=== PATIENT | female | born 1950 | race Caucasian/White ===

== ENCOUNTER → 2016-10-04 | Day surgery (SDC) | payer OTHER, MEDICARE ==
--- NOTE | 2016-09-20 10:59 | DIAGNOSTIC IMAGING REPORT ---
TWO VIEW CHEST CLINICAL HISTORY: Preoperative examination. FINDINGS: PA and lateral chest radiographs are obtained. No prior studies are available for comparison at the time of dictation. The examination is degraded by large body habitus. The cardiomediastinal silhouette is unremarkable. There is linear atelectasis at the left lung base. The lungs and pleural spaces are otherwise clear. There is no pneumothorax. The skeletal structures are osteopenic. Degenerative change and mild scoliosis are noted in the thoracic spine. IMPRESSION: No active disease in the chest. Electronically signed by: Marcos Avendano M.D. 09/20/2016 10:57 AM Dictated Date/Time: 09/20/2016 10:56 AM
[2016-09-20 11:30] LABS: HEMATOCRIT 40.5 % (37-47); MEAN CORPUSCULAR HEMOGLOBIN 29.5 pg (25-34); MEAN CORPUSCULAR HGB CONC 34.3 g/dl (32-36); MEAN PLATELET VOLUME 10.5 fL (7.4-10.4); PLATELET COUNT 351 K/uL (130-400); RED BLOOD COUNT 4.71 M/uL (4.2-5.4); WHITE BLOOD COUNT 10.94 K/uL (4.8-10.8)
[2016-09-20 11:39] LABS: PARTIAL THROMBOPLASTIN RATIO 1.1; PROTHROMBIN TIME (PATIENT) 10.7 SECONDS (9.0-12.0)
[2016-09-27 08:53] VITALS: Ht 154.9 cm; Wt 91.8 kg
[~2016-10-04] VITALS: Ht 154.9 cm; Wt 91.8 kg
[~2016-10-04] MED LIST: ASPCH81X PO; ATROPINE SULFATE 0.1 MG/ML 5ML SYR IV PRN; BUPIVACAINE 0.5 % 5 MG/1 ML MPF 30ML VIAL ONE; CLINDAMYCIN 600 MG/54 ML D5W IV SCH; CLINDAMYCIN PHOS 150 MG/ML 2 ML VIAL IV SCH; CLR10 PO; CRAN1CAP15 PO; DEXAMETHASONE SOD INJ 4 MG/ML VIAL ONE; EpHEDrine SULFATE INJ 50 MG/ML AMP IV PRN; FENTANYL CITRATE INJ 50 MCG/1 ML 2 ML VIAL IV PRN; FENTANYL CITRATE INJ 50 MCG/1 ML 2 ML VIAL ONE; HYDROCODONE/ACETAMOPHEN 5/325MG TAB PO PRN; LACTATED RINGER'S 1000ML 1,000 ML IV SCH; LEVO50TA6 PO; LIDOCAINE HCL 1% 20 ML VIAL ONE; LIDOCAINE HCL 2% 2 ML VIAL (20MG/ML) ONE; LISI-788 PO; MELO7.5T7 PO; METOCLOPRAMIDE HCL INJ 5 MG/ML 2 ML VIAL IV PRN; MIDAZOLAM HCL 1 MG/ML 2ML VIAL ONE; OMEG10007 PO; ONDANSETRON INJ 2 MG/ML 2 ML VIAL IV PRN; ONDANSETRON INJ 2 MG/ML 2 ML VIAL ONE; OXYCODONE/ACETAMINOPHEN 5-325 TAB PO PRN; PRLSR20 PO; PROPOFOL IV EMULSION 10 MG/ML 20 ML VIAL IV ONE; SERT-234 PO; SODIUM CHLORIDE 0.9% 1000ML 1,000 ML IV SCH
--- NOTE | 2016-10-04 08:18 | History & Physical Bridge - [place] ---
H&P Re-Evaluation Bridge Note: I have examined the patient, reviewed the History & Physical and in the interval since the performance of the History & Physical I have noted the following changes of clinical significance: No changes noted
--- NOTE | 2016-10-04 10:42 | Discharge Instructions-SurgCtr ---
Discharge Instructions Visit Reason for Visit: Hammertoe,Pain, Left Foot;Pre-Op Discharge Goals Goal(s): Decrease discomfort, Improve function Medications Stopped Medications Name(s): Meloxicam, Fish Oil and ASA last dose September 23 Activity Recommendations Activity Limitations: as noted below (non weightbearing left foot) Lifting Limitations: no more than 5 pounds Exercise/Sports Limitations: none May Resume Sexual Activity: after follow-up appointment Shower/Bathe: keep incision dry Driving or Machine Use: not until pin is removed Weightbearing Status: Left non-weightbearing Anesthesia . Post Anesthesia Instructions: If you have had General Anesthesia or IV Sedation: * Do not drive today. * Resume driving when surgeon permits. * Do not make important decisions or sign legal documents today. * Call surgeon for: 1. Temperature elevations greater than 101 degrees F. 2. Uncontrollable pain. 3. Excessive bleeding. 4. Persistent nausea and vomiting. 5. Medication intolerance (nausea, vomiting or rash). * For nausea and vomiting use only clear liquids such as: tea, soda, bouillon until nausea subsides, then gradually increase diet as tolerated. * If you have any concerns or questions, call your surgeon's office. If physician is unavailable and it is an emergency, call 911 or go to the nearest emergency room. . Diet Recommendations Home Diet: no limitations Procedures Procedures Performed: Left Foot Second Digit Surgical Correction Of Hammertoe Deformity, Second Left Metatarsal Shortening Osteotomy Pending Studies Studies pending at discharge: no Medical Emergencies . Who to Call and When: Medical Emergencies: If at any time you feel your situation is an emergency, please call 911 immediately. . Non-Emergent Contact Non-Emergency issues call your: Primary Care Provider Call Non-Emergent contact if: temperature is above 100.5 . . "Provider Documentation" section prepared by Lisa Wilburn.
--- NOTE | 2016-10-04 10:45 | [facility] Post Operative Brief Note ---
Immediate Operative Summary Operative Date Oct 04, 2016. Pre-Operative Diagnosis Left Foot 2nd Digit Hammertoe, Pain Post-Operative Diagnosis Same Procedure(s) Performed Left Foot Second Digit Surgical Correction Of Hammertoe Deformity, Second Left Metatarsal Shortening Osteotomy Surgeon Dr. Mcdaniels Knitting Machine Fixer Surgeon(s) None Estimated Blood Loss 1 ml Findings bone left foot Specimens A.) Left Foot Bone Drains none Anesthesia mac with local Complication(s) None Disposition Recovery Room / PACU
[2016-10-04 10:47] VITALS: TEMP 36.6
[2016-10-04 11:13] VITALS: BP 111/68; PULSE 77; O2SAT 97
--- NOTE | 2016-10-04 11:17 | Anesthesia Progress Nt - [facility] ---
Anesthesia Post Op Note Date & Time Oct 04, 2016 at 11:17 Vital Signs Pain Intensity: 0 Vital Signs Past 12 Hours Date Time Temp Pulse Resp B/P Pulse Ox O2 Delivery O2 Flow Rate FiO2 10/04/16 11:13 77 16 111/68 97 Room Air 10/04/16 10:47 36.6 71 16 116/64 94 Room Air 10/04/16 07:45 36.7 83 16 136/79 95 Room Air Notes Mental Status: alert / awake / arousable, participated in evaluation Pt Amnestic to Procedure: Yes Nausea / Vomiting: adequately controlled Pain: adequately controlled Airway Patency, RR, SpO2: stable & adequate BP & HR: stable & adequate Hydration State: stable & adequate Anesthetic Complications: no major complications apparent
--- NOTE | 2016-10-04 15:18 | DIAGNOSTIC IMAGING REPORT ---
INTRAOPERATIVE RADIOGRAPHS CLINICAL HISTORY: Surgical correction of the second toe. Fluoroscopy time: 10 seconds. FINDINGS: 4 spot fluoroscopic views of the left forefoot are presented. A cortical lag screw is present in the second metatarsal head. The final 2 images show a pin placed in the second toe transfixing the phalanges, and with the tip located medial to the head of the second metatarsal. IMPRESSION: Intraoperative images showing pin placement in the 2nd toe as above. See operative report for detailed findings. Electronically signed by: Marcos Avendano M.D. 10/04/2016 2:55 PM Dictated Date/Time: 10/04/2016 2:53 PM
--- NOTE | 2016-10-07 07:06 | OPERATIVE REPORT ---
DATE OF OPERATION: 10/04/2016 SURGEON: Lisa Wilburn DPM. PREOPERATIVE DIAGNOSIS: Painful left foot second digit hammertoe deformity and corresponding metatarsal pain. POSTOPERATIVE DIAGNOSIS: Same. PROCEDURES: Left second hammertoe proximal interphalangeal joint fusion, arthrodesis and left second metatarsal shortening osteotomy. BLOOD LOSS: 1 mL. HEMOSTASIS: Pneumatic ankle tourniquet at 250 mmHg. ANESTHESIA: Local IV sedation. DESCRIPTION OF THE PROCEDURE: The patient was brought in the operating room and placed in the supine position. The left lower extremity was prepped and draped in the usual sterile manner. A 1:1 mixture of 1% lidocaine plain and 0.5% Marcaine was utilized to anesthetize the left foot and the second metatarsophalangeal joint area and second metatarsal area. After this, anesthesia was induced. A timeout was taken and the procedure began. A dorsal linear incision was made over the left proximal interphalangeal joint, about 2-3 cm proximal to the second metatarsal head. Dissection was carried through the skin and subcutaneous tissue with attention first being directed to the second metatarsal. The second metatarsal head was dissected free of the tissue attachments with care to leave the plantar and collateral ligaments in place. At this point, a shortening osteotomy was performed and the portion of the head was directed to shorten the metatarsal and the angle and base of the metatarsal heads. A K-wire was applied across the osteotomy. Position was checked with intraoperative fluoroscopy and found to be appropriate with appropriate shortening of the joint and also the alignment of the joint noted with the shortening. The joint was noted to have a little bit of misalignment to it; however, MRI stated that there were no plantar plate tears. This was obtained prior to the surgery. The countersink was used over the area and drilled followed by the depth gauge and a 2.0 x 14 mm screw was measured out and applied across the K-wire. Position was checked with intraoperative fluoroscopy and found to be appropriate. At this point, the K-wire was removed. The fixation was stable and intact. A portion of the dorsal distal aspect overlying margin of the bone was removed and resected and the area was flushed with copious amounts of normal saline. Next, attention was directed to the proximal interphalangeal joint. The dorsal linear incision was made of the skin and carried through that. The long extensor tendon was transected in line with the joint and dissected proximally and distally to expose the proximal phalanx head and the middle phalanx base. The proximal phalanx head was resected from all soft tissue attachments. The head was resected utilizing the sagittal saw and passed off the table and sent to pathology for permanent specimen. The base of the middle phalanx cartilage was removed utilizing the óscar. Again, the area was flushed with copious amounts of normal saline. Next, the K-wire was driven distally and then proximally across the joint to just about to the second metatarsal head. Position checked with intraoperative fluoroscopy and found to be appropriate. The K-wire will stay in place for 4 weeks with percutaneous fixation. The patient will be nonweightbearing on the foot for this time. The K-wire was then cut to remain in place, the long extensor tendon was reattached utilizing 3-0 Vicryl. Subcutaneous tissues were closed over the metatarsal osteotomy and the hammertoe correction with 3-0 Vicryl. The skin was closed utilizing 3-0 nylon in a combination of simple and horizontal mattress sutures. At this point, compressive and corrective dressings were applied to the left foot. The tourniquet was deflated and the patient had good hemodynamic response to the left foot. She was taken to recovery room with all vital signs stable and intact. She will follow up in the office in 1 week. She was made aware of all risks and benefits of the procedure and did sign consent. She had tried injections and different types of pads and wider shoes which did not help improve her pain and that is why the MRI is obtained to check the plantar plate tear which is not present and that is why the hammertoe which is painful and the metatarsal which is painful were corrected for the patient. Again, she will follow up with me in the office in 1 week. I attest to the content of the Intraoperative Record and any orders documented therein. Any exceptions are noted below. IRAM
== END | disposition home or self-care (01) ==
LOC: X.SURG 07:31
PROVIDERS: ATTEND Podiatrist
DX: M20.42 Other hammer toe(s) (acquired), left foot (principal); M79.675 Pain in left toe(s); Z96.659 Presence of unspecified artificial knee joint; E03.9 Hypothyroidism, unspecified; I10 Essential (primary) hypertension; Z87.891 Personal history of nicotine dependence; E66.8 Other obesity; Z68.32 Body mass index [BMI] 32.0-32.9, adult; Z88.0 Allergy status to penicillin; K21.9 Gastro-esophageal reflux disease without esophagitis

== ENCOUNTER → 2017-02-05 | Outpatient (CLI) | payer OTHER, MEDICARE ==
[~2017-02-05] MED LIST changes: -ATROPINE SULFATE 0.1 MG/ML 5ML SYR IV PRN; -BUPIVACAINE 0.5 % 5 MG/1 ML MPF 30ML VIAL ONE; -CLINDAMYCIN 600 MG/54 ML D5W IV SCH; -CLINDAMYCIN PHOS 150 MG/ML 2 ML VIAL IV SCH; -DEXAMETHASONE SOD INJ 4 MG/ML VIAL ONE; -EpHEDrine SULFATE INJ 50 MG/ML AMP IV PRN; -FENTANYL CITRATE INJ 50 MCG/1 ML 2 ML VIAL IV PRN; -FENTANYL CITRATE INJ 50 MCG/1 ML 2 ML VIAL ONE; -HYDROCODONE/ACETAMOPHEN 5/325MG TAB PO PRN; -LACTATED RINGER'S 1000ML 1,000 ML IV SCH; -LIDOCAINE HCL 1% 20 ML VIAL ONE; -LIDOCAINE HCL 2% 2 ML VIAL (20MG/ML) ONE; -METOCLOPRAMIDE HCL INJ 5 MG/ML 2 ML VIAL IV PRN; -MIDAZOLAM HCL 1 MG/ML 2ML VIAL ONE; -ONDANSETRON INJ 2 MG/ML 2 ML VIAL IV PRN; -ONDANSETRON INJ 2 MG/ML 2 ML VIAL ONE; -OXYCODONE/ACETAMINOPHEN 5-325 TAB PO PRN; -PROPOFOL IV EMULSION 10 MG/ML 20 ML VIAL IV ONE; -SODIUM CHLORIDE 0.9% 1000ML 1,000 ML IV SCH
--- NOTE | 2017-02-05 12:59 | MAMMOGRAPHY REPORT ---
BILATERAL DIGITAL SCREENING MAMMOGRAM WITH CAD: 02/05/2017 CLINICAL HISTORY: Routine screening. Patient has no complaints. TECHNIQUE: Current study was also evaluated with a Computer Aided Detection (CAD) system. Bilatera l CC and MLO views were obtained. COMPARISON: Comparison is made to exams dated: 02/02/2016 mammogram, 11/25/2014 mammogram, 09/30/2013 mammogram, 09/23/2012 mammogram, 09/13/2011 mammogram, and 09/12/2010 mammogram - [facility] [place]. BREAST COMPOSITION: The tissue of both breasts is almost entirely fatty. FINDINGS: No suspicious masses, calcifications, or areas of architectural distortion are noted in e ither breast. There has been no significant interval change compared to prior exams. There are stab le post surgical changes from bilateral reduction mammoplasty. Scattered bilateral benign-appearing calcifications are not significantly changed. IMPRESSION: ACR BI-RADS CATEGORY 2: BENIGN There is no mammographic evidence of malignancy. A 1 year screening mammogram is recommended. The p atient will receive written notification of the results. Approximately 10% of breast cancers are not detected with mammography. A negative mammographic repor t should not delay biopsy if a clinically suggestive mass is present. Lani Storey M.D. ah/:02/05/2017 09:42:22 Rn Labor And Delivery: Dianna JACKSON(Bobbi)(M), [facility] letter sent: Normal 1/2 BI-RADS Code: ACR BI-RADS Category 2: Benign
== END | disposition home or self-care (01) ==
LOC: C.MAMM 08:46
PROVIDERS: ATTEND Physician Assistant
DX: Z12.31 Encounter for screening mammogram for malignant neoplasm of breast (principal)

== ENCOUNTER 2018-01-14 06:04 | Observation (INO) | payer OTHER, MEDICARE ==
[2018-01-08 08:32] VITALS: BMI 33.0
[~2018-01-14] VITALS: Ht 154.9 cm; Wt 82.3 kg
[~2018-01-14 06:04] MED LIST changes: -CRAN1CAP15 PO; +CRANPOW PO; +ERGO500037 PO; +LACTATED RINGER'S 1000ML 1,000 ML IV SCH; +METO25TA3 PO; -OMEG10007 PO
[2018-01-14 06:32] VITALS: BP 124/76; PULSE 77; TEMP 36.6; O2SAT 96; BMI 33.0
[2018-01-14] MEDS ORDERED: FENTANYL CITRATE INJ 50 MCG/1 ML 2 ML VIAL ONE (07:52)
[2018-01-14] MEDS ORDERED: MIDAZOLAM HCL 1 MG/ML 2ML VIAL ONE (07:52)
[2018-01-14] MEDS ORDERED: PROPOFOL IV EMULSION 10 MG/ML 100 ML VIAL ONE (07:57)
[2018-01-14] MEDS ORDERED: ACETAMINOPHEN 325 MG TAB PO PRN (10:00)
--- NOTE | 2018-01-14 10:05 | [facility] Post Operative Brief Note ---
Immediate Operative Summary Operative Date January 14, 2018. Pre-Operative Diagnosis svt Post-Operative Diagnosis avnrt Procedure(s) Performed eps, 3d mapping of his bundle and C/s Os, slow pathway modification Surgeon reno charles Boiler Engineer Surgeon(s) none Estimated Blood Loss <5cc Findings See Below see official report Fluids (cc crystalloids) 600cc Specimens none Drains None Anesthesia Type MAC Complication(s) none Disposition Accompanied Pt To Recover: yes Disposition: PCU
--- NOTE | 2018-01-14 10:06 | Discharge Instructions ---
Discharge Instructions Date of Service January 14, 2018. Admission Reason for Admission: Svt W/Possible Ablation & 3D Maping Discharge Discharge Diagnosis / Problem: avnrt Discharge Goals Goal(s): Improve function Activity Recommendations Activity Limitations: as noted below (no heavy lifting or squatting for 1 week) Shower/Bathe: tomorrow Driving or Machine Use: resume 1 day after discharge . Instructions / Follow-Up Instructions / Follow-Up ACTIVITY RECOMMENDATIONS: It is common to feel weak and fatigue for a few days. * Do not drive or operate any motorized equipment for the next 1 day. * Limit stair usage (2 or 3 trips a day only) for the next 1 day. * Do not lift anything heavier than 10 pounds for the next 7 days. * Do not engage in vigorous exercise or any sports for the next 7 days. * You may shower the day after your procedure, but do not immerse the area for three days. Cleanse the site gently with soap and water. SPECIAL CARE INSTRUCTIONS: * You may replace the pressure dressing or band-aid the morning after the procedure. * After your procedure, it is normal to have a small bruise or small lump at the site. Examine your site daily for any change in the bruise or lump, redness, swelling, drainage or numbness. Notify your doctor if any change. BLEEDING: * If there is a small amount of bleeding at the site, lie down and apply firm pressure with a clean cloth for ten minutes. When the bleeding stops, lie quietly keeping the procedure limb straight for six hours. Notify your doctor as soon as possible. * If the bleeding does not stop after ten minutes or if there is a large amount of bleeding or spurting, call 911 immediately. Continue to lie down and hold firm pressure until help arrives. SKIN IRRITATION: * You may experience some redness and/or swelling in the area where radiation was administered. If any skin irritation occurs, please contact your family physician. FOLLOW UP VISIT: Keep any scheduled doctor appointments. Current Hospital Diet Patient's current hospital diet: AHA Diet (Heart Healthy) Discharge Diet Recommended Diet: AHA Diet (Heart Healthy) Procedures Procedures Performed: eps, 3d mapping of his bundle and C/s Os, slow pathway modification Pending Studies Studies pending at discharge: no Medical Emergencies . Who to Call and When: Medical Emergencies: If at any time you feel your situation is an emergency, please call 911 immediately. . Non-Emergent Contact Non-Emergency issues call your: [facility] . . "Provider Documentation" section prepared by Stella Meeks. .
--- NOTE | 2018-01-14 10:10 | Discharge Summary ---
Discharge Summary Date of Service January 14, 2018. Discharge Summary Admission Date: 01/14/2018 Discharge Date: January 15, 2018 Discharge Disposition: Home Principal Diagnosis: avnrt s/p slow pathway modification Secondary Diagnoses/Problems: htn, hypothyroidism, obesity, diverticulosis, anxiety, gerd snoring probable ZACARIAS Procedures: eps, 3d mapping of his bundle and C/S Os, slow pathway modification Medication Reconciliation Continued Medications: Aspirin (Aspirin Chewable) 81 Mg Chew 81 MG PO QAM WILL CHECK WITH SURGEON FOR INSTRUCTIONS Ergocalciferol (Vitamin D 32533 Unit) 50,000 Unit Cap 71335 UNIT PO MONTHLY, CAP SUNDAYS Levothyroxine Sodium (Levothyroxine Sodium) 50 Mcg Tab 1 TAB PO QAM for 90 Days, #90 TAB 3 Refills Lisinopril/Hctz (Zestoretic 20MG/25MG) Tab 1 TAB PO QAM PT WILL FOLLOW INSTRUCTIONS FROM SURGEON Loratadine (Claritin) 10 Mg Tab 10 MG PO QAM, TAB Meloxicam (Mobic) 7.5 Mg Tab 7.5 MG PO BID, TAB Omeprazole (Prilosec) 20 Mg Capcr 20 MG PO BID Sertraline (Zoloft) 100 Mg Tab 1.5 TAB PO QAM, TAB [Cranberry] () 1 TAB PO QAM Discontinued Medications: Metoprolol Succ (Toprol Xl) (Toprol-Xl) 25 Mg Tabcr 25 MG PO QAM, #30 TAB PT WILL FOLLOW INSTRUCTIONS FROM SURGEON Admission Information Physical Exam (per Admitting): aaox3, NAD Supple No JVD Nrl S1/S2, No murmur CTA b/l No w/r/r Soft NT/ND no edema b/l LE no focal deficits skin intact Hospital Course Pt admitted for elective EPS and possible ablation due to SVT. 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 She had a successful slow pathway modification. Monitored overnight. Her toprol was stopped. She was discharged home in stable state. Total time spent on discharge = > 30 minutes This includes examination of the patient, discharge planning, medication reconciliation, and communication with other providers. Discharge Instructions ACTIVITY RECOMMENDATIONS: It is common to feel weak and fatigue for a few days. * Do not drive or operate any motorized equipment for the next 1 day. * Limit stair usage (2 or 3 trips a day only) for the next 1 day. * Do not lift anything heavier than 10 pounds for the next 7 days. * Do not engage in vigorous exercise or any sports for the next 7 days. * You may shower the day after your procedure, but do not immerse the area for three days. Cleanse the site gently with soap and water. SPECIAL CARE INSTRUCTIONS: * You may replace the pressure dressing or band-aid the morning after the procedure. * After your procedure, it is normal to have a small bruise or small lump at the site. Examine your site daily for any change in the bruise or lump, redness, swelling, drainage or numbness. Notify your doctor if any change. BLEEDING: * If there is a small amount of bleeding at the site, lie down and apply firm pressure with a clean cloth for ten minutes. When the bleeding stops, lie quietly keeping the procedure limb straight for six hours. Notify your doctor as soon as possible. * If the bleeding does not stop after ten minutes or if there is a large amount of bleeding or spurting, call 911 immediately. Continue to lie down and hold firm pressure until help arrives. SKIN IRRITATION: * You may experience some redness and/or swelling in the area where radiation was administered. If any skin irritation occurs, please contact your family physician. FOLLOW UP VISIT: Keep any scheduled doctor appointments.
--- NOTE | 2018-01-14 10:25 | Anesthesiology Progress Note ---
Anesthesia Post Op Note Date & Time January 14, 2018 at 10:25 Vital Signs Pain Intensity: 0 Vital Signs Past 12 Hours Date Time Temp Pulse Resp B/P (MAP) Pulse Ox O2 Delivery O2 Flow Rate FiO2 01/14/18 10:23 82 14 133/64 (87) 95 Room Air 01/14/18 10:13 86 12 122/64 (83) 92 Room Air 01/14/18 10:03 75 12 103/69 (80) 97 Mask 10 01/14/18 06:32 36.6 77 18 124/76 (92) 96 Room Air Notes Mental Status: alert / awake / arousable, participated in evaluation Pt Amnestic to Procedure: Yes Nausea / Vomiting: adequately controlled Pain: adequately controlled Airway Patency, RR, SpO2: stable & adequate BP & HR: stable & adequate Hydration State: stable & adequate Anesthetic Complications: no major complications apparent The patient did well. She is awake and her vitals are stable.
[2018-01-14 10:36] VITALS: BP 144/80; PULSE 70; TEMP 36.7; O2SAT 94; Ht 154.9 cm; Wt 82.3 kg
[2018-01-14 12:15] VITALS: BP 123/88; PULSE 71; O2SAT 94
--- NOTE | 2018-01-14 13:17 | OPERATIVE REPORT ---
DATE OF OPERATION: 01/14/2018 PREOPERATIVE DIAGNOSIS: Paroxysmal supraventricular tachycardia. POSTOPERATIVE DIAGNOSIS: Atrioventricular perla reentrant tachycardia, typical. PROCEDURE: Electrophysiology study, 3D mapping of the His bundle region and coronary sinus, and a radiofrequency slow pathway modification. SURGEON: Stella Meeks DO. MECHANICAL ENGINEERING TECHNOLOGIST: None. ANESTHESIA: Monitored anesthetic care administered via anesthesiology. Please defer to their notes for complete details. INTRAVENOUS FLUIDS: 600 mL. ESTIMATED BLOOD LOSS: Less than 5 mL. COMPLICATIONS: None. CONDITION: Stable. URINE OUTPUT: None. SPECIMENS: None. FINDINGS: See below. DRAINS: None. INDICATIONS: This is a 67-year-old female with a past medical history for SVT. She was undergoing a stress test when she went into SVT in our office and then wore radiation monitor where she continued to have recurrent SVT, so she was recommended electrophysiology study with possible radiofrequency ablation. Her other past medical history is hypertension, hypothyroidism, obesity, diverticulosis, anxiety, GERD, and snoring. Signed consent was obtained prior to the patient going to electrophysiology lab. The patient was explained risks, benefits, alternatives to the procedure which include but are not limited to sudden cardiac , cardiac injury, vascular accident, myocardial infarction, injury to the blood vessels, chamber of the heart, or the havasupai electrical system where she would need a permanent pacemaker, bleeding, infection. The patient understood these risks and agreed to go ahead with the procedure as planned. Informed consent was obtained. DESCRIPTION OF THE PROCEDURE: The patient was brought into electrophysiology lab in a fasting state. She was connected to continuous cardiac monitoring. A timeout was performed to ensure patient identity and procedure correctly. The patient was prepped and draped over the bilateral groins in normal surgical standard fashion. Monitored conscious sedation was given throughout the procedure via anesthesiology, please defer to their notes for complete details. Turner precautions were maintained throughout the procedure. Using the modified Seldinger technique, 10 mL of 1% lidocaine was given in the bilateral groins for local sedation by local meat carrier, and then using the modified Seldinger technique, venous access was obtained in the following manner: 1. The left femoral vein had a 7-Zambian sheath followed by a hisser quadripolar catheter positioned over the His bundle region. 2. A 6-Zambian sheath followed by Zhang Decapolar catheter positioned out in the right ventricular apex. 3. A 7-Zambian sheath followed by a Decapolar Biosense coronary sinus DF curved catheter positioned out in the coronary sinus. 4. The right femoral groin initially had a 6-Zambian sheath followed by a right atrial Zhang quadripolar catheter positioned in the high right atrium. Ultimately that was switched out for an SR0 and the ablation catheter, which was a Biosense 4 mm DF curved ablation catheter. Once the catheters were all positioned, the electrophysiology study was performed. Of note, while I was getting access, the patient went into her SVT, heart rates in the 140s-150s. While I was positioning the catheter, she also went into the tachycardia. All the time, she would break on her own. Electrophysiology Studies Pre-ablation: 1. HI interval 168 msec, QRS 94 msec, QT 290 msec, sinus cycle length 688 msec, AH 106 msec, HV 64 msec. 2. With atrial burst pacing to try to find Wenckebach, she continued to go into the SVT. Atrial burst pacing at 400 or 380 msec, tachycardia cycle length was 398 msec. The VA time from right ventricular apex to the high right atrium was 18 msec. 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 3. I was able to give atrial extrastimuli and deduced that the fast pathway ERP was 600/380, but then, at 600/370, I got AVNRT again, so I was not able to do anymore further study from the atrium pre-ablation. Pre-ablation right ventricular ERP was 600/230 and 400/240. We then set up to do typical AVNRT slow pathway modification. I swapped out the 6-Zambian sheath through the right femoral vein for an SRO sheath followed then by the ablation DF curve 4 mm. We did 3D mapping of the His bundle region, which was pretty large as well as the 3D maps where the coronary sinus was. There was a little let between the coronary sinus os and the right atrium. We then positioned the catheter on the low right atrial septum and gave a series of radiofrequency aponte, most for about 20-30 seconds in duration at 30 W, 55 degrees temperature. One or two were at 60 seconds 1 minute in duration. We had a few aponte that had good junctional rhythm. After a series of aponte, we then set up to do a post electrophysiology ablation. I took the ablation catheter out, and I positioned the quadripolar Zhang catheter back in the high right atrium through the SRO sheath. Post ablation electrophysiology study findings are as follows: HI interval 208 msec, QRS 92 msec, QT 372 msec. Sinus cycle length 762 msec, AH 134 msec, HV 68 msec, AV Wenckebach was 480 msec. The fast pathway ERP was 700/420, and there was 1 echo. AV node ERP was 700/400 and 500/440. The atrial ERP was 700/280 and 500/250. Of note, there were some blocked apices. The right ventricular ERP was 600/260 and 400/230. I gave up to triple atrial extrastimuli without any inducible AVNRT. IMPRESSION: 1. 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 2. Dual atrioventricular perla pathway physiology. PLAN: Monitor patient overnight, 12-lead ECG. She is to continue her home medications, we will stop her metoprolol. She should follow up in my [facility] office in 1 month, and she is not to do any heavy lifting or squatting for 1 week. I attest to the content of the Intraoperative Record and any orders documented therein. Any exception s are noted below.
[2018-01-14 16:55] VITALS: BP 121/81; PULSE 77; TEMP 36.7; O2SAT 94
[2018-01-14 19:11] VITALS: BP 115/74; PULSE 74; TEMP 36.7; O2SAT 94
[2018-01-14] MEDS ORDERED: IV FLUIDS COMPLETED PRN (19:15)
[2018-01-14] MEDS: MELOXICAM 7.5 MG TAB PO SCH (19:58)
[2018-01-14] MEDS: PANTOprazole SOD 40 MG TAB PO SCH (19:58)
[2018-01-14 23:05] VITALS: BP 122/81; PULSE 69; TEMP 36.8; O2SAT 94
[2018-01-15 03:25] VITALS: BP 116/74; PULSE 71; TEMP 36.6; O2SAT 94
[2018-01-15] MEDS ORDERED: LEVOTHYROXINE 50 MCG TAB PO SCH (06:00)
[2018-01-15 07:06] VITALS: BP_SYST 122; BP_SYST 130; BP_DIAS 68; BP_DIAS 80; PULSE 104; PULSE 63; TEMP 36.7; O2SAT 94; O2SAT 98
--- NOTE | 2018-01-15 07:58 | Cardiology Follow-Up ---
Subjective Subjective Date of Service: January 15, 2018. Pt evaluation today including: conversation w/ patient, physical exam, lab review, review of studies Pain: none Review of Systems Constitutional: No weakness, No fatigue Respiratory: No shortness of breath, No dyspnea on exertion Cardiac: No chest pain, No edema, No palpitations Abdomen: No nausea, No diarrhea Neurologic: No weakness Endo: No fatigue Objective Vital Signs Last Vital Signs Documentation Date Time Temp Pulse Resp B/P (MAP) Pulse Ox O2 Delivery O2 Flow Rate FiO2 01/15/18 07:06 36.7 63 18 130/80 (97) 98 Room Air 01/14/18 10:03 10 Physical Exam: General Appearance: WD/WN, no apparent distress Eyes: bilateral eyes PERRL, bilateral eyes EOMI Neck: supple, no JVD Respiratory/Chest: lungs clear, normal breath sounds Cardiovascular: regular rate, rhythm, no murmur Extremities: non-tender Neurologic/Psychiatric: alert, oriented x 3 Skin: warm/dry (b/l groins soft and non tender, no hematoma), no rash Assessment and Plan Impression: 1. AVNRT s/p slow pathway modification 2. HTN 3. Hypothyroidism 4. Obesity 5. Diverticulosis 6. Anxiety 7. Gerd 8. Snoring probable ZACARIAS Plan: -Ok for discharge home today -continue home medications-stop metoprolol -No heavy lifting for 1 week -F/u with me in 1 month Discharge planning: home Medications: Medications Administered Medications (Trade) Dose Ordered Sig/Mango Route Start Time Stop Time Status Last Admin Dose Admin Lactated Ringer's 1,000 ml @ 15 mls/hr Q24H IV 01/14/18 06:00 01/15/18 05:59 DC 01/14/18 06:56 15 MLS/HR Levothyroxine Sodium (Synthroid Tab) 50 mcg DAILYBB PO 01/15/18 06:00 02/14/18 05:59 01/15/18 05:45 50 MCG Meloxicam (Mobic Tab) 7.5 mg BID PO 01/14/18 21:00 02/13/18 20:59 01/14/18 19:58 7.5 MG Pantoprazole Sodium (Protonix Tab) 40 mg BID PO 01/14/18 21:00 02/13/18 20:59 01/14/18 19:58 40 MG Lab Results: Telemetry SR ECG from yesterday not available for review Last 24 Hours Test 01/15/18 05:55
[2018-01-15] MEDS: MELOXICAM 7.5 MG TAB PO SCH (08:48)
[2018-01-15] MEDS: PANTOprazole SOD 40 MG TAB PO SCH (08:48)
[2018-01-15] MEDS ORDERED: ASPIRIN 81 MG ECTAB PO SCH (09:00)
[2018-01-15] MEDS ORDERED: LORATADINE 10 MG TAB PO SCH (09:00)
[2018-01-15] MEDS ORDERED: SERTRALINE HCL 100 MG TAB PO SCH (09:00)
[2018-01-15] MEDS ORDERED: LISINOPRIL/HCTZ 20/25MG TAB PO SCH (09:00)
[2018-01-15] MEDS ORDERED: CRANBERRY PO SCH (09:00)
[2018-01-15 09:56] VITALS: BP 130/80; PULSE 63; TEMP 36.7; O2SAT 98
== END 2018-01-15 09:55 | disposition home or self-care (01) ==
LOC: C.ACU 06:04 → ENRESERV 10:08 → C.2T 10:44
PROVIDERS: ADMIT Internal Medicine; ATTEND Internal Medicine
DX: I47.1 Supraventricular tachycardia (principal); I10 Essential (primary) hypertension; E03.9 Hypothyroidism, unspecified; E66.9 Obesity, unspecified; K57.30 Diverticulosis of large intestine without perforation or abscess without bleeding; F41.9 Anxiety disorder, unspecified; K21.9 Gastro-esophageal reflux disease without esophagitis; G47.33 Obstructive sleep apnea (adult) (pediatric); Z88.0 Allergy status to penicillin; Z79.82 Long term (current) use of aspirin; Z79.899 Other long term (current) drug therapy; F17.200 Nicotine dependence, unspecified, uncomplicated; Z96.651 Presence of right artificial knee joint

== ENCOUNTER 2019-09-17 13:12 | Inpatient (IN) ==
[2019-09-17] MEDS ORDERED: ASPIRIN CHEW 324 MG PO STA (14:12)
[2019-09-17] MEDS ORDERED: GI COCKTAIL ED USE PO ONE (14:13)
[2019-09-17 14:48] LABS: Basophils # (auto) 0.04 K/uL (0-0.2); Basophils % (auto) 0.4 %; Eosinophils # (auto) 0.14 K/uL (0-0.5); Eosinophils % (auto) 1.5 %; Hematocrit (blood only) 43.6 % (37-47); Hemoglobin 14.8 g/dL (12.0-16.0); Immature Granulocytes # (auto) 0.04 K/uL (0.00-0.02); Immature Granulocytes % (auto) 0.4 %; Lymphocytes # (auto) 2.49 K/uL (1.2-3.4); Lymphocytes % (auto) 25.8 %; Mean Corpuscular Hemoglobin 29.2 pg (25-34); Mean Corpuscular Hgb Conc 33.9 g/dL (32-36); Mean Platelet Volume 10.9 fL (7.4-10.4); Monocytes # (auto) 0.83 K/uL (0.11-0.59); Monocytes % (auto) 8.6 %; Neutrophils # (auto) 6.11 K/uL (1.4-6.5); Neutrophils % (auto) 63.3 %; Platelet Count 231 K/uL (130-400); RDW Coefficient of Variation 14.3 % (11.5-14.5); RDW Standard Deviation 44.2 fL (36.4-46.3); Red Blood Count 5.07 M/uL (4.2-5.4); White Blood Count 9.65 K/uL (4.8-10.8)
[2019-09-17 15:01] LABS: INR 3.2 (0.9-1.1); Partial Thromboplastin Ratio 1.4; Partial Thromboplastin Time 36.8 Seconds (21.0-31.0); Prothrombin Time 29.9 Seconds (9.0-12.0)
[2019-09-17 15:09] LABS: BUN Creatinine Ratio 20.5 (10-20); Bilirubin Direct 0.3 mg/dl (0-0.2); Calcium 8.9 mg/dl (8.5-10.1); Creatinine Clr Calc Pharmacy 73.4 ml/min; Est GFR (African American) 100.7; Est GFR (Non-African American) 86.9; Potassium 3.2 mmol/L (3.5-5.1)
[2019-09-17 15:16] LABS: Bilirubin,Total 0.9 mg/dl (0.2-1); Total Protein 7.4 gm/dl (6.4-8.2); Troponin I 0.143 ng/ml (0-0.045)
[2019-09-17] MEDS ORDERED: POTASSIUM CHLORIDE 10 MEQ TABCR PO STA (15:27)
--- NOTE | 2019-09-17 15:45 | History & Physical Report ---
Date of Service September 17, 2019 Assessment & Plan (1) RASHID (dyspnea on exertion): Dyspnea on Exertion Volume overload Likely acute CHF exacerbation Hypoxia CXR: Infiltrate combined with a small right effusion right lung base. Minimal infiltrate left base which may reflect a component of cardiac decompensation. Nonobstructive bowel pattern. Gained about 3 kg on review of old records Noted to be hypoxic while in ED Last EF: 63% Hold PO diuretics Will give IV Lasix 40mg today Update ECHO Daily weight, I/Os, fluid restriction Oxygen support PRN Monitor renal function/electrolytes Cardiology consulted Further diuretics based on volume status Elevated Troponin R/O CAD/NSTEMI Denies chest Pain Last Stress Test on 08/06/19: Non Ischemic Risk factors: H/O HTN, Former Tobacco use disorder Initial troponin:0.143 Trend serial cardiac enzymes, repeat EKG, fasting lipid panel in AM Start Aspirin Continue Metoprolol, lisinopril Oxygen PRN NPO after midnight Cardiology consult INR is therapeutic at 3.2 Hypokalemia Received on potassium supplements while in ED Check magnesium levels Replete electrolytes as needed Prolonged QTC: Avoid QTC prolonging meds as able Monitor QTC with daily EKG Epigastric Abdominal Pain/Heaviness Likely due to GERD Was prescribed PPI twice daily but has been taking only once a day --Gall Bladder USD: Diffuse gallbladder wall thickening most pronounced along the hepatic surface. There are no gallstones and a negative sonographic Shah sign. Therefore, this is likely due to the patient's diffuse edematous state or possibly underlying hepatic pathology rather than acute cholecystitis. Mildly distended common bile duct measuring up to 9 mm. --Normal Lipase --LFTs fairly wnl --Continue PPI BID --Advised to limit carbonated drinks --Consider CT abdomen if no improvement Anxiety disorder on Zoloft Hypothyroidism Continue levothyroxine Paroxysmal atrial fibrillation H/O SVT S/P AVNRT ablation in 2018 Currently in A. fib--rate controlled Continue metoprolol Monitor INR: 3.2 Hold Coumadin for now until ACS ruled out DVT Px: SCDs for now Code Status Full Code Disposition Expected discharge home when medically stable History of Present Illness Primary Care Provider: Rosa Everett PA-C Patient is a 69-year-old female with history of GERD, anxiety disorder, hypothyroidism, Chronic sinusitis, hypertension, paroxysmal atrial fibrillation, diverticulosis, former tobacco use disorder, H/O SVT S/P AVNRT ablation in 2018 and other problems presents with history of dyspnea on exertion since 2 to 3 weeks duration which has been gradually worsening since last 2 days. Reports palpitations intermittently. She feels her chest is congested and has been having dry cough since about 1 month duration. She also states having epigastric heaviness which is nonradiating since last 2 days associated with lot of burping. She admits to drinking 4 cans of Diet Coke on daily basis. She denies any aggravating factors. She is on omeprazole for GERD which temporarily helps. She received GI cocktail in ED which minimized her epigastric heaviness. Her appetite has been poor lately. She was recently diagnosed to have atrial fibrillation. Her last stress test is in July 2019 which is negative. Denies any history of chest pain, orthopnea, PND, dizziness, pedal edema, diaphoresis, fever, chills, headache, weakness, numbness, change in vision, nausea, vomiting, diarrhea, dysuria, hematuria, recent travel, sick contact, recent change in medications. Allergies Allergy/AdvReac Type Severity Reaction Status Date / Time Penicillins AdvReac Unknown YEAST Verified 09/17/19 14:36 INFECTION Home Medications Home Medications Medication Instructions Recorded Confirmed Type cetirizine [Zyrtec] 10 mg PO DAILY 09/17/19 09/17/19 History cranberry conc-ascorbic acid 1 cap PO DAILY 09/17/19 09/17/19 History levothyroxine 50 mcg PO DAILY 09/17/19 09/17/19 History lisinopril-hydrochlorothiazide 1 tab PO DAILY 09/17/19 09/17/19 History meloxicam [Mobic] 7.5 mg PO BID PRN 09/17/19 09/17/19 History metoprolol tartrate 25 mg PO BID 09/17/19 09/17/19 History omeprazole 20 mg PO DAILY 09/17/19 09/17/19 History sertraline [Zoloft] 100 mg PO DAILY 09/17/19 09/17/19 History warfarin [Jantoven] 5 mg PO 4XWK 09/17/19 09/17/19 History warfarin [Jantoven] 7.5 mg PO 3XWK 09/17/19 09/17/19 History Past Med/Surg History Medical History Afib AVNRT (AV perla re-entry tachycardia) Surgical History History of back surgery History of knee replacement Family History Mother COPD (chronic obstructive pulmonary disease) Sister Cancer Social History Preferred Language: Thai Communication Ability: Effective Junior Net Developer Required: No Beliefs That Will Affect Care: None Current Living Situation: Spouse Other Information That Helps Us Care for You: No Feels Safe at Home: Yes Safety Concerns: Feels Safe At This Time Smoking Status: Former smoker Do You Dip or Chew Tobacco: No ; Second Hand Exposure: No ; Tobacco Cessation Education Requested by Patient: No Hx Alcohol Use: No Hx Substance Use: No Review of Systems Review of Systems: All systems reviewed & are unremarkable except as noted in HPI & below Physical Exam Physical Exam: Physical Exam: Vitals signs as noted above General Appearance:Moderately built and nourished, no apparent distress Head: normocephalic, Atraumatic Eyes: normal inspection, EOMI Neck: supple, Trachea midline Respiratory/Chest: Normal breath sounds, B/L basal crackles, No accessory muscle use Cardiovascular: Irregularly irregular, No murmur Abdomen/GI:Soft, Epigastric tender, Bowel sounds present Extremities/Musculoskelatal:normal inspection, no edema Neurologic/Psych:AAOX3, grossly no focal neurological deficits Skin: normal color, warm Results & Data Vital Signs (Past 12 Hours) Vital Signs Temp Pulse Pulse Resp BP BP Pulse Ox 09/17/19 15:14 78 78 24 151/99 H 92 09/17/19 13:32 36.6 C 86 18 141/99 H 92 Laboratory Results Short CBC 09/17/19 Range/Units 14:34 WBC 9.65 (4.8-10.8) K/uL Hgb 14.8 (12.0-16.0) g/dL Hct 43.6 (37-47) % Plt Count 231 (130-400) K/uL BMP 09/17/19 14:34 Sodium 133 L Potassium 3.2 L Chloride 99 Carbon Dioxide 27 BUN 15 Creatinine 0.71 Glucose 108 H Calcium 8.9 Cardiac Enzymes 09/17/19 Range/Units 14:34 Troponin I 0.143 H* (0-0.045) ng/ml Liver Function 09/17/19 Range/Units 14:34 Total Bilirubin 0.9 (0.2-1) mg/dl Direct Bilirubin 0.3 H (0-0.2) mg/dl AST 22 (15-37) U/L ALT 18 (12-78) U/L Alkaline Phosphatase 87 (45-117) U/L Albumin 3.0 L (3.4-5.0) gm/dl Diagnostic Findings Chest/Abd X ray: 1. Infiltrate combined with a small right effusion right lung base. 2. Minimal infiltrate left base which may reflect a component of cardiac decompensation. 3. Nonobstructive bowel pattern. Gall Bladder USD: 1. Diffuse gallbladder wall thickening most pronounced along the hepatic surface. There are no gallstones and a negative sonographic Shah sign. Therefore, this is likely due to the patient's diffuse edematous state or possibly underlying hepatic pathology rather than acute cholecystitis. 2. Mildly distended common bile duct measuring up to 9 mm. ECG Additional Comments: EKG: Atrial fibrillation, left axis deviation, nonspecific ST-T wave changes, QTC 500
--- NOTE | 2019-09-17 16:03 | XRay Report ---
XR abdomen 2V w PA chest CLINICAL HISTORY: epigastric pain pain COMPARISON STUDY: No previous studies for comparison. FINDINGS: Moderate cardiomegaly. Infiltrate combined with small effusion right lung base. Prominent p ulmonary vasculature. Nonobstructive bowel pattern. Postoperative changes lumbosacral spine. IMPRESSION: 1. Infiltrate combined with a small right effusion right lung base. 2. Minimal infiltrate left base which may reflect a component of cardiac decompensation. 3. Nonobstructive bowel pattern. ACT 112: Negative or not required by law. The above report was generated using voice recognition software. It may contain grammatical, syntax or spelling errors. Electronically signed by: Guillermo Puentes M.D. 09/17/2019 4:02 PM
--- NOTE | 2019-09-17 17:05 | Ultrasound Report ---
ABDOMINAL ULTRASOUND, RIGHT UPPER QUADRANT HISTORY: Right upper quadrant pain.. COMPARISON: Chest 09/17/2019. FINDINGS: Pancreas: The pancreas demonstrates a normal echotexture. Liver: Unremarkable. Gallbladder: Diffuse gallbladder wall thickening most pronounced along the hepatic surface measuring up to 5 mm. No stones. The technologist reported a negative sonographic Shah sign. CBD: Measures between 2 and 9 mm. Right kidney: No hydronephrosis. IMPRESSION: 1. Diffuse gallbladder wall thickening most pronounced along the hepatic surface. There are no gallst ones and a negative sonographic Shah sign. Therefore, this is likely due to the patient's diffuse e dematous state or possibly underlying hepatic pathology rather than acute cholecystitis. 2. Mildly distended common bile duct measuring up to 9 mm. ACT 112: Negative or not required by law. Electronically signed by: Jose Coffey M.D. 09/17/2019 5:04 PM
[2019-09-17] MEDS ORDERED: ACETAMINOPHEN 325 MG TAB PO PRN (18:12)
[2019-09-17] MEDS ORDERED: FUROSEMIDE 40 MG/4 ML VIAL IV ONE (18:12)
[2019-09-17] MEDS ORDERED: POLYETHYLENE (MIRALAX) 17 GM PACK PO PRN (18:12)
[2019-09-17] MEDS ORDERED: NITROGLYCERIN SL 0.4 MG/TAB TAB SL PRN (18:12)
[2019-09-17] MEDS: METOPROLOL TARTRATE 25 MG TAB PO SCH (19:59)
[2019-09-17] MEDS: PANTOprazole 40 MG TAB PO SCH (19:59)
--- NOTE | 2019-09-17 20:01 | Emergency Department Note ---
Entered by Charlene Bullock acting as a scribe for History of Present Illness General Chief complaint: Shortness of Breath/Dyspnea Stated complaint: SOB,RECENT DX OF AFIB,GALLBLADDER PAIN/SWELLING Time Seen by Provider: 09/17/19 14:06 History of Present Illness Provider complaint: shortness of breath Onset (ago): day(s) 1 Pain Consistency: + other (worsening) Maximum Pain Intensity: 0 Quality: + other (shortness of breath) Relieved By: + none Associated symptoms: + denies other symptoms (nausea) The patient is a 69 year old female who presents to the ED with complaints of worsening shortness of breath that started 1 day ago. The patient states that she was recently diagnosed with atrial fibrillation by Dr. Travis and was put on Warfarin. The patient states that she has not missed any doses of her medications. The patient states that it feels like she is being suffocated and nothing is relieving her of these symptoms. The patient notes that she is also belching a lot more than usual. The patient denies nausea, abdominal surgeries and alcohol use. The patient notes that she has had 3 stress tests in the past, and her last one was in July 2019. Home Medications Home Medications Medication Instructions Recorded Confirmed Type cetirizine [Zyrtec] 10 mg PO DAILY 09/17/19 09/17/19 History cranberry conc-ascorbic acid 1 cap PO DAILY 09/17/19 09/17/19 History levothyroxine 50 mcg PO DAILY 09/17/19 09/17/19 History lisinopril-hydrochlorothiazide 1 tab PO DAILY 09/17/19 09/17/19 History meloxicam [Mobic] 7.5 mg PO BID PRN 09/17/19 09/17/19 History metoprolol tartrate 25 mg PO BID 09/17/19 09/17/19 History omeprazole 20 mg PO DAILY 09/17/19 09/17/19 History sertraline [Zoloft] 100 mg PO DAILY 09/17/19 09/17/19 History warfarin [Jantoven] 5 mg PO 4XWK 09/17/19 09/17/19 History warfarin [Jantoven] 7.5 mg PO 3XWK 09/17/19 09/17/19 History Allergies Allergy/AdvReac Type Severity Reaction Status Date / Time Penicillins AdvReac Unknown YEAST Verified 09/17/19 14:36 INFECTION Past Med/Surg History Medical History Afib AVNRT (AV perla re-entry tachycardia) Surgical History History of back surgery History of knee replacement Family History Mother COPD (chronic obstructive pulmonary disease) Sister Cancer Social History Preferred Language: Ecuadorean Communication Ability: Effective Corporate Claims Examiner Required: No Beliefs That Will Affect Care: None Current Living Situation: Spouse Other Information That Helps Us Care for You: No Feels Safe at Home: Yes Safety Concerns: Feels Safe At This Time Smoking Status: Former smoker Do You Dip or Chew Tobacco: No ; Second Hand Exposure: No ; Tobacco Cessation Education Requested by Patient: No Hx Alcohol Use: No Hx Substance Use: No Review of Systems See HPI for pertinent positives & negatives. and A total of 10 systems reviewed and were otherwise negative Physical Exam Vital Signs Vital Signs - 24 hr 09/17/19 13:32 09/17/19 15:14 09/17/19 16:06 Temperature 36.6 C Temperature Source Oral Pulse Rate 86 78 Pulse Rate [Right Finger] 78 87 Respiratory Rate 18 24 18 Respiratory Effort / Characteristics Non-Labored Non-Labored Respiratory Depth Normal Normal Blood Pressure 141/99 H Blood Pressure [Right Arm] 151/99 H 137/93 Blood Pressure Mean 113 Blood Pressure Mean [Right Arm] 116 107 Pulse Oximetry 92 92 94 Oxygen Delivery Method Room Air Nasal Cannula Room Air Oxygen Flow Rate 2 Sepsis Recent Fever Within 48 Hours No Sepsis Action Taken by Nursing No Action Required Oxygen Flow Rate - Titration 09/17/19 16:30 Temperature Temperature Source Pulse Rate Pulse Rate [Right Finger] Respiratory Rate Respiratory Effort / Characteristics Respiratory Depth Blood Pressure Blood Pressure [Right Arm] Blood Pressure Mean Blood Pressure Mean [Right Arm] Pulse Oximetry Oxygen Delivery Method Nasal Cannula Oxygen Flow Rate Sepsis Recent Fever Within 48 Hours Sepsis Action Taken by Nursing Oxygen Flow Rate - Titration 2 GENERAL: She is oriented to person, place, and time. She appears well-developed and well-nourished. She does not appear distressed. HENT: Exam performed. -Head: Normocephalic and atraumatic. -Right Ear: External ear normal. No mastoid tenderness. -Left Ear: External ear normal. No mastoid tenderness. -Mouth/Throat: The oropharynx is clear and moist. No trismus in the jaw. No dental abscesses or uvula swelling. No oropharyngeal exudate or tonsillar abscesses. EYES: Conjunctivae and EOM are normal. Pupils are equal, round, and reactive to light. Right eye exhibits no discharge. Left eye exhibits no discharge. No scleral icterus. NECK: Normal range of motion. Neck supple. No JVD present. No spinous process tenderness present. No carotid bruit present. No rigidity. No tracheal deviation and normal range of motion present. No Brudzinski's sign and no Kernig's sign noted. CV: Normal rate, irregular rhythm, normal heart sounds and intact distal pulses. There is no peripheral edema. Palpable radial pulses bue. PULM/CHEST: Effort normal and breath sounds normal. No respiratory distress. No stridor. She has no wheezes. She has no rales. Chest Wall: She exhibits no tenderness. ABD: Pain to palpation of the epigastric region and RUQ. The abdomen is soft. B owel sounds are normal. She has no distension. No mass is present. There is no rebound, no guarding, no Shah's sign and no tenderness at McBurney's point. Rovsig negative MUSC/SKEL: Normal range of motion. There is no peripheral edema, tenderness or deformity. LYMPH: No cervical adenopathy. NEURO: She is alert and oriented to person, place, and time. She has normal strength. No cranial nerve deficit or sensory deficit. Coordination and gait normal. GCS eye subscore is 4. GCS verbal subscore is 5. GCS motor subscore is 6. cerbellar tests wnl. SKIN: Skin is warm and dry. She is not diaphoretic. PSYCH: She has a normal mood and affect. Her behavior is normal. Judgment and thought content normal. Course Course 1408: Past medical records reviewed. The patient was evaluated in room B04B. A complete history and physical exam was performed. 1502: Héctor, the case management coordinator, accessed the patient's records from [place]. In October of 2017, patient has a stress test. Results showed no stress-induced EKG changes, however in the post exercise recovery interval, she was noted to go into a rapid narrow complex tachycardia consistent with supraventricular tachycardia with significant ST segment depression, prior to the tachycardia terminating spontaneously. 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 On 09/03/2019 at 0905, the patient underwent a nuclear medicine stress test. There was no EKG evidence of inducible ischemia at the level of exercise/heart rate achieved. 1538: The patient became hypoxic at 88% on RA. Supplemented O2 was applied via NC and her oxygen improved. Her labs were within normal limits with the exception of troponin. Kidney function is within normal limits. The patient is suffering from and NSTEMI, her INR is therapeutic due to Coumadin, no heparin at this time. Patient will be admitted to [facility]. 1544: I discussed the patient's case with Dr. Nishi Carvajal Hospitalist. He will evaluate the patient for further management. He also told me that he would like me to discuss the patient's case with cardiology. Dr. Fowler Cardiology states that he will be on consult. Consultations Consultation #1: I discussed the patient's case with Dr. Nishi Carvajal Hospitalist. He will evaluate the patient for further management. He also told me that he would like me to discuss the patient's case with cardiology. Dr. Fowler Cardiology states that he will be on consult. Time: 15:44 Administered Medications Discontinued Medications Al Hydrox/Mg Hydrox/Simethicone () 1 dose PO ONE ONE Stop: 09/17/19 14:14 Last Admin: 09/17/19 16:06 Dose: 1 dose Documented by: [id number] Aspirin (Aspirin) 324 mg PO NOW STA Stop: 09/17/19 14:13 Last Admin: 09/17/19 16:06 Dose: 324 mg Documented by: [id number] Potassium Chloride (Klor-Con M10) 40 meq PO NOW STA Stop: 09/17/19 15:28 Last Admin: 09/17/19 16:04 Dose: 40 meq Documented by: [id number] Critical Care Time Critical Care Time: Yes Total Critical Care Time: 60 I have personally spent 60 minutes of critical care time in the direct management of this patient. This includes bedside care, interpretation of diagnostic studies, and testing, discussion with consultants, patient, and family members, and other required patient management activities. This 60 minutes is in excess of all separately billable procedures. Medical Decision Making Medical Records Attestation: I reviewed the patient's medical records. Home Medications Current Medication List: was personally reviewed by me Laboratory Data Attestation: I reviewed the patient's lab results. Result diagrams: 09/17/19 14:34 09/17/19 14:34 Lab Results 09/17/19 09/17/19 09/17/19 Range/Units 14:34 14:34 14:34 WBC 9.65 (4.8-10.8) K/uL RBC 5.07 (4.2-5.4) M/uL Hgb 14.8 (12.0-16.0) g/dL Hct 43.6 (37-47) % MCV 86.0 (80-100) fL MCH 29.2 (25-34) pg MCHC 33.9 (32-36) g/dL RDW Std Deviation 44.2 (36.4-46.3) fL RDW Coeff of Jonathan 14.3 (11.5-14.5) % Plt Count 231 (130-400) K/uL MPV 10.9 H (7.4-10.4) fL Immature Gran % (Auto) 0.4 % Neut % (Auto) 63.3 % Lymph % (Auto) 25.8 % [place] % (Auto) 8.6 % Eos % (Auto) 1.5 % Baso % (Auto) 0.4 % Immature Gran # (Auto) 0.04 H (0.00-0.02) K/uL Neut # (Auto) 6.11 (1.4-6.5) K/uL Lymph # (Auto) 2.49 (1.2-3.4) K/uL [place] # (Auto) 0.83 H (0.11-0.59) K/uL Eos # (Auto) 0.14 (0-0.5) K/uL Baso # (Auto) 0.04 (0-0.2) K/uL PT 29.9 H (9.0-12.0) Seconds INR 3.2 H (0.9-1.1) APTT 36.8 H (21.0-31.0) Seconds PTT Ratio 1.4 Sodium 133 L (136-145) mmol/L Potassium 3.2 L (3.5-5.1) mmol/L Chloride 99 (98-107) mmol/L Carbon Dioxide 27 (21-32) mmol/L Anion Gap 7.0 (3-11) BUN 15 (7-18) mg/dl Creatinine 0.71 (0.6-1.2) mg/dl Est Cr Clr Drug Dosing 73.4 ml/min Est GFR ( Amer) 100.7 Est GFR (Non-Af Amer) 86.9 BUN/Creatinine Ratio 20.5 H (10-20) Glucose 108 H (70-99) mg/dl Calcium 8.9 (8.5-10.1) mg/dl Total Bilirubin 0.9 (0.2-1) mg/dl Direct Bilirubin 0.3 H (0-0.2) mg/dl AST 22 (15-37) U/L ALT 18 (12-78) U/L Alkaline Phosphatase 87 (45-117) U/L Troponin I 0.143 H* (0-0.045) ng/ml Total Protein 7.4 (6.4-8.2) gm/dl Albumin 3.0 L (3.4-5.0) gm/dl Lipase 251 (73-393) U/L Imaging Data Radiologist's Impression: Radiology results as stated below per my review and the radiologist's interpretation: XR abdomen 2V w PA chest CLINICAL HISTORY: epigastric pain pain COMPARISON STUDY: No previous studies for comparison. FINDINGS: Moderate cardiomegaly. Infiltrate combined with small effusion right lung base. Prominent pulmonary vasculature. Nonobstructive bowel pattern. Postoperative changes lumbosacral spine. IMPRESSION: 1. Infiltrate combined with a small right effusion right lung base. 2. Minimal infiltrate left base which may reflect a component of cardiac decompensation. 3. Nonobstructive bowel pattern. ACT 112: Negative or not required by law. The above report was generated using voice recognition software. It may contain grammatical, syntax or spelling errors. Electronically signed by: Guillermo Puentes M.D. 09/17/2019 4:02 PM ECG Data Attestation: I personally reviewed and interpreted this ECG as follows: Indication: + SOB/dyspnea Rate (beats per minute): 80 Rhythm: + atrial fibrillation ECG Intervals/blocks: + Normal QRS ECG ST segments: + T-wave inversions (in lead AVl ); no ST depression and no ST elevation ECG Findings: + Other (QTC 500) Comparison ECG Date: from (June,) Change: the following changes noted (no new TWI) Blood Pressure Blood Pressure Findings: Elevated blood pressure Blood Pressure Disposition: further management by hospitalist [place] Narrative 1408: Past medical records reviewed. The patient was evaluated in room B04B. A complete history and physical exam was performed. 1502: Héctor, the case management coordinator, accessed the patient's records from [place]. In October of 2017, patient has a stress test. Results showed no stress-induced EKG changes, however in the post exercise recovery interval, she was noted to go into a rapid narrow complex tachycardia consistent with supraventricular tachycardia with significant ST segment depression, prior to the tachycardia terminating spontaneously. 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 On 09/03/2019 at 0905, the patient underwent a nuclear medicine stress test. There was no EKG evidence of inducible ischemia at the level of exercise/heart rate achieved. 1538: The patient became hypoxic at 88% on RA. Supplemented O2 was applied via NC and her oxygen improved. Her labs were within normal limits with the exception of troponin. Kidney function is within normal limits. The patient is suffering from and NSTEMI, her INR is therapeutic due to Coumadin, no heparin at this time. Patient will be admitted to [facility]. 1544: I discussed the patient's case with Dr. Babcock- [facility] Hospitalist. He will evaluate the patient for further management. He also told me that he would like me to discuss the patient's case with cardiology. Dr. Tao- Cardiology states that he will be on consult. Impression & Plan NSTEMI (non-ST elevated myocardial infarction), Hypokalemia, Hypoxia Discharge Plan Visit Data *Final* Discharge Date/Time: 09/17/19 17:21 Chief Complaint: Shortness of Breath/Dyspnea Stated Complaint: SOB,RECENT DX OF AFIB,GALLBLADDER PAIN/SWELLING ED Provider: Reed Constantino Discharge Problem: NSTEMI (non-ST elevated myocardial infarction), Hypokalemia, Hypoxia Patient Disposition: Admitted As Inpatient Discharge Instructions Interventions: ED Discharge Assessment Last Done: 09/17/19 17:21 The scribe's documentation has been prepared under my direction and personally reviewed by me in its entirety. I confirm that the note above accurately reflects all work, treatment, procedures, and medical decision making performed by me.
[2019-09-17 22:10] LABS: Influenza A virus by PCR Neg for Influ A (Neg); Influenza B virus by PCR Neg for Influ B (Neg)
[2019-09-18 04:37] LABS: Basophils # (auto) 0.04 K/uL (0-0.2); Basophils % (auto) 0.4 %; Eosinophils # (auto) 0.11 K/uL (0-0.5); Eosinophils % (auto) 1.2 %; Hematocrit (blood only) 42.9 % (37-47); Hemoglobin 14.5 g/dL (12.0-16.0); Immature Granulocytes # (auto) 0.03 K/uL (0.00-0.02); Immature Granulocytes % (auto) 0.3 %; Lymphocytes # (auto) 2.91 K/uL (1.2-3.4); Mean Corpuscular Hemoglobin 28.9 pg (25-34); Mean Corpuscular Hgb Conc 33.8 g/dL (32-36); Mean Corpuscular Volume 85.5 fL (80-100); Mean Platelet Volume 10.7 fL (7.4-10.4); Monocytes # (auto) 0.79 K/uL (0.11-0.59); Monocytes % (auto) 8.7 %; Neutrophils # (auto) 5.22 K/uL (1.4-6.5); Neutrophils % (auto) 57.4 %; Platelet Count 211 K/uL (130-400); RDW Coefficient of Variation 14.1 % (11.5-14.5); Red Blood Count 5.02 M/uL (4.2-5.4)
[2019-09-18 04:45] LABS: INR 2.9 (0.9-1.1); Prothrombin Time 27.3 Seconds (9.0-12.0)
[2019-09-18 05:06] LABS: BUN Creatinine Ratio 23.9 (10-20); Calcium 8.7 mg/dl (8.5-10.1); Creatinine Clr Calc Pharmacy 85.4 ml/min; Est GFR (African American) 107.2; Est GFR (Non-African American) 92.5; Magnesium 1.4 mg/dl (1.8-2.4)
[2019-09-18 05:15] LABS: Troponin I 0.179 ng/ml (0-0.045)
[2019-09-18] MEDS: LEVOTHYROXINE SODIUM 50 MCG TABLET PO SCH (05:43)
[2019-09-18] MEDS ORDERED: POTASSIUM CHLORIDE 20 MEQ TABCR PO STA ×2 (07:34→11:21)
--- NOTE | 2019-09-18 07:48 | Electrocardiogram Report ---
Test Reason : Blood Pressure : / mmHG Vent. Rate : 080 BPM Atrial Rate : 079 BPM P-R Int : 000 ms QRS Dur : 098 ms QT Int : 434 ms P-R-T Axes : 000 -64 080 degrees QTc Int : 500 ms Poor data quality, interpretation may be adversely affected Atrial fibrillation Left axis deviation Inferior infarct (cited on or before 07-JUL-2019) Anterolateral infarct (cited on or before 07-JUL-2019) Abnormal ECG When compared with ECG of 07-JUL-2019 09:22, Atrial fibrillation has replaced Sinus rhythm ST no longer elevated in Anterior leads Confirmed by Cordell Santana ([id number]) on 09/18/2019 7:48:30 AM Referred By: Confirmed By:Jacek Santana
[2019-09-18] MEDS: CETIRIZINE HCL 10 MG TABLET PO SCH (08:40)
[2019-09-18] MEDS: SERTRALINE HCL 100 MG TABLET PO SCH (08:40)
[2019-09-18] MEDS: ASPIRIN 81 MG ECTAB PO SCH (08:40)
[2019-09-18] MEDS: lisinopriL 20 MG TAB PO SCH (08:40)
[2019-09-18] MEDS: MAGNESIUM SULFATE / D5W 1 GM/100 ML BAG IV SCH ×2 (08:40→10:26)
[2019-09-18] MEDS: PANTOprazole 40 MG TAB PO SCH ×2 (08:41→19:23)
[2019-09-18] MEDS: METOPROLOL TARTRATE 25 MG TAB PO SCH ×2 (08:41→19:23)
[2019-09-18] MEDS: POTASSIUM CHLORIDE / WTR 10 MEQ/100 ML PLCT IV SCH ×2 (09:11→10:42)
--- NOTE | 2019-09-18 09:33 | XRay Report ---
XR chest 2V PA/lateral CLINICAL HISTORY: CHF dyspnea COMPARISON STUDY: 09/17/2019 FINDINGS: Mild stable cardiac enlargement. Unchanging right basilar parenchymal infiltrate and/or eff usion. Unchanging interstitial prominence left lung base. Upper lungs remain clear. IMPRESSION: Stable bibasilar parenchymal infiltrates. Mild stable cardiac enlargement. ACT 112: Negative or not required by law. The above report was generated using voice recognition software. It may contain grammatical, syntax or spelling errors. Electronically signed by: Guillermo Puentes M.D. 09/18/2019 9:31 AM
--- NOTE | 2019-09-18 13:00 | Electrocardiogram Report ---
Test Reason : Blood Pressure : / mmHG Vent. Rate : 066 BPM Atrial Rate : 074 BPM P-R Int : 000 ms QRS Dur : 102 ms QT Int : 476 ms P-R-T Axes : 000 -68 104 degrees QTc Int : 499 ms Atrial fibrillation Left axis deviation Inferior infarct (cited on or before 07-JUL-2019) Anterior infarct (cited on or before 07-JUL-2019) Abnormal ECG When compared with ECG of 17-SEP-2019 14:24, Nonspecific T wave abnormality now evident in Anterior leads Confirmed by Joshua De La Garza ([id number]) on 09/18/2019 1:00:02 PM Referred By: REFERRED SELF Confirmed By:Joshua De La Garza
--- NOTE | 2019-09-18 13:44 | Cardiology Consultation ---
Date of Consultation September 18, 2019 Assessment & Plan (1) Heart failure with preserved ejection fraction: Patient presents with progressive shortness of breath and abdominal bloating. She does describe exertional shortness of breath for quite some time, and has undergone previous work-up including recent combined low intensity exercise/pharmacologic nuclear stress testing in July with normal perfusion. Notable laboratory studies include therapeutic INR of 2.9, mild troponin elevati on with peak of 0.179 NG per mL overnight, elevated proBNP of 6480. After Lasix, significant electrolyte abnormalities were observed with potassium of 3 magnesium of 1.4 each of which has been corrected. Repeat echocardiogram performed this admission reveals mild concentric left ventricular hypertrophy with normal wall motion, and LVEF in the range of 55 to 60%. Mild to moderate mitral regurgitation was noted and mild tricuspid regurgitation was noted with normal estimated pulmonary systolic pressure of 25 mmHg. I do not think her mild troponin elevation is inside account representative of an acute coron jarvis syndrome, and her recent stress test is reassuring, but of course underlying ischemic heart disease is a consideration. At this time, will hold off on further diuretics pending repeat chemistry panel planned for 1600 today to make sure her electrolytes are stable. Will likely resume diuretics for tomorrow. We will resume Coumadin at 5 mg daily. History of Present Illness Attending Physician: Tevin Babcock MD History of Present Illness Naye Sheppard is a 69 year old female seen in cardiology consultation per the request of Dr Babcock for the evaluation of shortnes of breath and mild elevation in troponin. I have actually seen the patient in preoperative consultation on 07/23/2019 as an outpatient prior to proposed orthopedic surgery. Her cardiac history dates back to October 2017 when she had described palpitations. I resting EKG performed with her primary care provider at that time suggested an age undetermined anterior infarction. She was therefore referred for an exercise stress echocardiogram which I supervised. Her resting wall motion was normal. She exercised for 5 minutes and 30 seconds with no stress-induced EKG changes to suggest ischemia, however in the post exercise recovery interval she was noted to have a rapid narrow complex tachycardia consistent with supraventricular tachycardia with significant ST segment depression. The tachycardia terminated spontaneously. Her presenting symptoms of palpitations were reproduced during this SVT episode. 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 Metoprolol had ultimately been discontinued after the SVT ablation, but when I had seen her in July the patient complained of recurrent subjective palpitations prompting reinitiation of metoprolol. Further assessment with a nuclear stress test placed on 08/06/2019 with normal perfusion and no suggestive of ischemia. A 3-day 0 phototypesetting equipment monitor performed in July 2019 revealed surprising findings of persistent atrial fibrillation during the monitor, 100% burden with average rate of 78 bpm. Anticoagulation treatment was initiated. She went on to have an exercise EKG stress test with findings of attenuated heart rate response suggestive of possible chronotropic incompetence, with atrial fibrillation noted during the study. Patient presented to the emergency room yesterday complaining of shortness of breath of 2 days duration as well as mild epigastric discomfort and abdominal fullness and bloating. She received 40 mg of IV furosemide at 1812 last evening, and had significant interval improvement in her abdominal fullness. Telemetry today reveals atrial fibrillation in the range of 60 to 70 bpm. When she was sleeping early this morning at 7:39 AM, atrial fibrillation at 40 bpm was noted. Allergies Allergy/AdvReac Type Severity Reaction Status Date / Time Penicillins AdvReac Unknown YEAST Verified 09/17/19 14:36 INFECTION Home Medications Home Medications Medication Instructions Recorded Confirmed Type cetirizine [Zyrtec] 10 mg PO DAILY 09/17/19 09/17/19 History cranberry conc-ascorbic acid 1 cap PO DAILY 09/17/19 09/17/19 History levothyroxine 50 mcg PO DAILY 09/17/19 09/17/19 History lisinopril-hydrochlorothiazide 1 tab PO DAILY 09/17/19 09/17/19 History meloxicam [Mobic] 7.5 mg PO BID PRN 09/17/19 09/17/19 History metoprolol tartrate 25 mg PO BID 09/17/19 09/17/19 History omeprazole 20 mg PO DAILY 09/17/19 09/17/19 History sertraline [Zoloft] 100 mg PO DAILY 09/17/19 09/17/19 History warfarin [Jantoven] 5 mg PO 4XWK 09/17/19 09/17/19 History warfarin [Jantoven] 7.5 mg PO 3XWK 09/17/19 09/17/19 History Patient History Medical History Afib AVNRT (AV perla re-entry tachycardia) Surgical History History of back surgery History of knee replacement Family History Mother COPD (chronic obstructive pulmonary disease) Sister Cancer Social History Preferred Language: Luxembourgish Communication Ability: Effective Verification Specialist Required: No Beliefs That Will Affect Care: None Current Living Situation: Spouse Other Information That Helps Us Care for You: No Feels Safe at Home: Yes Safety Concerns: Feels Safe At This Time Smoking Status: Former smoker Do You Dip or Chew Tobacco: No ; Second Hand Exposure: No ; Tobacco Cessation Education Requested by Patient: No Hx Alcohol Use: No Hx Substance Use: No Review of Systems Review of Systems: All systems reviewed & are unremarkable except as noted in HPI & below Physical Exam Physical Exam: Temp Pulse Resp BP Pulse Ox 36.7 C 77 18 130/86 96 09/18/19 11:34 09/18/19 11:34 09/18/19 11:34 09/18/19 11:34 09/18/19 11:34 Constitutional: WD/WN, vitals as above Respiratory: Decreased breath sounds at the bases bilaterally Cardiovascular: Rate/Rhythm: regular rhythm Heart Sounds: + murmur (1/6 systolic murmur) Vessels: + JVD (Mild jugular venous distention) Extremities: no edema Gastrointestinal (Abdomen): normal bowel sounds, soft, nontender, no hepatosplenomegaly Neurologic: PERRL, EOMI, accommodation nl, no face palsy, no dysarthria Results & Data Vital Signs (Past 12 Hours) Vital Signs Temp Pulse Resp BP Pulse Ox 09/18/19 11:34 36.7 C 77 18 130/86 96 09/18/19 07:06 36.5 C 69 18 125/80 97 09/18/19 04:56 36.4 C L 72 18 134/83 95 Laboratory Results Cardiac Enzymes 09/17/19 09/17/19 09/18/19 Range/Units 14:34 21:00 04:23 AST 22 (15-37) U/L Troponin I 0.143 H* 0.160 H* 0.179 H* (0-0.045) ng/ml 09/18/19 Range/Units 12:17 AST (15-37) U/L Troponin I 0.165 H* (0-0.045) ng/ml Coagulation 09/17/19 09/18/19 Range/Units 14:34 04:23 PT 29.9 H 27.3 H (9.0-12.0) Seconds APTT 36.8 H (21.0-31.0) Seconds Lipids 09/18/19 Range/Units 04:23 Triglycerides 79 (0-150) mg/dl Cholesterol 99 (0-200) mg/dl HDL Cholesterol 29 mg/dl Cholesterol/HDL Ratio 3 CBC 09/17/19 09/18/19 Range/Units 14:34 04:23 WBC 9.65 9.10 (4.8-10.8) K/uL RBC 5.07 5.02 (4.2-5.4) M/uL Hgb 14.8 14.5 (12.0-16.0) g/dL Hct 43.6 42.9 (37-47) % Plt Count 231 211 (130-400) K/uL Neut # (Auto) 6.11 5.22 (1.4-6.5) K/uL Lymph # (Auto) 2.49 2.91 (1.2-3.4) K/uL [place] # (Auto) 0.83 H 0.79 H (0.11-0.59) K/uL Eos # (Auto) 0.14 0.11 (0-0.5) K/uL Baso # (Auto) 0.04 0.04 (0-0.2) K/uL Comprehensive Metabolic Panel 09/17/19 09/18/19 Range/Units 14:34 04:23 Sodium 133 L 136 (136-145) mmol/L Potassium 3.2 L 3.0 L (3.5-5.1) mmol/L Chloride 99 99 (98-107) mmol/L Carbon Dioxide 27 31 (21-32) mmol/L BUN 15 15 (7-18) mg/dl Creatinine 0.71 0.61 (0.6-1.2) mg/dl Glucose 108 H 97 (70-99) mg/dl Calcium 8.9 8.7 (8.5-10.1) mg/dl Direct Bilirubin 0.3 H (0-0.2) mg/dl AST 22 (15-37) U/L ALT 18 (12-78) U/L Alkaline Phosphatase 87 (45-117) U/L Total Protein 7.4 (6.4-8.2) gm/dl Albumin 3.0 L (3.4-5.0) gm/dl Intake and Output 09/17/19 09/18/19 09/18/19 22:59 06:59 14:59 Intake Total 300 / 300 300 / 300 Output Total 1600 / 1600 Balance 300 / -1300 -1600 / -1300 300 / 300 Intake: IV 300 / 300 MAGNESIUM SULFATE / D5W 1 gm In 200 / 200 100 ml @ 100 mls/hr IV Q1H [facility] Rx#:[id number] K RIDER / WTR 10 meq In 100 ml 100 / 100 @ 100 mls/hr IV Q1H [facility] Rx#: [id number] Oral 300 / 300 Output: Urine 1600 / 1600 Other: Other Intake Source NPO Weight 83.7 kg 79.7 kg Medications Administered Current Inpatient Medications Acetaminophen (Tylenol) 650 mg PO Q4H PRN PRN Reason: Pain or Fever Stop: 10/17/19 18:11 Aspirin (Ecotrin Ectab) 81 mg PO DAILY [facility] Stop: 10/18/19 08:59 Last Admin: 09/18/19 08:40 Dose: 81 mg Documented by: Cetirizine HCl (Zyrtec) 10 mg PO DAILY [facility] Stop: 10/18/19 08:59 Last Admin: 09/18/19 08:40 Dose: 10 mg Documented by: Levothyroxine Sodium (Synthroid) 50 mcg PO DAILYBB [facility] Stop: 10/18/19 06:29 Last Admin: 09/18/19 05:43 Dose: 50 mcg Documented by: Lisinopril (Zestril) 20 mg PO QAM [facility] Stop: 10/18/19 08:59 Last Admin: 09/18/19 08:40 Dose: 20 mg Documented by: Metoprolol Tartrate (Lopressor) 25 mg PO BID [facility] Stop: 10/17/19 20:59 Last Admin: 09/18/19 08:41 Dose: 25 mg Documented by: Nitroglycerin (Nitrostat) 0.4 mg SL UD PRN PRN Reason: Chest Pain Stop: 10/17/19 18:11 Pantoprazole Sodium (Protonix) 40 mg PO BID [facility] Stop: 10/17/19 20:59 Last Admin: 09/18/19 08:41 Dose: 40 mg Documented by: Polyethylene Glycol (Miralax Powder Packet) 17 gm PO DAILY PRN PRN Reason: Constipation Stop: 10/17/19 18:11 Sertraline HCl (Zoloft) 100 mg PO DAILY [facility] Stop: 10/18/19 08:59 Last Admin: 09/18/19 08:40 Dose: 100 mg Documented by:
[2019-09-18] MEDS: WARFARIN SOD 5 MG TAB PO SCH (15:29)
[2019-09-18 16:29] LABS: BUN Creatinine Ratio 18.2 (10-20); Calcium 8.8 mg/dl (8.5-10.1); Creatinine Clr Calc Pharmacy 56.4 ml/min; Est GFR (African American) 75.6; Est GFR (Non-African American) 65.2; Potassium 3.9 mmol/L (3.5-5.1)
--- NOTE | 2019-09-18 17:37 | Hospitalist Progress Note ---
Date of Service September 18, 2019 Assessment & Plan (1) RASHID (dyspnea on exertion): Acute diastolic CHF exacerbation Hypoxia CXR: Infiltrate combined with a small right effusion right lung base. Minimal infiltrate left base which may reflect a component of cardiac decompensation. Nonobstructive bowel pattern. Gained about 3 kg on review of old records Noted to be hypoxic while in ED ECHO: EF: 55-60%, mild LVH, mild to moderate MR, mild TR Hold PO diuretics Received IV Lasix Monitor Daily weight, I/Os, fluid restriction Oxygen support PRN Monitor renal function/electrolytes Appreciate Cardiology Input Further diuretics based on volume status Hypokalemia Hypomagnesemia secondary to diuretics Replace electrolytes as needed Monitor Elevated Troponin Likely demand ischemia secondary to hypoxia, CHF Denies chest Pain Last Stress Test on 08/06/19: Non Ischemic Risk factors: H/O HTN, Former Tobacco use disorder Troponin mildly elevated Continue Metoprolol, lisinopril Oxygen PRN Appreciate Cardiology Input Prolonged QTC: Avoid QTC prolonging meds as able Monitor QTC with daily EKG Epigastric Abdominal Pain/Heaviness Likely due to GERD Was prescribed PPI twice daily but has been taking only once a day --Gall Bladder USD: Diffuse gallbladder wall thickening most pronounced along the hepatic surface. There are no gallstones and a negative sonographic Shah sign. Therefore, this is likely due to the patient's diffuse edematous state or possibly underlying hepatic pathology rather than acute cholecystitis. Mildly distended common bile duct measuring up to 9 mm. --Normal Lipase --LFTs fairly wnl --Continue PPI BID --Advised to limit carbonated drinks --Abd pain resolved Anxiety disorder on Zoloft Hypothyroidism Continue levothyroxine Paroxysmal atrial fibrillation H/O SVT S/P AVNRT ablation in 2018 Currently in A. fib--rate controlled Continue metoprolol Monitor INR:2.9 Resume Coumadin DVT Px: Coumadin Code Status Full Code Disposition Expected discharge home when medically stable Subjective Patient is seen and examined at bedside She states feeling a lot better today Epigastric pain resolved Shortness of breath much improved after lasix Denies any nausea, vomiting, dizziness, chest pain Offers no other complaints Review of Systems Review of Systems: All systems reviewed & are unremarkable except as noted in HPI & below Physical Exam Physical Exam: Physical Exam: Vitals signs as noted above General Appearance:Moderately built and nourished, no apparent distress Head: normocephalic, Atraumatic Eyes: normal inspection, EOMI Neck: supple, Trachea midline Respiratory/Chest: Normal breath sounds, CTA, No accessory muscle use Cardiovascular: S1, S2, + Systolic murmur Abdomen/GI:Soft, Epigastric tender, Bowel sounds present Extremities/Musculoskelatal:normal inspection, no edema Neurologic/Psych:AAOX3, grossly no focal neurological deficits Skin: normal color, warm Results & Data Vital Signs (Past 12 Hours) Vital Signs Temp Pulse Resp BP Pulse Ox 09/18/19 16:07 36.4 C L 74 20 128/88 94 09/18/19 11:34 36.7 C 77 18 130/86 96 09/18/19 07:06 36.5 C 69 18 125/80 97 Laboratory Results Short CBC 09/18/19 Range/Units 04:23 WBC 9.10 (4.8-10.8) K/uL Hgb 14.5 (12.0-16.0) g/dL Hct 42.9 (37-47) % Plt Count 211 (130-400) K/uL BMP 09/18/19 09/18/19 04:23 15:58 Sodium 136 135 L Potassium 3.0 L 3.9 D Chloride 99 99 Carbon Dioxide 31 31 BUN 15 16 Creatinine 0.61 0.90 Glucose 97 110 H Calcium 8.7 8.8 Cardiac Enzymes 09/17/19 09/18/19 09/18/19 Range/Units 21:00 04:23 12:17 Troponin I 0.160 H* 0.179 H* 0.165 H* (0-0.045) ng/ml
[2019-09-19 06:03] LABS: INR 2.2 (0.9-1.1); Prothrombin Time 21.1 Seconds (9.0-12.0)
[2019-09-19 06:17] LABS: BUN Creatinine Ratio 25.5 (10-20); Calcium 8.9 mg/dl (8.5-10.1); Creatinine Clr Calc Pharmacy 69.5 ml/min; Est GFR (African American) 97.4; Magnesium 1.8 mg/dl (1.8-2.4); Potassium 3.7 mmol/L (3.5-5.1)
[2019-09-19] MEDS: LEVOTHYROXINE SODIUM 50 MCG TABLET PO SCH (06:18)
[2019-09-19 06:28] LABS: Thyroid Stimulating Hormone 2.14 uIu/ml (0.300-4.500)
[2019-09-19] MEDS: PANTOprazole 40 MG TAB PO SCH ×2 (07:58→20:28)
[2019-09-19] MEDS: CETIRIZINE HCL 10 MG TABLET PO SCH (07:58)
[2019-09-19] MEDS: SERTRALINE HCL 100 MG TABLET PO SCH (07:58)
[2019-09-19] MEDS: ASPIRIN 81 MG ECTAB PO SCH (07:59)
[2019-09-19] MEDS: METOPROLOL TARTRATE 25 MG TAB PO SCH (07:59)
[2019-09-19] MEDS: lisinopriL 20 MG TAB PO SCH (07:59)
[2019-09-19] MEDS ORDERED: POTASSIUM CHLORIDE 20 MEQ TABCR PO STA (10:46)
[2019-09-19] MEDS ORDERED: MAGNESIUM SULFATE / D5W 1 GM/100 ML BAG IV ONE (11:00)
[2019-09-19] MEDS ORDERED: SOTALOL HCL 80 MG TAB PO ONE ×2 (11:27→21:00)
--- NOTE | 2019-09-19 11:42 | Cardiology Progress Note ---
Date of Service September 19, 2019 Assessment & Plan (1) Afib: (2) Heart failure with preserved ejection fraction: Patient with history of ongoing easy fatigability and shortness of breath over the last 2 months, with recent diagnosis of persistent atrial fibrillation. Echocardiogram reveals preserved LVEF, and mild to moderate mitral regurgitation. Her volume status improved after conservative treatment course of IV diuretics, minimal rales noted today, and I will proceed with furosemide 20 mg IV x1 now. Plan to optimize her borderline low potassium magnesium levels, with plans to start antiarrhythmic therapy with sotalol 40 mg p.o. twice daily. The patient does not have prescription coverage as confirmed by phone call between myself and her outpatient pharmacy. Treatment with dofetilide was therefore found to be prohibitively expensive. Sotalol 80 mg daily is anticipated to be a $15 per month [id number] cost, and the patient states that this is reasonable. Her INR has been above 2 for 3 weeks. We will proceed with transesophageal echocardiogram guided direct current cardioversion tomorrow. I anticipate that her risk of cardioembolic stroke after 3 weeks of therapeutic anticoagulation is low, but since she has been on Coumadin for less than 4 weeks, will at the transesophageal echocardiogram for further risk stratification. Summary: Optimize electrolytes, magnesium potassium supplementation ordered. Discontinue metoprolol tartrate. Start of sotalol, low-dose 40 mg twice daily to start since her heart rates are borderline slow to begin with, and borderline chronotropic incompetence noted on recent exercise EKG stress test. It is noted that she is on Zoloft at baseline. Therefore her QT interval will need to be monitored closely. Her current corrected QT interval in atrial fibrillation is formed 96 ms, and had been in the range of 460 ms in the past when she was in sinus rhythm. Lasix 20 mg IV x1 now. Recheck BMP tomorrow. Stroke prophylaxis: continue coumadin. Plan for DILCIA guided cardioversion tomorrow, 09/20/2019. Informed consent obtained and placed on the chart. Anesthesia consult placed, I notified Dr. Luo and the OR schedule desk by phone. Subjective Patient seen in follow-up today. She feels well, walking to the bathroom, she has not been walking in the hallway. Telemetry reveals rate controlled atrial fibrillation in the range of 60 to 70 bpm, potassium was 3.7, INR 2.2. Review of Systems Review of Systems: All systems reviewed & are unremarkable except as noted in HPI & below Physical Exam Physical Exam: Temp Pulse Resp BP Pulse Ox 36.8 C 69 18 130/87 94 09/19/19 11:28 09/19/19 11:28 09/19/19 11:28 09/19/19 11:28 09/19/19 11:28 Constitutional: WD/WN, vitals as above Respiratory: Auscultation: + rales (Mild rales noted at the bases); no rhonchi and no wheezes Cardiovascular: Rate/Rhythm: + irregularly irregular Heart Sounds: + murmur (I/ systolic murmur) Vessels: no JVD Extremities: + edema Skin: no rashes, warm and dry Neurologic: PERRL, EOMI, accommodation nl, no face palsy, no dysarthria Results & Data Vital Signs (Past 12 Hours) Vital Signs Temp Pulse Pulse Resp BP BP Pulse Ox 09/19/19 11:28 36.8 C 69 18 130/87 94 09/19/19 07:18 36.4 C L 79 18 127/81 94 09/19/19 03:14 36.7 C 68 18 115/77 93 09/19/19 00:18 70 Laboratory Results Cardiac Enzymes 09/18/19 Range/Units 12:17 Troponin I 0.165 H* (0-0.045) ng/ml Coagulation 09/19/19 Range/Units 05:19 PT 21.1 H (9.0-12.0) Seconds Comprehensive Metabolic Panel 09/18/19 09/19/19 Range/Units 15:58 05:19 Sodium 135 L 136 (136-145) mmol/L Potassium 3.9 D 3.7 (3.5-5.1) mmol/L Chloride 99 100 (98-107) mmol/L Carbon Dioxide 31 30 (21-32) mmol/L BUN 16 19 H (7-18) mg/dl Creatinine 0.90 0.73 (0.6-1.2) mg/dl Glucose 110 H 107 H (70-99) mg/dl Calcium 8.8 8.9 (8.5-10.1) mg/dl Intake and Output 09/18/19 09/19/19 09/19/19 22:59 06:59 14:59 Intake Total 400 / 970 150 / 970 Output Total 200 / 950 400 / 950 Balance 200 / 20 -250 / 20 Intake: Oral 400 / 670 150 / 670 Output: Urine 400 / 750 Other 200 / 200 Other: Weight 80.6 kg Medications Administered Current Inpatient Medications Acetaminophen (Tylenol) 650 mg PO Q4H PRN PRN Reason: Pain or Fever Stop: 10/17/19 18:11 Aspirin (Ecotrin Ectab) 81 mg PO DAILY [facility] Stop: 10/18/19 08:59 Last Admin: 09/19/19 07:59 Dose: 81 mg Documented by: Cetirizine HCl (Zyrtec) 10 mg PO DAILY [facility] Stop: 10/18/19 08:59 Last Admin: 09/19/19 07:58 Dose: 10 mg Documented by: Magnesium Sulfate/Dextrose (Magnesium Sulfate / D5w) 1 gm in 100 mls @ 100 mls/hr IV 1100 ONE Stop: 09/19/19 11:59 Furosemide 20 mg/ Syringe 2 mls @ 4 mls/min IV ONE ONE Stop: 09/19/19 12:01 Levothyroxine Sodium (Synthroid) 50 mcg PO DAILYBB [facility] Stop: 10/18/19 06:29 Last Admin: 09/19/19 06:18 Dose: 50 mcg Documented by: Lisinopril (Zestril) 20 mg PO QAM [facility] Stop: 10/18/19 08:59 Last Admin: 09/19/19 07:59 Dose: 20 mg Documented by: Nitroglycerin (Nitrostat) 0.4 mg SL UD PRN PRN Reason: Chest Pain Stop: 10/17/19 18:11 Pantoprazole Sodium (Protonix) 40 mg PO BID [facility] Stop: 10/17/19 20:59 Last Admin: 09/19/19 07:58 Dose: 40 mg Documented by: Polyethylene Glycol (Miralax Powder Packet) 17 gm PO DAILY PRN PRN Reason: Constipation Stop: 10/17/19 18:11 Sertraline HCl (Zoloft) 100 mg PO DAILY [facility] Stop: 10/18/19 08:59 Last Admin: 09/19/19 07:58 Dose: 100 mg Documented by: Sotalol HCl (Betapace) 40 mg PO 2100 ONE Stop: 09/19/19 21:01 Warfarin Sodium (Coumadin) 5 mg PO DAILY@1600 [facility] Stop: 10/18/19 15:59 Last Admin: 09/18/19 15:29 Dose: 5 mg Documented by:
[2019-09-19] MEDS ORDERED: FUROSEMIDE 20 MG in SYRINGE 0 ML IV ONE (12:00)
--- NOTE | 2019-09-19 13:10 | Electrocardiogram Report ---
Test Reason : Blood Pressure : / mmHG Vent. Rate : 066 BPM Atrial Rate : 067 BPM P-R Int : 000 ms QRS Dur : 100 ms QT Int : 464 ms P-R-T Axes : 000 -72 067 degrees QTc Int : 486 ms Atrial fibrillation Left axis deviation Inferior infarct (cited on or before 07-JUL-2019) Anterior infarct (cited on or before 07-JUL-2019) Abnormal ECG When compared with ECG of 18-SEP-2019 07:08, No significant change was found Confirmed by Joshua De La Garza ([id number]) on 09/19/2019 1:09:53 PM Referred By: REFERRED SELF Confirmed By:Joshua De La Garza
[2019-09-19] MEDS: WARFARIN SOD 5 MG TAB PO SCH (16:10)
--- NOTE | 2019-09-19 16:10 | Hospitalist Progress Note ---
Date of Service September 19, 2019 Assessment & Plan (1) RASHID (dyspnea on exertion): Acute diastolic CHF exacerbation Hypoxia CXR: Infiltrate combined with a small right effusion right lung base. Minimal infiltrate left base which may reflect a component of cardiac decompensation. Nonobstructive bowel pattern. Gained about 3 kg on review of old records Noted to be hypoxic while in ED ECHO: EF: 55-60%, mild LVH, mild to moderate MR, mild TR Hold PO diuretics Monitor Daily weight, I/Os, fluid restriction Oxygen support PRN Monitor renal function/electrolytes Appreciate Cardiology Input Continue IV Lasix as needed Received Lasix 20mg today Paroxysmal atrial fibrillation H/O SVT S/P AVNRT ablation in 2018 Currently in A. fib--rate controlled Metoprolol discontinued Started on Sotalol Monitor INR:2.2 Continue Coumadin Plan for DILCIA guided cardioversion tomorrow Hypokalemia Hypomagnesemia secondary to diuretics Replace electrolytes as needed Monitor Elevated Troponin Likely demand ischemia secondary to hypoxia, CHF Denies chest Pain Last Stress Test on 08/06/19: Non Ischemic Risk factors: H/O HTN, Former Tobacco use disorder Troponin mildly elevated Continue lisinopril Oxygen PRN Appreciate Cardiology Input Prolonged QTC: Avoid QTC prolonging meds as able Monitor QTC with daily EKG Epigastric Abdominal Pain/Heaviness Likely due to GERD Was prescribed PPI twice daily but has been taking only once a day --Gall Bladder USD: Diffuse gallbladder wall thickening most pronounced along the hepatic surface. There are no gallstones and a negative sonographic Shah sign. Therefore, this is likely due to the patient's diffuse edematous state or possibly underlying hepatic pathology rather than acute cholecystitis. Mildly distended common bile duct measuring up to 9 mm. --Normal Lipase --LFTs fairly wnl --Continue PPI BID --Advised to limit carbonated drinks --Abd pain resolved. No recurrence Anxiety disorder on Zoloft Hypothyroidism Continue levothyroxine DVT Px: Coumadin Code Status Full Code Disposition Expected discharge home when medically stable Subjective Patient is seen and examined at bedside States feeling shortness of breath with minimal exertion Offers no other complaints Denies any chest pain, nausea, vomiting, dizziness Review of Systems Review of Systems: All systems reviewed & are unremarkable except as noted in HPI & below Physical Exam Physical Exam: Physical Exam: Vitals signs as noted above General Appearance:Moderately built and nourished, no apparent distress Head: normocephalic, Atraumatic Eyes: normal inspection, EOMI Neck: supple, Trachea midline Respiratory/Chest: Normal breath sounds, + rales Cardiovascular: Irregularly irregular, + Systolic murmur Abdomen/GI:Soft, Epigastric tender, Bowel sounds present Extremities/Musculoskelatal:normal inspection, no edema Neurologic/Psych:AAOX3, grossly no focal neurological deficits Skin: normal color, warm Results & Data Vital Signs (Past 12 Hours) Vital Signs Temp Pulse Resp BP BP Pulse Ox 09/19/19 15:35 36.8 C 73 16 132/90 91 09/19/19 11:28 36.8 C 69 18 130/87 94 09/19/19 07:18 36.4 C L 79 18 127/81 94 Laboratory Results [facility] 09/18/19 09/19/19 15:58 05:19 Sodium 135 L 136 Potassium 3.9 D 3.7 Chloride 99 100 Carbon Dioxide 31 30 BUN 16 19 H Creatinine 0.90 0.73 Glucose 110 H 107 H Calcium 8.8 8.9
--- NOTE | 2019-09-19 20:08 | Anesthesiology Consultation ---
Date of Service September 19, 2019 Assessment & Plan Chart Review Chart Review: Acceptable Risk for Surgery and Patient NOT seen in Pre Admission Testing Consults Requested none ASA ASA4 Proposed Anesthesia Anesthesia Type: General History Height/Weight Height: 5 ft 1 in Weight: 80.6 kg Allergies Allergy/AdvReac Type Severity Reaction Status Date / Time Penicillins AdvReac Unknown YEAST Verified 09/17/19 14:36 INFECTION Medications Home Medications Medication Instructions Recorded Confirmed Last Taken cetirizine [Zyrtec] 10 mg PO DAILY 09/17/19 09/17/19 Unknown cranberry conc-ascorbic acid 1 cap PO DAILY 09/17/19 09/17/19 Unknown levothyroxine 50 mcg PO DAILY 09/17/19 09/17/19 09/17/19 lisinopril-hydrochlorothiazide 1 tab PO DAILY 09/17/19 09/17/19 09/17/19 meloxicam [Mobic] 7.5 mg PO BID PRN 09/17/19 09/17/19 Unknown metoprolol tartrate 25 mg PO BID 09/17/19 09/17/19 09/17/19 omeprazole 20 mg PO DAILY 09/17/19 09/17/19 09/17/19 sertraline [Zoloft] 100 mg PO DAILY 09/17/19 09/17/19 09/17/19 warfarin [Jantoven] 5 mg PO 4XWK 09/17/19 09/17/19 Unknown warfarin [Jantoven] 7.5 mg PO 3XWK 09/17/19 09/17/19 Unknown Active Medications Generic Name Dose Route Start Last Admin Trade Name Shadiq PRN Reason Stop Dose Admin Aspirin 81 mg 09/18/19 09:00 09/19/19 07:59 Ecotrin Ectab PO 10/18/19 08:59 81 mg DAILY ANNI Administration Cetirizine HCl 10 mg 09/18/19 09:00 09/19/19 07:58 Zyrtec PO 10/18/19 08:59 10 mg DAILY ANNI Administration Levothyroxine Sodium 50 mcg 09/18/19 06:30 09/19/19 06:18 Synthroid PO 10/18/19 06:29 50 mcg DAILYBB ANNI Administration Lisinopril 20 mg 09/18/19 09:00 09/19/19 07:59 Zestril PO 10/18/19 08:59 20 mg QAM ANNI Administration Pantoprazole Sodium 40 mg 09/17/19 21:00 09/19/19 07:58 Protonix PO 10/17/19 20:59 40 mg BID ANNI Administration Sertraline HCl 100 mg 09/18/19 09:00 09/19/19 07:58 Zoloft PO 10/18/19 08:59 100 mg DAILY ANNI Administration Warfarin Sodium 5 mg 09/18/19 16:00 09/19/19 16:10 Coumadin PO 10/18/19 15:59 5 mg DAILY@1600 ANNI Administration Past Medical History Medical History (Updated 09/19/19 @ 20:08 by Héctor Luo MD) Afib AVNRT (AV perla re-entry tachycardia) CHF (congestive heart failure) GERD (gastroesophageal reflux disease) HTN (hypertension) Hypothyroidism NSTEMI (non-ST elevated myocardial infarction) Exercise / Class Metabolic Activity III < 4 Walking/Shop/Light housework Past Family History Family History Mother COPD (chronic obstructive pulmonary disease) Sister Cancer Past Surgical History Surgical History History of back surgery History of knee replacement Past Anesthesia History No Hx of Anesthesia Complications and No Family Hx of Anesthesia Complications History of PONV No Hx of PONV and No Hx of Motion Sickness Social History Smoking Status: Former smoker Do You Dip or Chew Tobacco: No Hx Alcohol Use: No Hx Substance Use: No substance use type: does not use Physical Exam Vital Signs Last Vital Signs Temp 36.4 C L 09/19/19 19:13 Pulse 77 09/19/19 19:13 Resp 16 09/19/19 19:13 BP 128/88 09/19/19 19:13 Pulse Ox 90 09/19/19 19:13 Testing Laboratory Results 09/18/19 04:23 09/19/19 05:19 PT 21.1 Seconds (9.0-12.0) H 09/19/19 05:19 INR 2.2 (0.9-1.1) H 09/19/19 05:19 APTT 36.8 Seconds (21.0-31.0) H 09/17/19 14:34 Electrocardiogram Date: 09/19/19 Findings: + AFIB @ (at 66;LAD;? infer. and anter. [place],ages ?) Chest X-Ray Date: 09/18/19 Findings: + infiltrate (bibasilar parenchymal infiltrates;mild stable CM) Echocardiogram Date: 09/18/19 EF: 55 LV Function: normal RWMA: + none Other Findings: + LVH (mild) Valvular Disease: + MR (mild - mod.) TR-mild;RV fxn is nl
[2019-09-19] MEDS ORDERED: SOTALOL HCL 80 MG TAB PO SCH (21:00)
[2019-09-20 06:09] LABS: INR 1.9 (0.9-1.1); Prothrombin Time 18.4 Seconds (9.0-12.0)
[2019-09-20] MEDS: LEVOTHYROXINE SODIUM 50 MCG TABLET PO SCH (06:23)
[2019-09-20 06:37] LABS: BUN Creatinine Ratio 26.4 (10-20); Creatinine Clr Calc Pharmacy 67.1 ml/min; Est GFR (African American) 92.8; Potassium 3.9 mmol/L (3.5-5.1)
[2019-09-20] MEDS ORDERED: LIDOCAINE HCL 2% 2 ML VIAL/AMP(20MG/ML) INFIL ONE (07:09)
[2019-09-20] MEDS ORDERED: PROPOFOL IV EMULSION 10 MG/ML 20 ML VIAL IV ONE (07:09)
--- NOTE | 2019-09-20 07:17 | History & Physical Bridge Note ---
Date of Service September 20, 2019 History & Physical Bridge Note I have examined the patient, reviewed the History & Physical and in the interval since the performance of the History & Physical I have noted the following changes of clinical significance: Since exam yesterday , no significant change. INR =1.9 this am, however, DILCIA planned for risk stratification prior to CV, and pt has had INR > 2 documented for last 3 weeks prior to today. Electrolytes stable.
[2019-09-20] MEDS ORDERED: ATROPINE SULFATE 0.1 MG/ML 10ML SYR IV ONE (07:25)
--- NOTE | 2019-09-20 07:50 | Post Operative Brief Note ---
Cardiology Brief Post Op Date of Surgery September 20, 2019 Pre & Post Diagnosis Preprocedure diagnosis: Subtherapeutic INR, symptomatic rate controlled atrial fibrillation Postprocedure diagnosis: No left atrial appendage thrombus on focused transesophageal echocardiogram, unsuccessful direct-current cardioversion initially, then reverted to sinus rhythm during the post procedure recovery interval , several minutes after the third shock. Operation Date: 09/20/19 07:30 Procedure Transesophageal echocardiogram guided direct current cardioversion. After informed consent was obtained and timeout was performed the patient was sedated with the assistance of the anesthesia team receiving a total of 40 mg of IV lidocaine and 100 mg of IV propofol. In addition, the oropharynx was sprayed with Cetacaine. A focused transesophageal echocardiogram was performed for risk stratification prior to direct-current cardioversion, limited relevant views were obtained and noted to reduce the duration of sedation time. The left atrial appendage thrombus or left atrial thrombus was present. Direct-current cardioversion was then performed with the patient receiving doses of 250 J, 300 J, and 360 J of biphasic synchronized energy, all 3 countershocks were unsuccessful and the patient remained in a rate controlled atrial fibrillation. In the post procedure recovery interval, a 12-lead EKG was obtained, and documented that the patient had then reverted to sinus rhythm several minutes after the third cardioversion attempt. EKG performed 09/20/2019 at 7:45 AM revealed sinus rhythm at 66 bpm with first-degree AV block, SD interval 240 ms, QT interval of 496 ms, age- indeterminate anteroseptal infarct was noted, unchanged compared to her previous baseline EKG. Plan: Continue initiation of sotalol, with caution given QT interval. Her prior to hospital treatment with Zoloft is going to be weaned to 50 mg today. Entry Level Sales Associate Golden Travsi DO [employer] Drm Consultant Mikayla Villalta, RCS Estimated Blood Loss 0 Findings Consistent with Post-Op Diagnosis Anesthesia Type MAC Complications none
--- NOTE | 2019-09-20 08:02 | Cardiology Progress Note ---
Date of Service September 20, 2019 Assessment & Plan (1) Afib: (2) Heart failure with preserved ejection fraction: No left atrial appendage thrombus on limited focused transesophageal echocardiogram. The patient underwent 3 trials of direct-current cardioversion remained in rate controlled atrial fibrillation, then a few moments after the third countershock when she was recovering, she spontaneously reverted to sinus rhythm as confirmed on EKG. First-degree AV block noted, as well as QT interval prolongation 496 ms Will wean sertraline down from 100 mg daily to 50 mg daily, and continue cautious sotalol loading with 40 mg p.o. twice daily. It would certainly appear that the patient requires antiarrhythmic medication. As previously noted, she does not have insurance coverage, and therefore the cost of dofetilide treatment is prohibitive. Would like to avoid amiodarone if at all possible due to the risk of toxicities. We will hold off on further diuretic therapy today. Patient to remain on telemetry. Repeat EKG plan tomorrow as well as repeat chemistry panel Her INR was subtherapeutic today. She had therapeutic INRs for the last 3 weeks prior to this. Will administer 7.5 mg of Coumadin this morning, and then return to her previous dose of 5 mg daily. INR ordered for tomorrow. Subjective Chief complaint: Follow-up shortness of breath Subjective: Patient did well overnight, remained in a rate controlled atrial fibrillation the range of 60 to 70 bpm. Over 2 L of urine output recorded with -2.1 L fluid balance noted this morning with patient having received 20 mg of IV furosemide yesterday, 09/19/2019. Review of Systems Review of Systems: All systems reviewed & are unremarkable except as noted in HPI & below Physical Exam Physical Exam: Temp Pulse Resp BP Pulse Ox 36.8 C 70 16 97/60 L 91 09/20/19 02:58 09/20/19 07:55 09/20/19 07:55 09/20/19 07:55 09/20/19 07:55 Respiratory: normal respiratory effort, lungs clear to auscultation Cardiovascular: RRR, no murmur, no edema Gastrointestinal (Abdomen): normal bowel sounds, soft, nontender, no hepatosplenomegaly Skin: no rashes, warm and dry Neurologic: PERRL, EOMI, accommodation nl, no face palsy, no dysarthria Results & Data Vital Signs (Past 12 Hours) Vital Signs Temp Pulse Pulse Resp BP BP Pulse Ox 09/20/19 07:55 70 16 97/60 L 91 09/20/19 07:40 81 16 108/80 95 09/20/19 07:38 84 16 115/84 91 09/20/19 07:21 77 17 116/86 91 09/20/19 02:58 36.8 C 88 18 124/80 92 09/19/19 23:27 36.5 C 76 18 120/77 92 09/19/19 22:30 71
--- NOTE | 2019-09-20 08:11 | Anesthesiology Progress Note ---
Date of Service September 20, 2019 Anesthesia Post Procedure Vital Signs Vital Signs: Temp Pulse Pulse Resp BP BP Pulse Ox 09/20/19 07:55 70 16 97/60 L 91 09/20/19 07:40 81 16 108/80 95 09/20/19 07:38 84 16 115/84 91 09/20/19 07:21 77 17 116/86 91 09/20/19 07:05 36.9 C 75 18 135/88 97 09/20/19 02:58 36.8 C 88 18 124/80 92 09/19/19 23:27 36.5 C 76 18 120/77 92 09/19/19 22:30 71 09/19/19 19:13 36.4 C L 77 16 128/88 90 09/19/19 15:35 36.8 C 73 16 132/90 91 09/19/19 11:28 36.8 C 69 18 130/87 94 Transfer of Care Handoff Completed per policy Notes Mental Status: alert / awake / arousable and participated in evaluation Patient Amnestic to Procedure: Yes Nausea / Vomiting: adequately controlled Pain: adequately controlled Airway Patency, RR, SpO2: stable & adequate BP & HR: stable & adequate Hydration State: stable & adequate Anesthetic Complications: no major complications apparent and Pt Satisfied with anesthetic care
[2019-09-20] MEDS: PANTOprazole 40 MG TAB PO SCH ×2 (08:17→21:15)
[2019-09-20] MEDS: ASPIRIN 81 MG ECTAB PO SCH (08:17)
[2019-09-20] MEDS: lisinopriL 20 MG TAB PO SCH (08:17)
[2019-09-20] MEDS: SERTRALINE HCL 50 MG TABLET PO SCH (08:18)
[2019-09-20] MEDS: CETIRIZINE HCL 10 MG TABLET PO SCH (08:18)
[2019-09-20] MEDS ORDERED: WARFARIN SOD 7.5 MG TAB PO SCH (09:00)
[2019-09-20] MEDS ORDERED: SOTALOL HCL 80 MG TAB PO SCH (09:00)
[2019-09-20] MEDS: SOTALOL HCL 80 MG TAB PO SCH ×2 (09:01→21:16)
--- NOTE | 2019-09-20 15:13 | Electrocardiogram Report ---
Test Reason : Blood Pressure : / mmHG Vent. Rate : 066 BPM Atrial Rate : 066 BPM P-R Int : 240 ms QRS Dur : 094 ms QT Int : 474 ms P-R-T Axes : 054 -63 054 degrees QTc Int : 496 ms Sinus rhythm with 1st degree A-V block with Premature atrial complexes Left axis deviation Inferior infarct (cited on or before 07-JUL-2019) Anterior infarct (cited on or before 07-JUL-2019) Abnormal ECG When compared with ECG of 19-SEP-2019 07:29, Sinus rhythm has replaced Atrial fibrillation Confirmed by Joshua De La Garza ([id number]) on 09/20/2019 3:13:18 PM Referred By: REFERRED SELF Confirmed By:Joshua De La Garza
--- NOTE | 2019-09-20 18:11 | Hospitalist Progress Note ---
Date of Service September 20, 2019 Assessment & Plan (1) RASHID (dyspnea on exertion): Acute diastolic CHF exacerbation Hypoxia CXR: Infiltrate combined with a small right effusion right lung base. Minimal infiltrate left base which may reflect a component of cardiac decompensation. Nonobstructive bowel pattern. Gained about 3 kg on review of old records Noted to be hypoxic while in ED ECHO: EF: 55-60%, mild LVH, mild to moderate MR, mild TR Hold PO diuretics Monitor Daily weight, I/Os, fluid restriction Oxygen support PRN Monitor renal function/electrolytes Appreciate Cardiology Input IV Lasix as needed Monitor volume status Paroxysmal atrial fibrillation H/O SVT S/P AVNRT ablation in 2018 S/P DILCIA Cardioversion on 09/20/19 Metoprolol discontinued Continue Sotalol 40 mg BID Monitor INR:1.9 Continue Coumadin--adjust dose as needed Appreciate cardiology help Hypokalemia Hypomagnesemia secondary to diuretics Replace electrolytes as needed Monitor Elevated Troponin Likely demand ischemia secondary to hypoxia, CHF Denies chest Pain Last Stress Test on 08/06/19: Non Ischemic Risk factors: H/O HTN, Former Tobacco use disorder Troponin mildly elevated Continue lisinopril Oxygen PRN Appreciate Cardiology Input Prolonged QTC: Avoid QTC prolonging meds as able Monitor QTC with daily EKG Zoloft dose decreased to 50 mg daily Epigastric Abdominal Pain/Heaviness Likely due to GERD Was prescribed PPI twice daily but has been taking only once a day --Gall Bladder USD: Diffuse gallbladder wall thickening most pronounced along the hepatic surface. There are no gallstones and a negative sonographic Shah sign. Therefore, this is likely due to the patient's diffuse edematous state or possibly underlying hepatic pathology rather than acute cholecystitis. Mildly distended common bile duct measuring up to 9 mm. --Normal Lipase --LFTs fairly wnl --Continue PPI BID --Advised to limit carbonated drinks --Monitor Anxiety disorder on Zoloft--decreased to 50 mg daily Hypothyroidism Continue levothyroxine DVT Px: Coumadin Code Status Full Code Disposition Expected discharge home when medically stable Subjective Patient is seen and examined at bedside Patient had DILCIA cardioversion this morning Denies any chest pain, shortness of breath today Offers no other complaints Review of Systems Review of Systems: All systems reviewed & are unremarkable except as noted in HPI & below Physical Exam Physical Exam: Physical Exam: Vitals signs as noted above General Appearance:Moderately built and nourished, no apparent distress Head: normocephalic, Atraumatic Eyes: normal inspection, EOMI Neck: supple, Trachea midline Respiratory/Chest: Normal breath sounds, + scattered rales Cardiovascular: S, S2, + Systolic murmur Abdomen/GI:Soft, Epigastric tender, Bowel sounds present Extremities/Musculoskelatal:normal inspection, no edema Neurologic/Psych:AAOX3, grossly no focal neurological deficits Skin: normal color, warm Results & Data Vital Signs (Past 12 Hours) Vital Signs Temp Pulse Pulse Resp BP BP Pulse Ox 09/20/19 16:00 90 09/20/19 15:10 36.8 C 88 17 136/90 91 09/20/19 11:28 36.6 C 91 H 18 128/85 90 09/20/19 09:28 36.5 C 87 18 122/84 91 09/20/19 08:58 36.6 C 80 18 124/82 91 09/20/19 08:28 36.5 C 78 18 121/81 90 09/20/19 07:55 70 16 97/60 L 91 09/20/19 07:40 81 16 108/80 95 09/20/19 07:38 84 16 115/84 91 09/20/19 07:21 77 17 116/86 91 09/20/19 07:05 36.9 C 75 18 135/88 97 Laboratory Results [facility] 09/20/19 05:27 Sodium 136 Potassium 3.9 Chloride 101 Carbon Dioxide 31 BUN 20 H Creatinine 0.76 Glucose 103 H Calcium 9.0
[2019-09-21 06:13] LABS: INR 2.2 (0.9-1.1); Prothrombin Time 21.6 Seconds (9.0-12.0)
[2019-09-21] MEDS: LEVOTHYROXINE SODIUM 50 MCG TABLET PO SCH (06:18)
[2019-09-21 06:34] LABS: BUN Creatinine Ratio 27.5 (10-20); Calcium 8.8 mg/dl (8.5-10.1); Creatinine Clr Calc Pharmacy 75.4 ml/min; Est GFR (African American) 103.4; Est GFR (Non-African American) 89.2; Potassium 4.1 mmol/L (3.5-5.1)
[2019-09-21] MEDS: lisinopriL 20 MG TAB PO SCH (08:24)
[2019-09-21] MEDS: SERTRALINE HCL 50 MG TABLET PO SCH (08:24)
[2019-09-21] MEDS: CETIRIZINE HCL 10 MG TABLET PO SCH (08:25)
[2019-09-21] MEDS: PANTOprazole 40 MG TAB PO SCH ×2 (08:25→20:21)
[2019-09-21] MEDS: ASPIRIN 81 MG ECTAB PO SCH (08:25)
--- NOTE | 2019-09-21 08:31 | Cardioversion ---
Date of Service September 20, 2019 Date of Surgery September 20, 2019 Pre & Post Diagnosis Preprocedure diagnosis: Subtherapeutic INR, symptomatic rate controlled atrial fibrillation Postprocedure diagnosis: No left atrial appendage thrombus on focused transesophageal echocardiogram, unsuccessful direct-current cardioversion initially, then reverted to sinus rhythm during the post procedure recovery interval , several minutes after the third shock. Operation Date: 09/20/19 07:30 Procedure Transesophageal echocardiogram guided direct current cardioversion. After informed consent was obtained and timeout was performed the patient was sedated with the assistance of the anesthesia team receiving a total of 40 mg of IV lidocaine and 100 mg of IV propofol. In addition, the oropharynx was sprayed with Cetacaine. A focused transesophageal echocardiogram was performed for risk stratification prior to direct-current cardioversion, limited relevant views were obtained and noted to reduce the duration of sedation time. The left atrial appendage thrombus or left atrial thrombus was present. Direct-current cardioversion was then performed with the patient receiving doses of 250 J, 300 J, and 360 J of biphasic synchronized energy, all 3 countershocks were unsuccessful and the patient remained in a rate controlled atrial fibrillation. In the post procedure recovery interval, a 12-lead EKG was obtained, and documented that the patient had then reverted to sinus rhythm several minutes after the third cardioversion attempt. EKG performed 09/20/2019 at 7:45 AM revealed sinus rhythm at 66 bpm with first- degree AV block, FL interval 240 ms, QT interval of 496 ms, age-indeterminate anteroseptal infarct was noted, unchanged compared to her previous baseline EKG. Plan: Continue initiation of sotalol, with caution given QT interval. Her prior to hospital treatment with Zoloft is going to be weaned to 50 mg today. Jet Pilot Golden Travis DO Battery Wrecker Operator Mikayla Villalta, RCS Estimated Blood Loss 0 Findings Consistent with Post-Op Diagnosis Anesthesia Type MAC Complications none
[2019-09-21] MEDS ORDERED: FUROSEMIDE 20 MG in SYRINGE 0 ML IV ONE (08:32)
[2019-09-21] MEDS: SOTALOL HCL 80 MG TAB PO SCH ×2 (08:55→20:20)
[2019-09-21] MEDS: POTASSIUM CHLORIDE 20 MEQ TABCR PO SCH (09:08)
--- NOTE | 2019-09-21 10:20 | Electrocardiogram Report ---
Test Reason : Blood Pressure : / mmHG Vent. Rate : 086 BPM Atrial Rate : 086 BPM P-R Int : 262 ms QRS Dur : 092 ms QT Int : 410 ms P-R-T Axes : 052 -63 082 degrees QTc Int : 490 ms Sinus rhythm with 1st degree A-V block Left axis deviation Minimal voltage criteria for LVH, may be normal variant Inferior infarct (cited on or before 07-JUL-2019) Anterior infarct (cited on or before 07-JUL-2019) Abnormal ECG When compared with ECG of 20-SEP-2019 07:45, Premature atrial complexes are no longer Present Confirmed by Joshua De La Garza ([id number]) on 09/21/2019 10:19:50 AM Referred By: REFERRED SELF Confirmed By:Jsohua De La Garza
--- NOTE | 2019-09-21 11:07 | Anesthesiology Progress Note ---
Date of Service September 21, 2019 Anesthesia Post Procedure Vital Signs Vital Signs: Temp Pulse Pulse Resp BP BP Pulse Ox 09/21/19 07:52 36.6 C 86 18 136/95 93 09/21/19 06:44 86 09/21/19 03:00 36.5 C 83 20 136/91 92 09/21/19 00:24 88 09/20/19 23:29 36.4 C L 90 20 137/88 91 09/20/19 19:26 36.5 C 88 17 126/85 92 09/20/19 16:00 90 09/20/19 15:10 36.8 C 88 17 136/90 91 09/20/19 11:28 36.6 C 91 H 18 128/85 90 Notes Mental Status: alert / awake / arousable and participated in evaluation Patient Amnestic to Procedure: Yes Nausea / Vomiting: adequately controlled Pain: adequately controlled Airway Patency, RR, SpO2: stable & adequate BP & HR: stable & adequate Hydration State: stable & adequate Anesthetic Complications: no major complications apparent
--- NOTE | 2019-09-21 13:47 | Cardiology Progress Note ---
Date of Service September 21, 2019 Assessment & Plan (1) Heart failure with preserved ejection fraction: (2) Afib: EKG performed today 09/21/2019 at 6:44 AM and reviewed independently reveals sinus rhythm at 86 bpm, with first-degree AV block, OR interval 260 ms, age- indeterminate anterior inferior infarct pattern, (chronic sinus), and QT interval 490 ms. Compared to the prior EKG performed post cardioversion yesterday 09/20/2019, the QT interval is stable. Continue initiation of low-dose sotalol, 40 mg, twice daily, with caution given QT prolongation. I think as long as the QT interval is less than 500 ms this would be acceptable. Her sertraline has been reduced to 50 mg daily. For additional heart rate lowering properties, will add back metoprolol with low-dose 2.5 mg twice daily with meals. Continue Coumadin for stroke prophylaxis, INR was 2.2 today. Continue ongoing diuretic therapy, furosemide 20 mg IV plan for tomorrow morning. Kidney function and electrolytes are stable today, I will be rechecked tomorrow. DVT prophylaxis: Patient is fully anticoagulated with Coumadin. Subjective Patient received 20 of milligrams of IV furosemide this morning and has since had 2 L of urine output. She is feeling well. Denies subjective palpitations. Telemetry reveals sinus rhythm in the 80 bpm range with ongoing first-degree AV block. Physical Exam Physical Exam: Temp Pulse Resp BP Pulse Ox 36.6 C 86 18 130/85 92 09/21/19 11:48 09/21/19 11:48 09/21/19 11:48 09/21/19 11:48 09/21/19 11:48 Constitutional: WD/WN, vitals as above Respiratory: Mild crackles at the bases, improved compared to yesterday Cardiovascular: Rate/Rhythm: regular rate Heart Sounds: no murmur Vessels: no JVD Extremities: no edema Gastrointestinal (Abdomen): normal bowel sounds, soft, nontender, no hepatosplenomegaly Neurologic: PERRL, EOMI, accommodation nl, no face palsy, no dysarthria Results & Data Vital Signs (Past 12 Hours) Vital Signs Temp Pulse Pulse Resp BP Pulse Ox 09/21/19 11:48 36.6 C 86 18 130/85 92 09/21/19 07:52 36.6 C 86 18 136/95 93 09/21/19 06:44 86 09/21/19 03:00 36.5 C 83 20 136/91 92
[2019-09-21] MEDS: WARFARIN SOD 5 MG TAB PO SCH (17:00)
[2019-09-21] MEDS: METOPROLOL TARTRATE 25 MG TAB PO SCH (17:00)
--- NOTE | 2019-09-21 20:40 | Hospitalist Progress Note ---
Date of Service September 21, 2019 Assessment & Plan (1) RASHID (dyspnea on exertion): Acute diastolic CHF exacerbation Hypoxia CXR: Infiltrate combined with a small right effusion right lung base. Minimal infiltrate left base which may reflect a component of cardiac decompensation. Nonobstructive bowel pattern. Gained about 3 kg on review of old records Noted to be hypoxic while in ED ECHO: EF: 55-60%, mild LVH, mild to moderate MR, mild TR Hold PO diuretics Monitor Daily weight, I/Os, fluid restriction Oxygen support PRN Monitor renal function/electrolytes Appreciate Cardiology Input Continue IV Lasix as per cards Clinically improved after IV Lasix Paroxysmal atrial fibrillation H/O SVT S/P AVNRT ablation in 2018 S/P DILCIA Cardioversion on 09/20/19 Continue Sotalol 40 mg BID, added low-dose metoprolol Monitor INR: 2.2 Continue Coumadin--adjust dose as needed Appreciate cardiology help Hypokalemia Hypomagnesemia secondary to diuretics Replace electrolytes as needed Monitor Elevated Troponin Likely demand ischemia secondary to hypoxia, CHF Denies chest Pain Last Stress Test on 08/06/19: Non Ischemic Risk factors: H/O HTN, Former Tobacco use disorder Troponin mildly elevated Continue lisinopril Oxygen PRN Appreciate Cardiology Input Prolonged QTC: Avoid QTC prolonging meds as able Monitor QTC with daily EKG Zoloft dose decreased to 50 mg daily Epigastric Abdominal Pain/Heaviness Likely due to GERD Was prescribed PPI twice daily but has been taking only once a day --Gall Bladder USD: Diffuse gallbladder wall thickening most pronounced along the hepatic surface. There are no gallstones and a negative sonographic Shah sign. Therefore, this is likely due to the patient's diffuse edematous state or possibly underlying hepatic pathology rather than acute cholecystitis. Mildly distended common bile duct measuring up to 9 mm. --Normal Lipase --LFTs fairly wnl --Continue PPI BID --Advised to limit carbonated drinks --Monitor Anxiety disorder on Zoloft--decreased to 50 mg daily Hypothyroidism Continue levothyroxine DVT Px: Coumadin Code Status Full Code Disposition Expected discharge home when medically stable Subjective Patient is seen and examined at bedside States feeling better after IV Lasix this morning More short of breath earlier Denies any chest pain, shortness of breath today No new complaints Review of Systems Review of Systems: All systems reviewed & are unremarkable except as noted in HPI & below Physical Exam Physical Exam: Physical Exam: Vitals signs as noted above General Appearance:Moderately built and nourished, no apparent distress Head: normocephalic, Atraumatic Eyes: normal inspection, EOMI Neck: supple, Trachea midline Respiratory/Chest: Normal breath sounds, + rales Cardiovascular: S, S2, + Systolic murmur Abdomen/GI:Soft, Epigastric tender, Bowel sounds present Extremities/Musculoskelatal:normal inspection, no edema Neurologic/Psych:AAOX3, grossly no focal neurological deficits Skin: normal color, warm Results & Data Vital Signs (Past 12 Hours) Vital Signs Temp Pulse Pulse Resp BP Pulse Ox 09/21/19 19:06 36.7 C 68 18 137/88 92 09/21/19 16:36 92 H 09/21/19 15:03 36.7 C 91 H 18 144/89 H 92 09/21/19 11:48 36.6 C 86 18 130/85 92 Laboratory Results [facility] 09/21/19 05:21 Sodium 135 L Potassium 4.1 Chloride 99 Carbon Dioxide 32 BUN 19 H Creatinine 0.68 Glucose 95 Calcium 8.8
[2019-09-21] MEDS ORDERED: NURSING DECISION MEDICATION ONE (20:51)
[2019-09-21] MEDS ORDERED: SODIUM CHLORIDE 0.65% NA SOLN 45 ML (OCEAN) PRN (20:54)
[2019-09-22] MEDS: LEVOTHYROXINE SODIUM 50 MCG TABLET PO SCH (06:17)
[2019-09-22 06:45] LABS: INR 2.2 (0.9-1.1); Prothrombin Time 21.2 Seconds (9.0-12.0)
[2019-09-22 07:07] LABS: Calcium 8.8 mg/dl (8.5-10.1); Est GFR (Non-African American) 90.6; Potassium 3.6 mmol/L (3.5-5.1)
[2019-09-22] MEDS: lisinopriL 20 MG TAB PO SCH (08:02)
[2019-09-22] MEDS: CETIRIZINE HCL 10 MG TABLET PO SCH (08:03)
[2019-09-22] MEDS: PANTOprazole 40 MG TAB PO SCH (08:03)
[2019-09-22] MEDS: SERTRALINE HCL 50 MG TABLET PO SCH (08:03)
[2019-09-22] MEDS: ASPIRIN 81 MG ECTAB PO SCH (08:03)
[2019-09-22] MEDS: SOTALOL HCL 80 MG TAB PO SCH (08:03)
[2019-09-22] MEDS: POTASSIUM CHLORIDE 20 MEQ TABCR PO SCH (08:03)
[2019-09-22] MEDS: METOPROLOL TARTRATE 25 MG TAB PO SCH (08:03)
[2019-09-22] MEDS ORDERED: FUROSEMIDE 20 MG in SYRINGE 0 ML IV SCH (09:00)
--- NOTE | 2019-09-22 10:16 | Electrocardiogram Report ---
Test Reason : Blood Pressure : / mmHG Vent. Rate : 083 BPM Atrial Rate : 083 BPM P-R Int : 256 ms QRS Dur : 094 ms QT Int : 416 ms P-R-T Axes : 035 -61 077 degrees QTc Int : 488 ms Sinus rhythm with 1st degree A-V block Left axis deviation Minimal voltage criteria for LVH, may be normal variant ( Shiraz product ) Inferior infarct (cited on or before 07-JUL-2019) Anterolateral infarct (cited on or before 07-JUL-2019) Abnormal ECG When compared with ECG of 21-SEP-2019 06:44, No significant change was found Confirmed by Joshua De La Garza ([id number]) on 09/22/2019 10:15:40 AM Referred By: REFERRED SELF Confirmed By:Joshua De La Garza
--- NOTE | 2019-09-22 12:03 | Hospitalist Progress Note ---
Date of Service September 22, 2019 Assessment & Plan (1) RASHID (dyspnea on exertion): Acute diastolic CHF exacerbation Hypoxia CXR: Infiltrate combined with a small right effusion right lung base. Minimal infiltrate left base which may reflect a component of cardiac decompensation. Nonobstructive bowel pattern. Gained about 3 kg on review of old records Noted to be hypoxic while in ED ECHO: EF: 55-60%, mild LVH, mild to moderate MR, mild TR Hold PO diuretics Monitor Daily weight, I/Os, fluid restriction Oxygen support PRN Monitor renal function/electrolytes Appreciate Cardiology Input Continue IV Lasix 20mg daily Weight down by 4 kg since admission Volume status improved Paroxysmal atrial fibrillation H/O SVT S/P AVNRT ablation in 2018 S/P DILCIA Cardioversion on 09/20/19 Continue Sotalol 40 mg BID Also on Metoprolol 12.5 mg BID Monitor INR: 2.2 Continue Coumadin Appreciate cardiology help Hypokalemia Hypomagnesemia secondary to diuretics Replace electrolytes as needed Monitor Elevated Troponin Likely demand ischemia secondary to hypoxia, CHF Denies chest Pain Last Stress Test on 08/06/19: Non Ischemic Risk factors: H/O HTN, Former Tobacco use disorder Troponin mildly elevated Continue lisinopril Oxygen PRN Appreciate Cardiology Input Prolonged QTC: Avoid QTC prolonging meds as able Monitor QTC with daily EKG Zoloft dose decreased to 50 mg daily Epigastric Abdominal Pain/Heaviness Likely due to GERD Was prescribed PPI twice daily but has been taking only once a day --Gall Bladder USD: Diffuse gallbladder wall thickening most pronounced along the hepatic surface. There are no gallstones and a negative sonographic Shah sign. Therefore, this is likely due to the patient's diffuse edematous state or possibly underlying hepatic pathology rather than acute cholecystitis. Mildly distended common bile duct measuring up to 9 mm. --Normal Lipase --LFTs fairly wnl --Continue PPI BID --Advised to limit carbonated drinks --Resolved Anxiety disorder on Zoloft--decreased to 50 mg daily Hypothyroidism Continue levothyroxine DVT Px: Coumadin Code Status Full Code Disposition Expected discharge home when medically stable Subjective Patient is seen and examined at bedside Patient is doing well today Offers no complaints Denies SOB, chest pain, dizziness, nausea, abd pain Diuresing well Weight down by 4kg since admission Review of Systems Review of Systems: All systems reviewed & are unremarkable except as noted in HPI & below Physical Exam Physical Exam: Physical Exam: Vitals signs as noted above General Appearance:Moderately built and nourished, no apparent distress Head: normocephalic, Atraumatic Eyes: normal inspection, EOMI Neck: supple, Trachea midline Respiratory/Chest: Normal breath sounds, CTA Cardiovascular: S, S2, + Systolic murmur Abdomen/GI:Soft, Epigastric tender, Bowel sounds present Extremities/Musculoskelatal:normal inspection, no edema Neurologic/Psych:AAOX3, grossly no focal neurological deficits Skin: normal color, warm Results & Data Vital Signs (Past 12 Hours) Vital Signs Temp Pulse Pulse Resp BP Pulse Ox 09/22/19 11:04 36.6 C 82 19 121/84 92 09/22/19 07:44 36.4 C L 86 18 117/83 94 09/22/19 07:35 84 09/22/19 03:52 36.7 C 82 18 121/79 93 Laboratory Results [facility] 09/22/19 05:56 Sodium 136 Potassium 3.6 Chloride 100 Carbon Dioxide 31 BUN 14 Creatinine 0.65 Glucose 98 Calcium 8.8
--- NOTE | 2019-09-22 14:35 | Cardiology Progress Note ---
Date of Service September 22, 2019 Assessment & Plan (1) Heart failure with preserved ejection fraction: (2) Afib: Persistent AF for just over 1 month. s/p DILCIA CV 09/20/19 to SR. EKG today reveals stable SR at 83 with QTC of 488 and stable first degree AVB. Remained in hospital for sotalol load and diuresis. Sotalol dose limited by QTC . Does not have prescription coverage, therefore Tikosyn was to expensive. Out of pocket cost for sotalol $15 / month. Stable for discharge on the following medications. Discontinue lisinopril/HCTZ combination, and resume lisinopril 20 mg p.o. daily instead. Discharge on furosemide 20 mg daily, with 2 tablets or 40 mg 3 days/week on Mondays, Wednesdays, and Fridays (this replaces the hydrochlorothiazide). Potassium chloride 20 mEq p.o. daily (new med) Sotalol, 40 mg twice daily, this will likely be an 80 mg tablet, 1/2 tablet 2 times per day. Reduce prior to hospital dose of sertraline from 100 mg daily to 50 mg daily. Continue prior to hospital dosing of aspirin plus Coumadin. Continue prior to hospital dosing of levothyroxine. Patient already has follow-up with Dr. Meeks planned 09/24/19. Future considerations include permanent pacemaker or pulmonary vein cryoablation. Subjective Patient feeling well. Neg 2.2 liters yesterday and negative 1 L so far today. EKG today reveals stable SR with QTC of 488 and stable first degree AVB. Review of Systems Review of Systems: All systems reviewed & are unremarkable except as noted in HPI & below Physical Exam Physical Exam: Temp Pulse Resp BP Pulse Ox 36.6 C 82 19 121/84 92 09/22/19 11:04 09/22/19 11:04 09/22/19 11:04 09/22/19 11:04 09/22/19 11:04 Constitutional: WD/WN, vitals as above Respiratory: normal respiratory effort, lungs clear to auscultation Cardiovascular: RRR, no murmur, no edema Skin: no rashes, warm and dry Neurologic: PERRL, EOMI, accommodation nl, no face palsy, no dysarthria Results & Data Vital Signs (Past 12 Hours) Vital Signs Temp Pulse Pulse Resp BP Pulse Ox 09/22/19 11:04 36.6 C 82 19 121/84 92 09/22/19 07:44 36.4 C L 86 18 117/83 94 09/22/19 07:35 84 09/22/19 03:52 36.7 C 82 18 121/79 93 Laboratory Results Coagulation 09/22/19 Range/Units 05:56 PT 21.2 H (9.0-12.0) Seconds Comprehensive Metabolic Panel 09/22/19 Range/Units 05:56 Sodium 136 (136-145) mmol/L Potassium 3.6 (3.5-5.1) mmol/L Chloride 100 (98-107) mmol/L Carbon Dioxide 31 (21-32) mmol/L BUN 14 (7-18) mg/dl Creatinine 0.65 (0.6-1.2) mg/dl Glucose 98 (70-99) mg/dl Calcium 8.8 (8.5-10.1) mg/dl Intake and Output 09/21/19 09/22/19 09/22/19 22:59 06:59 14:59 Intake Total 460 / 1385 650 / 1385 Output Total 625 / 3625 500 / 3625 1000 / 1000 Balance -165 / -2240 150 / -2240 -1000 / -1000 Intake: Oral 460 / 1385 650 / 1385 Output: Urine 625 / 3625 500 / 3625 1000 / 1000 Other: Weight 79.5 kg
[2019-09-22] MEDS: WARFARIN SOD 5 MG TAB PO SCH (15:39)
--- NOTE | 2019-09-23 09:25 | Discharge Summary ---
Date of Service September 23, 2019 Admission HPI Per Admitting Provider Patient is a 69-year-old female with history of GERD, anxiety disorder, hypothyroidism, Chronic sinusitis, hypertension, paroxysmal atrial fibrillation, diverticulosis, former tobacco use disorder, H/O SVT S/P AVNRT ablation in 2018 and other problems presents with history of dyspnea on exertion since 2 to 3 weeks duration which has been gradually worsening since last 2 days. Reports palpitations intermittently. She feels her chest is congested and has been having dry cough since about 1 month duration. She also states having epigastric heaviness which is nonradiating since last 2 days associated with lot of burping. She admits to drinking 4 cans of Diet Coke on daily basis. She denies any aggravating factors. She is on omeprazole for GERD which temporarily helps. She received GI cocktail in ED which minimized her epigastric heaviness. Her appetite has been poor lately. She was recently diagnosed to have atrial fibrillation. Her last stress test is in July 2019 which is negative. Denies any history of chest pain, orthopnea, PND, dizziness, pedal edema, diaphoresis, fever, chills, headache, weakness, numbness, change in vision, nausea, vomiting, diarrhea, dysuria, hematuria, recent travel, sick contact, recent change in medications. Admission Exam Per Admitting Provider Physical Exam: Vitals signs as noted above General Appearance:Moderately built and nourished, no apparent distress Head: normocephalic, Atraumatic Eyes: normal inspection, EOMI Neck: supple, Trachea midline Respiratory/Chest: Normal breath sounds, B/L basal crackles, No accessory muscle use Cardiovascular: Irregularly irregular, No murmur GI:Soft, Epigastric tender, Bowel sounds present Extremities/Musculoskelatal:normal inspection, no edema Neurologic/Psych:AAOX3, grossly no focal neurological deficits Skin: normal color, warm Principal Diagnosis Acute diastolic CHF exacerbation Paroxysmal atrial fibrillation Discharge Data Allergies Allergy/AdvReac Type Severity Reaction Status Date / Time Penicillins AdvReac Unknown YEAST Verified 09/17/19 14:36 INFECTION Consultations 09/17/19 15:43 ED Decision to Admit Stat 09/17/19 18:12 Consult Cardiology Routine 09/19/19 11:31 Consult Anesthesiology Routine Procedures Performed Operation Date: 09/20/19 07:30 Actual Procedures p Echo Transesophageal - DO sebastian Levine Cardioversion - Golden Travis DO Chest/Abd X ray: 1. Infiltrate combined with a small right effusion right lung base. 2. Minimal infiltrate left base which may reflect a component of cardiac decompensation. 3. Nonobstructive bowel pattern. CXR: Infiltrate combined with a small right effusion right lung base. Minimal infiltrate left base which may reflect a component of cardiac decompensation. Nonobstructive bowel pattern. Gall Bladder USD: 1. Diffuse gallbladder wall thickening most pronounced along the hepatic surface. There are no gallstones and a negative sonographic Shah sign. Therefore, this is likely due to the patient's diffuse edematous state or possib ly underlying hepatic pathology rather than acute cholecystitis. 2. Mildly distended common bile duct measuring up to 9 mm. Ordered Studies 09/17/19 14:13 US gallbladder Stat Hospital Course (1) RASHID (dyspnea on exertion): Acute diastolic CHF exacerbation Hypoxia CXR: Infiltrate combined with a small right effusion right lung base. Minimal infiltrate left base which may reflect a component of cardiac decompensation. Nonobstructive bowel pattern. Gained about 3 kg on review of old records Noted to be hypoxic while in ED ECHO: EF: 55-60%, mild LVH, mild to moderate MR, mild TR Hold PO diuretics Monitor Daily weight, I/Os, fluid restriction Oxygen support PRN Monitor renal function/electrolytes Appreciate Cardiology Input Received IV Lasix 20mg daily Weight down by 4 kg since admission Volume status improved Discontinue HCTZ on discharge Plan to discharge on lisinopril 20 mg p.o. daily, furosemide 20 mg daily, with 2 tablets or 40 mg 3 days/week on Mondays, Wednesdays, and Fridays and Potassium chloride 20 mEq p.o. daily Paroxysmal atrial fibrillation H/O SVT S/P AVNRT ablation in 2018 S/P DILCIA Cardioversion on 09/20/19 Continue Sotalol 40 mg BID Also on Metoprolol 12.5 mg BID Monitor INR: 2.2 Continue Coumadin Appreciate cardiology help Plan to discharge on Sotalol, 40 mg twice daily and Metoprolol succinate 25mg daily Patient has follow-up with Dr. Meeks planned 09/24/19. Future considerations may be --permanent pacemaker or pulmonary vein cryoablation. Hypokalemia Hypomagnesemia secondary to diuretics Replace electrolytes as needed Monitor Elevated Troponin Likely demand ischemia secondary to hypoxia, CHF Denies chest Pain Last Stress Test on 08/06/19: Non Ischemic Risk factors: H/O HTN, Former Tobacco use disorder Troponin mildly elevated Continue lisinopril Oxygen PRN Appreciate Cardiology Input Prolonged QTC: Avoid QTC prolonging meds as able Monitor QTC with daily EKG Zoloft dose decreased to 50 mg daily( as started on Sotalol) Epigastric Abdominal Pain/Heaviness Likely due to GERD Was prescribed PPI twice daily but has been taking only once a day --Gall Bladder USD: Diffuse gallbladder wall thickening most pronounced along the hepatic surface. There are no gallstones and a negative sonographic Shah sign. Therefore, this is likely due to the patient's diffuse edematous state or possibly underlying hepatic pathology rather than acute cholecystitis. Mildly distended common bile duct measuring up to 9 mm. --Normal Lipase --LFTs fairly wnl --Continue PPI BID --Advised to limit carbonated drinks --Resolved Anxiety disorder on Zoloft--decreased to 50 mg daily Hypothyroidism Continue levothyroxine DVT Px: Coumadin Code Status Full Code Disposition Expected discharge home when medically stable Total Time Total Time Spent Total Time Spent (In Minutes): 42 minutes Discharge Plan Discharge Items Patient Disposition: Home - Self-Care Reason For Visit: EPIGASTRIC PAIN Discharge Diagnosis: Acute diastolic CHF exacerbation Paroxysmal atrial fibrillation Activity: Resume your previous activity Exercise/Sports: Gradually increase as tolerated Non-emergency contact: Primary Care Provider and Craft Demonstrator Call non-emergency contact if: you have any medication questions, your symptoms worsen, your pain is not controlled, your pain is worsening, your pain is unusual for you, your pain is concerning for you and you have a fever Follow-up/Referrals: Rosa Everett PA-C [Primary Care Provider] - 09/27/19 11:05 am (Your appointment is with Dr. Chao. coagulation clinic notified-please keep the appointment) Diet: Heart Healthy Addtl Attending Provider Instructions: Follow-up with your primary care physician Dr.Desiree Everett on Sep 27, 2019 at 11:05 AM Follow up with your Craft Demonstrator as advised. Seek immediate medical attention if your symptoms reoccur or worsen Call your Primary Care doctor if any of the following symptoms or problems start or get worse: * Shortness of breath or difficulty breathing * Wake up at night short of breath * Chest pain * Cough * Swelling of your hands, feet, or legs * More fatigued or tired with your normal activity * Palpitations - sudden fast heart beats WEIGHT * Weigh yourself every morning after using the bathroom. * Use the same scale. * Wear the same amount of clothing. * Write your weight down on a chart. * Call your Primary Care doctor if you gain more than 2-3 pounds in 1-2 days. MEDICATIONS * Use this discharge instruction sheet for medication instructions. * Take your medications at the time your doctor ordered. * Do not skip a dose of your medicines. * If you miss a dose of medicine, take it as soon as possible, but DO NOT DOUBLE A DOSE. * Read your medicine information when you get home. * Know all of the side effects of your medicine. If in doubt, ask your pharmacist * Call your Primary Care doctor's office if you have any side effects. * Be sure all of your doctors know what medicine and herbs you take (including cold, flu, and herbal medicine). Take the following with you to your follow-up doctor appointments: * Weight Chart * Medication List * List of questions Do not drink excessive alcohol, beer or wine. Pending Studies at Discharge: No Stand-Alone Forms: My [facility] [employer], Smoking Cessation Medications and DC Order Prescriptions: New sotalol 80 mg Tablet 40 mg PO BID 30 Days Qty: 30 RF: 0 lisinopril 20 mg Tablet 20 mg PO QAM 30 Days Qty: 30 RF: 0 aspirin [Ecotrin Low Strength] 81 mg Tablet,Delayed Release (Dr/Ec) 81 mg PO DAILY 30 Days Qty: 30 RF: 0 potassium chloride [Klor-Con M20] 20 mEq Tablet,Er Particles/Crystals 20 meq PO QAM 30 Days Qty: 30 RF: 0 sertraline 50 mg Tablet 50 mg PO QAM 30 Days Qty: 30 RF: 0 metoprolol succinate 25 mg capsule,sprinkle,ER 24hr 25 mg PO DAILY Qty: 30 RF: 0 furosemide [Lasix] 20 mg tablet 20 mg PO UD Qty: 60 RF: 0 Continued cetirizine [Zyrtec] 10 mg Tablet 10 mg PO DAILY RF: 0 levothyroxine 75 mcg Tablet 50 mcg PO DAILY RF: 0 meloxicam [Mobic] 7.5 mg Tablet 7.5 mg PO BID PRN (Reason: Spasms) RF: 0 warfarin [Jantoven] 5 mg Tablet 7.5 mg PO 3XWK RF: 0 warfarin [Jantoven] 5 mg Tablet 5 mg PO 4XWK RF: 0 omeprazole 20 mg Capsule,Delayed Release(Dr/Ec) 20 mg PO DAILY RF: 0 cranberry conc-ascorbic acid 4,200-20 mg Capsule 1 cap PO DAILY RF: 0 Changed sertraline [Zoloft] 100 mg Tablet 50 mg PO DAILY Qty: 0 RF: 0 Discontinued lisinopril-hydrochlorothiazide 20-25 mg Tablet 1 tab PO DAILY RF: 0 metoprolol tartrate 25 mg Tablet 25 mg PO BID RF: 0 Discharge Orders: Discharge Order (Routine); Ordered 09/22/19 Ordered By: Maia Stoddard/Other Patient Handouts: Heart Failure, Heart Failure Warning Signs, Heart Failure Tracking Weight, Heart Failure Being Active, Heart Failure Diet Changes, Potassium Oral tablet extended-release, Sertraline Hydrochloride Oral tablet, Sotalol Hydrochloride Oral tablet, Metoprolol Succinate Oral tablet extended-release, Lisinopril Oral tablet, Aspirin Oral tablet Admission Data Admit Date/Time: 09/17/19 16:40 Attending Provider: Maia Gill Admit Provider: Tevin Babcock Primary Care Provider: Rosa Everett Other Providers: Tevin Babcock ; Kee Tao ; Héctor Luo Other Interventions: Discharge Summary Assessment (RN) Last Done: 09/22/19 16:29 DC Date/Time DO NOT enter until pt leaves facility: 09/22/19 17:42
== END 2019-09-22 17:42 | disposition home or self-care (01) | DRG 292 ==
LOC: ED 13:12 → 2S 16:40 → SUATTDRO 16:40 → 2S 17:21

== ENCOUNTER 2020-05-16 08:20 | Inpatient (IN) ==
[2020-05-16 09:50] LABS: Basophils # (auto) 0.02 K/uL (0-0.2); Basophils % (auto) 0.2 %; Eosinophils # (auto) 0.06 K/uL (0-0.5); Eosinophils % (auto) 0.7 %; Hematocrit (blood only) 45.5 % (37-47); Hemoglobin 15.4 g/dL (12.0-16.0); Immature Granulocytes # (auto) 0.03 K/uL (0.00-0.02); Immature Granulocytes % (auto) 0.3 %; Lymphocytes # (auto) 1.58 K/uL (1.2-3.4); Lymphocytes % (auto) 17.9 %; Mean Corpuscular Hemoglobin 29.7 pg (25-34); Mean Corpuscular Hgb Conc 33.8 g/dL (32-36); Mean Corpuscular Volume 87.8 fL (80-100); Mean Platelet Volume 10.5 fL (7.4-10.4); Neutrophils # (auto) 6.35 K/uL (1.4-6.5); Neutrophils % (auto) 71.9 %; Platelet Count 247 K/uL (130-400); RDW Coefficient of Variation 16.3 % (11.5-14.5); RDW Standard Deviation 52.3 fL (36.4-46.3); Red Blood Count 5.18 M/uL (4.2-5.4); White Blood Count 8.84 K/uL (4.8-10.8)
--- NOTE | 2020-05-16 10:05 | Emergency Department Note ---
Impression & Plan Pulmonary edema, Hypoxia, Acute hyponatremia, Generalized weakness, Pleural effusion ED Provider Note NAME: RAMON SOUZA AGE: 69 SEX: F : 1950 ARRIVES VIA: Walk-In INFORMANT: Patient, ED PROVIDER(S): Joshua Richards DO CHIEF COMPLAINT: Weakness HPI: The patient is a 69-year-old female who presented to the emergency depar [facility] for an evaluation of generalized weakness. The patient had laboratory studies drawn by her aviation operations specialist last Friday and was told to come to the emergency department today for admission because of abnormal labs. The patient is not sure exactly what labs are abnormal. The patient thinks he may have a low sodium. She is very concerned because a family member was diagnosed with pancreatic cancer. She was found to have an elevated lipase. She has no nausea or vomiting. She denies having any upper abdominal pain or chest pain. She does complain of generalized weakness and dyspnea on exertion. She denies having any weight loss or weight gain. She notices no increasing lower extremit y swelling from baseline. ROS: See above HPI for pertinent positives & negatives. A total of 10 systems reviewed and were otherwise negative. PAST MEDICAL HISTORY: See Below PAST SURGICAL HISTORY: See Below FAMILY HISTORY: See Below SOCIAL HISTORY: See Below HOME MEDICATIONS: See Below ALLERGIES: See Below VITALS: See Below PHYSICAL EXAMINATION: GENERAL: Patient is awake alert in no acute distress patient is resting comfortably and showing no signs of anxiety EYES: The conjunctivae are clear. The pupils are round and reactive. EARS, NOSE, MOUTH AND THROAT: The nose is without any evidence of any deformity. Mucous membranes are dry. NECK: The neck is nontender and supple. RESPIRATORY: Normal respiratory effort is noted there is no evidence of wheezing rhonchi or rales CARDIOVASCULAR: Regular rate and rhythm noted there no murmurs rubs or gallops normal S1 normal S2. GASTROINTESTINAL: The abdomen is soft. Abdomen is nontender. MUSCULOSKELETAL/EXTREMITIES: There is no evidence of gross deformity full range of motion is noted in the hips and shoulders. SKIN: There is no obvious evidence of any rash. There are no petechiae, pallor or cyanosis noted. NEUROLOGIC: Patient is awake alert and oriented x3 strength is symmetric patellar reflexes are 2+ bilaterally MEDICAL DECISION MAKING: The patient is a 69-year-old female who presented to the emergency department for an evaluation of abnormal labs. The patient was noted to have hyponatremia as well as elevated lipase last week. She was sent to the emergency department for admission. I discussed the patient's laboratory and radiographic studies with her. I also discussed her case with the on-call [facility] hospitalist group. They have agreed to evaluate the patient in the emergency department for further management and disposition. Triage Nursing notes reviewed. Prior medical records reviewed Vital Signs: reviewed and remarkable for hypoxia and tachycardia Differential diagnosis: Infection, dehydration, metabolic abnormality, hypo/hyperglycemia, electrolyte disturbance, anemia, hypoxia, cardiac sources, intracerebral event, toxicologic, neurologic, as well as other pathologies. ER treatment provided: See below Diagnostics interpreted by me: ECG: EKG was obtained in the emergency department. My interpretation is atrial fibrillation at 90 bpm. There was no PVCs. Poor R wave progression was noted. Inferior Q waves were noted. This was compared to a tracing from September 222019. No significant changes were noted. Cardiac Monitoring: An order was placed for continuous cardiac monitoring. The monitor shows a rate of 95 bpm with atrial fibrillation rhythm. Laboratory studies: As stated above and show below. Imaging studies: See below Consultation(s): 1150: I discussed this case with Arleth who is on-call for the [facility] hospitalist group. ED COURSE: Procedures: none PDMP:reviewed and no issues Critical Care: None Past Med/Surg History Medical History (Updated 05/16/20 @ 16:24 by Joshua Richards DO) Afib AVNRT (AV perla re-entry tachycardia) CHF (congestive heart failure) GERD (gastroesophageal reflux disease) HTN (hypertension) Hypothyroidism NSTEMI (non-ST elevated myocardial infarction) Surgical History History of back surgery History of knee replacement Family History Mother COPD (chronic obstructive pulmonary disease) Sister Cancer Brother FH: pancreatic cancer Social History Smoking Status: Former smoker Second Hand Exposure: No; Hx Alcohol Use: No Hx Substance Use: No Preferred Language: Urdu Communication Ability: Effective Procedural Nurse Required: No Beliefs That Will Affect Care: None Current Living Situation: Spouse Other Information That Helps Us Care for You: No Feels Safe at Home: Yes Safety Concerns: Feels Safe At This Time Allergies Allergies Allergy/AdvReac Type Severity Reaction Status Date / Time Penicillins AdvReac Unknown YEAST Verified 05/16/20 11:46 INFECTION Home Meds Home Medications Medication Instructions Recorded Confirmed cetirizine [Zyrtec] 10 mg PO QAM 09/17/19 05/16/20 cranberry conc-ascorbic acid 1 cap PO QAM 09/17/19 05/16/20 levothyroxine 75 mcg PO QAM 09/17/19 05/16/20 omeprazole 20 mg PO QAM 09/17/19 05/16/20 warfarin [Jantoven] 2.5 mg PO .RUBY@QDD 09/17/19 05/16/20 warfarin [Jantoven] 5 mg PO .HIEU@QDD 09/17/19 05/16/20 metoprolol succinate 25 mg PO BID 05/16/20 05/16/20 potassium chloride [Klor-Con M20] 20 meq PO QDD 05/16/20 05/16/20 sertraline 75 mg PO DAILY 05/16/20 05/16/20 torsemide 10 mg PO DAILY 05/16/20 05/16/20 Results & Data (ED) Vital Signs Vital Signs - 24 hr 05/16/20 08:45 05/16/20 09:49 05/16/20 10:04 Temperature 36.4 C L Temperature Source Oral Pulse Rate 83 Pulse Rate [Left Finger] 88 Pulse Rhythm [Left Finger] Respiratory Rate 16 20 Respiratory Effort / Characteristics Respiratory Depth Respiratory Pattern Blood Pressure 129/84 Blood Pressure [Left Arm] 123/83 Blood Pressure Mean 99 Blood Pressure Mean [Left Arm] 96 Pulse Oximetry 94 93 92 Oxygen Delivery Method Room Air Room Air Room Air Oxygen Flow Rate Sepsis Recent Fever Within 48 Hours No Sepsis New/Unexplained Change in Mental Status N/A Sepsis Action Taken by Nursing No Action Required 05/16/20 11:21 05/16/20 12:02 05/16/20 13:38 Temperature Temperature Source Pulse Rate Pulse Rate [Left Finger] 86 98 H 89 Pulse Rhythm [Left Finger] Regular Respiratory Rate 18 20 24 Respiratory Effort / Characteristics Non-Labored Spontaneous Respiratory Depth Normal Respiratory Pattern Regular Blood Pressure Blood Pressure [Left Arm] 122/79 126/83 132/91 Blood Pressure Mean Blood Pressure Mean [Left Arm] 93 97 104 Pulse Oximetry 97 91 95 Oxygen Delivery Method Room Air Room Air Nasal Cannula Oxygen Flow Rate 2 Sepsis Recent Fever Within 48 Hours Sepsis New/Unexplained Change in Mental Status Sepsis Action Taken by Longterm Medications Current Medication List: was personally reviewed by me Laboratory Data Attestation: I reviewed the patient's lab results. Result diagrams: 05/16/20 09:07 05/16/20 09:07 Lab Results 05/16/20 05/16/20 05/16/20 Range/Units 09:07 09:07 09:07 WBC 8.84 (4.8-10.8) K/uL RBC 5.18 (4.2-5.4) M/uL Hgb 15.4 (12.0-16.0) g/dL Hct 45.5 (37-47) % MCV 87.8 (80-100) fL MCH 29.7 (25-34) pg MCHC 33.8 (32-36) g/dL RDW Std Deviation 52.3 H (36.4-46.3) fL RDW Coeff of Jonathan 16.3 H (11.5-14.5) % Plt Count 247 (130-400) K/uL MPV 10.5 H (7.4-10.4) fL Immature Gran % (Auto) 0.3 % Neut % (Auto) 71.9 % Lymph % (Auto) 17.9 % [place] % (Auto) 9.0 % Eos % (Auto) 0.7 % Baso % (Auto) 0.2 % Neut # (Auto) 6.35 (1.4-6.5) K/uL Lymph # (Auto) 1.58 (1.2-3.4) K/uL [place] # (Auto) 0.80 H (0.11-0.59) K/uL Eos # (Auto) 0.06 (0-0.5) K/uL Baso # (Auto) 0.02 (0-0.2) K/uL Immature Gran # (Auto) 0.03 H (0.00-0.02) K/uL PT 29.6 H (9.0-12.0) Seconds INR 3.0 H (0.9-1.1) APTT 42.1 H (21.0-31.0) Seconds PTT Ratio 1.5 Sodium Cancelled Potassium Cancelled Chloride Cancelled Carbon Dioxide Cancelled Anion Gap Cancelled BUN Cancelled Creatinine Cancelled Est Cr Clr Drug Dosing Cancelled Est GFR ( Amer) Cancelled Est GFR (Non-Af Amer) Cancelled BUN/Creatinine Ratio Cancelled Glucose Cancelled Osmolality (280-300) mOsm/kg Calcium Cancelled Magnesium (1.8-2.4) mg/dl Total Bilirubin Cancelled AST Cancelled ALT Cancelled Alkaline Phosphatase Cancelled Troponin I (0-0.045) ng/ml NT-Pro-B Natriuret Pep (0-900) pg/ml Total Protein Cancelled Albumin Cancelled Globulin Cancelled Albumin/Globulin Ratio Cancelled Lipase Cancelled TSH (0.300-4.500) uIu/ml Urine Color Urine Appearance (Clear) Urine pH (4.5-7.5) Ur Specific [place] (1.000-1.030) Urine Protein (Negative) Urine Glucose (UA) (Negative) Urine Ketones (Negative) Urine Blood (Negative) Urine Nitrite (Negative) Urine Bilirubin (Negative) Urine Urobilinogen (Negative) Ur Leukocyte Esterase (Negative) Urine WBC (Auto) (0-5) /hpf Urine RBC (Auto) (0-4) /hpf U Hyaline Cast (Auto) (0-5) /lpf U Epithel Cells (Auto) (0-5) /lpf Urine Bacteria (Auto) (Negative) COVID-19 Eval Order COVID-19 PCR (Negative) 05/16/20 05/16/20 05/16/20 Range/Units 09:07 09:07 10:10 WBC (4.8-10.8) K/uL RBC (4.2-5.4) M/uL Hgb (12.0-16.0) g/dL Hct (37-47) % MCV (80-100) fL MCH (25-34) pg MCHC (32-36) g/dL RDW Std Deviation (36.4-46.3) fL RDW Coeff of Jonathan (11.5-14.5) % Plt Count (130-400) K/uL MPV (7.4-10.4) fL Immature Gran % (Auto) % Neut % (Auto) % Lymph % (Auto) % [place] % (Auto) % Eos % (Auto) % Baso % (Auto) % Neut # (Auto) (1.4-6.5) K/uL Lymph # (Auto) (1.2-3.4) K/uL [place] # (Auto) (0.11-0.59) K/uL Eos # (Auto) (0-0.5) K/uL Baso # (Auto) (0-0.2) K/uL Immature Gran # (Auto) (0.00-0.02) K/uL PT (9.0-12.0) Seconds INR (0.9-1.1) APTT (21.0-31.0) Seconds PTT Ratio Sodium 130 L Potassium 3.5 Chloride 92 L Carbon Dioxide 30 Anion Gap 8.0 BUN 17 Creatinine 0.85 Est Cr Clr Drug Dosing 58.3 Est GFR ( Amer) 81.0 Est GFR (Non-Af Amer) 69.9 BUN/Creatinine Ratio 19.5 Glucose 112 H Osmolality 278 L (280-300) mOsm/kg Calcium 9.5 Magnesium 1.9 (1.8-2.4) mg/dl Total Bilirubin 1.6 H AST 24 ALT 14 Alkaline Phosphatase 93 Troponin I 0.484 H* (0-0.045) ng/ml NT-Pro-B Natriuret Pep 82311 H (0-900) pg/ml Total Protein 7.6 Albumin 3.1 L Globulin 4.5 H Albumin/Globulin Ratio 0.7 L Lipase 490 H TSH 3.180 (0.300-4.500) uIu/ml Urine Color Dark Yellow Urine Appearance Clear (Clear) Urine pH 5.0 (4.5-7.5) Ur Specific [place] 1.018 (1.000-1.030) Urine Protein Trace H (Negative) Urine Glucose (UA) Negative (Negative) Urine Ketones Negative (Negative) Urine Blood Negative (Negative) Urine Nitrite Negative (Negative) Urine Bilirubin 1+ H (Negative) Urine Urobilinogen Negative (Negative) Ur Leukocyte Esterase Negative (Negative) Urine WBC (Auto) 1-5 (0-5) /hpf Urine RBC (Auto) 0-4 (0-4) /hpf U Hyaline Cast (Auto) 1-5 (0-5) /lpf U Epithel Cells (Auto) 10-20 H (0-5) /lpf Urine Bacteria (Auto) Negative (Negative) COVID-19 Eval Order COVID-19 PCR (Negative) 05/16/20 05/16/20 Range/Units 12:25 12:25 WBC (4.8-10.8) K/uL RBC (4.2-5.4) M/uL Hgb (12.0-16.0) g/dL Hct (37-47) % MCV (80-100) fL MCH (25-34) pg MCHC (32-36) g/dL RDW Std Deviation (36.4-46.3) fL RDW Coeff of Jonathan (11.5-14.5) % Plt Count (130-400) K/uL MPV (7.4-10.4) fL Immature Gran % (Auto) % Neut % (Auto) % Lymph % (Auto) % [place] % (Auto) % Eos % (Auto) % Baso % (Auto) % Neut # (Auto) (1.4-6.5) K/uL Lymph # (Auto) (1.2-3.4) K/uL [place] # (Auto) (0.11-0.59) K/uL Eos # (Auto) (0-0.5) K/uL Baso # (Auto) (0-0.2) K/uL Immature Gran # (Auto) (0.00-0.02) K/uL PT (9.0-12.0) Seconds INR (0.9-1.1) APTT (21.0-31.0) Seconds PTT Ratio Sodium Potassium Chloride Carbon Dioxide Anion Gap BUN Creatinine Est Cr Clr Drug Dosing Est GFR ( Amer) Est GFR (Non-Af Amer) BUN/Creatinine Ratio Glucose Osmolality (280-300) mOsm/kg Calcium Magnesium (1.8-2.4) mg/dl Total Bilirubin AST ALT Alkaline Phosphatase Troponin I (0-0.045) ng/ml NT-Pro-B Natriuret Pep (0-900) pg/ml Total Protein Albumin Globulin Albumin/Globulin Ratio Lipase TSH (0.300-4.500) uIu/ml Urine Color Urine Appearance (Clear) Urine pH (4.5-7.5) Ur Specific [place] (1.000-1.030) Urine Protein (Negative) Urine Glucose (UA) (Negative) Urine Ketones (Negative) Urine Blood (Negative) Urine Nitrite (Negative) Urine Bilirubin (Negative) Urine Urobilinogen (Negative) Ur Leukocyte Esterase (Negative) Urine WBC (Auto) (0-5) /hpf Urine RBC (Auto) (0-4) /hpf U Hyaline Cast (Auto) (0-5) /lpf U Epithel Cells (Auto) (0-5) /lpf Urine Bacteria (Auto) (Negative) COVID-19 Eval Order Covid19 Done at [facility] COVID-19 PCR NEGATIVE (Negative) Administered Medications Discontinued Medications Furosemide (Furosemide 40 Mg/4 Ml Vial) 40 mg IV NOW STA Stop: 05/16/20 11:46 Last Admin: 05/16/20 12:00 Dose: 40 mg Documented by: [id number] Imaging Data Radiologist's Impression: KUB CLINICAL HISTORY: weakness COMPARISON STUDY: Abdominal series September 17, 2019. FINDINGS: Incidental note is made of postoperative findings within the lumbosacral spine. The bowel gas pattern is normal. Bilateral pleural effusions and bibasilar opacities are better depicted on the chest CT. IMPRESSION: 1. No evidence for a bowel obstruction. 2. Bilateral pleural effusions and bibasilar opacities better depicted on chest radiograph. ACT 112: Negative or not required by law. Electronically signed by: Rasheed Santacruz M.D. 05/16/2020 10:14 AM Dictated: 05/16/20 1002 Transcribed: 05/16/20 1002 gallbladder HISTORY: 69 years-old Female elevated lipase elevated lipase COMPARISON: Right upper quadrant abdominal ultrasound 09/17/2019 TECHNIQUE: Multiple real-time sonographic images of the abdominal right upper quadrant were obtained assessing grayscale appearance and color flow FINDINGS: Pancreas is mostly obscured by bowel gas. Nonspecific mildly heterogeneous appearance of the liver. Trace perihepatic ascites. No hepatic mass lesion or definite marginal nodularity to suggest cirrhosis. There is wall thickening involving the gallbladder which measures up to 5 mm, again most pronounced along the hepatic surface. Trace layering gallbladder sludge without shadowing cholelithiasis. Negative sonographic Shah's sign. The common bile duct me asures up to 9 mm, unchanged. No obstructing stone or lesion. No intrahepatic biliary ductal dilation. Unremarkable right kidney without hydronephrosis. IMPRESSION: 1. Gallbladder wall thickening is redemonstrated, most pronounced along the hepatic surface. Additionally, there is trace perihepatic ascites. The gallbladder wall thickening is likely secondary to edematous state versus hepatic disease and unlikely related to acute cholecystitis. 2. No cholelithiasis. 3. Unchanged mild dilation of the common bile duct. ACT 112: Negative or not required by law. The above report was generated using voice recognition software. It may contain grammatical, syntax or spelling errors. Electronically signed by: Abundio Barrios M.D. 05/16/2020 10:59 AM Dictated: 05/16/20 1055 Transcribed: 05/16/20 1055 XR chest 1V portable HISTORY: 69 years-old Female weakness acute weakness with shortness of breath COMPARISON: Chest radiographs 09/18/2019 TECHNIQUE: Portable AP view of the chest FINDINGS: Cardiac silhouette is enlarged. Mild pulmonary vascular congestion. Small to moderate pleural effusions with bibasilar and right midlung consolidation. There is no pneumothorax. Degenerative changes of the shoulders and spine. IMPRESSION: 1. Cardiomegaly with pulmonary vascular congestion. 2. Small to moderate pleural effusions with bibasilar and right midlung consolidation. ACT 112: Negative or not required by law. The above report was generated using voice recognition software. It may contain grammatical, syntax or spelling errors. Electronically signed by: Abundio Barrios M.D. 05/16/2020 10:03 AM Dictated: 05/16/20 1002 Transcribed: 05/16/20 1002 Blood Pressure Blood Pressure Findings: Normal blood pressure Discharge Plan Visit Data Chief Complaint: Abnormal Labs/Diagnostic Testing Stated Complaint: AFIB, ABNORMAL LABS SENT BY DR. STOVER ED Provider: Joshua Richards Discharge Problem: Pulmonary edema, Hypoxia, Acute hyponatremia, Generalized weakness, Pleural effusion Patient Disposition: Admitted As Inpatient Condition: Good Discharge Instructions Interventions: ED Discharge Assessment Last Done: 05/16/20 15:12
[2020-05-16 10:08] LABS: Partial Thromboplastin Ratio 1.5; Partial Thromboplastin Time 42.1 Seconds (21.0-31.0); Prothrombin Time 29.6 Seconds (9.0-12.0)
--- NOTE | 2020-05-16 10:15 | XRay Report ---
KUB CLINICAL HISTORY: weakness COMPARISON STUDY: Abdominal series September 17, 2019. FINDINGS: Incidental note is made of postoperative findings within the lumbosacral spine. The bowel g as pattern is normal. Bilateral pleural effusions and bibasilar opacities are better depicted on the chest CT. IMPRESSION: 1. No evidence for a bowel obstruction. 2. Bilateral pleural effusions and bibasilar opacities better depicted on chest radiograph. ACT 112: Negative or not required by law. Electronically signed by: Rasheed Santacruz M.D. 05/16/2020 10:14 AM
[2020-05-16 10:19] LABS: Albumin Level 3.1 gm/dl (3.4-5.0); BUN Creatinine Ratio 19.5 (10-20); Calcium 9.5 mg/dl (8.5-10.1); Creatinine Clr Calc Pharmacy 58.3 ml/min; Est GFR (Non-African American) 69.9; Magnesium 1.9 mg/dl (1.8-2.4); Potassium 3.5 mmol/L (3.5-5.1)
[2020-05-16 10:34] LABS: Albumin Globulin Ratio 0.7 (0.9-2); Bilirubin,Total 1.6 mg/dl (0.2-1); Globulin 4.5 gm/dl (2.5-4.0); Thyroid Stimulating Hormone 3.18 uIu/ml (0.300-4.500); Total Protein 7.6 gm/dl (6.4-8.2); Troponin I 0.484 ng/ml (0-0.045)
--- NOTE | 2020-05-16 11:01 | Ultrasound Report ---
US gallbladder HISTORY: 69 years-old Female elevated lipase elevated lipase COMPARISON: Right upper quadrant abdominal ultrasound 09/17/2019 TECHNIQUE: Multiple real-time sonographic images of the abdominal right upper quadrant were obtained assessing grayscale appearance and color flow FINDINGS: Pancreas is mostly obscured by bowel gas. Nonspecific mildly heterogeneous appearance of the liver. T race perihepatic ascites. No hepatic mass lesion or definite marginal nodularity to suggest cirrhosis . There is wall thickening involving the gallbladder which measures up to 5 mm, again most pronounced along the hepatic surface. Trace layering gallbladder sludge without shadowing cholelithiasis. Negat lianne sonographic Shah's sign. The common bile duct measures up to 9 mm, unchanged. No obstructing st one or lesion. No intrahepatic biliary ductal dilation. Unremarkable right kidney without hydronephro sis. IMPRESSION: 1. Gallbladder wall thickening is redemonstrated, most pronounced along the hepatic surface. Addition ally, there is trace perihepatic ascites. The gallbladder wall thickening is likely secondary to annmarie atous state versus hepatic disease and unlikely related to acute cholecystitis. 2. No cholelithiasis. 3. Unchanged mild dilation of the common bile duct. ACT 112: Negative or not required by law. The above report was generated using voice recognition software. It may contain grammatical, syntax o r spelling errors. Electronically signed by: Abudnio Barrios M.D. 05/16/2020 10:59 AM
[2020-05-16 11:02] LABS: Appearance Urine Clear (Clear); Bacteria Urine Automated Negative (Negative); Blood Urine Negative (Negative); Color Urine Dark Yellow; Glucose Urine UA Negative (Negative); Ketones Urine Negative (Negative); Leukocyte Esterase Urine Negative (Negative); Nitrite Urine Negative (Negative); Protein Urine Trace (Negative); RBC Urine Automated 0-4 /hpf (0-4); Specific Gravity Urine 1.018 (1.000-1.030); Urobilinogen Urine Negative (Negative)
[2020-05-16 11:06] LABS: Bilirubin Urine 1+ (Negative)
[2020-05-16 11:07] LABS: Ictotest Urine Positive (Negative)
[2020-05-16] MEDS ORDERED: FUROSEMIDE 40 MG/4 ML VIAL IV STA (11:45)
--- NOTE | 2020-05-16 13:36 | History & Physical Report ---
Date of Service May 16, 2020 Assessment & Plan (1) Acute on chronic diastolic heart failure: Pt is 69 y/o F with PMH A-fib on Coumadin s/p cardioversion 09/2019, off sotalol since 12/2019 chronic A. fib/a flutter, chronic diastolic heart failure, SVT s/p AVNRT ablation in 2018, HTN, hypothyroidism, obesity, GERD, anxiety presented to ER for abnormal labs. Patient with weakness, fatigue, decreased appetite, loss of taste, shortness of breath with exertion. In ER patient afebrile, p: 83, RR: 16, BP: 129/84, 94% on room air. It is reported patient oxygen sats dropped to the high 80s at rest on room air. In ER patient was given Lasix 40 mg IV CXR: Pulmonary vascular congestion, bibasilar and right midlung consolidation, small to moderate pleural effusions No leukocytosis, INR: 3.0, Na: 130 (was 130 on 05/12/2020, 134 on 01/31/20), BNP: 12,422(was 13,000 on 05/12/2020, 7000 on 01/31/2020), troponin 0.4 (was 0.16 on prior admission in 09/2019); EKG a-flutter, rate 90 -In ER given Lasix 40 mg IV -Low-sodium diet, daily weight -Lasix 40mg IV BID -Echo -Supplemental oxygen as needed -Cardiology consult -BMP, magnesium in a.m. (2) Elevated troponin: troponin 0.4 (was 0.16 on prior admission in 09/2019). Denies chest pain. Patient with ongoing history of exertional shortness of breath -Suspect demand ischemia -Trend troponin -EKG in a.m. -Continue Coumadin -Echo -Cardiology consult (3) RASHID (dyspnea on exertion): Reported ongoing shortness of breath on exertion In ER reported oxygen sats down to high 80s at rest on room air CXR: Pulmonary vascular congestion, bibasilar and right midlung consolidation, small to moderate pleural effusions No leukocytosis Covid 19 PCR is Negative -Obtain CT chest to further evaluate consolidation on CXR -May need to add antibiotics for pneumonia and consider legionella testing -Exertional SOB also suspected from underlying fluid overload (4) Hyponatremia: Na: 130 (was 130 on 05/12/2020, 134 on 01/31/20) -Monitor (5) Afib: A-fib on Coumadin s/p cardioversion 09/2019, off sotalol since 12/2019, now in chronic A. fib/a flutter INR: 3.0 -Will dose coumadin 2.5mg tonight then plan to resume pt's home coumadin regimen -Monitor INR -Continue metoprolol succinate (6) Generalized weakness: Patient with complaints of generalized weakness and fatigue for several months -PT/OT eval (7) Elevated lipase: Reports some decreased appetite. Denies abdominal pain, nausea Lipase: 490 KUB XRAY:1. No evidence for a bowel obstruction. 2. Bilateral pleural effusions and bibasilar opacities better depicted on chest radiograph. GALLBLADDER US: 1. Gallbladder wall thickening is redemonstrated, most pronounced along the hepatic surface. Additionally, there is trace perihepatic ascites. The gallbladder wall thickening is likely secondary to edematous state versus hepatic disease and unlikely related to acute cholecystitis. 2. No cholelithiasis. 3. Unchanged mild dilation of the common bile duct. -Repeat lipase in am -Will obtain CT abd/pelvis to r/o (8) HTN (hypertension): Stable -Lisinopril was discontinued by Dr. Meeks -Monitor BP (9) Anxiety: Patient under increased stress with recent of her brother -Continue sertraline (10) Hypothyroidism: TSH: 3.1 -Continue levothyroxine (11) GERD (gastroesophageal reflux disease): -Continue PPI DVT Prophylaxis -On Coumadin Full code as per discussion with pt Follows with Dr Mulu Russell for routine care Pt was seen and care coordinated with Dr Gomez. See addendum History of Present Illness Chief Complaint: Abnormal labs, weakness, SOB on exertion Primary Care Provider: Rosa Everett PA-C Pt is 69 y/o F with PMH A-fib on Coumadin s/p cardioversion 09/2019, off sotalol since 12/2019 chronic A. fib/a flutter, chronic diastolic heart failure, SVT s/p AVNRT ablation in 2018, HTN, hypothyroidism, obesity, GERD, anxiety presented to ER for abnormal labs. Patient with weakness, fatigue, decreased appetite, loss of taste, shortness of breath with exertion. Saw Dr Meeks on 05/12/2020. EKG at that time a flutter, rate 79, variable AV block, PVCs or aberrantly conducted complexes. Had outpatient labs with sodium of 130, T bili: 1.5, BNP 13,000, lipase: 129. Patient was instructed to go to ER. Patient reports has had shortness of breath with exertion since September 2019 however feels it has increased over the past month. Short of breath with walking throughout house. Denies any chest pain. Reports she feels short of breath if she lies supine on her back however is able to lie prone without any shortness of breath. Denies PND. Reports has intermittent swelling of bilateral ankles, noticed some swelling couple of weeks ago however patient states over the past week or so ankles appear normal in size. Patient reports she takes half a tablet of water pill daily (called [facility] last diuretic filled was torsemide 20 mg take half tab by mouth daily on 12/29/2019). Patient reports has chronic cough described as clearing throat since her DILCIA in September 2019. Denies any increased cough, fever, chills. Reports generalized weakness and fatigue for several months. Denies any falls over the past 6 months. Reports decreased appetite, denies nausea, vomiting. Reports has BM approximately once a week. Denies any dysuria, hematuria, urinary frequency. Patient states feels has been urinating a little less the past 2 weeks. She reports drinks three 16 ounce bottles of water daily. Lisinopril was stopped by Dr. Meeks. Denies diaphoresis, dizziness, syncope, vision changes, neck pain, palpitations, cough, sore throat, choking, otalgia, rhinorrhea, paresthesias, rashes. History echo 12/2019: EF: 57%, mild mitral regurgitation, mild tricuspid r egurgitation, moderate left atrial enlargement, borderline pulmonary hypertension. Allergies Allergy/AdvReac Type Severity Reaction Status Date / Time Penicillins AdvReac Unknown YEAST Verified 05/16/20 11:46 INFECTION Home Medications Home Medications Medication Instructions Recorded Confirmed Type cetirizine [Zyrtec] 10 mg PO QAM 09/17/19 05/16/20 History cranberry conc-ascorbic acid 1 cap PO QAM 09/17/19 05/16/20 History levothyroxine 75 mcg PO QAM 09/17/19 05/16/20 History omeprazole 20 mg PO QAM 09/17/19 05/16/20 History warfarin [Jantoven] 2.5 mg PO .[email or web address]@QDD 09/17/19 05/16/20 History warfarin [Jantoven] 5 mg PO .HIEU@QDD 09/17/19 05/16/20 History metoprolol succinate 25 mg PO BID 05/16/20 05/16/20 History potassium chloride [Klor-Con M20] 20 meq PO QDD 05/16/20 05/16/20 History sertraline 75 mg PO DAILY 05/16/20 05/16/20 History torsemide 10 mg PO DAILY 05/16/20 05/16/20 History Past Med/Surg History Medical History (Updated 05/16/20 @ 16:24 by Joshua Richards DO) Afib AVNRT (AV perla re-entry tachycardia) CHF (congestive heart failure) GERD (gastroesophageal reflux disease) HTN (hypertension) Hypothyroidism NSTEMI (non-ST elevated myocardial infarction) Surgical History History of back surgery History of knee replacement Family History Mother COPD (chronic obstructive pulmonary disease) Sister Cancer Brother FH: pancreatic cancer Social History Smoking Status: Former smoker Second Hand Exposure: No; Hx Alcohol Use: No Hx Substance Use: No Preferred Language: Thai Communication Ability: Effective Internal Audit Senior Manager Required: No Beliefs That Will Affect Care: None Current Living Situation: Spouse Other Information That Helps Us Care for You: No Feels Safe at Home: Yes Safety Concerns: Feels Safe At This Time Review of Systems Review of Systems: All systems reviewed & are unremarkable except as noted in HPI & below Physical Exam Physical Exam: General: no distress, overweight Head: normocephalic, atraumatic Eyes: PERRL, EOM's intact, conjunctiva non-injected, anicteric ENT: normal inspection external ears, nose, mucous membranes moist Neck: supple, trachea midline Lungs: no respiratory distress, +rales at bases bilaterally CV: irregularly irregular, rate 98, 1+ pretibial edema Abd: normal BS, soft, non-tender Ext: no cyanosis, no calf tenderness Neuro: A&O x 3, no focal deficits noted, normal affect Skin: warm, dry Results & Data Results & Data ([facility]) Vital Signs (Past 12 Hours) Vital Signs Temp Pulse Pulse Resp BP BP Pulse Ox 05/16/20 12:02 98 H 20 126/83 91 05/16/20 11:21 86 18 122/79 97 05/16/20 10:04 88 20 123/83 92 05/16/20 09:49 93 05/16/20 08:45 36.4 C L 83 16 129/84 94 Laboratory Results Short CBC 05/16/20 Range/Units 09:07 WBC 8.84 (4.8-10.8) K/uL Hgb 15.4 (12.0-16.0) g/dL Hct 45.5 (37-47) % Plt Count 247 (130-400) K/uL BMP 05/16/20 05/16/20 09:07 09:07 Sodium Cancelled 130 L Potassium Cancelled 3.5 Chloride Cancelled 92 L Carbon Dioxide Cancelled 30 BUN Cancelled 17 Creatinine Cancelled 0.85 Glucose Cancelled 112 H Calcium Cancelled 9.5 Cardiac Enzymes 05/16/20 Range/Units 09:07 Troponin I 0.484 H* (0-0.045) ng/ml Liver Function 05/16/20 05/16/20 Range/Units 09:07 09:07 Total Bilirubin Cancelled 1.6 H AST Cancelled 24 ALT Cancelled 14 Alkaline Phosphatase Cancelled 93 Albumin Cancelled 3.1 L Urine 05/16/20 Range/Units 10:10 Urine Color Dark Yellow Urine Appearance Clear (Clear) Urine pH 5.0 (4.5-7.5) Ur Specific [place] 1.018 (1.000-1.030) Urine Protein Trace H (Negative) Urine Glucose (UA) Negative (Negative) Diagnostic Findings CXR: IMPRESSION: 1. Cardiomegaly with pulmonary vascular congestion. 2. Small to moderate pleural effusions with bibasilar and right midlung consolidation. KUB XRAY: IMPRESSION: 1. No evidence for a bowel obstruction. 2. Bilateral pleural effusions and bibasilar opacities better depicted on chest radiograph. GALLBLADDER US: IMPRESSION: 1. Gallbladder wall thickening is redemonstrated, most pronounced along the hepatic surface. Additionally, there is trace perihepatic ascites. The gallbladder wall thickening is likely secondary to edematous state versus hepatic disease and unlikely related to acute cholecystitis. 2. No cholelithiasis. 3. Unchanged mild dilation of the common bile duct. Supervising Physician Co-Signing Physician Notes Attending Addendum: care coordinated with HA Huston please refer to her notes for full details, I agree with her notes patient seen and examined, records reviewed by myself as well on exam, patient seen resting in bed, comfortable, not in distress, on 2 L of nasal cannula States she has shortness of breath with exertion, but improving now with the oxygen supplement Denies cough, sputum production, fevers or chills No chest pain, dizziness, palpitations no other symptoms VS noted and reviewed oriented x 3 , not in distress, speaks in sentences with no effort nor accessory muscle use normal rate, regular rhythm, no murmurs Decreased breath sounds bilateral bases, no wheezing non distended, soft, nontender Trace pretibial edema, no erythema, warmth no neuro deficits WBC 8.8 Hg 15.4 Crea 0.85 proBNP 12,422 Troponin 0[address] chest: 1. Large right and moderate to large left pleural effusions. Associated segmental bilateral lower lobe, right middle lobe and lingular atelectasis. 2. Mild interstitial pulmonary edema. 3. Moderate cardiomegaly. CT abdomen: 1. Cardiomegaly with large right and moderate to large left pleural effusions with bibasilar dependent consolidation suggestive of atelectasis. 2. Generalized body wall and mesenteric edema with trace abdominopelvic ascites. Additionally, there is mild gallbladder wall thickening which may be secondary to volume overload. 3. No definite CT evidence of acute pancreatitis. 4. No bowel obstruction or bowel wall thickening. 5. Additional findings as above. ASSESSMENT AND PLAN 69-year-old female with history of diastolic congestive heart failure, chronic; paroxysmal A. fib on Coumadin, hypertension Presented with progressive shortness of breath. Acute on chronic diastolic congestive heart failure exacerbation CT chest showing bilateral pleural effusions, large Presently not in acute respiratory distress, patient is comfortable with 2 L of nasal cannula Discussed with lathe winder Dr. Mccoy, recommends diuretics at this point, repeat chest x-ray in 1 to 2 days, if persistent, may need thoracentesis Start Lasix 40 mg IV every 12 Update echocardiogram consult cardiology service COVID ruled out No findings of pneumonia on CT chest Atrial fibrillation, chronic INR 3.0 Continue Coumadin, monitor INR Elevated lipase, minimal No signs or symptoms of acute pancreatitis CT abdomen: No acute pancreatitis Monitor closely Plan of care discussed with patient and her daughter at the bedside in detail and at length All questions were answered They are understanding, agreeable, comfortable with the plan of care other diagnoses and plan of care as per HA Gomez MD
[2020-05-16] MEDS ORDERED: METOPROLOL SUCC 25MG EXT REL TAB PO STA (14:10)
--- NOTE | 2020-05-16 16:05 | CT Scan Report ---
CT OF THE CHEST WITHOUT IV CONTRAST CLINICAL HISTORY: Shortness of breath. Infiltrate. COMPARISON STUDY: Chest radiographs September 18, 2019 and May 16, 2020. CT DOSE: 1375.48 mGycm TECHNIQUE: Axial images of the chest were obtained without IV contrast. Images were reviewed in the axial, sagittal, and coronal planes. IV contrast was not administered for this examination. Automat ed exposure control was utilized for the study. A dose lowering technique was utilized adhering to t he principles of ALARA. FINDINGS: Large right and moderate to large left pleural effusions are noted. There is associated se gmental atelectasis within the lower lobes as well as the lingula and right middle lobe. There is no pneumothorax. There is no consolidation to suggest pneumonia. The central airways are patent. No enla rged thoracic lymph nodes are present. Moderate cardiomegaly is noted. There is no pericardial effusi on. Note is made of mild interlobular septal thickening and mild groundglass opacities. Bony thorax i s unremarkable. Abdomen and pelvis will be reported separately. IMPRESSION: 1. Large right and moderate to large left pleural effusions. Associated segmental bilateral lower lob e, right middle lobe and lingular atelectasis. 2. Mild interstitial pulmonary edema. 3. Moderate cardiomegaly. ACT 112: Negative or not required by law. Electronically signed by: Rasheed Santacruz M.D. 05/16/2020 4:03 PM
[2020-05-16] MEDS ORDERED: ACETAMINOPHEN 325 MG TAB PO PRN (16:12)
[2020-05-16] MEDS ORDERED: LEVALBUTEROL 1.25MG/0.5ML NEB NEB PRN (16:12)
[2020-05-16] MEDS ORDERED: WARFARIN SOD 2.5 MG TAB PO ONE (16:12)
--- NOTE | 2020-05-16 16:28 | CT Scan Report ---
ABDOMEN AND PELVIS CT WITHOUT CONTRAST HISTORY: Acute shortness of breath with elevated lipase elevated lipase TECHNIQUE: Multiaxial CT images of the abdomen and pelvis were performed without contrast. A dose lo wering technique was utilized adhering to the principles of ALARA. COMPARISON STUDY: Chest CT of same day FINDINGS: Large right and moderate to large left pleural effusions with associated bibasilar consolidation. No pneumatosis or pneumoperitoneum. Moderate cardiomegaly with trace pericardial effusion. Limited evaluation of the solid abdominal organs without the use of IV contrast. Within the limitatio ns of the study, the spleen, pancreas and liver appear unremarkable. Mild thickening of the left adre nal gland. Unremarkable right adrenal gland. Mild gallbladder wall thickening. No biliary ductal dila tion. Mild bilateral perinephric stranding. Decompressed urinary bladder. Mild generalized mesenteric and b aylin wall edema with trace abdominal pelvic ascites. Unremarkable uterus and adnexa. Calcified plaque of the abdominal aorta. No adenopathy. No bowel obstruction. Colonic diverticulosis without CT evidence of acute diverticulitis. Mild fecal retention. Noninflamed appendix. Degenerative changes of the spine, pelvis and hips. Posterior interb aylin mary and screw fusion of the lower lumbar distribution and upper sacrum with laminectomy changes. The hardware appears intact. IMPRESSION: 1. Cardiomegaly with large right and moderate to large left pleural effusions with bibasilar dependen t consolidation suggestive of atelectasis. 2. Generalized body wall and mesenteric edema with trace abdominopelvic ascites. Additionally, there is mild gallbladder wall thickening which may be secondary to volume overload. 3. No definite CT evidence of acute pancreatitis. 4. No bowel obstruction or bowel wall thickening. 5. Additional findings as above. ACT 112: Negative or not required by law. The above report was generated using voice recognition software. It may contain grammatical, syntax o r spelling errors. Electronically signed by: Abundio Barrios M.D. 05/16/2020 4:27 PM
[2020-05-16] MEDS ORDERED: FUROSEMIDE 40 MG/4 ML VIAL IV SCH (17:00)
[2020-05-16] MEDS: FUROSEMIDE 40 MG in SYRINGE 0 ML IV SCH (17:06)
[2020-05-16] MEDS: POTASSIUM CHLORIDE 20 MEQ TABCR PO SCH (17:06)
[2020-05-16] MEDS: METOPROLOL SUCC 25MG EXT REL TAB PO SCH (19:43)
[2020-05-16] MEDS ORDERED: SERTRALINE HCL 50 MG TABLET PO ONE (22:15)
--- NOTE | 2020-05-17 05:54 | Electrocardiogram Report ---
Test Reason : Blood Pressure : / mmHG Vent. Rate : 090 BPM Atrial Rate : 084 BPM P-R Int : 216 ms QRS Dur : 100 ms QT Int : 406 ms P-R-T Axes : 000 -70 098 degrees QTc Int : 496 ms Atrial fibrillation / flutter Left axis deviation Low voltage QRS Inferior infarct Anterior infarct Abnormal ECG When compared with ECG of 22-SEP-2019 07:16, Atrial fibrillation /flutter has replaced sinus Reconfirmed by Noam Nelson ([id number]) on 05/18/2020 6:39:51 AM Referred By: Stella Meeks Confirmed By:Noam Nelson
[2020-05-17] MEDS: LEVOTHYROXINE SODIUM 75 MCG TABLET PO SCH (05:57)
[2020-05-17 06:32] LABS: Hematocrit (blood only) 47.8 % (37-47); Hemoglobin 16.4 g/dL (12.0-16.0); Mean Corpuscular Hemoglobin 30.4 pg (25-34); Mean Corpuscular Hgb Conc 34.3 g/dL (32-36); Mean Corpuscular Volume 88.5 fL (80-100); Mean Platelet Volume 10.7 fL (7.4-10.4); Platelet Count 265 K/uL (130-400); RDW Coefficient of Variation 16.5 % (11.5-14.5); White Blood Count 11.22 K/uL (4.8-10.8)
[2020-05-17 06:42] LABS: INR 2.8 (0.9-1.1); Prothrombin Time 28.3 Seconds (9.0-12.0)
[2020-05-17 06:57] LABS: Albumin Level 3.4 gm/dl (3.4-5.0); BUN Creatinine Ratio 17.9 (10-20); Calcium 9.8 mg/dl (8.5-10.1); Est GFR (African American) 63.5; Est GFR (Non-African American) 54.8; Magnesium 1.9 mg/dl (1.8-2.4)
[2020-05-17 07:06] LABS: Albumin Globulin Ratio 0.8 (0.9-2); Bilirubin,Total 2.3 mg/dl (0.2-1); Globulin 4.4 gm/dl (2.5-4.0); Total Protein 7.8 gm/dl (6.4-8.2)
--- NOTE | 2020-05-17 07:45 | XRay Report ---
XR chest 1V portable CLINICAL HISTORY: Pleural effusions. Follow-up study COMPARISON STUDY: 05/16/2020 FINDINGS: The heart remains enlarged. There is radiographic evidence of mild pulmonary vascular conge stion. There are persistent bilateral pleural effusions with associated basilar airspace opacities, a telectatic versus infectious/inflammatory[ IMPRESSION: No significant change. Persistent cardiomegaly, mild pulmonary vascular congestion, and b ilateral pleural effusions with associated basilar airspace opacities ACT 112: Negative or not required by law. Electronically signed by: Rajan Adamson M.D. 05/17/2020 7:43 AM
[2020-05-17] MEDS: FUROSEMIDE 40 MG in SYRINGE 0 ML IV SCH (08:57)
[2020-05-17] MEDS: PANTOprazole 40 MG TAB PO SCH (08:58)
[2020-05-17] MEDS: SERTRALINE HCL 50 MG TABLET PO SCH (08:58)
[2020-05-17] MEDS: METOPROLOL SUCC 25MG EXT REL TAB PO SCH ×2 (08:58→23:36)
[2020-05-17] MEDS: CETIRIZINE HCL 10 MG TABLET PO SCH (08:58)
--- NOTE | 2020-05-17 09:04 | Cardiology Consultation ---
Date of Consultation May 17, 2020 Assessment & Plan (1) Hyponatremia: (2) Acute on chronic diastolic heart failure: (3) Elevated troponin: (4) Elevated lipase: (5) Pleural effusion: (6) Afib: This patient underwent a cardioversion in September but now is in persistent atrial fibrillation and since December has been treated with rate control and anticoagulation. She is hemodynamically stable. My examination today does not suggest volume overload. Unfortunately, presently I cannot pull up her scans to review the findings such as her bilateral pleural effusions. She does not examine to me as having a lot of fluid. I am going to stop the IV Lasix and place her back on her home torsemide. She is currently in a rate controlled atrial fibrillation I would continue with the warfarin and metoprolol only. I would try a fluid restriction to see if her sodium comes up. A nephrology consult may be beneficial as I do not see an etiology for her hyponatremia. Addendum, after reviewing the echocardiogram I think the patient should be screened for amyloidosis. I have ordered a serum protein electrophoresis and a 24-hour urine electrophoresis with immunofixation. Patient will also have a serum free light chain ratio and analysis. Pending the outcome consideration can be given for fat pad aspiration and biopsy. History of Present Illness Attending Physician: Maia Gill MD History of Present Illness This is a 69-year-old female with the cardiac history as outlined below. At the end of last year she was noted to have episodes of PAF and started on metoprolol. She was then admitted with heart failure in September. She underwent a DILCIA guided cardioversion and was started on sotalol which was discontinued in December as it was felt the patient was in permanent atrial fibrillation. She has been continuously anticoagulated with Coumadin. She has a Mau Vascor of 3 with a history of a previous stroke. She is status post ablation of AVNRT in 2018. Recently she has not been feeling well. Initially after the cardioversion she lost weight which was felt to be due to fluid and she felt better. More recently she has had anorexia and not feeling like she wants to eat. She has had shortness of breath and dyspnea with activity. Although in the past she is told people she stopped smoking she has been smoking for the past several years. After admission, she is noted to be hyponatremic and an elevated lipase level. Past cardiac history: pAF diagnosed on zio patch 07/2019 started on metoprololultimately hospitalized 09/2019 due to AF and HF had DILCIA guided cardioversion and started on sotalol limited dose due to QTc prolongedand coumadin [id number] (age, female, HTN); stopped sotalol 12/2019 as pt is more permanent AF Chronicheart failure with preserved EF due todiastolic HF, NYHA Class II HTN Hypothyroidism SVTs/p AVNRT ablation in 01/2018 Snore-s/p sleep study no need for CPAP just a lot of restless leg syndrome Allergies Allergy/AdvReac Type Severity Reaction Status Date / Time Penicillins AdvReac Unknown YEAST Verified 05/16/20 11:46 INFECTION Home Medications Home Medications Medication Instructions Recorded Confirmed Type cetirizine [Zyrtec] 10 mg PO QAM 09/17/19 05/16/20 History cranberry conc-ascorbic acid 1 cap PO QAM 09/17/19 05/16/20 History levothyroxine 75 mcg PO QAM 09/17/19 05/16/20 History omeprazole 20 mg PO QAM 09/17/19 05/16/20 History warfarin [Jantoven] 2.5 mg PO .RUBY@QDD 09/17/19 05/16/20 History warfarin [Jantoven] 5 mg PO .HIEU@QDD 09/17/19 05/16/20 History metoprolol succinate 25 mg PO BID 05/16/20 05/16/20 History potassium chloride [Klor-Con M20] 20 meq PO QDD 05/16/20 05/16/20 History sertraline 75 mg PO DAILY 05/16/20 05/16/20 History torsemide 10 mg PO DAILY 05/16/20 05/16/20 History Patient History Medical History Afib AVNRT (AV perla re-entry tachycardia) CHF (congestive heart failure) GERD (gastroesophageal reflux disease) HTN (hypertension) Hypothyroidism NSTEMI (non-ST elevated myocardial infarction) Surgical History History of back surgery History of knee replacement Family History Mother COPD (chronic obstructive pulmonary disease) Sister Cancer Brother FH: pancreatic cancer Social History Smoking Status: Former smoker Second Hand Exposure: No; Hx Alcohol Use: No Hx Substance Use: No Preferred Language: Welsh Communication Ability: Effective Biochemistry Teacher Required: No Beliefs That Will Affect Care: None marital status: Current Living Situation: Spouse Other Information That Helps Us Care for You: No Feels Safe at Home: Yes Safety Concerns: Feels Safe At This Time Review of Systems Review of Systems: All systems reviewed & are unremarkable except as noted in HPI & below Nothing additional to add. Physical Exam Physical Exam: General: no acute distress and stated age Head: normocephalic, no masses, lesions, tenderness or abnormalities Eyes: conjunctiva are pink and non-injected, sclera clear Neck: supple, no adenopathy, no bruits, normal jugular venous pulse, no hepatojugular reflux Chest: normal shape and normal respiratory effort Lungs: clear to auscultation and percussion Cardiac Exam: - irregular rate & rhythm, no murmurs gallops or rubs - normal S1, normal S2 Pulses: 2(+) throughout Abdomen: abdomen soft, non-tender, no abnormal masses and no hepatosplenomegaly Musculoskeletal: no gait disturbance, no joint inflammation, no deforming arthritis Extremities: no edema and no cyanosis Neuro: grossly normal exam Results & Data ([facility]) Vital Signs (Past 12 Hours) Vital Signs Temp Pulse Pulse Resp BP Pulse Ox 05/17/20 07:15 36.4 C L 102 H 17 110/76 91 05/17/20 03:04 36.6 C 97 H 18 114/78 97 05/16/20 23:24 115 H 05/16/20 23:11 36.5 C 110 H 21 95/73 L 92 Laboratory Results Laboratory Results - last 24 hr 05/16/20 05/16/20 05/16/20 09:07 10:10 12:25 WBC RBC Hgb Hct MCV MCH MCHC RDW Std Deviation RDW Coeff of Jonathan Plt Count MPV PT INR Sodium Potassium Chloride Carbon Dioxide Anion Gap BUN Creatinine Est Cr Clr Drug Dosing Est GFR ( Amer) Est GFR (Non-Af Amer) BUN/Creatinine Ratio Glucose Osmolality 278 L Calcium Magnesium Total Bilirubin AST ALT Alkaline Phosphatase Troponin I Total Protein Albumin Globulin Albumin/Globulin Ratio Lipase Urine Color Dark Yellow Urine Appearance Clear Urine pH 5.0 Ur Specific [place] 1.018 Urine Protein Trace H Urine Glucose (UA) Negative Urine Ketones Negative Urine Blood Negative Urine Nitrite Negative Urine Bilirubin 1+ H Urine Urobilinogen Negative Ur Leukocyte Esterase Negative Urine WBC (Auto) 1-5 Urine RBC (Auto) 0-4 U Hyaline Cast (Auto) 1-5 U Epithel Cells (Auto) 10-20 H Urine Bacteria (Auto) Negative Urine Osmolality Ur Random Sodium COVID-19 Eval Order Covid19 Done at [facility] COVID-19 PCR Hepatitis C Ab Screen 05/16/20 05/16/20 05/16/20 12:25 16:36 17:30 WBC RBC Hgb Hct MCV MCH MCHC RDW Std Deviation RDW Coeff of Jonathan Plt Count MPV PT INR Sodium Potassium Chloride Carbon Dioxide Anion Gap BUN Creatinine Est Cr Clr Drug Dosing Est GFR ( Amer) Est GFR (Non-Af Amer) BUN/Creatinine Ratio Glucose Osmolality Calcium Magnesium Total Bilirubin AST ALT Alkaline Phosphatase Troponin I 0.618 H* Total Protein Albumin Globulin Albumin/Globulin Ratio Lipase Urine Color Urine Appearance Urine pH Ur Specific [place] Urine Protein Urine Glucose (UA) Urine Ketones Urine Blood Urine Nitrite Urine Bilirubin Urine Urobilinogen Ur Leukocyte Esterase Urine WBC (Auto) Urine RBC (Auto) U Hyaline Cast (Auto) U Epithel Cells (Auto) Urine Bacteria (Auto) Urine Osmolality 267 L Ur Random Sodium COVID-19 Eval Order COVID-19 PCR NEGATIVE Hepatitis C Ab Screen 05/16/20 05/16/20 05/17/20 17:30 22:15 05:50 WBC RBC Hgb Hct MCV MCH MCHC RDW Std Deviation RDW Coeff of Jonathan Plt Count MPV PT INR Sodium Potassium Chloride Carbon Dioxide Anion Gap BUN Creatinine Est Cr Clr Drug Dosing Est GFR ( Amer) Est GFR (Non-Af Amer) BUN/Creatinine Ratio Glucose Osmolality Calcium Magnesium Total Bilirubin AST ALT Alkaline Phosphatase Troponin I 0.956 H* Total Protein Albumin Globulin Albumin/Globulin Ratio Lipase Urine Color Urine Appearance Urine pH Ur Specific [place] Urine Protein Urine Glucose (UA) Urine Ketones Urine Blood Urine Nitrite Urine Bilirubin Urine Urobilinogen Ur Leukocyte Esterase Urine WBC (Auto) Urine RBC (Auto) U Hyaline Cast (Auto) U Epithel Cells (Auto) Urine Bacteria (Auto) Urine Osmolality Ur Random Sodium 66 COVID-19 Eval Order COVID-19 PCR Hepatitis C Ab Screen Neg 05/17/20 05/17/20 05/17/20 05:50 05:50 05:50 WBC 11.22 H RBC 5.40 Hgb 16.4 H Hct 47.8 H MCV 88.5 MCH 30.4 MCHC 34.3 RDW Std Deviation 53.0 H RDW Coeff of Jonathan 16.5 H Plt Count 265 MPV 10.7 H PT 28.3 H INR 2.8 H Sodium 129 L Potassium 4.0 Chloride 89 L Carbon Dioxide 31 Anion Gap 9.0 BUN 19 H Creatinine 1.04 Est Cr Clr Drug Dosing 47.0 Est GFR ( Amer) 63.5 Est GFR (Non-Af Amer) 54.8 BUN/Creatinine Ratio 17.9 Glucose 111 H Osmolality Calcium 9.8 Magnesium 1.9 Total Bilirubin 2.3 H AST 30 ALT 14 Alkaline Phosphatase 90 Troponin I Total Protein 7.8 Albumin 3.4 Globulin 4.4 H Albumin/Globulin Ratio 0.8 L Lipase 554 H Urine Color Urine Appearance Urine pH Ur Specific [place] Urine Protein Urine Glucose (UA) Urine Ketones Urine Blood Urine Nitrite Urine Bilirubin Urine Urobilinogen Ur Leukocyte Esterase Urine WBC (Auto) Urine RBC (Auto) U Hyaline Cast (Auto) U Epithel Cells (Auto) Urine Bacteria (Auto) Urine Osmolality Ur Random Sodium COVID-19 Eval Order COVID-19 PCR Hepatitis C Ab Screen Medications Administered Current Inpatient Medications Acetaminophen (Acetaminophen 325 Mg Tab) 650 mg PO Q4H PRN PRN Reason: Pain or Fever Stop: 06/15/20 16:11 Cetirizine HCl (Cetirizine Hcl 10 Mg Tablet) 10 mg PO QAM [facility] Stop: 06/16/20 08:59 Last Admin: 05/17/20 08:58 Dose: 10 mg Documented by: Furosemide 40 mg/ Syringe 4 mls @ 4 mls/min IV 0900,1700 [facility] Stop: 06/15/20 16:59 Last Admin: 05/17/20 08:57 Dose: 4 mls/min Documented by: Levalbuterol HCl (Levalbuterol 1.25mg/0.5ml Neb) 1.25 mg NEB Q6R PRN PRN Reason: Shortness Of Breath Or Wheezing Stop: 06/15/20 16:11 Levothyroxine Sodium (Levothyroxine Sodium 75 Mcg Tablet) 75 mcg PO DAILYBB [facility] Stop: 06/16/20 06:29 Last Admin: 05/17/20 05:57 Dose: 75 mcg Documented by: Metoprolol Succinate (Metoprolol Succ 25mg Ext Rel Tab) 25 mg PO BID [facility] Stop: 06/15/20 20:59 Last Admin: 05/17/20 08:58 Dose: 25 mg Documented by: Pantoprazole Sodium (Pantoprazole 40 Mg Tab) 40 mg PO QAM [facility] Stop: 06/16/20 08:59 Last Admin: 05/17/20 08:58 Dose: 40 mg Documented by: Potassium Chloride (Potassium Chloride 20 Meq Tabcr) 20 meq PO QDD [facility] Stop: 06/15/20 16:29 Last Admin: 05/16/20 17:06 Dose: 20 meq Documented by: Sertraline HCl (Sertraline Hcl 50 Mg Tablet) 75 mg PO DAILY [facility] Stop: 06/16/20 08:59 Last Admin: 05/17/20 08:58 Dose: 75 mg Documented by: Warfarin Sodium (Warfarin Sod 5 Mg Tab) 5 mg PO SuTuTh@1600 [facility] Stop: 06/17/20 15:59 Warfarin Sodium (Warfarin Sod 2.5 Mg Tab) 2.5 mg PO MoWeFrSa@1600 [facility] Stop: 06/16/20 15:59
[2020-05-17] MEDS ORDERED: PROMETHAZINE HCL 12.5 MG in SODIUM CHLORIDE 0.9% 50 ML IV STA (10:55)
--- NOTE | 2020-05-17 11:19 | Hospitalist Progress Note ---
Date of Service May 17, 2020 Assessment & Plan (1) Acute on chronic diastolic heart failure: Pt is 69 y/o F with PMH A-fib on Coumadin s/p cardioversion 09/2019, off sotalol since 12/2019 chronic A. fib/a flutter, chronic diastolic heart failure, SVT s/p AVNRT ablation in 2018, HTN, hypothyroidism, obesity, GERD, anxiety presented to ER for abnormal labs. Presented with weakness, fatigue, decreased appetite, loss of taste, shortness of breath with exertion. Has CHF, bilateral pleural effusion, abdominal wall and mesenteric edema with minimal ascites and trace to 1+ leg edema Has been getting Lasix 40 mg intravenously twice a day Appreciate cardiology input and recommendation Awaiting echo Bilateral pleural effusion More on the right than left Secondary to diastolic heart failure May need paracentesis if no improvement with intravenous Lasix Generalized body wall edema, mesenteric edema and trace ascites Secondary to congestive heart failure Likely has intestinal edema which may be the cause of nausea and is complicated by hyponatremia Increased bilirubin-2.3 No evidence of abnormal LFTs and noted to have normal bile duct Likely secondary to Gilbert's syndrome and may be complicated by mild hepatic congestion from CHF Will monitor (2) Elevated troponin: troponin 0.4 (was 0.16 on prior admission in 09/2019). Denies chest pain. Patient with ongoing history of exertional shortness of breath -Suspect demand ischemia -Trend troponin -EKG in a.m. -Continue Coumadin -Echo -Cardiology consult (3) RASHID (dyspnea on exertion): Reported ongoing shortness of breath on exertion In ER reported oxygen sats down to high 80s at rest on room air CXR: Pulmonary vascular congestion, bibasilar and right midlung consolidation, small to moderate pleural effusions No leukocytosis Covid 19 PCR is Negative No CT evidence of pneumonia but has atelectasis and pleural effusion Exertional SOB also suspected from underlying fluid overload (4) Hyponatremia: Na: 130 (was 130 on 05/12/2020, 134 on 01/31/20) Sodium level is 129 today Hyponatremia is contributed by poor intake, hypervolemia and use of diuretics Nephrology consulted for further management (5) Afib: A-fib on Coumadin s/p cardioversion 09/2019, off sotalol since 12/2019, now in chronic A. fib/a flutter INR: 3.0 -Will dose coumadin 2.5mg tonight then plan to resume pt's home coumadin regimen -Monitor INR -Continue metoprolol succinate (6) Generalized weakness: Patient with complaints of generalized weakness and fatigue for several months -PT/OT [place] (7) Elevated lipase: Reports some decreased appetite. Denies abdominal pain, nausea Lipase: 490 KUB XRAY:1. No evidence for a bowel obstruction. 2. Bilateral pleural effusions and bibasilar opacities better depicted on chest radiograph. GALLBLADDER US: 1. Gallbladder wall thickening is redemonstrated, most pronounced along the hepatic surface. Additionally, there is trace perihepatic ascites. The gallbladder wall thickening is likely secondary to edematous state versus hepatic disease and unlikely related to acute cholecystitis. 2. No cholelithiasis. 3. Unchanged mild dilation of the common bile duct. Repeat lipase in am Doubt acute pancreatitis (8) HTN (hypertension): Stable -Lisinopril was discontinued by Dr. Meeks -Monitor BP (9) Anxiety: Patient under increased stress with recent of her brother -Continue sertraline (10) Hypothyroidism: TSH: 3.1 -Continue levothyroxine (11) GERD (gastroesophageal reflux disease): -Continue PPI DVT Prophylaxis -On Coumadin Full code as per discussion with pt Follows with Dr Mulu Russell for routine care Admission and Anticipated Discharge Date Admission Date: May 16, 2020 Subjective 05/17/2020 The patient was seen and examined in the telemetry unit She has significant cardiac disease and has been complaining of shortness of breath with minimal exertion since September 2019 She was advised to come to the hospital as she was noted to have abnormal labs on outpatient testing She admits to have more shortness of breath for the last few days but denies any weight gain and/or increasing edema of the legs Denies any abdominal pain but does has nausea, denies any chest pain and/or palpitation Review of Systems Review of Systems: All systems reviewed and are unremarkable except as noted below Respiratory: + dyspnea and + dyspnea on exertion Cardiovascular: no chest pain and no palpitations Gastrointestinal: + bloating and + nausea; no vomiting Physical Exam Physical Exam: Lying in bed, propped up with shortness of breath on nasal cannula oxygen Constitutional: well developed, well nourished, + acute distress (Shortness of breath) and + ill appearing Eyes: PERRL, conjunctivae normal, anicteric sclerae ENMT: external ear and nose normal, oropharynx normal Neck: trachea midline, no thyromegaly Respiratory: + respiratory distress (Mild to moderate distress) Auscul tation: + diminished lung sounds (Right more than the left) and + crackles; no wheezes Cardiovascular: Rate/Rhythm: regular rate and regular rhythm Heart Sounds: no murmur Extremities: + edema (Trace to 1+ edema bilaterally) Gastrointestinal (Abdomen): Inspection/Auscultation: abdomen normal to inspection and normal bowel sounds; abdomen not distended Percussion/Palpation: + abdomen tender (Minimally tender in the epigastrium) and abdomen soft; no guarding Musculoskeletal: No acute arthritis involving any joints Neurologic: moves all extremities; no focal motor deficits Results & Data Results & Data ([facility]) Vital Signs (Past 12 Hours) Vital Signs Temp Pulse Pulse Resp BP Pulse Ox 05/17/20 07:15 36.4 C L 102 H 17 110/76 91 05/17/20 03:04 36.6 C 97 H 18 114/78 97 05/16/20 23:24 115 H 05/16/20 23:11 36.5 C 110 H 21 95/73 L 92 Laboratory Results Short CBC 05/17/20 Range/Units 05:50 WBC 11.22 H (4.8-10.8) K/uL Hgb 16.4 H (12.0-16.0) g/dL Hct 47.8 H (37-47) % Plt Count 265 (130-400) K/uL BMP 05/17/20 05:50 Sodium 129 L Potassium 4.0 Chloride 89 L Carbon Dioxide 31 BUN 19 H Creatinine 1.04 Glucose 111 H Calcium 9.8 Cardiac Enzymes 05/16/20 05/16/20 Range/Units 16:36 22:15 Troponin I 0.618 H* 0.956 H* (0-0.045) ng/ml Liver Function 05/17/20 Range/Units 05:50 Total Bilirubin 2.3 H (0.2-1) mg/dl AST 30 (15-37) U/L ALT 14 (12-78) U/L Alkaline Phosphatase 90 (45-117) U/L Albumin 3.4 (3.4-5.0) gm/dl Medications Administered Current Inpatient Medications Acetaminophen (Acetaminophen 325 Mg Tab) 650 mg PO Q4H PRN PRN Reason: Pain or Fever Stop: 06/15/20 16:11 Cetirizine HCl (Cetirizine Hcl 10 Mg Tablet) 10 mg PO QAM [facility] Stop: 06/16/20 08:59 Last Admin: 05/17/20 08:58 Dose: 10 mg Documented by: Levalbuterol HCl (Levalbuterol 1.25mg/0.5ml Neb) 1.25 mg NEB Q6R PRN PRN Reason: Shortness Of Breath Or Wheezing Stop: 06/15/20 16:11 Levothyroxine Sodium (Levothyroxine Sodium 75 Mcg Tablet) 75 mcg PO DAILYBB [facility] Stop: 06/16/20 06:29 Last Admin: 05/17/20 05:57 Dose: 75 mcg Documented by: Metoprolol Succinate (Metoprolol Succ 25mg Ext Rel Tab) 25 mg PO BID [facility] Stop: 06/15/20 20:59 Last Admin: 05/17/20 08:58 Dose: 25 mg Documented by: Pantoprazole Sodium (Pantoprazole 40 Mg Tab) 40 mg PO QAM [facility] Stop: 06/16/20 08:59 Last Admin: 05/17/20 08:58 Dose: 40 mg Documented by: Potassium Chloride (Potassium Chloride 20 Meq Tabcr) 20 meq PO QDD [facility] Stop: 06/15/20 16:29 Last Admin: 05/16/20 17:06 Dose: 20 meq Documented by: Sertraline HCl (Sertraline Hcl 50 Mg Tablet) 75 mg PO DAILY [facility] Stop: 06/16/20 08:59 Last Admin: 05/17/20 08:58 Dose: 75 mg Documented by: Torsemide (Torsemide 10 Mg Tab) 10 mg PO [id number] [facility] Stop: 06/16/20 10:59 Warfarin Sodium (Warfarin Sod 5 Mg Tab) 5 mg PO SuTuTh@1600 [facility] Stop: 06/17/20 15:59 Warfarin Sodium (Warfarin Sod 2.5 Mg Tab) 2.5 mg PO MoWeFrSa@1600 [facility] Stop: 06/16/20 15:59
[2020-05-17] MEDS: TORSEMIDE 10 MG TAB PO SCH ×2 (12:44→18:27)
[2020-05-17] MEDS ORDERED: UREA (URE-NA) 15 GM PACK PO ONE (12:45)
[2020-05-17] MEDS ORDERED: WARFARIN SOD 2.5 MG TAB PO SCH (16:00)
[2020-05-17] MEDS: POTASSIUM CHLORIDE 20 MEQ TABCR PO SCH (17:10)
--- NOTE | 2020-05-17 19:42 | Nephrology Consultation ---
Date of Consultation May 17, 2020 Assessment & Plan (1) Hyponatremia: Patient with hyponatremia likely due to SIADH. Urine osmolarity of 267 and urine Na of 66. Possible trigger of ADH release is nausea. Na is 129 today. -Will give zazueta -Fluid restriction of 1.2 litres daily -Daily Na (2) Acute on chronic diastolic heart failure: Patient still with evidence of fluid overload. She is on oxygen by ID. Continue lasix -Daily standing weight. -Monitor in/outs History of Present Illness Reason for Consultation: hyponatremia Requesting Physician: Maia Gill MD Attending Physician: Maia Gill MD History of Present Illness Pt is 69 y/o F with PMH A-fib on Coumadin s/p cardioversion 09/2019, chronic A. fib/a flutter, chronic diastolic heart failure, SVT s/p AVNRT ablation in 2017, HTN, hypothyroidism and anxiety who was admitted on 05/16 with abnormal labs. Her Na was 130 on admission and down to 129 today. In Sep 2019, her Na was 135. She drinks about 3 water bottles and coffee. No diarrhoea or vomiting. Her urine osmolarity and urine sodium were high. Patient also being monitored for high lipase and trops. She denies any SOB or leg swelling. She is on lasix for CHF. Allergies Allergy/AdvReac Type Severity Reaction Status Date / Time Penicillins AdvReac Unknown YEAST Verified 05/16/20 11:46 INFECTION Home Medications Home Medications Medication Instructions Recorded Confirmed Type cetirizine [Zyrtec] 10 mg PO QAM 09/17/19 05/16/20 History cranberry conc-ascorbic acid 1 cap PO QAM 09/17/19 05/16/20 History levothyroxine 75 mcg PO QAM 09/17/19 05/16/20 History omeprazole 20 mg PO QAM 09/17/19 05/16/20 History warfarin [Jantoven] 2.5 mg PO .ERNIESA@QDD 09/17/19 05/16/20 History warfarin [Jantoven] 5 mg PO .HIEU@QDD 09/17/19 05/16/20 History metoprolol succinate 25 mg PO BID 05/16/20 05/16/20 History potassium chloride [Klor-Con M20] 20 meq PO QDD 05/16/20 05/16/20 History sertraline 75 mg PO DAILY 05/16/20 05/16/20 History torsemide 10 mg PO DAILY 05/16/20 05/16/20 History Patient History Medical History Afib AVNRT (AV perla re-entry tachycardia) CHF (congestive heart failure) GERD (gastroesophageal reflux disease) HTN (hypertension) Hypothyroidism NSTEMI (non-ST elevated myocardial infarction) Surgical History History of back surgery History of knee replacement Family History Mother COPD (chronic obstructive pulmonary disease) Sister Cancer Brother FH: pancreatic cancer Social History Smoking Status: Former smoker Second Hand Exposure: No; Hx Alcohol Use: No Hx Substance Use: No Preferred Language: Eritrean Communication Ability: Effective Garnett Feeder Required: No Beliefs That Will Affect Care: None marital status: Current Living Situation: Spouse Other Information That Helps Us Care for You: No Feels Safe at Home: Yes Safety Concerns: Feels Safe At This Time Review of Systems Review of Systems: All systems reviewed & are unremarkable except as noted in HPI & below Physical Exam Physical Exam: General exam: Appears comfortable, no acute distress HEENT: Pupils are equal and reactive to light Neck: No JVD, neck is supple trachea is midline Respiratory system: Clear breath sounds bilaterally. Gastrointestinal: Abdomen is soft, non distended, non tender, bowel sounds are present CVS: Regular rate and rhythm. No murmurs, rubs or gallops Musculoskeletal: No joint or muscle tenderness Extremities: Non tender, no edema, peripheral pulses are present Neuro: Oriented, no tremors, no focal neurological deficits Skin: No rashes Results & Data ([facility]) Vital Signs (Past 12 Hours) Vital Signs Temp Pulse Pulse Resp BP Pulse Ox 05/17/20 18:58 36.5 C 85 19 90/62 L 95 05/17/20 16:00 82 05/17/20 15:48 95 05/17/20 15:06 36.5 C 80 16 96/61 L 90 05/17/20 11:55 92 H 05/17/20 11:05 36.3 C L 103 H 18 115/89 95 Laboratory Results 05/17/20 05:50 05/17/20 05/17/20 05:50 05:50 WBC 11.22 H RBC 5.40 MCV 88.5 MCH 30.4 MCHC 34.3 RDW Std Deviation 53.0 H RDW Coeff of Jonathan 16.5 H Plt Count 265 MPV 10.7 H Albumin 3.4
--- NOTE | 2020-05-17 21:19 | Electrocardiogram Report ---
Test Reason : Blood Pressure : / mmHG Vent. Rate : 110 BPM Atrial Rate : 227 BPM P-R Int : 000 ms QRS Dur : 106 ms QT Int : 366 ms P-R-T Axes : 000 -79 094 degrees QTc Int : 495 ms Atrial fibrillation with rapid ventricular response Left axis deviation Inferior infarct (cited on or before 07-JUL-2019) Anterior infarct Abnormal ECG When compared with ECG of 16-MAY-2020 12:01, No significant change Confirmed by Noam Nelson ([id number]) on 05/17/2020 9:19:10 PM Referred By: Stella Meeks Confirmed By:Noam Nelson
[2020-05-17] MEDS: UREA (URE-NA) 15 GM PACK PO SCH (23:36)
[2020-05-18] MEDS: LEVOTHYROXINE SODIUM 75 MCG TABLET PO SCH (06:01)
--- NOTE | 2020-05-18 06:37 | Electrocardiogram Report ---
Test Reason : Blood Pressure : / mmHG Vent. Rate : 113 BPM Atrial Rate : 120 BPM P-R Int : 000 ms QRS Dur : 100 ms QT Int : 370 ms P-R-T Axes : 000 -79 091 degrees QTc Int : 507 ms Atrial fibrillation with rapid ventricular response Left axis deviation Inferior infarct (cited on or before 07-JUL-2019) Anterior infarct (cited on or before 07-JUL-2019) Abnormal ECG When compared with ECG of 16-MAY-2020 12:01, No significant change Confirmed by Noam Nelson ([id number]) on 05/18/2020 6:37:12 AM Referred By: Stella Meeks Confirmed By:Noam Nelson
--- NOTE | 2020-05-18 06:40 | Electrocardiogram Report ---
Test Reason : Blood Pressure : / mmHG Vent. Rate : 114 BPM Atrial Rate : 120 BPM P-R Int : 000 ms QRS Dur : 102 ms QT Int : 384 ms P-R-T Axes : 000 -78 083 degrees QTc Int : 529 ms Atrial fibrillation with rapid ventricular response Left axis deviation Inferior infarct (cited on or before 07-JUL-2019) Anterolateral infarct (cited on or before 07-JUL-2019) Prolonged QT Abnormal ECG When compared with ECG of 16-MAY-2020 23:15, No significant change Confirmed by Noam Nelson ([id number]) on 05/18/2020 6:40:15 AM Referred By: Stella Meeks Confirmed By:Noam Nelson
[2020-05-18 06:44] LABS: INR 3.2 (0.9-1.1); Prothrombin Time 31.5 Seconds (9.0-12.0)
--- NOTE | 2020-05-18 06:47 | Electrocardiogram Report ---
Test Reason : Blood Pressure : / mmHG Vent. Rate : 088 BPM Atrial Rate : 000 BPM P-R Int : 000 ms QRS Dur : 106 ms QT Int : 412 ms P-R-T Axes : 000 -77 107 degrees QTc Int : 498 ms Atrial fibrillation / flutter Left axis deviation Low voltage QRS Inferior infarct Anterior infarct Abnormal ECG When compared with ECG of 16-MAY-2020 23:16, No significant change Confirmed by Noam Nelson ([id number]) on 05/18/2020 6:46:48 AM Referred By: Stella Meeks Confirmed By:Noam Nelson
[2020-05-18 08:23] LABS: Basophils # (auto) 0.03 K/uL (0-0.2); Basophils % (auto) 0.3 %; Eosinophils # (auto) 0.07 K/uL (0-0.5); Eosinophils % (auto) 0.8 %; Hematocrit (blood only) 44.6 % (37-47); Hemoglobin 15.3 g/dL (12.0-16.0); Immature Granulocytes # (auto) 0.03 K/uL (0.00-0.02); Immature Granulocytes % (auto) 0.3 %; Lymphocytes # (auto) 2.65 K/uL (1.2-3.4); Lymphocytes % (auto) 29.3 %; Mean Corpuscular Hgb Conc 34.3 g/dL (32-36); Mean Corpuscular Volume 87.5 fL (80-100); Mean Platelet Volume 10.6 fL (7.4-10.4); Monocytes # (auto) 1.02 K/uL (0.11-0.59); Monocytes % (auto) 11.3 %; Neutrophils # (auto) 5.25 K/uL (1.4-6.5); Platelet Count 227 K/uL (130-400); RDW Coefficient of Variation 16.3 % (11.5-14.5); RDW Standard Deviation 52.6 fL (36.4-46.3); White Blood Count 9.05 K/uL (4.8-10.8)
[2020-05-18] MEDS ORDERED: PHYTONADIONE 5 MG TAB PO STA (08:38)
[2020-05-18 08:58] LABS: BUN Creatinine Ratio 33.6 (10-20); Calcium 9.1 mg/dl (8.5-10.1); Creatinine Clr Calc Pharmacy 52.3 ml/min; Est GFR (African American) 72.7; Est GFR (Non-African American) 62.7; Magnesium 1.8 mg/dl (1.8-2.4); Potassium 3.4 mmol/L (3.5-5.1)
--- NOTE | 2020-05-18 08:58 | Cardiology Progress Note ---
Date of Service May 18, 2020 Assessment & Plan (1) Hyponatremia: (2) Acute on chronic diastolic heart failure: (3) Elevated troponin: (4) Elevated lipase: (5) Pleural effusion: (6) Afib: The patient appears comfortable. She had a large diuresis yesterday just by restarting her oral torsemide. She has bilateral large pleural effusions that I believe will not be diuresed off and she should undergo thoracentesis for removal and diagnostic purposes. 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 Initial labs have been sent off but she will need a abdominal fat pad aspiration/biopsy. I contacted pathology and they asked us to engage surgery for a better fat pad aspirate. Surgery should not put the specimen in formaldehyde but should put it only in normal saline. The patient's INR today is 3.2. I stopped her warfarin and given her vitamin K in anticipation of the thoracentesis and biopsy. Labs were sent for consideration of amyloidosis as well as hemochromatosis. Admission and Anticipated Discharge Date Admission Date: May 16, 2020 Subjective The patient appears comfortable sitting at her bedside. She does state that if she moves around the room such as going to the bathroom then she becomes short of breath. Review of Systems Review of Systems: All systems reviewed & are unremarkable except as noted in HPI & below Nothing additional to add. Physical Exam Physical Exam: General: no acute distress and stated age Head: normocephalic, no masses, lesions, tenderness or abnormalities Eyes: conjunctiva are pink and non-injected, sclera clear Neck: supple, no adenopathy, no bruits, normal jugular venous pulse, no hepatojugular reflux Chest: normal shape and normal respiratory effort Lungs: Diminished breath sounds at the bases bilaterally. Cardiac Exam: - regular rate & rhythm, no murmurs gallops or rubs - normal S1, normal S2 Pulses: 2(+) throughout Abdomen: abdomen soft, non-tender, no abnormal masses and no hepatosplenomegaly Musculoskeletal: no gait disturbance, no joint inflammation, no deforming arthritis Extremities: no edema and no cyanosis Neuro: grossly normal exam Results & Data ([facility]) Vital Signs (Past 12 Hours) Vital Signs Temp Pulse Pulse Resp BP Pulse Ox 05/18/20 07:35 36.6 C 78 17 106/72 94 05/18/20 03:04 94 05/18/20 03:03 36.7 C 73 18 108/67 88 L 05/17/20 23:15 36.6 C 82 19 96/60 L 97 05/17/20 23:00 81 05/17/20 22:24 83 83/52 L Laboratory Results Laboratory Results - last 24 hr 05/17/20 05/18/20 05/18/20 12:43 05:53 05:53 WBC RBC Hgb Hct MCV MCH MCHC RDW Std Deviation RDW Coeff of Jonathan Plt Count MPV Immature Gran % (Auto) Neut % (Auto) Lymph % (Auto) [place] % (Auto) Eos % (Auto) Baso % (Auto) Neut # (Auto) Lymph # (Auto) [place] # (Auto) Eos # (Auto) Baso # (Auto) Immature Gran # (Auto) PT 31.5 H INR 3.2 H Sodium Potassium Chloride Carbon Dioxide Anion Gap BUN Creatinine Est Cr Clr Drug Dosing Est GFR ( Amer) Est GFR (Non-Af Amer) BUN/Creatinine Ratio Glucose Calcium Magnesium Total Protein (PEP) Pending Albumin (PEP) Pending Sgxes-9-Flowycgyv Pending Prdxc-1-Wkqriabju Pending Apqf-7-Peurpzqp Pending Pdaj-1-Uhkhrrdn Pending Gamma Globulins Pending Monoclonal Peak 3 Pending Ser Monoclonl Protein Pending Ser Monoclonal Prot 2 Pending PEP Interpretation Pending Serum Immunofixation Pending Tot [place]/Lambda Ratio Pending [place] Light Chain Anal Pending Free [place] LC, Quant Pending Lambda Light Chain Anal Pending Free Lambda LC, Quant Pending Free [place]/Lambda Ratio Pending 05/18/20 05/18/20 05:58 05:58 WBC 9.05 RBC 5.10 Hgb 15.3 Hct 44.6 MCV 87.5 MCH 30.0 MCHC 34.3 RDW Std Deviation 52.6 H RDW Coeff of Jonathan 16.3 H Plt Count 227 MPV 10.6 H Immature Gran % (Auto) 0.3 Neut % (Auto) 58.0 Lymph % (Auto) 29.3 [place] % (Auto) 11.3 Eos % (Auto) 0.8 Baso % (Auto) 0.3 Neut # (Auto) 5.25 Lymph # (Auto) 2.65 [place] # (Auto) 1.02 H Eos # (Auto) 0.07 Baso # (Auto) 0.03 Immature Gran # (Auto) 0.03 H PT INR Sodium 131 L Potassium 3.4 L Chloride 91 L Carbon Dioxide 31 Anion Gap 9.0 BUN 31 H D Creatinine 0.93 Est Cr Clr Drug Dosing 52.3 Est GFR ( Amer) 72.7 Est GFR (Non-Af Amer) 62.7 BUN/Creatinine Ratio 33.6 H Glucose 99 Calcium 9.1 Magnesium 1.8 Total Protein (PEP) Albumin (PEP) Zmtde-4-Prqivmbni Yljnn-7-Qtkqbusqq Pvwr-5-Puhavhxv Ejyp-6-Oblltust Gamma Globulins Monoclonal Peak 3 Ser Monoclonl Protein Ser Monoclonal Prot 2 PEP Interpretation Serum Immunofixation Tot [place]/Lambda Ratio [place] Light Chain Anal Free [place] LC, Quant Lambda Light Chain Anal Free Lambda LC, Quant Free [place]/Lambda Ratio Medications Administered Current Inpatient Medications Acetaminophen (Acetaminophen 325 Mg Tab) 650 mg PO Q4H PRN PRN Reason: Pain or Fever Stop: 06/15/20 16:11 Cetirizine HCl (Cetirizine Hcl 10 Mg Tablet) 10 mg PO QAM [facility] Stop: 06/16/20 08:59 Last Admin: 05/17/20 08:58 Dose: 10 mg Documented by: Levalbuterol HCl (Levalbuterol 1.25mg/0.5ml Neb) 1.25 mg NEB Q6R PRN PRN Reason: Shortness Of Breath Or Wheezing Stop: 06/15/20 16:11 Levothyroxine Sodium (Levothyroxine Sodium 75 Mcg Tablet) 75 mcg PO DAILYBB [facility] Stop: 06/16/20 06:29 Last Admin: 05/18/20 06:01 Dose: 75 mcg Documented by: Metoprolol Succinate (Metoprolol Succ 25mg Ext Rel Tab) 25 mg PO BID [facility] Stop: 06/15/20 20:59 Last Admin: 05/17/20 23:36 Dose: Not Given Documented by: Pantoprazole Sodium (Pantoprazole 40 Mg Tab) 40 mg PO QAM [facility] Stop: 06/16/20 08:59 Last Admin: 05/17/20 08:58 Dose: 40 mg Documented by: Potassium Chloride (Potassium Chloride 20 Meq Tabcr) 20 meq PO QDD [facility] Stop: 06/15/20 16:29 Last Admin: 05/17/20 17:10 Dose: 20 meq Documented by: Sertraline HCl (Sertraline Hcl 50 Mg Tablet) 75 mg PO DAILY ANNI Stop: 06/16/20 08:59 Last Admin: 05/17/20 08:58 Dose: 75 mg Documented by: Torsemide (Torsemide 10 Mg Tab) 10 mg PO BID17 ANNI Stop: 06/16/20 10:59 Last Admin: 05/17/20 18:27 Dose: 10 mg Documented by: Urea (Urea (Ure-Na) 15 Gm Pack) 15 gm PO BID ANNI Stop: 06/16/20 20:59 Last Admin: 05/17/20 23:36 Dose: Not Given Documented by:
[2020-05-18] MEDS ORDERED: POTASSIUM CHLORIDE 20 MEQ TABCR PO STA ×2 (09:12→09:19)
[2020-05-18] MEDS: TORSEMIDE 10 MG TAB PO SCH ×2 (09:30→16:43)
[2020-05-18] MEDS: CETIRIZINE HCL 10 MG TABLET PO SCH (09:31)
[2020-05-18] MEDS: SERTRALINE HCL 50 MG TABLET PO SCH (09:31)
[2020-05-18] MEDS: METOPROLOL SUCC 25MG EXT REL TAB PO SCH ×2 (09:31→20:05)
[2020-05-18] MEDS: UREA (URE-NA) 15 GM PACK PO SCH ×2 (09:32→20:05)
[2020-05-18] MEDS: PANTOprazole 40 MG TAB PO SCH (09:32)
--- NOTE | 2020-05-18 11:14 | Surgery Consultation ---
Date of Consultation May 18, 2020 Assessment & Plan (1) Acute on chronic diastolic heart failure: 69 year-old female with history of chronic atrial fibrillation and congestive heart failure who presented to ED due to abnormal outpatient labs. She was also hypoxic and found to have bilateral pulmonary effusions. May have infiltrative cardiomyopathy in which biopsy is recommended to rule out amyloidosis. Plan: Plan for abdominal fat pad biopsy to rule out amyloidosis. She is tentatively scheduled for thoracentesis by Dr. Mccoy tomorrow. Will try to coordinate the fat pad biopsy and thoracentesis at same time in operating room. NPO after midnight Vitamin K given today, INR to be rechecked at 4 pm Continue current medical management. Dr. Lino has seen and examined pt, please see addendum for further recommendations/plan Supervising Physician Co-Signing Physician Notes I interviewed and examined this patient I agree with the above note. We have been asked to perform an abdominal fat pad biopsy. I explained to her the procedure and the possible complications and answered her questions and she has signed a consent form. History of Present Illness Reason for Consultation: abdominal fat pad biopsy Requesting Physician: Kee Tao Attending Physician: Maia Gill MD History of Present Illness Naye is a 69 year-old female with PMH of A-fib on Coumadin s/p cardioversion 09/2019, chronic diastolic heart failure, SVT s/p AVNRT ablation in 2018, HTN, hypothyroidism, obesity, GERD, anxiety presented to ER for abnormal labs. She as found to have decreasing oxygen saturations in the ED and was admitted. Our services consulted for possible abdominal fat pad biopsy to rule out amyloidosis for infiltrative cardiomyopathy. She is also tentatively scheduled for thoracentesis by Dr. Mccoy tomorrow. She is on chronic coumadin for atrial fibrillation. Her INR was 3.2 this morning. Allergies Allergy/AdvReac Type Severity Reaction Status Date / Time Penicillins AdvReac Unknown YEAST Verified 05/16/20 11:46 INFECTION Home Medications Home Medications Medication Instructions Recorded Confirmed Type cetirizine [Zyrtec] 10 mg PO QAM 09/17/19 05/16/20 History cranberry conc-ascorbic acid 1 cap PO QAM 09/17/19 05/16/20 History levothyroxine 75 mcg PO QAM 09/17/19 05/16/20 History omeprazole 20 mg PO QAM 09/17/19 05/16/20 History warfarin [Jantoven] 2.5 mg PO .ERNIESA@QDD 09/17/19 05/16/20 History warfarin [Jantoven] 5 mg PO .SUTUTH@QDD 09/17/19 05/16/20 History metoprolol succinate 25 mg PO BID 05/16/20 05/16/20 History potassium chloride [Klor-Con M20] 20 meq PO QDD 05/16/20 05/16/20 History sertraline 75 mg PO DAILY 05/16/20 05/16/20 History torsemide 10 mg PO DAILY 05/16/20 05/16/20 History Patient History Medical History (Updated 05/18/20 @ 15:58 by Jamal Mccoy MD) Afib Anticoagulated on Coumadin Atrial fibrillation AVNRT (AV perla re-entry tachycardia) CHF (congestive heart failure) 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 GERD (gastroesophageal reflux disease) HTN (hypertension) Hypothyroidism NSTEMI (non-ST elevated myocardial infarction) Pleural effusion in other conditions classified elsewhere Surgical History History of back surgery History of knee replacement Family History Mother COPD (chronic obstructive pulmonary disease) Sister Cancer Brother FH: pancreatic cancer Social History Smoking Status: Former smoker Second Hand Exposure: No; Hx Alcohol Use: No Hx Substance Use: No Preferred Language: Albanian Communication Ability: Effective Linen Grader Required: No Beliefs That Will Affect Care: None marital status: Current Living Situation: Spouse Other Information That Helps Us Care for You: No Feels Safe at Home: Yes Safety Concerns: Feels Safe At This Time Review of Systems Review of Systems: All systems reviewed & are unremarkable except as noted in HPI & below Physical Exam Constitutional: WD/WN, vitals as above no acute distress and not ill appearing Respiratory: normal respiratory effort; no respiratory distress and no labored breathing Gastrointestinal (Abdomen): Inspection/Auscultation: abdomen normal to inspection; abdomen not distended Percussion/Palpation: abdomen soft; abdomen nontender, no guarding and abdomen not rigid Skin: no rashes, warm and dry Psychiatric: A+Ox3, euthymic affect Results & Data ([facility]) Vital Signs (Past 12 Hours) Vital Signs Temp Pulse Resp BP Pulse Ox 05/18/20 07:35 36.6 C 78 17 106/72 94 05/18/20 03:04 94 05/18/20 03:03 36.7 C 73 18 108/67 88 L 05/17/20 23:15 36.6 C 82 19 96/60 L 97 Laboratory Results 05/18/20 05/18/20 05/18/20 Range/Units 05:58 05:58 05:53 WBC 9.05 (4.8-10.8) K/uL RBC 5.10 (4.2-5.4) M/uL Hgb 15.3 (12.0-16.0) g/dL Hct 44.6 (37-47) % MCV 87.5 (80-100) fL MCH 30.0 (25-34) pg MCHC 34.3 (32-36) g/dL RDW Std Deviation 52.6 H (36.4-46.3) fL RDW Coeff of Jonathan 16.3 H (11.5-14.5) % Plt Count 227 (130-400) K/uL MPV 10.6 H (7.4-10.4) fL Immature Gran % (Auto) 0.3 % Neut % (Auto) 58.0 % Lymph % (Auto) 29.3 % [place] % (Auto) 11.3 % Eos % (Auto) 0.8 % Baso % (Auto) 0.3 % Neut # (Auto) 5.25 (1.4-6.5) K/uL Lymph # (Auto) 2.65 (1.2-3.4) K/uL [place] # (Auto) 1.02 H (0.11-0.59) K/uL Eos # (Auto) 0.07 (0-0.5) K/uL Baso # (Auto) 0.03 (0-0.2) K/uL Immature Gran # (Auto) 0.03 H (0.00-0.02) K/uL PT 31.5 H (9.0-12.0) Seconds INR 3.2 H (0.9-1.1) Sodium 131 L (136-145) mmol/L Potassium 3.4 L (3.5-5.1) mmol/L Chloride 91 L (98-107) mmol/L Carbon Dioxide 31 (21-32) mmol/L Anion Gap 9.0 (3-11) BUN 31 H D (7-18) mg/dl Creatinine 0.93 (0.6-1.2) mg/dl Est Cr Clr Drug Dosing 52.3 ml/min Est GFR ( Amer) 72.7 Est GFR (Non-Af Amer) 62.7 BUN/Creatinine Ratio 33.6 H (10-20) Glucose 99 (70-99) mg/dl Calcium 9.1 (8.5-10.1) mg/dl Magnesium 1.8 (1.8-2.4) mg/dl Total Protein (PEP) Albumin (PEP) Fdrdg-5-Rsykrmadm Yhwyb-7-Uoeegmbyo Sdgm-5-Axhudjei Zhlg-6-Zzoqsfvn Gamma Globulins Monoclonal Peak 3 Ser Monoclonl Protein Ser Monoclonal Prot 2 PEP Interpretation Serum Immunofixation Tot [place]/Lambda Ratio [place] Light Chain Anal Free [place] LC, Quant Lambda Light Chain Anal Free Lambda LC, Quant Free [place]/Lambda Ratio 05/18/20 05/17/20 Range/Units 05:53 12:43 WBC (4.8-10.8) K/uL RBC (4.2-5.4) M/uL Hgb (12.0-16.0) g/dL Hct (37-47) % MCV (80-100) fL MCH (25-34) pg MCHC (32-36) g/dL RDW Std Deviation (36.4-46.3) fL RDW Coeff of Jonathan (11.5-14.5) % Plt Count (130-400) K/uL MPV (7.4-10.4) fL Immature Gran % (Auto) % Neut % (Auto) % Lymph % (Auto) % [place] % (Auto) % Eos % (Auto) % Baso % (Auto) % Neut # (Auto) (1.4-6.5) K/uL Lymph # (Auto) (1.2-3.4) K/uL [place] # (Auto) (0.11-0.59) K/uL Eos # (Auto) (0-0.5) K/uL Baso # (Auto) (0-0.2) K/uL Immature Gran # (Auto) (0.00-0.02) K/uL PT (9.0-12.0) Seconds INR (0.9-1.1) Sodium (136-145) mmol/L Potassium (3.5-5.1) mmol/L Chloride (98-107) mmol/L Carbon Dioxide (21-32) mmol/L Anion Gap (3-11) BUN (7-18) mg/dl Creatinine (0.6-1.2) mg/dl Est Cr Clr Drug Dosing ml/min Est GFR ( Amer) Est GFR (Non-Af Amer) BUN/Creatinine Ratio (10-20) Glucose (70-99) mg/dl Calcium (8.5-10.1) mg/dl Magnesium (1.8-2.4) mg/dl Total Protein (PEP) Pending Albumin (PEP) Pending Rxilh-3-Icxygllha Pending Fjomv-8-Cmtjwevny Pending Grrz-8-Sdeopplx Pending Ufni-6-Hoeldecg Pending Gamma Globulins Pending Monoclonal Peak 3 Pending Ser Monoclonl Protein Pending Ser Monoclonal Prot 2 Pending PEP Interpretation Pending Serum Immunofixation Pending Tot [place]/Lambda Ratio Pending [place] Light Chain Anal Pending Free [place] LC, Quant Pending Lambda Light Chain Anal Pending Free Lambda LC, Quant Pending Free [place]/Lambda Ratio Pending
--- NOTE | 2020-05-18 13:43 | Hospitalist Progress Note ---
Date of Service May 18, 2020 Assessment & Plan (1) Acute combined systolic and diastolic heart failure: Echo of the heart showed: Small left ventricular cavity Severe concentric LV hypertrophy with severely reduced LV systolic function EF 25 to 30%, significant reduction of EF compared with echo of September of this year Right ventricular systolic function is moderately to severely reduced Mild to moderate mitral regurgitation, mild tricuspid regurgitation Left atrium is severely dilated with moderate elevation of the right atrium Mild pulmonary hypertension with large left pleural effusion A myeloid heart disease is a consideration Serological test have been sent and awaiting abdominal fat pad biopsy Has been getting diuretics and diuresing a lot We will continue current medications (2) Acute on chronic diastolic heart failure: Pt is 69 y/o F with PMH A-fib on Coumadin s/p cardioversion 09/2019, off sotalol since 12/2019 chronic A. fib/a flutter, chronic diastolic heart failure, SVT s/p AVNRT ablation in 2018, HTN, hypothyroidism, obesity, GERD, anxiety presented to ER for abnormal labs. Presented with weakness, fatigue, decreased appetite, loss of taste, shortness of breath with exertion. Has CHF, bilateral pleural effusion, abdominal wall and mesenteric edema with minimal ascites and trace to 1+ leg edema Has been getting Lasix 40 mg intravenously twice a day Appreciate cardiology input and recommendation As above Bilateral pleural effusion More on the right than left Secondary to diastolic heart failure Pulmonary consulted for thoracentesis Generalized body wall edema, mesenteric edema and trace ascites Secondary to congestive heart failure Likely has intestinal edema which may be the cause of nausea and is complicated by hyponatremia Increased bilirubin-2.3 No evidence of abnormal LFTs and noted to have normal bile duct Likely secondary to Gilbert's syndrome and may be complicated by mild hepatic congestion from CHF Will monitor (3) Elevated troponin: troponin 0.4 (was 0.16 on prior admission in 09/2019). Denies chest pain. Patient with ongoing history of exertional shortness of breath -Suspect demand ischemia -Trend troponin -EKG in a.m. -Continue Coumadin -Echo-as above -Cardiology consult (4) RASHID (dyspnea on exertion): Reported ongoing shortness of breath on exertion In ER reported oxygen sats down to high 80s at rest on room air CXR: Pulmonary vascular congestion, bibasilar and right midlung consolidation, small to moderate pleural effusions No leukocytosis Covid 19 PCR is Negative No CT evidence of pneumonia but has atelectasis and pleural effusion Exertional SOB also suspected from underlying fluid overload (5) Hyponatremia: Na: 130 (was 130 on 05/12/2020, 134 on 01/31/20) Sodium level is 129 today Hyponatremia is contributed by poor intake, hypervolemia and use of diuretics Nephrology consulted for further management Nephrology input and recommendation-fluid restriction to 1.2 L a day We will monitor BMP (6) Afib: A-fib on Coumadin s/p cardioversion 09/2019, off sotalol since 12/2019, now in chronic A. fib/a flutter INR: 3.0 -Will dose coumadin 2.5mg tonight then plan to resume pt's home coumadin regimen -Monitor INR -Continue metoprolol succinate (7) Generalized weakness: Patient with complaints of generalized weakness and fatigue for several months -PT/OT eval (8) Elevated lipase: Reports some decreased appetite. Denies abdominal pain, nausea Lipase: 490 KUB XRAY:1. No evidence for a bowel obstruction. 2. Bilateral pleural effusions and bibasilar opacities better depicted on chest radiograph. GALLBLADDER US: 1. Gallbladder wall thickening is redemonstrated, most pronounced along the hepatic surface. Additionally, there is trace perihepatic ascites. The gallbladder wall thickening is likely secondary to edematous state versus hepatic disease and unlikely related to acute cholecystitis. 2. No cholelithiasis. 3. Unchanged mild dilation of the common bile duct. Repeat lipase in am Doubt acute pancreatitis (9) HTN (hypertension): Stable -Lisinopril was discontinued by Dr. Meeks -Monitor BP (10) Anxiety: Patient under increased stress with recent of her brother -Continue sertraline (11) Hypothyroidism: TSH: 3.1 -Continue levothyroxine (12) GERD (gastroesophageal reflux disease): -Continue PPI DVT Prophylaxis -On Coumadin -Coumadin on hold and received vitamin K for thoracentesis today or tomorrow Full code as per discussion with pt Follows with Dr Mulu Russell for routine care Admission and Anticipated Discharge Date Admission Date: May 16, 2020 Subjective 05/17/2020 The patient was seen and examined in the telemetry unit She has significant cardiac disease and has been complaining of shortness of breath with minimal exertion since September 2019 She was advised to come to the hospital as she was noted to have abnormal labs on outpatient testing She admits to have more shortness of breath for the last few days but denies any weight gain and/or increasing edema of the legs Denies any abdominal pain but does has nausea, denies any chest pain and/or palpitation 05/18/2020 The patient was seen and examined in telemetry unit She feels a little bit better but he still remains weak and tired She is very anxious as well Denies any chest pain and/or palpitation or shortness of breath at rest Review of Systems Review of Systems: All systems reviewed and are unremarkable except as noted below Respiratory: + dyspnea and + dyspnea on exertion Gastrointestinal: + bloating and + nausea; no vomiting Physical Exam Physical Exam: Lying in bed comfortably Constitutional: well developed, well nourished and + ill appearing; no acute distress Eyes: PERRL, conjunctivae normal, anicteric sclerae ENMT: external ear and nose normal, oropharynx normal Neck: trachea midline, no thyromegaly Respiratory: no respiratory distress Auscultation: + diminished lung sounds (Right more than the left) and + crackles; no wheezes Cardiovascular: Rate/Rhythm: regular rate and regular rhythm Heart Sounds: no murmur Extremities: + edema (Trace to 1+ edema bilaterally) Gastrointestinal (Abdomen): Inspection/Auscultation: abdomen normal to inspection and normal bowel sounds; abdomen not distended Percussion/Palpation: + abdomen tender (Minimally tender in the epigastrium) and abdomen soft; no guarding Musculoskeletal: No acute arthritis in any joints Neurologic: moves all extremities; no focal motor deficits Results & Data Results & Data ([facility]) Vital Signs (Past 12 Hours) Vital Signs Temp Pulse Resp BP Pulse Ox 05/18/20 11:33 36.6 C 84 18 127/82 93 05/18/20 07:35 36.6 C 78 17 106/72 94 05/18/20 03:04 94 05/18/20 03:03 36.7 C 73 18 108/67 88 L Laboratory Results Short CBC 05/18/20 Range/Units 05:58 WBC 9.05 (4.8-10.8) K/uL Hgb 15.3 (12.0-16.0) g/dL Hct 44.6 (37-47) % Plt Count 227 (130-400) K/uL BMP 05/18/20 05:58 Sodium 131 L Potassium 3.4 L Chloride 91 L Carbon Dioxide 31 BUN 31 H D Creatinine 0.93 Glucose 99 Calcium 9.1 Medications Administered Current Inpatient Medications Acetaminophen (Acetaminophen 325 Mg Tab) 650 mg PO Q4H PRN PRN Reason: Pain or Fever Stop: 06/15/20 16:11 Cetirizine HCl (Cetirizine Hcl 10 Mg Tablet) 10 mg PO QAM ANNI Stop: 06/16/20 08:59 Last Admin: 05/18/20 09:31 Dose: 10 mg Documented by: Levalbuterol HCl (Levalbuterol 1.25mg/0.5ml Neb) 1.25 mg NEB Q6R PRN PRN Reason: Shortness Of Breath Or Wheezing Stop: 06/15/20 16:11 Levothyroxine Sodium (Levothyroxine Sodium 75 Mcg Tablet) 75 mcg PO DAILYBB [facility] Stop: 06/16/20 06:29 Last Admin: 05/18/20 06:01 Dose: 75 mcg Documented by: Metoprolol Succinate (Metoprolol Succ 25mg Ext Rel Tab) 25 mg PO BID ANNI Stop: 06/15/20 20:59 Last Admin: 05/18/20 09:31 Dose: 25 mg Documented by: Pantoprazole Sodium (Pantoprazole 40 Mg Tab) 40 mg PO QAM ANNI Stop: 06/16/20 08:59 Last Admin: 05/18/20 09:32 Dose: 40 mg Documented by: Potassium Chloride (Potassium Chloride 20 Meq Tabcr) 20 meq PO QDD ANNI Stop: 06/15/20 16:29 Last Admin: 05/17/20 17:10 Dose: 20 meq Documented by: Sertraline HCl (Sertraline Hcl 50 Mg Tablet) 75 mg PO DAILY ANNI Stop: 06/16/20 08:59 Last Admin: 05/18/20 09:31 Dose: 75 mg Documented by: Torsemide (Torsemide 10 Mg Tab) 10 mg PO BID17 ANNI Stop: 06/16/20 10:59 Last Admin: 05/18/20 09:30 Dose: 10 mg Documented by: Urea (Urea (Ure-Na) 15 Gm Pack) 15 gm PO BID ANNI Stop: 06/16/20 20:59 Last Admin: 05/18/20 09:32 Dose: 15 gm Documented by:
--- NOTE | 2020-05-18 15:30 | Nephrology Progress Note ---
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 Urine osmolarity of 267 and urine Na of 66. Possible trigger of ADH release is nausea. Na is 131 today. -Will continue zazueta 15g bid -Fluid restriction of 1.2 litres daily -Daily Na (2) Acute on chronic diastolic heart failure: Patient still with evidence of fluid overload. She is on oxygen by [place]. K is low today -Continue lasix -Give additional kcl 40meq x1. Conitnue kcl 20meq daily -Daily standing weight. -Monitor in/outs Admission and Anticipated Discharge Date Admission Date: May 16, 2020 Subjective Patient feels better today. No shortness of breath. No urinary symptoms. She is planned for thoracentesis today. Sodium is better Review of Systems Review of Systems: All systems reviewed & are unremarkable except as noted in HPI & below Physical Exam Physical Exam: General exam: Appears comfortable, no acute distress HEENT: Pupils are equal and reactive to light Neck: No JVD, neck is supple trachea is midline Respiratory system: Clear breath sounds bilaterally. Gastrointestinal: Abdomen is soft, non distended, non tender, bowel sounds are present CVS: Regular rate and rhythm. No murmurs, rubs or gallops Musculoskeletal: No joint or muscle tenderness Extremities: Non tender, no edema, peripheral pulses are present Neuro: Oriented, no tremors, no focal neurological deficits Skin: No rashes Results & Data ([facility]) Vital Signs (Past 12 Hours) Vital Signs Temp Pulse Resp BP Pulse Ox 05/18/20 15:09 36.4 C L 83 18 105/72 94 05/18/20 11:33 36.6 C 84 18 127/82 93 05/18/20 07:35 36.6 C 78 17 106/72 94 Laboratory Results 05/18/20 05:58 05/18/20 05:58 WBC 9.05 RBC 5.10 MCV 87.5 MCH 30.0 MCHC 34.3 RDW Std Deviation 52.6 H RDW Coeff of Jonathan 16.3 H Plt Count 227 MPV 10.6 H
--- NOTE | 2020-05-18 15:55 | Pulmonary Consultation ---
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 I will go ahead and perform an ultrasound tomorrow morning and see if there is a suitable window for thoracentesis. This will take place around 8:30 in the morning. The plan is for surgery to take her to the OR to do a fat pad biopsy to evaluate for amyloidosis. It seems that this is going to happen around 10 AM. I will attempt to have the thoracentesis completed prior to the OR. Defer diuresis to cardiology. 10 mg of IV vitamin K given this morning. Recheck INR tomorrow. Will perform procedure once INR is below 1.8. Thanks for the consult. Will continue to follow along with you. All the patient's and [id number]'s questions were answered to their satisfaction. (2) Hypoxia: (3) Pulmonary edema: Chronicity: acute Qualified Code(s): J81.0 - Acute pulmonary edema (4) Pleural effusion in other conditions classified elsewhere: (5) Atrial fibrillation: (6) Anticoagulated on Coumadin: History of Present Illness Reason for Consultation: Pleural effusions Requesting Physician: Dr. Tao Attending Physician: Maia Gill MD History of Present Illness 69-year-old female with a past medical history of atrial fibrillation on Coumadin, chronic diastolic heart failure and GERD presenting to the hospital due to abnormal labs. Patient notes that she has had increasing shortness of breath at home with very minimal exertion. She lives in a 1 floor house. They actually do have steps to go up to the second floor, but she does not have anything in the second floor that she needs. She lives with her . Her pcybxqux-iu-pby is currently present in the room with her today. She describes some swelling in her legs prior to hospital arrival. She denies any chest pain. She does endorse some mild heartburn symptoms. She denies any fevers or chills. No recent sick contacts. Labs concerning for hyponatremia, elevated proBNP mildly elevated lipase. Echocardiogram performed today demonstrated severe concentric left ventricular hypertrophy and EF of 32% predicted. I talked to Dr. Tao about this case and he is concerned about possible amyloidosis as there was some speckling pattern noted on the echo and she also has restrictive physiology. Nephrology is also evaluating patient is a feel that she might have SIADH. Allergies Allergy/AdvReac Type Severity Reaction Status Date / Time Penicillins AdvReac Unknown YEAST Verified 05/16/20 11:46 INFECTION Home Medications Home Medications Medication Instructions Recorded Confirmed Type cetirizine [Zyrtec] 10 mg PO QAM 09/17/19 05/16/20 History cranberry conc-ascorbic acid 1 cap PO QAM 09/17/19 05/16/20 History levothyroxine 75 mcg PO QAM 09/17/19 05/16/20 History omeprazole 20 mg PO QAM 09/17/19 05/16/20 History warfarin [Jantoven] 2.5 mg PO .[id number]@QDD 09/17/19 05/16/20 History warfarin [Jantoven] 5 mg PO .SUTUTH@QDD 09/17/19 05/16/20 History metoprolol succinate 25 mg PO BID 05/16/20 05/16/20 History potassium chloride [Klor-Con M20] 20 meq PO QDD 05/16/20 05/16/20 History sertraline 75 mg PO DAILY 05/16/20 05/16/20 History torsemide 10 mg PO DAILY 05/16/20 05/16/20 History Patient History Medical History Afib AVNRT (AV perla re-entry tachycardia) CHF (congestive heart failure) GERD (gastroesophageal reflux disease) HTN (hypertension) Hypothyroidism NSTEMI (non-ST elevated myocardial infarction) Surgical History History of back surgery History of knee replacement Family History Mother COPD (chronic obstructive pulmonary disease) Sister Cancer Brother FH: pancreatic cancer Social History Smoking Status: Former smoker Second Hand Exposure: No; Hx Alcohol Use: No Hx Substance Use: No Preferred Language: Pashto Communication Ability: Effective 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 Nasal cannula in place. Eyes: PERRL, conjunctivae normal, anicteric sclerae ENMT: external ear and nose normal, oropharynx normal Neck: normal visual inspection Respiratory: Diminished breath sounds bilateral bases. Cardiovascular: Rate/Rhythm: + irregularly irregular Heart Sounds: no murmur Gastrointestinal (Abdomen): normal bowel sounds, soft, nontender, no hepatosplenomegaly Musculoskeletal: no cyanosis or clubbing, extremities motor strength 5/5 Skin: no rashes, warm and dry Neurologic: PERRL, EOMI, accommodation nl, no face palsy, no dysarthria Psychiatric: A+Ox3, euthymic affect Results & Data Results & Data ([facility]) Vital Signs (Past 12 Hours) Vital Signs Temp Pulse Resp BP Pulse Ox 05/18/20 15:09 97.5 F L 83 18 105/72 94 05/18/20 11:33 97.9 F 84 18 127/82 93 05/18/20 07:35 97.9 F 78 17 106/72 94 I personally reviewed labs, vital signs and imaging PG Care Time/CCT Total # of Minutes Spent Total Time Spent with Patient: Total time spent is greater than 50% in coordination of care (as documented) at patient's floor/unit and/or counseling patient: Coding Level of Care Code 14676 Inpt Consult Level 5 Diagnoses 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 I50.30; I42.5 Hypoxia R09.02 Pulmonary edema J81.0 Chronicity: acute Pleural effusion in other conditions classified elsewhere J91.8 Atrial fibrillation I48.91 Anticoagulated on Coumadin Z79.01
[2020-05-18] MEDS ORDERED: WARFARIN SOD 5 MG TAB PO SCH (16:00)
[2020-05-18 16:35] LABS: INR 2.8 (0.9-1.1)
[2020-05-18] MEDS: POTASSIUM CHLORIDE 20 MEQ TABCR PO SCH (16:38)
[2020-05-19] MEDS: LEVOTHYROXINE SODIUM 75 MCG TABLET PO SCH (05:35)
[2020-05-19 06:41] LABS: Basophils # (auto) 0.02 K/uL (0-0.2); Basophils % (auto) 0.2 %; Eosinophils # (auto) 0.12 K/uL (0-0.5); Eosinophils % (auto) 1.5 %; Hemoglobin 15.2 g/dL (12.0-16.0); Immature Granulocytes # (auto) 0.02 K/uL (0.00-0.02); Immature Granulocytes % (auto) 0.2 %; Lymphocytes # (auto) 1.76 K/uL (1.2-3.4); Lymphocytes % (auto) 21.8 %; Mean Corpuscular Hemoglobin 30.2 pg (25-34); Mean Corpuscular Hgb Conc 33.8 g/dL (32-36); Mean Corpuscular Volume 89.3 fL (80-100); Mean Platelet Volume 10.5 fL (7.4-10.4); Monocytes # (auto) 0.77 K/uL (0.11-0.59); Monocytes % (auto) 9.5 %; Neutrophils % (auto) 66.8 %; Platelet Count 219 K/uL (130-400); RDW Coefficient of Variation 16.7 % (11.5-14.5); RDW Standard Deviation 54.2 fL (36.4-46.3); Red Blood Count 5.04 M/uL (4.2-5.4); White Blood Count 8.09 K/uL (4.8-10.8)
[2020-05-19 06:50] LABS: INR 1.9 (0.9-1.1); Prothrombin Time 19.8 Seconds (9.0-12.0)
--- NOTE | 2020-05-19 07:19 | Communication Note ---
Date of Service: May 19, 2020 INR is 1.9 today. I will reevaluate for a thoracentesis tomorrow if INR is below 1.7.
[2020-05-19 07:21] LABS: BUN Creatinine Ratio 44.7 (10-20); Calcium 9.1 mg/dl (8.5-10.1); Creatinine Clr Calc Pharmacy 52.4 ml/min; Est GFR (African American) 73.6; Est GFR (Non-African American) 63.5; Magnesium 1.8 mg/dl (1.8-2.4); Potassium 3.3 mmol/L (3.5-5.1)
[2020-05-19 07:26] LABS: Ferritin 46.5 ng/ml (8-388)
[2020-05-19] MEDS: CETIRIZINE HCL 10 MG TABLET PO SCH (08:33)
[2020-05-19] MEDS: METOPROLOL SUCC 25MG EXT REL TAB PO SCH ×2 (08:34→20:55)
[2020-05-19] MEDS: SERTRALINE HCL 50 MG TABLET PO SCH (08:34)
[2020-05-19] MEDS: PANTOprazole 40 MG TAB PO SCH (08:35)
[2020-05-19] MEDS: TORSEMIDE 10 MG TAB PO SCH ×2 (08:39→17:17)
[2020-05-19] MEDS: UREA (URE-NA) 15 GM PACK PO SCH ×2 (08:40→20:55)
[2020-05-19] MEDS ORDERED: POTASSIUM CHLORIDE 20 MEQ TABCR PO STA (08:49)
--- NOTE | 2020-05-19 09:01 | Cardiology Progress Note ---
Date of Service May 19, 2020 Assessment & Plan (1) Hyponatremia: (2) Pleural effusion: (3) Afib: (4) Systolic and diastolic CHF, acute on chronic: (5) Anticoagulated on Coumadin: (6) Atrial fibrillation: (7) Acute combined systolic and diastolic heart failure: The patient is diuresing well on oral torsemide. She is down approximately 4 kg since admission. Sodium is up to 133. INR is 1.9. She will have an abdominal fat pad aspirate/biopsy this afternoon. Pulmonary has decided to wait until her INR is 1.7 or less, so the thoracentesis will be performed tomorrow. Potassium is being supplemented. Repeat three-dimensional strain echocardiography indicates an estimated left ventricular ejection fraction of around 32%. The strain pattern indicates a global cardiomyopathy. Iron studies would not be consistent with hemochromatosis. Other labs to exclude infiltrative cardiomyopathy are pending. Otherwise the patient is stable. Will need to start the patient on IV heparin until her INR is once again therapeutic after her procedures have been completed. Admission and Anticipated Discharge Date Admission Date: May 16, 2020 Subjective No new complaints today. Review of Systems Review of Systems: All systems reviewed & are unremarkable except as noted in HPI & below Nothing additional to add. Physical Exam Physical Exam: General: no acute distress and stated age Head: normocephalic, no masses, lesions, tenderness or abnormalities Eyes: conjunctiva are pink and non-injected, sclera clear Neck: supple, no adenopathy, no bruits, normal jugular venous pulse, no hepatojugular reflux Chest: normal shape and normal respiratory effort Lungs: Decreased breath sounds at the bases Cardiac Exam: - Irregular rate & rhythm, no murmurs gallops or rubs - normal S1, normal S2 Pulses: 2(+) throughout Abdomen: abdomen soft, non-tender, no abnormal masses and no hepatosplenomegaly Musculoskeletal: no gait disturbance, no joint inflammation, no deforming arthritis Extremities: no edema and no cyanosis Neuro: grossly normal exam Results & Data ([facility]) Vital Signs (Past 12 Hours) Vital Signs Temp Pulse Resp BP Pulse Ox 05/19/20 07:22 36.5 C 79 19 114/79 94 05/19/20 03:23 36.7 C 76 18 98/61 L 90 05/18/20 23:26 36.5 C 75 100/65 97 Laboratory Results Laboratory Results - last 24 hr 05/18/20 05/18/20 05/18/20 05:58 13:00 16:18 WBC RBC Hgb Hct MCV MCH MCHC RDW Std Deviation RDW Coeff of Jonathan Plt Count MPV Immature Gran % (Auto) Neut % (Auto) Lymph % (Auto) Thomas % (Auto) Eos % (Auto) Baso % (Auto) Neut # (Auto) Lymph # (Auto) Thomas # (Auto) Eos # (Auto) Baso # (Auto) Immature Gran # (Auto) PT 28.0 H INR 2.8 H Sodium 131 L Potassium 3.4 L Chloride 91 L Carbon Dioxide 31 Anion Gap 9.0 BUN 31 H D Creatinine 0.93 Est Cr Clr Drug Dosing 52.3 Est GFR ( Amer) 72.7 Est GFR (Non-Af Amer) 62.7 BUN/Creatinine Ratio 33.6 H Glucose 99 Calcium 9.1 Magnesium 1.8 Iron TIBC Ferritin Ur Creatinine 24 Hour Pending Ur Total Protein 24 Hr Pending Protein/Creat Ratio 24h Pending Urine Albumin (%) Pending U Pmugk-1-Jbdqsxts (%) Pending U Qyoji-9-Obwiusuj (%) Pending U Beta Globulin (%) Pending U Gamma Globulin (%) Pending U Abnormal Prot Band 1 Pending U Abnormal Prot Band 2 Pending U Abnormal Prot Band 3 Pending Urine PEP Interpret Pending 05/19/20 05/19/20 05/19/20 05:59 05:59 05:59 WBC 8.09 RBC 5.04 Hgb 15.2 Hct 45.0 MCV 89.3 MCH 30.2 MCHC 33.8 RDW Std Deviation 54.2 H RDW Coeff of Jonathan 16.7 H Plt Count 219 MPV 10.5 H Immature Gran % (Auto) 0.2 Neut % (Auto) 66.8 Lymph % (Auto) 21.8 Thomas % (Auto) 9.5 Eos % (Auto) 1.5 Baso % (Auto) 0.2 Neut # (Auto) 5.40 Lymph # (Auto) 1.76 Thomas # (Auto) 0.77 H Eos # (Auto) 0.12 Baso # (Auto) 0.02 Immature Gran # (Auto) 0.02 PT 19.8 H INR 1.9 H Sodium 133 L Potassium 3.3 L Chloride 93 L Carbon Dioxide 33 H Anion Gap 7.0 BUN 41 H Creatinine 0.92 Est Cr Clr Drug Dosing 52.4 Est GFR ( Amer) 73.6 Est GFR (Non-Af Amer) 63.5 BUN/Creatinine Ratio 44.7 H Glucose 102 H Calcium 9.1 Magnesium 1.8 Iron 31 L TIBC 377 Ferritin 46.5 Ur Creatinine 24 Hour Ur Total Protein 24 Hr Protein/Creat Ratio 24h Urine Albumin (%) U Ffkkc-4-Dvmtphop (%) U Dzkmc-0-Hsqobxre (%) U Beta Globulin (%) U Gamma Globulin (%) U Abnormal Prot Band 1 U Abnormal Prot Band 2 U Abnormal Prot Band 3 Urine PEP Interpret Medications Administered Current Inpatient Medications Acetaminophen (Acetaminophen 325 Mg Tab) 650 mg PO Q4H PRN PRN Reason: Pain or Fever Stop: 06/15/20 16:11 Cetirizine HCl (Cetirizine Hcl 10 Mg Tablet) [facility] [place]: 06/16/20 08:59 Last Admin: 05/19/20 08:33 Dose: 10 mg Documented by: Levalbuterol HCl (Levalbuterol 1.25mg/0.5ml Neb) 1.25 mg NEB Q6R PRN PRN Reason: Shortness Of Breath Or Wheezing Stop: 06/15/20 16:11 Levothyroxine Sodium (Levothyroxine Sodium 75 Mcg Tablet) 75 mcg PO DAILYBB [facility] Stop: 06/16/20 06:29 Last Admin: 05/19/20 05:35 Dose: 75 mcg Documented by: Metoprolol Succinate (Metoprolol Succ 25mg Ext Rel Tab) 25 mg PO BID [facility] Stop: 06/15/20 20:59 Last Admin: 05/19/20 08:34 Dose: 25 mg Documented by: Pantoprazole Sodium (Pantoprazole 40 Mg Tab) 40 mg PO QAM [facility] Stop: 06/16/20 08:59 Last Admin: 05/19/20 08:35 Dose: 40 mg Documented by: Potassium Chloride (Potassium Chloride 20 Meq Tabcr) 20 meq PO BID [facility] Stop: 06/18/20 20:59 Sertraline HCl (Sertraline Hcl 50 Mg Tablet) 75 mg PO DAILY [facility] Stop: 06/16/20 08:59 Last Admin: 05/19/20 08:34 Dose: 75 mg Documented by: Torsemide (Torsemide 10 Mg Tab) 10 mg PO BID17 ANNI Stop: 06/16/20 10:59 Last Admin: 05/19/20 08:39 Dose: 10 mg Documented by: Urea (Urea (Ure-Na) 15 Gm Pack) 15 gm PO BID ANNI Stop: 06/16/20 20:59 Last Admin: 05/19/20 08:40 Dose: 15 gm Documented by:
[2020-05-19] MEDS: POTASSIUM CHLORIDE 20 MEQ TABCR PO SCH ×2 (09:58→20:54)
--- NOTE | 2020-05-19 10:08 | Pulmonology Progress Note ---
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 INR was elevated to 1.9 today. Will defer thoracentesis until tomorrow. It seems that cardiology is planning to start her on a heparin drip. Please hold the heparin drip 6 hours prior to the thoracentesis. I will get to her by 10 AM tomorrow. Will order chest x-ray for tomorrow morning. (2) Hypoxia: (3) Pulmonary edema: Chronicity: acute Qualified Code(s): J81.0 - Acute pulmonary edema (4) Pleural effusion in other conditions classified elsewhere: (5) Atrial fibrillation: (6) Anticoagulated on Coumadin: Admission and Anticipated Discharge Date Admission Date: May 16, 2020 Subjective Patient feeling better today. She is less short of breath. She is still having some nausea in the mornings, but she did not vomit. She denies any chest pain. No coughing. Review of Systems Review of Systems: All systems reviewed & are unremarkable except as noted in HPI & below Physical Exam Constitutional: Elderly and frail-appearing female sitting in a chair. Nasal cannula in place. Eyes: PERRL, conjunctivae normal, anicteric sclerae ENMT: external ear and nose normal, oropharynx normal Neck: normal visual inspection Respiratory: Diminished breath sounds bilateral bases. Cardiovascular: Rate/Rhythm: + irregularly irregular Heart Sounds: no murmur Gastrointestinal (Abdomen): normal bowel sounds, soft, nontender, no hepatosplenomegaly Musculoskeletal: no cyanosis or clubbing, extremities motor strength 5/5 Skin: no rashes, warm and dry Neurologic: PERRL, EOMI, accommodation nl, no face palsy, no dysarthria Psychiatric: A+Ox3, euthymic affect Results & Data Results & Data ([facility]) Vital Signs (Past 12 Hours) Vital Signs Temp Pulse Resp BP Pulse Ox 05/19/20 07:22 97.7 F 79 19 114/79 94 05/19/20 03:23 98.1 F 76 18 98/61 L 90 05/18/20 23:26 97.7 F 75 100/65 97 I reviewed vital signs, Labs and imaging PG Care Time/CCT Total # of Minutes Spent Total Time Spent with Patient: Total time spent is greater than 50% in coordi nation of care (as documented) at patient's floor/unit and/or counseling patient: Coding Level of Care Code 79733 Subseq Hosp Care Lvl 2 Diagnoses 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 I50.30; I42.5 Hypoxia R09.02 Pulmonary edema J81.0 Chronicity: acute Pleural effusion in other conditions classified elsewhere J91.8 Atrial fibrillation I48.91 Anticoagulated on Coumadin Z79.01
--- NOTE | 2020-05-19 12:42 | Hospitalist Progress Note ---
Date of Service May 19, 2020 Assessment & Plan (1) Acute combined systolic and diastolic heart failure: Echo of the heart showed: Small left ventricular cavity Severe concentric LV hypertrophy with severely reduced LV systolic function EF 25 to 30%, significant reduction of EF compared with echo of September of this year Right ventricular systolic function is moderately to severely reduced Mild to moderate mitral regurgitation, mild tricuspid regurgitation Left atrium is severely dilated with moderate elevation of the right atrium Mild pulmonary hypertension with large left pleural effusion A myeloid heart disease is a consideration Serological test have been sent and awaiting abdominal fat pad biopsy Has been getting diuretics and diuresing a lot We will continue current medications Remains stable for any significant cardiac symptoms (2) Acute on chronic diastolic heart failure: Pt is 69 y/o F with PMH A-fib on Coumadin s/p cardioversion 09/2019, off sotalol since 12/2019 chronic A. fib/a flutter, chronic diastolic heart failure, SVT s/p AVNRT ablation in 2018, HTN, hypothyroidism, obesity, GERD, anxiety presented to ER for abnormal labs. Presented with weakness, fatigue, decreased appetite, loss of taste, shortness of breath with exertion. Has CHF, bilateral pleural effusion, abdominal wall and mesenteric edema with minimal ascites and trace to 1+ leg edema Has been getting Lasix 40 mg intravenously twice a day Appreciate cardiology input and recommendation As above Bilateral pleural effusion More on the right than left Secondary to diastolic heart failure Pulmonary consulted for thoracentesis INR remains elevated at 1.9 today Received vitamin K and we will check it tomorrow We will hold heparin 6 hours prior to the procedure of paracentesis tomorrow at around 10 AM Generalized body wall edema, mesenteric edema and trace ascites Secondary to congestive heart failure Likely has intestinal edema which may be the cause of nausea and is complicated by hyponatremia Increased bilirubin-2.3 No evidence of abnormal LFTs and noted to have normal bile duct Likely secondary to Gilbert's syndrome and may be complicated by mild hepatic congestion from CHF Will monitor (3) Elevated troponin: troponin 0.4 (was 0.16 on prior admission in 09/2019). Denies chest pain. Patient with ongoing history of exertional shortness of breath -Suspect demand ischemia -Trend troponin -EKG in a.m. -Continue Coumadin -Echo-as above -Cardiology consult (4) RASHID (dyspnea on exertion): Reported ongoing shortness of breath on exertion In ER reported oxygen sats down to high 80s at rest on room air CXR: Pulmonary vascular congestion, bibasilar and right midlung consolidation, small to moderate pleural effusions No leukocytosis Covid 19 PCR is Negative No CT evidence of pneumonia but has atelectasis and pleural effusion Exertional SOB also suspected from underlying fluid overload (5) Hyponatremia: Na: 130 (was 130 on 05/12/2020, 134 on 01/31/20) Sodium level is 129 today Hyponatremia is contributed by poor intake, hypervolemia and use of diuretics Nephrology consulted for further management Nephrology input and recommendation-fluid restriction to 1.2 L a day We will monitor BMP-sodium level is 133 as of 05/19/2020 (6) Afib: A-fib on Coumadin s/p cardioversion 09/2019, off sotalol since 12/2019, now in chronic A. fib/a flutter INR: 3.0 -Will dose coumadin 2.5mg tonight then plan to resume pt's home coumadin regimen -Monitor INR -Continue metoprolol succinate (7) Generalized weakness: Patient with complaints of generalized weakness and fatigue for several months -PT/OT eval (8) Elevated lipase: Reports some decreased appetite. Denies abdominal pain, nausea Lipase: 490 KUB XRAY:1. No evidence for a bowel obstruction. 2. Bilateral pleural effusions and bibasilar opacities better depicted on chest radiograph. GALLBLADDER US: 1. Gallbladder wall thickening is redemonstrated, most pronounced along the hepatic surface. Additionally, there is trace perihepatic ascites. The gallbladder wall thickening is likely secondary to edematous state versus hepatic disease and unlikely related to acute cholecystitis. 2. No cholel ithiasis. 3. Unchanged mild dilation of the common bile duct. Repeat lipase in am Doubt acute pancreatitis (9) HTN (hypertension): Stable -Lisinopril was discontinued by Dr. Meeks -Monitor BP (10) Anxiety: Patient under increased stress with recent of her brother -Continue sertraline (11) Hypothyroidism: TSH: 3.1 -Continue levothyroxine (12) GERD (gastroesophageal reflux disease): -Continue PPI DVT Prophylaxis -On Coumadin -Coumadin on hold and received vitamin K for thoracentesis on 05/20/2020 -Heparin drip if started will be on hold 6 hours prior to surgery Full code as per discussion with pt Follows with Dr Mulu Russell for routine care Admission and Anticipated Discharge Date Admission Date: May 16, 2020 Subjective 05/17/2020 The patient was seen and examined in the telemetry unit She has significant cardiac disease and has been complaining of shortness of breath with minimal exertion since September 2019 She was advised to come to the hospital as she was noted to have abnormal labs on outpatient testing She admits to have more shortness of breath for the last few days but denies any weight gain and/or increasing edema of the legs Denies any abdominal pain but does has nausea, denies any chest pain and/or palpitation 05/18/2020 The patient was seen and examined in telemetry unit She feels a little bit better but he still remains weak and tired She is very anxious as well Denies any chest pain and/or palpitation or shortness of breath at rest 05/19/2020 The patient was seen and examined in telemetry unit She has been feeling a lot better but remains very anxious Denies any significant symptoms Review of Systems Review of Systems: All systems reviewed and are unremarkable except as noted below Respiratory: + dyspnea on exertion; no dyspnea Gastrointestinal: + nausea; no bloating and no vomiting Physical Exam Physical Exam: Lying in bed comfortably but remains anxious Constitutional: well developed, well nourished and + ill appearing; no acute distress Eyes: PERRL, conjunctivae normal, anicteric sclerae ENMT: external ear and nose normal, oropharynx normal Neck: trachea midline, no thyromegaly Respiratory: no respiratory distress Auscultation: + diminished lung sounds (Right more than the left) and + crackles; no wheezes Cardiovascular: Rate/Rhythm: regular rate and regular rhythm Heart Sounds: no murmur Extremities: + edema (Trace to 1+ edema bilaterally) Gastrointestinal (Abdomen): Inspection/Auscultation: abdomen normal to inspection and normal bowel sounds; abdomen not distended P ercussion/Palpation: + abdomen tender (Minimally tender in the epigastrium) and abdomen soft; no guarding Musculoskeletal: No acute arthritis involving any joints Neurologic: moves all extremities; no focal motor deficits Results & Data Results & Data ([facility]) Vital Signs (Past 12 Hours) Vital Signs Temp Pulse Resp BP Pulse Ox 05/19/20 11:25 36.5 C 79 16 112/77 95 05/19/20 07:22 36.5 C 79 19 114/79 94 05/19/20 03:23 36.7 C 76 18 98/61 L 90 Laboratory Results Short CBC 05/19/20 Range/Units 05:59 WBC 8.09 (4.8-10.8) K/uL Hgb 15.2 (12.0-16.0) g/dL Hct 45.0 (37-47) % Plt Count 219 (130-400) K/uL BMP 05/19/20 05:59 Sodium 133 L Potassium 3.3 L Chloride 93 L Carbon Dioxide 33 H BUN 41 H Creatinine 0.92 Glucose 102 H Calcium 9.1 Medications Administered Current Inpatient Medications Acetaminophen (Acetaminophen 325 Mg Tab) 650 mg PO Q4H PRN PRN Reason: Pain or Fever Stop: 06/15/20 16:11 Cetirizine HCl (Cetirizine Hcl 10 Mg Tablet) 10 mg PO QAM [facility] Stop: 06/16/20 08:59 Last Admin: 05/19/20 08:33 Dose: 10 mg Documented by: Levalbuterol HCl (Levalbuterol 1.25mg/0.5ml Neb) 1.25 mg NEB Q6R PRN PRN Reason: Shortness Of Breath Or Wheezing Stop: 06/15/20 16:11 Levothyroxine Sodium (Levothyroxine Sodium 75 Mcg Tablet) 75 mcg PO DAILYBB [facility] Stop: 06/16/20 06:29 Last Admin: 05/19/20 05:35 Dose: 75 mcg Documented by: Metoprolol Succinate (Metoprolol Succ 25mg Ext Rel Tab) 25 mg PO BID [facility] Stop: 06/15/20 20:59 Last Admin: 05/19/20 08:34 Dose: 25 mg Documented by: Pantoprazole Sodium (Pantoprazole 40 Mg Tab) 40 mg PO QAM [facility] Stop: 06/16/20 08:59 Last Admin: 05/19/20 08:35 Dose: 40 mg Documented by: Potassium Chloride (Potassium Chloride 20 Meq Tabcr) 40 meq PO BID [facility] Stop: 06/18/20 09:29 Last Admin: 05/19/20 09:58 Dose: 40 meq Documented by: Sertraline HCl (Sertraline Hcl 50 Mg Tablet) 75 mg PO DAILY [facility] Stop: 06/16/20 08:59 Last Admin: 05/19/20 08:34 Dose: 75 mg Documented by: Torsemide (Torsemide 10 Mg Tab) 10 mg PO BID17 ANNI Stop: 06/16/20 10:59 Last Admin: 05/19/20 08:39 Dose: 10 mg Documented by: Urea (Urea (Ure-Na) 15 Gm Pack) 15 gm PO BID ANNI Stop: 06/16/20 20:59 Last Admin: 05/19/20 08:40 Dose: 15 gm Documented by:
--- NOTE | 2020-05-19 13:29 | Nephrology Progress Note ---
Date of Service May 19, 2020 Assessment & Plan (1) Hyponatremia: Patient with hyponatremia likely due to SIADH. Urine osmolarity of 267 and urine Na of 66. Possible trigger of ADH release is nausea. Na is 133 today. -Will continue zazueta 15g bid, will likely reduced to 15 g daily on discharge. -Fluid restriction of 1.2 litres daily -Daily Na (2) Acute on chronic diastolic heart failure: Patient still with evidence of fluid overload. She is on oxygen by [place]. K is low today -Continue torsemide per Cardiology -increase kcl 40meq BID. -Daily standing weight. -Monitor in/outs Admission and Anticipated Discharge Date Admission Date: May 16, 2020 Subjective Patient feels better today. No shortness of breath. She is planned for thoracentesis tomorrow. She will be getting a fat pad biopsy today. Sodium is better Review of Systems Review of Systems: All systems reviewed & are unremarkable except as noted in HPI & below Physical Exam Physical Exam: General exam: Appears comfortable, no acute distress HEENT: Pupils are equal and reactive to light Neck: No JVD, neck is supple trachea is midline Respiratory system: Reduced breath sounds in the bases bilaterally. Gastrointestinal: Abdomen is soft, non distended, non tender, bowel sounds are present CVS: Regular rate and rhythm. No murmurs, rubs or gallops Musculoskeletal: No joint or muscle tenderness Extremities: Non tender, no edema, peripheral pulses are present Neuro: Oriented, no tremors, no focal neurological deficits Skin: No rashes Results & Data ([facility]) Vital Signs (Past 12 Hours) Vital Signs Temp Pulse Resp BP Pulse Ox 05/19/20 11:25 36.5 C 79 16 112/77 95 05/19/20 07:22 36.5 C 79 19 114/79 94 05/19/20 03:23 36.7 C 76 18 98/61 L 90 Laboratory Results 05/19/20 05:59 05/19/20 05:59 WBC 8.09 RBC 5.04 MCV 89.3 MCH 30.2 MCHC 33.8 RDW Std Deviation 54.2 H RDW Coeff of Jonathan 16.7 H Plt Count 219 MPV 10.5 H
[2020-05-19] MEDS ORDERED: Heparin IV Low Dose *NO* Bolus IV SCH (15:10)
--- NOTE | 2020-05-19 15:29 | Anesthesiology Consultation ---
Date of Service May 19, 2020 Covid 19 negative on 05/16/20. Assessment & Plan (1) Encounter for pre-operative examination: Chart Review Chart Review: Acceptable Risk for Surgery and Patient NOT seen in Pre Admission Testing Consults Requested none History Surgery Operation Date: 05/19/20 13:50 Proposed Procedures p Abdominal Fat Pad Biopsy - Guillermo Lino MD Height/Weight Height: 5 ft 1 in Weight: 72.1 kg Allergies Allergy/AdvReac Type Severity Reaction Status Date / Time Penicillins AdvReac Unknown YEAST Verified 05/16/20 11:46 INFECTION Medications Home Medications Medication Instructions Recorded Confirmed Last Taken cetirizine [Zyrtec] 10 mg PO QAM 09/17/19 05/16/20 05/15/20 cranberry conc-ascorbic acid 1 cap PO QAM 09/17/19 05/16/20 05/15/20 levothyroxine 75 mcg PO QAM 09/17/19 05/16/20 05/16/20 omeprazole 20 mg PO QAM 09/17/19 05/16/20 05/15/20 warfarin [Jantoven] 2.5 mg PO .RUBY@QDD 09/17/19 05/16/20 05/14/20 warfarin [Jantoven] 5 mg PO .HIEU@QDD 09/17/19 05/16/20 05/15/20 metoprolol succinate 25 mg PO BID 05/16/20 05/16/20 05/15/20 potassium chloride [Klor-Con M20] 20 meq PO QDD 05/16/20 05/16/20 05/15/20 sertraline 75 mg PO DAILY 05/16/20 05/16/20 05/15/20 torsemide 10 mg PO DAILY 05/16/20 05/16/20 05/15/20 Active Medications Generic Name Dose Route Start Last Admin Trade Name Freq PRN Reason Stop Dose Admin Cetirizine HCl 10 mg 05/17/20 09:00 05/19/20 08:33 Cetirizine Hcl 10 Mg Tablet PO 06/16/20 08:59 10 mg QAM ANNI Administration Levothyroxine Sodium 75 mcg 05/17/20 06:30 05/19/20 05:35 Levothyroxine Sodium 75 Mcg Tablet PO 06/16/20 06:29 75 mcg DAILYBB ANNI Administration Metoprolol Succinate 25 mg 05/16/20 21:00 05/19/20 08:34 Metoprolol Succ 25mg Ext Rel Tab PO 06/15/20 20:59 25 mg BID ANNI Administration Pantoprazole Sodium 40 mg 05/17/20 09:00 05/19/20 08:35 Pantoprazole 40 Mg Tab PO 06/16/20 08:59 40 mg QAM ANNI Administration Potassium Chloride 40 meq 05/19/20 09:30 05/19/20 09:58 Potassium Chloride 20 Meq Tabcr PO 06/18/20 09:29 40 meq BID ANNI Administration Sertraline HCl 75 mg 05/17/20 09:00 05/19/20 08:34 Sertraline Hcl 50 Mg Tablet PO 06/16/20 08:59 75 mg DAILY ANNI Administration Torsemide 10 mg 05/17/20 11:00 05/19/20 08:39 Torsemide 10 Mg Tab PO 06/16/20 10:59 10 mg BID17 ANNI Administration Urea 15 gm 05/17/20 21:00 05/19/20 08:40 Urea (Ure-Na) 15 Gm Pack PO 06/16/20 20:59 15 gm BID ANNI Administration NPO Date Last Intake of Fluids: 05/19/20 Time Last Intake of Fluids: 08:00 Last Intake of Fluids Comment: with morning meds Date Last Intake of Solids: 05/18/20 Time Last Intake of Solids: 18:00 Past Medical History Medical History Afib Anticoagulated on Coumadin Atrial fibrillation AVNRT (AV perla re-entry tachycardia) CHF (congestive heart failure) 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 GERD (gastroesophageal reflux disease) HTN (hypertension) Hypothyroidism NSTEMI (non-ST elevated myocardial infarction) Pleural effusion in other conditions classified elsewhere Past Family History Family History Mother COPD (chronic obstructive pulmonary disease) Sister Cancer Brother FH: pancreatic cancer Past Surgical History Surgical History History of back surgery History of knee replacement Social History Smoking Status: Former smoker Hx Alcohol Use: No Hx Substance Use: No substance use type: does not use Physical Exam Vital Signs Last Vital Signs Temp 36.5 C 05/19/20 15:10 Pulse 79 05/19/20 15:10 Resp 20 05/19/20 15:10 BP 107/78 05/19/20 15:10 Pulse Ox 99 05/19/20 15:10 Testing Laboratory Results 05/19/20 05:59 05/19/20 05:59 PT 19.8 Seconds (9.0-12.0) H 05/19/20 05:59 INR 1.9 (0.9-1.1) H 05/19/20 05:59 APTT 42.1 Seconds (21.0-31.0) H 05/16/20 09:07 Urine Color Dark Yellow 05/16/20 10:10 Urine Appearance Clear (Clear) 05/16/20 10:10 Urine pH 5.0 (4.5-7.5) 05/16/20 10:10 Ur Specific [place] 1.018 (1.000-1.030) 05/16/20 10:10 Urine Protein Trace (Negative) H 05/16/20 10:10 Urine Glucose (UA) Negative (Negative) 05/16/20 10:10 Urine Ketones Negative (Negative) 05/16/20 10:10 Urine Nitrite Negative (Negative) 05/16/20 10:10 Ur Leukocyte Esterase Negative (Negative) 05/16/20 10:10 Urine WBC (Auto) 1-5 /hpf (0-5) 05/16/20 10:10 Urine RBC (Auto) 0-4 /hpf (0-4) 05/16/20 10:10 U Hyaline Cast (Auto) 1-5 /lpf (0-5) 05/16/20 10:10 U Epithel Cells (Auto) 10-20 /lpf (0-5) H 05/16/20 10:10 Urine Bacteria (Auto) Negative (Negative) 05/16/20 10:10 Electrocardiogram Date: 05/16/20 Findings: + AFIB @ (113) and + WI (anterior and inferior) Chest X-Ray Date: 05/17/20 [facility], [place] [phone] XRay Report Patient: RAMON SOUZA Date: 05/16/20 MR#: [id number]: [address] [facility] Acct ID:[id number]: Date: [address] Zip: [place] [address] Age: 69Location: 2E Sex: FRoom/Bed: E202-1 Att Phy: Maia Gill MDDiagnosis: CHF Acacia Phy: Rosa Everett PA-CService Date: 05/17/20 Fam Phy:Interpreting Phy: Rajan Adamson MD Admit Phy: Eze Gomez MD Ordering Phy: Eze Gomez MD cc: ~ XR chest 1V portable CLINICAL HISTORY: Pleural effusions. Follow-up study COMPARISON STUDY: 05/16/2020 FINDINGS: The heart remains enlarged. There is radiographic evidence of mild pulmonary vascular congestion. There are persistent bilateral pleural effusions with associated basilar airspace opacities, atelectatic versus infectious/inflammatory[ IMPRESSION: No significant change. Persistent cardiomegaly, mild pulmonary vascular congestion, and bilateral pleural effusions with associated basilar airspace opacities ACT 112: Negative or not required by law. Electronically signed by: Rajan Adamson M.D. 05/17/2020 7:43 AM Dictated: 05/17/20 0743 Transcribed: 05/17/20 07 Echocardiogram Date: 05/18/20 EF: 32 LV Function: dysfunctional Other Findings: + LVH (severe) large left pleural effusion
[2020-05-19] MEDS ORDERED: Nursing to Pharmacy Communication SCH (15:30)
[2020-05-19] MEDS ORDERED: fentaNYL citrate 100 MCG/2 ML VIAL IV PRN (15:36)
[2020-05-19] MEDS ORDERED: ePHEDrine sulfate 50 MG/ML AMP IV PRN (15:36)
[2020-05-19] MEDS ORDERED: LABETALOL HCL IV 5 MG/ML 20ML IV PRN (15:36)
[2020-05-19] MEDS ORDERED: ONDANSETRON INJ 2 MG/ML 2 ML VIAL IV PRN (15:36)
[2020-05-19] MEDS ORDERED: PHENYLEPHRINE 100MCG/ML 5ML SYR IV PRN (15:36)
[2020-05-19] MEDS ORDERED: ATROPINE SULFATE 0.1 MG/ML 10ML SYR IV PRN (15:36)
[2020-05-19] MEDS ORDERED: PROPOFOL IV EMULSION 10 MG/ML 20 ML VIAL IV ONE (15:48)
[2020-05-19] MEDS ORDERED: fentaNYL citrate 100 MCG/2 ML VIAL ONE (15:48)
[2020-05-19] MEDS ORDERED: LIDOCAINE HCL 2% 2 ML VIAL/AMP(20MG/ML) INFIL ONE (15:48)
[2020-05-19] MEDS ORDERED: BUPIVACAINE 0.5 % 5 MG/1 ML MPF 30ML VIAL ONE (15:48)
--- NOTE | 2020-05-19 15:48 | History & Physical Bridge Note ---
Date of Service May 19, 2020 History & Physical Bridge Note I have examined the patient, reviewed the History & Physical and in the interval since the performance of the History & Physical I have noted the following changes of clinical significance: no changes noted
--- NOTE | 2020-05-19 16:19 | Post Operative Brief Note ---
Immediate Post Op Note v1 Date of Surgery May 19, 2020 Pre & Post Diagnosis Operation Date: 05/19/20 13:50 Pre-Op Diagnosis: rule out amyloidosis Post-Op Diagnosis: rule out amyloidosis I identified the patient and participated in the time-out.: Yes Procedure Operation Date: 05/19/20 13:50 Actual Procedures p Abdominal Fat Pad Biopsy(Not Applicable) - Guillermo Lino MD Surgeon Guillermo Lino MD Manager Pool Idalia Mayorga PA-C Estimated Blood Loss 1 Findings Consistent with Post-Op Diagnosis
--- NOTE | 2020-05-19 16:35 | Anesthesiology Progress Note ---
Date of Service May 19, 2020 Anesthesia Post Procedure Vital Signs Vital Signs: Temp Pulse Pulse Resp BP Pulse Ox 05/19/20 16:26 36.6 C 77 14 110/76 97 05/19/20 15:10 36.5 C 79 20 107/78 99 05/19/20 14:40 95 05/19/20 11:25 36.5 C 79 16 112/77 95 05/19/20 07:22 36.5 C 79 19 114/79 94 05/19/20 03:23 36.7 C 76 18 98/61 L 90 05/18/20 23:26 36.5 C 75 100/65 97 05/18/20 19:22 36.6 C 81 18 101/69 90 Transfer of Care Handoff Completed per policy Notes Mental Status: alert / awake / arousable Patient Amnestic to Procedure: Yes Nausea / Vomiting: adequately controlled Pain: adequately controlled Airway Patency, RR, SpO2: stable & adequate BP & HR: stable & adequate Hydration State: stable & adequate Anesthetic Complications: no major complications apparent and Pt Satisfied with anesthetic care
[2020-05-19] MEDS: HEPARIN SODIUM/DEXTROSE 25,000 UNITS/500 ML BAG IV SCH (17:02)
--- NOTE | 2020-05-19 17:16 | Operative Report (OR) ---
DATE OF OPERATION: 05/19/2020 PREOPERATIVE DIAGNOSIS: Fat pad biopsy for diagnostic purposes. POSTOPERATIVE DIAGNOSIS: Fat pad biopsy for diagnostic purposes. PROCEDURE: Abdominal fat pad biopsy. SURGEON: Guillermo Lino MD. PAI GOW DEALER: Idalia Mayorga PA-C. FINDINGS: The fat appeared normal. A portion measuring approximately 1.5 x 1 x 0.5 cm was taken. TECHNIQUE: The patient was given intravenous sedation and the area was prepped and draped in the usual sterile fashion. The site for the biopsy was chosen. The skin in the area was anesthetized with 0.5% Marcaine. Skin incision was made, carried down through the dermis. The skin was undermined to expose an adequate size piece of fat. This was grasped, elevated, and amputated off the underlying fatty tissue and fascia. It was sent for pathology. The area was inspected for bleeding and hemostasis was obtained using electrocautery. The subcutaneous tissue was closed with a running 3-0 Vicryl and the skin was closed with 4-0 Monocryl in running subcuticular fashion. The skin was cleansed, dried and benzoin placed, Steri-Strips applied. Estimated blood loss was 2 mL. Sponge, needle and instrument counts were correct prior to closure. The patient tolerated the surgical procedure without complication and was transferred to recovery. I attest to the content of the Intraoperative Record and any orders documented therein. Any exception s are noted below.
[2020-05-19 18:26] LABS: Albumin 3.3 g/dL (3.8-4.8); Alpha 1 Globulin 0.3 g/dL (0.2-0.3); Alpha 2 Globulin 0.6 g/dL (0.5-0.9); Beta-1-Globulin 0.4 g/dL (0.4-0.6); Beta-2-Globulin 1.4 g/dL (0.2-0.5); Gamma Globulin 0.5 g/dL (0.8-1.7); Monoclonal Protein Band 1 1.3 g/dL (NONE DETECTED); Monoclonal Protein Band 2 0.2 g/dL (NONE DETECTED); Monoclonal Protein Band 3 DNR g/dL (NONE DETECTED); Total Protein 6.5 g/dL (6.1-8.1)
[2020-05-19] MEDS ORDERED: POTASSIUM CHLORIDE 20 MEQ TABCR PO SCH (21:00)
[2020-05-19 23:52] LABS: Partial Thromboplastin Ratio 1.6; Partial Thromboplastin Time 44.9 Seconds (21.0-31.0)
[2020-05-20] MEDS ORDERED: HEPARIN IV BOLUS 2,000 UNITS in SYRINGE 0 ML IV ONE ×2 (01:30→23:15)
[2020-05-20 05:46] LABS: Basophils # (auto) 0.03 K/uL (0-0.2); Basophils % (auto) 0.4 %; Eosinophils # (auto) 0.09 K/uL (0-0.5); Eosinophils % (auto) 1.3 %; Hematocrit (blood only) 43.8 % (37-47); Hemoglobin 14.5 g/dL (12.0-16.0); Immature Granulocytes # (auto) 0.03 K/uL (0.00-0.02); Immature Granulocytes % (auto) 0.4 %; Lymphocytes % (auto) 21.7 %; Mean Corpuscular Hemoglobin 29.8 pg (25-34); Mean Corpuscular Hgb Conc 33.1 g/dL (32-36); Mean Corpuscular Volume 90.1 fL (80-100); Mean Platelet Volume 10.6 fL (7.4-10.4); Monocytes # (auto) 0.75 K/uL (0.11-0.59); Monocytes % (auto) 10.9 %; Neutrophils % (auto) 65.3 %; Platelet Count 204 K/uL (130-400); RDW Coefficient of Variation 16.6 % (11.5-14.5); RDW Standard Deviation 54.5 fL (36.4-46.3); Red Blood Count 4.86 M/uL (4.2-5.4)
[2020-05-20 05:53] LABS: INR 1.5 (0.9-1.1); Prothrombin Time 15.9 Seconds (9.0-12.0)
[2020-05-20 06:15] LABS: BUN Creatinine Ratio 56.2 (10-20); Bilirubin Direct 1.1 mg/dl (0-0.2); Calcium 8.9 mg/dl (8.5-10.1); Creatinine Clr Calc Pharmacy 62.6 ml/min; Est GFR (African American) 91.3; Est GFR (Non-African American) 78.8; Magnesium 1.5 mg/dl (1.8-2.4)
[2020-05-20 06:18] LABS: Phosphorus 3.3 mg/dl (2.5-4.9); Total Protein 6.7 gm/dl (6.4-8.2)
[2020-05-20] MEDS: LEVOTHYROXINE SODIUM 75 MCG TABLET PO SCH (06:23)
[2020-05-20] MEDS ORDERED: POTASSIUM CHLORIDE 20 MEQ TABCR PO ONE (08:15)
[2020-05-20] MEDS: CETIRIZINE HCL 10 MG TABLET PO SCH (09:06)
[2020-05-20] MEDS: PANTOprazole 40 MG TAB PO SCH (09:06)
[2020-05-20] MEDS: METOPROLOL SUCC 25MG EXT REL TAB PO SCH ×2 (09:06→21:27)
[2020-05-20] MEDS: SERTRALINE HCL 50 MG TABLET PO SCH (09:06)
[2020-05-20] MEDS: POTASSIUM CHLORIDE 20 MEQ TABCR PO SCH ×2 (09:07→21:22)
[2020-05-20] MEDS: TORSEMIDE 10 MG TAB PO SCH (09:07)
[2020-05-20] MEDS: UREA (URE-NA) 15 GM PACK PO SCH ×2 (09:07→21:22)
[2020-05-20 09:11] LABS: Partial Thromboplastin Ratio 1.2; Partial Thromboplastin Time 33.8 Seconds (21.0-31.0)
[2020-05-20] MEDS: MAGNESIUM OXIDE 400 MG TAB PO SCH ×2 (09:11→21:22)
--- NOTE | 2020-05-20 09:12 | XRay Report ---
XR chest 2V PA/lateral HISTORY: 69 years-old Female Post diuresis acute shortness of breath with pleural effusions COMPARISON: Chest radiograph 05/17/2020 TECHNIQUE: PA and lateral views of the chest FINDINGS: Cardiac silhouette is enlarged. Decreased pulmonary vascular congestion. Slightly improved aeration o f the lung bases with persistent pleural effusions and bibasilar consolidation. No pneumothorax. Dege nerative changes of the shoulders and spine. Partially imaged lumbar spine fusion hardware. IMPRESSION: 1. Cardiomegaly with decreased pulmonary vascular congestion. 2. Slightly improved aeration of the lung bases with persistent pleural effusions and bibasilar conso lidation suggestive of probable compressive atelectasis. ACT 112: Negative or not required by law. The above report was generated using voice recognition software. It may contain grammatical, syntax o r spelling errors. Electronically signed by: Abundio Barrios M.D. 05/20/2020 9:10 AM
[2020-05-20] MEDS ORDERED: LIDOCAINE HCL 1% 20 ML VIAL ONE (10:23)
--- NOTE | 2020-05-20 10:48 | Procedure Note ---
Procedure Note Date of Service May 20, 2020 Note Procedure: Diagnostic and/or therapeutic ultrasound-guided catheter thoracentesis Field Interviewer: Dr. Jamal Mccoy Indication: Pleural effusion Consent: Signed by patient and verified with timeout prior to procedure Anesthesia: 8 mL's of 1% lidocaine without epinephrine given locally Procedure: Consent was verified and timeout performed. Appropriate imaging studies were reviewed prior to the procedure. Patient was placed in a seated position and limited thoracic ultrasound was performed of the right chest. See separate imaging. The site appropriate for thoracentesis was selected. The skin was prepped and draped in normal sterile fashion. Lidocaine was used for local analgesia. Fluid was aspirated via the finder needle. A small skin jack was made with the scalpel and the catheter over the needle apparatus was advanced over the rib into the pleural space. Using the syringe one-way valve system, a total of 1370 mL's of clear yellow fluid was removed. Procedure was terminated due to no further fluid being able to be aspirated. The catheter was removed and observed to be intact. A sterile dressing was applied. Post procedure chest x-ray was ordered. Upon the initial approach of the lidocaine injection and aspiration, blood was noted to be aspirated. I removed the needle and reinserted the needle in a different location nearby and was able to aspirate clear yellow fluid. Hold heparin drip for 4 hours after the procedure and recheck an H&H in 4 hours. If hemoglobin is stable, then we can restart the heparin drip. Fluid was sent for LDH, total protein, cell count, glucose, pH, cytology, AFB cultures, gram stain and culture and fungal cultures. The patient tolerated the procedure well without obvious complication. She does have some mild coughing. Coding CPT Codes Pulmonary/Thoracic - Pulmonary and Thoracic: 29718 Pleural drainage w/imaging ([id number]) [facility] [place] Procedure Codes (Charges) Pulmonary/Thoracic Procedure 1: Pulmonary and Thoracic: 56232 Pleural drainage w/imaging
--- NOTE | 2020-05-20 10:50 | Pulmonology Progress Note ---
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 I performed a right-sided thoracentesis today. Approximately 1370 mL of pleural fluid was removed. This was sent for chemistries, cultures and cytology. Likely related to her underlying CHF. I evaluated the left hemithorax as well and there was a moderate sized pleural effusion on that side. I did encounter a mild amount of bleeding during the thoracentesis and I have instructed the nurse to hold the heparin drip for 4 hours after the procedure and recheck a hemoglobin. If hemoglobin is stable, then we can restart the heparin drip in 4 hours. Chest x-ray pending. Patient tolerated the procedure well. (2) Hypoxia: (3) Pulmonary edema: Chronicity: acute Qualified Code(s): J81.0 - Acute pulmonary edema (4) Pleural effusion in other conditions classified elsewhere: (5) Atrial fibrillation: (6) Anticoagulated on Coumadin: Admission and Anticipated Discharge Date Admission Date: May 16, 2020 Subjective Patient underwent an abdominal fat pad biopsy yesterday. She is feeling little better from a shortness of breath standpoint. Denies any coughing. No fevers or chills. No nausea currently. Physical Exam Eyes: PERRL, conjunctivae normal, anicteric sclerae ENMT: external ear and nose normal, oropharynx normal Neck: normal visual inspection Respiratory: Diminished bilaterally at the bases Cardiovascular: Rate/Rhythm: + irregularly irregular Heart Sounds: no murmur Gastrointestinal (Abdomen): normal bowel sounds, soft, nontender, no hepatosplenomegaly Musculoskeletal: no cyanosis or clubbing, extremities motor strength 5/5 Skin: no rashes, warm and dry Neurologic: PERRL, EOMI, accommodation nl, no face palsy, no dysarthria Psychiatric: A+Ox3, euthymic affect Results & Data Results & Data ([facility]) Vital Signs (Past 12 Hours) Vital Signs Temp Pulse Pulse Resp BP Pulse Ox 05/20/20 10:42 107/70 05/20/20 10:41 95/75 L 05/20/20 10:31 79 100/77 100 05/20/20 10:25 80 100/77 99 05/20/20 07:13 97.7 F 80 18 104/74 93 05/20/20 03:53 97.9 F 77 18 112/66 95 05/19/20 23:55 97.9 F 75 17 117/78 93 PG Care Time/CCT Total # of Minutes Spent Total Time Spent with Patient: Total time spent is greater than 50% in coordination of care (as documented) at patient's floor/unit and/or counseling patient: Coding Level of Care Code 71693 Subseq Hosp Care Lvl 3 Diagnoses 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 I50.30; I42.5 Hypoxia R09.02 Pulmonary edema J81.0 Chronicity: acute Pleural effusion in other conditions classified elsewhere J91.8 Atrial fibrillation I48.91 Anticoagulated on Coumadin Z79.01
--- NOTE | 2020-05-20 11:05 | XRay Report ---
XR chest 1V portable HISTORY: Status post right thoracentesis. COMPARISON: Chest 05/20/2020. FINDINGS: Small right pleural effusion has decreased in size status post thoracentesis. No definite p neumothorax. Moderate left pleural effusion persists. The heart remains enlarged. There is mild centr al pulmonary vascular congestion without overt edema. Bibasilar densities persist. IMPRESSION: 1. Small right pleural effusion has decreased in size status post thoracentesis. No definite pneumoth orax. 2. Moderate left pleural effusion persists. ACT 112: Negative or not required by law. Electronically signed by: Jose Coffey M.D. 05/20/2020 11:04 AM
--- NOTE | 2020-05-20 11:06 | Hospitalist Progress Note ---
Date of Service May 20, 2020 Assessment & Plan (1) Acute combined systolic and diastolic heart failure: Echo of the heart showed: Small left ventricular cavity Severe concentric LV hypertrophy with severely reduced LV systolic function EF 25 to 30%, significant reduction of EF compared with echo of September of this year Right ventricular systolic function is moderately to severely reduced Mild to moderate mitral regurgitation, mild tricuspid regurgitation Left atrium is severely dilated with moderate elevation of the right atrium Mild pulmonary hypertension with large left pleural effusion A myeloid heart disease is a consideration Serological test have been sent and awaiting abdominal fat pad biopsy pending Has been getting diuretics and diuresing a lot We will continue current medications Remains stable for any significant cardiac symptoms Serum immunofixation IgA lambda monoclonal band is present Other tests are pending (2) Acute on chronic diastolic heart failure: Pt is 69 y/o F with PMH A-fib on Coumadin s/p cardioversion 09/2019, off sotalol since 12/2019 chronic A. fib/a flutter, chronic diastolic heart failure, SVT s/p AVNRT ablation in 2018, HTN, hypothyroidism, obesity, GERD, anxiety presented to ER for abnormal labs. Presented with weakness, fatigue, decreased appetite, loss of taste, shortness of breath with exertion. Has CHF, bilateral pleural effusion, abdominal wall and mesenteric edema with minimal ascites and trace to 1+ leg edema Has been getting Lasix 40 mg intravenously twice a day Appreciate cardiology input and recommendation As above Bilateral pleural effusion More on the right than left Secondary to diastolic heart failure Pulmonary consulted for thoracentesis INR remains elevated at 1.9 today Received vitamin K and we will check it tomorrow We will hold heparin 6 hours prior to the procedure of Thoracentesis tomorrow at around 10 AM Will have thoracentesis this morning Generalized body wall edema, mesenteric edema and trace ascites Secondary to congestive heart failure Likely has intestinal edema which may be the cause of nausea and is complicated by hyponatremia Edema has improved a lot Increased bilirubin-2.3 No evidence of abnormal LFTs and noted to have normal bile duct 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 Denies chest pain. Patient with ongoing history of exertional shortness of breath -Suspect demand ischemia -Trend troponin -EKG in a.m. -Continue Coumadin -Echo-as above -Cardiology consult (4) RASHID (dyspnea on exertion): Reported ongoing shortness of breath on exertion In ER reported oxygen sats down to high 80s at rest on room air CXR: Pulmonary vascular congestion, bibasilar and right midlung consolidation, small to moderate pleural effusions No leukocytosis Covid 19 PCR is Negative No CT evidence of pneumonia but has atelectasis and pleural effusion Exertional SOB also suspected from underlying fluid overload (5) Hyponatremia: Na: 130 (was 130 on 05/12/2020, 134 on 01/31/20) Sodium level is 129 today Hyponatremia is contributed by poor intake, hypervolemia and use of diuretics Nephrology consulted for further management Nephrology input and recommendation-fluid restriction to 1.2 L a day We will monitor BMP-sodium level is 133 as of 05/19/2020 Sodium level has been normalized (6) Afib: A-fib on Coumadin s/p cardioversion 09/2019, off sotalol since 12/2019, now in chronic A. fib/a flutter INR: 3.0 -Will dose coumadin 2.5mg tonight then plan to resume pt's home coumadin regimen -Monitor INR -Continue metoprolol succinate (7) Generalized weakness: Patient with complaints of generalized weakness and fatigue for several months -PT/OT eval (8) Elevated lipase: Reports some decreased appetite. Denies abdominal pain, nausea Lipase: 490 KUB XRAY:1. No evidence for a bowel obstruction. 2. Bilateral pleural effusions and bibasilar opacities better depicted on chest radiograph. GALLBLADDER US: 1. Gallbladder wall thickening is redemonstrated, most pronounced along the hepatic surface. Additionally, there is trace perihepatic ascites. The gallbladder wall thickening is likely secondary to edematous state versus hepatic disease and unlikely related to acute cholecystitis. 2. No cholelithiasis. 3. Unchanged mild dilation of the common bile duct. Repeat lipase in am Doubt acute pancreatitis (9) HTN (hypertension): Stable -Lisinopril was discontinued by Dr. Meeks -Monitor BP (10) Anxiety: Patient under increased stress with recent of her brother -Continue sertraline (11) Hypothyroidism: TSH: 3.1 -Continue levothyroxine (12) GERD (gastroesophageal reflux disease): -Continue PPI DVT Prophylaxis -On Coumadin -Coumadin on hold and received vitamin K for thoracentesis on 05/20/2020 -Heparin drip if started will be on hold 6 hours prior to surgery Full code as per discussion with pt Follows with Dr Mulu Russell for routine care Admission and Anticipated Discharge Date Admission Date: May 16, 2020 Subjective 05/17/2020 The patient was seen and examined in the telemetry unit She has significant cardiac disease and has been complaining of shortness of breath with minimal exertion since September 2019 She was advised to come to the hospital as she was noted to have abnormal labs on outpatient testing She admits to have more shortness of breath for the last few days but denies any weight gain and/or increasing edema of the legs Denies any abdominal pain but does has nausea, denies any chest pain and/or palpitation 05/18/2020 The patient was seen and examined in telemetry unit She feels a little bit better but he still remains weak and tired She is very anxious as well Denies any chest pain and/or palpitation or shortness of breath at rest 05/19/2020 The patient was seen and examined in telemetry unit She has been feeling a lot better but remains very anxious Denies any significant symptoms 05/20/2020 The patient was seen and examined in telemetry unit She has been out of bed on a chair Remains very anxious but denies any shortness of breath at rest Review of Systems Review of Systems: All systems reviewed and are unremarkable except as noted below Respiratory: + dyspnea on exertion; no dyspnea Gastrointestinal: no bloating, no nausea and no vomiting Physical Exam Physical Exam: Sitting on a chair without any acute distress Constitutional: well developed, well nourished and + ill appearing; no acute distress Eyes: PERRL, conjunctivae normal, anicteric sclerae ENMT: external ear and nose normal, oropharynx normal Neck: trachea midline, no thyromegaly Respiratory: no respiratory distress Auscultation: + diminished lung sounds (Right more than the left) and + crackles; no wheezes Cardiovascular: Rate/Rhythm: regular rate and regular rhythm Heart Sounds: no murmur Extremities: + edema (Trace to 1+ edema bilaterally) Gastrointestinal (Abdomen): Inspection/Auscultation: abdomen normal to inspection and normal bowel sounds; abdomen not distended Percussion/Palpation: + abdomen tender (Minimally tender in the epigastrium) and abdomen soft; no guarding Musculoskeletal: No acute arthritis involving any joints Neurologic: moves all extremities; no focal motor deficits Alert, awake and oriented x3 Results & Data Results & Data ([facility]) Vital Signs (Past 12 Hours) Vital Signs Temp Pulse Pulse Resp BP Pulse Ox 05/20/20 10:42 107/70 05/20/20 10:41 95/75 L 05/20/20 10:31 79 100/77 100 05/20/20 10:25 80 100/77 99 05/20/20 07:13 36.5 C 80 18 104/74 93 05/20/20 03:53 36.6 C 77 18 112/66 95 05/19/20 23:55 36.6 C 75 17 117/78 93 Laboratory Results Short CBC 05/20/20 Range/Units 05:23 WBC 6.90 (4.8-10.8) K/uL Hgb 14.5 (12.0-16.0) g/dL Hct 43.8 (37-47) % Plt Count 204 (130-400) K/uL BMP 05/20/20 05:23 Sodium 137 Potassium 3.0 L Chloride 96 L Carbon Dioxide 35 H BUN 43 H Creatinine 0.77 Glucose 99 Calcium 8.9 Liver Function 05/20/20 Range/Units 05:23 Total Bilirubin 2.0 H (0.2-1) mg/dl Direct Bilirubin 1.1 H (0-0.2) mg/dl AST 22 (15-37) U/L ALT 14 (12-78) U/L Alkaline Phosphatase 67 (45-117) U/L Albumin 3.0 L (3.4-5.0) gm/dl Medications Administered Current Inpatient Medications Acetaminophen (Acetaminophen 325 Mg Tab) 650 mg PO Q4H PRN PRN Reason: Pain or Fever Stop: 06/15/20 16:11 Cetirizine HCl (Cetirizine Hcl 10 Mg Tablet) 10 mg PO QAM [facility] Stop: 06/16/20 08:59 Last Admin: 05/20/20 09:06 Dose: 10 mg Documented by: Heparin Sodium/Dextrose (Heparin Sodium/Dextrose) 25,000 units in 500 mls @ 0 mls/hr IV .Q0M ANNI; Protocol Stop: 06/18/20 15:29 Last Titration: 05/20/20 03:59 Dose: 0 units/hr, 0 mls/hr Documented by: Levalbuterol HCl (Levalbuterol 1.25mg/0.5ml Neb) 1.25 mg NEB Q6R PRN PRN Reason: Shortness Of Breath Or Wheezing Stop: 06/15/20 16:11 Levothyroxine Sodium (Levothyroxine Sodium 75 Mcg Tablet) 75 mcg PO DAILYBB ANNI Stop: 06/16/20 06:29 Last Admin: 05/20/20 06:23 Dose: 75 mcg Documented by: Magnesium Oxide (Magnesium Oxide 400 Mg Tab) 400 mg PO BID ANNI Stop: 06/19/20 08:59 Last Admin: 05/20/20 09:11 Dose: 400 mg Documented by: Metoprolol Succinate (Metoprolol Succ 25mg Ext Rel Tab) 25 mg PO BID ANNI Stop: 06/15/20 20:59 Last Admin: 05/20/20 09:06 Dose: 25 mg Documented by: Pantoprazole Sodium (Pantoprazole 40 Mg Tab) 40 mg PO QAM ANNI Stop: 06/16/20 08:59 Last Admin: 05/20/20 09:06 Dose: 40 mg Documented by: Potassium Chloride (Potassium Chloride 20 Meq Tabcr) 40 meq PO BID ANNI Stop: 06/18/20 09:29 Last Admin: 05/20/20 09:07 Dose: 40 meq Documented by: Sertraline HCl (Sertraline Hcl 50 Mg Tablet) 75 mg PO DAILY ANNI Stop: 06/16/20 08:59 Last Admin: 05/20/20 09:06 Dose: 75 mg Documented by: Torsemide (Torsemide 10 Mg Tab) 10 mg PO BID17 ANNI Stop: 06/16/20 10:59 Last Admin: 05/20/20 09:07 Dose: 10 mg Documented by: Urea (Urea (Ure-Na) 15 Gm Pack) 15 gm PO BID ANNI Stop: 06/16/20 20:59 Last Admin: 05/20/20 09:07 Dose: 15 gm Documented by:
[2020-05-20 11:30] LABS: Glucose Pleural Fluid 110 mg/dl
[2020-05-20 11:37] LABS: LDH Pleural Fluid 84 U/L; Total Protein Pleural Fluid 2.8 g/dl
[2020-05-20 11:43] LABS: Appearance Pleural Fluid CLEAR; Basophils, Fluid 0 %; Color Pleural Fluid YELLOW; Eosinophils, Fluid 0 %; Lymphocytes, Fluid 84 %; Mono,Macrophage,Mesothelial 10 %; Neutrophils, Fluid 6 %; RBC Pleural Fluid (A) < 3000 /uL; Source Pleural Fluid RIGHT LUNG; WBC Pleural Fluid (A) 795 /uL
--- NOTE | 2020-05-20 12:54 | Cardiology Progress Note ---
Date of Service May 20, 2020 Assessment & Plan (1) Systolic and diastolic CHF, acute on chronic: Severe concentric left ventricular hypertrophy, moderate to severe left ventricular systolic dysfunction (newly developed), diastolic dysfunction. Persistent, now likely permanent atrial fibrillation, refractory to rhythm control strategy, status post direct-current cardioversion September 2019. Patient has been receiving torsemide 10 mg p.o. twice daily. Over the last 2 days, significant urine output noted, with 2.9 L of urine output noted 05/19/2020, 3.1 L 05/20/2020. Hypokalemia noted, 3 mmol/L today. Sodium improved. Creatinine stable. Patient has received oral potassium replacement. 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 Patient status post right thoracentesis today yielding 1300 mL's of pleural fluid. Given relatively low blood pressure, and significant recent urine output, as well as additional 1.3 L of output by thoracentesis, I am going to reduce her torsemide dose to 10 mg p.o. daily, avoiding her scheduled p.m. dose today. We will adjust as necessary. The complete serum protein electrophoresis report is not back yet, but it appears preliminarily, an IgA lambda monoclonal band has been detected. Urine immunofixation pending. Fat pad biopsy pending. Admission and Anticipated Discharge Date Admission Date: May 16, 2020 Subjective Patient seen in follow-up. She notes subjective improvement since admission. Physical Exam Physical Exam: Temp Pulse Resp BP Pulse Ox 36.6 C 79 19 103/77 96 05/20/20 11:03 05/20/20 11:03 05/20/20 11:03 05/20/20 11:03 05/20/20 11:03 Respiratory: Auscultation: + diminished lung sounds (Decreased breath sounds bilaterally at the bases (prethoracentesis)) Cardiovascular: Rate/Rhythm: + irregularly irregular Heart Sounds: + murmur (I/ systolic murmur) Gastrointestinal (Abdomen): normal bowel sounds, soft, nontender, no hepatosplenomegaly Neurologic: PERRL, EOMI, accommodation nl, no face palsy, no dysarthria Results & Data ([facility]) Vital Signs (Past 12 Hours) Vital Signs Temp Pulse Pulse Resp BP Pulse Ox 05/20/20 11:03 36.6 C 79 19 103/77 96 05/20/20 10:42 107/70 05/20/20 10:41 95/75 L 05/20/20 10:31 79 100/77 100 05/20/20 10:25 80 100/77 99 05/20/20 07:13 36.5 C 80 18 104/74 93 05/20/20 03:53 36.6 C 77 18 112/66 95 Laboratory Results INR 1.5 (0.9-1.1) H 05/20/20 05:23 Cardiac Enzymes 05/20/20 Range/Units 05:23 AST 22 (15-37) U/L Coagulation 05/19/20 05/20/20 05/20/20 Range/Units 23:21 05:23 05:23 PT 15.9 H (9.0-12.0) Seconds APTT 44.9 H 33.8 H (21.0-31.0) Seconds CBC 05/20/20 Range/Units 05:23 WBC 6.90 (4.8-10.8) K/uL RBC 4.86 (4.2-5.4) M/uL Hgb 14.5 (12.0-16.0) g/dL Hct 43.8 (37-47) % Plt Count 204 (130-400) K/uL Neut # (Auto) 4.50 (1.4-6.5) K/uL Lymph # (Auto) 1.50 (1.2-3.4) K/uL [place] # (Auto) 0.75 H (0.11-0.59) K/uL Eos # (Auto) 0.09 (0-0.5) K/uL Baso # (Auto) 0.03 (0-0.2) K/uL Comprehensive Metabolic Panel 05/20/20 Range/Units 05:23 Sodium 137 (136-145) mmol/L Potassium 3.0 L (3.5-5.1) mmol/L Chloride 96 L (98-107) mmol/L Carbon Dioxide 35 H (21-32) mmol/L BUN 43 H (7-18) mg/dl Creatinine 0.77 (0.6-1.2) mg/dl Glucose 99 (70-99) mg/dl Calcium 8.9 (8.5-10.1) mg/dl Direct Bilirubin 1.1 H (0-0.2) mg/dl AST 22 (15-37) U/L ALT 14 (12-78) U/L Alkaline Phosphatase 67 (45-117) U/L Total Protein 6.7 (6.4-8.2) gm/dl Albumin 3.0 L (3.4-5.0) gm/dl Intake and Output 05/19/20 05/20/20 05/20/20 22:59 06:59 14:59 Intake Total 805.333 / 1031.716 226.383 / 1031.716 Output Total 801 / 3101 1500 / 3101 Balance 4.333 / -2069.284 -1273.617 / -2069.284 Intake: IV 30.333 / 156.716 126.383 / 156.716 HEPARIN SODIUM/DEXTROSE 25,000 30.333 / 156.716 126.383 / 156.716 units In 500 ml @ 750 UNITS/HR 15 mls/hr IV .Q24H [facility] Rx#: [id number] IV Perioperative 200 / 200 Oral 575 / 675 100 / 675 Output: Urine 800 / 3100 1500 / 3100 Estimated Blood Loss Other: Weight 72.1 kg 70.7 kg
[2020-05-20] MEDS: SPIRONOLACTONE 12.5 MG TAB PO SCH (13:16)
[2020-05-20 14:43] LABS: Basophils # (auto) 0.02 K/uL (0-0.2); Basophils % (auto) 0.2 %; Eosinophils # (auto) 0.05 K/uL (0-0.5); Eosinophils % (auto) 0.4 %; Hematocrit (blood only) 46.5 % (37-47); Hemoglobin 15.5 g/dL (12.0-16.0); Immature Granulocytes # (auto) 0.05 K/uL (0.00-0.02); Immature Granulocytes % (auto) 0.4 %; Lymphocytes # (auto) 1.42 K/uL (1.2-3.4); Lymphocytes % (auto) 12.6 %; Mean Corpuscular Hemoglobin 30.1 pg (25-34); Mean Corpuscular Hgb Conc 33.3 g/dL (32-36); Mean Corpuscular Volume 90.3 fL (80-100); Mean Platelet Volume 10.7 fL (7.4-10.4); Monocytes # (auto) 0.62 K/uL (0.11-0.59); Monocytes % (auto) 5.5 %; Neutrophils # (auto) 9.08 K/uL (1.4-6.5); Neutrophils % (auto) 80.9 %; Platelet Count 216 K/uL (130-400); RDW Coefficient of Variation 16.6 % (11.5-14.5); RDW Standard Deviation 54.1 fL (36.4-46.3); Red Blood Count 5.15 M/uL (4.2-5.4); White Blood Count 11.24 K/uL (4.8-10.8)
[2020-05-20] MEDS: WARFARIN SOD 5 MG TAB PO SCH (16:58)
[2020-05-20 17:00] LABS: Creatinine Urine Random 14.3 mg/dl; Protein Creatinine Ratio Urine 0.8 (0-0.2)
[2020-05-20 22:14] LABS: Partial Thromboplastin Ratio 1.6
[2020-05-20 22:21] LABS: Partial Thromboplastin Time 45.8 Seconds (21.0-31.0)
[2020-05-20 22:21] LABS: Free Kappa 13.4 mg/L (3.3-19.4); Free Kappa/Lambda Ratio 0.04 (0.26-1.65); Free Lambda 353.5 mg/L (5.7-26.3); Kappa Lambda Ratio 0.28 (1.29-2.55)
[2020-05-20] MEDS: HEPARIN SODIUM/DEXTROSE 25,000 UNITS/500 ML BAG IV SCH (23:51)
[2020-05-21 05:51] LABS: INR 1.4 (0.9-1.1); Partial Thromboplastin Ratio 2.5; Prothrombin Time 14.9 Seconds (9.0-12.0)
[2020-05-21 06:11] LABS: Partial Thromboplastin Time 70.7 Seconds (21.0-31.0)
[2020-05-21] MEDS: LEVOTHYROXINE SODIUM 75 MCG TABLET PO SCH (06:20)
[2020-05-21 08:48] LABS: Calcium 9.8 mg/dl (8.5-10.1); Creatinine Clr Calc Pharmacy 55.4 ml/min; Est GFR (African American) 79.9; Est GFR (Non-African American) 68.9; Potassium 4.2 mmol/L (3.5-5.1)
[2020-05-21] MEDS: POTASSIUM CHLORIDE 20 MEQ TABCR PO SCH ×2 (09:05→09:12)
[2020-05-21] MEDS: PANTOprazole 40 MG TAB PO SCH (09:06)
[2020-05-21] MEDS: CETIRIZINE HCL 10 MG TABLET PO SCH (09:06)
[2020-05-21] MEDS: METOPROLOL SUCC 25MG EXT REL TAB PO SCH ×2 (09:06→20:21)
[2020-05-21] MEDS: SERTRALINE HCL 50 MG TABLET PO SCH (09:06)
[2020-05-21] MEDS: TORSEMIDE 10 MG TAB PO SCH (09:07)
[2020-05-21] MEDS: MAGNESIUM OXIDE 400 MG TAB PO SCH ×2 (09:07→20:21)
[2020-05-21] MEDS: SPIRONOLACTONE 12.5 MG TAB PO SCH (09:07)
[2020-05-21] MEDS: UREA (URE-NA) 15 GM PACK PO SCH ×2 (09:07→20:21)
--- NOTE | 2020-05-21 11:14 | Hospitalist Progress Note ---
Date of Service May 21, 2020 Assessment & Plan (1) Acute combined systolic and diastolic heart failure: Echo of the heart showed: Small left ventricular cavity Severe concentric LV hypertrophy with severely reduced LV systolic function EF 25 to 30%, significant reduction of EF compared with echo of September of this year Right ventricular systolic function is moderately to severely reduced Mild to moderate mitral regurgitation, mild tricuspid regurgitation Left atrium is severely dilated with moderate elevation of the right atrium Mild pulmonary hypertension with large left pleural effusion Amyloid heart disease is a consideration Serological test have been sent and awaiting abdominal fat pad biopsy pending Has been getting diuretics and diuresing a lot We will continue current medications Remains stable for any significant cardiac symptoms Serum immunofixation IgA lambda monoclonal band is present Other tests are reported Urine immunofixation is pending Await evaluation by preschool teacher aide (2) Acute on chronic diastolic heart failure: Pt is 69 y/o F with PMH A-fib on Coumadin s/p cardioversion 09/2019, off sotalol since 12/2019 chronic A. fib/a flutter, chronic diastolic heart failure, SVT s/p AVNRT ablation in 2018, HTN, hypothyroidism, obesity, GERD, anxiety presented to ER for abnormal labs. Presented with weakness, fatigue, decreased appetite, loss of taste, shortness of breath with exertion. Has CHF, bilateral pleural effusion, abdominal wall and mesenteric edema with minimal ascites and trace to 1+ leg edema Has been getting Lasix 40 mg intravenously twice a day Appreciate cardiology input and recommendation As above Bilateral pleural effusion More on the right than left Secondary to diastolic heart failure Pulmonary consulted for thoracentesis INR remains elevated at 1.9 today Received vitamin K and we will check it tomorrow We will hold heparin 6 hours prior to the procedure of Thoracentesis tomorrow at around 10 AM Status post right thoracentesis of 1370 mL on 05/20/2020-transudative Repeat x-ray showed improvement of right pleural effusion with persistent cough left pleural effusion Generalized body wall edema, mesenteric edema and trace ascites Secondary to congestive heart failure Likely has intestinal edema which may be the cause of nausea and is complicated by hyponatremia Edema has improved a lot Increased bilirubin-2.3 No evidence of abnormal LFTs and noted to have normal bile duct 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 Denies chest pain. Patient with ongoing history of exertional shortness of breath -Suspect demand ischemia -Trend troponin -EKG in a.m. -Continue Coumadin -Echo-as above -Cardiology consult (4) RASHID (dyspnea on exertion): Reported ongoing shortness of breath on exertion In ER reported oxygen sats down to high 80s at rest on room air CXR: Pulmonary vascular congestion, bibasilar and right midlung consolidation, small to moderate pleural effusions No leukocytosis Covid 19 PCR is Negative No CT evidence of pneumonia but has atelectasis and pleural effusion Exertional SOB also suspected from underlying fluid overload (5) Hyponatremia: Na: 130 (was 130 on 05/12/2020, 134 on 01/31/20) Sodium level is 129 today Hyponatremia is contributed by poor intake, hypervolemia and use of diuretics Nephrology consulted for further management Nephrology input and recommendation-fluid restriction to 1.2 L a day We will monitor BMP-sodium level is 133 as of 05/19/2020 Sodium level has been normalized (6) Afib: A-fib on Coumadin s/p cardioversion 09/2019, off sotalol since 12/2019, now in chronic A. fib/a flutter INR: 3.0 -Will dose coumadin 2.5mg tonight then plan to resume pt's home coumadin regimen -Monitor INR -Continue metoprolol succinate (7) Generalized weakness: Patient with complaints of generalized weakness and fatigue for several months -PT/OT eval (8) Elevated lipase: Reports some decreased appetite. Denies abdominal pain, nausea Lipase: 490 KUB XRAY:1. No evidence for a bowel obstruction. 2. Bilateral pleural effusions and bibasilar opacities better depicted on chest radiograph. GALLBLADDER US: 1. Gallbladder wall thickening is redemonstrated, most pronounced along the hepatic surface. Additionally, there is trace perihepatic ascites. The gallbladder wall thickening is likely secondary to edematous state versus hepatic disease and unlikely related to acute cholecystitis. 2. No cholelithiasis. 3. Unchanged mild dilation of the common bile duct. Repeat lipase in am Doubt acute pancreatitis (9) HTN (hypertension): Stable -Lisinopril was discontinued by Dr. Meeks -Monitor BP (10) Anxiety: Patient under increased stress with recent of her brother -Continue sertraline (11) Hypothyroidism: TSH: 3.1 -Continue levothyroxine (12) GERD (gastroesophageal reflux disease): -Continue PPI DVT Prophylaxis -On Coumadin -Coumadin on hold and received vitamin K for thoracentesis on 05/20/2020 -Heparin drip if started will be on hold 6 hours prior to surgery Full code as per discussion with pt Follows with Dr Mulu Russell for routine care Admission and Anticipated Discharge Date Admission Date: May 16, 2020 Subjective 05/17/2020 The patient was seen and examined in the telemetry unit She has significant cardiac disease and has been complaining of shortness of breath with minimal exertion since September 2019 She was advised to come to the hospital as she was noted to have abnormal labs on outpatient testing She admits to have more shortness of breath for the last few days but denies any weight gain and/or increasing edema of the legs Denies any abdominal pain but does has nausea, denies any chest pain and/or pa lpitation 05/18/2020 The patient was seen and examined in telemetry unit She feels a little bit better but he still remains weak and tired She is very anxious as well Denies any chest pain and/or palpitation or shortness of breath at rest 05/19/2020 The patient was seen and examined in telemetry unit She has been feeling a lot better but remains very anxious Denies any significant symptoms 05/20/2020 The patient was seen and examined in telemetry unit She has been out of bed on a chair Remains very anxious but denies any shortness of breath at rest 05/21/2020 The patient was seen and examined in telemetry unit She has been feeling much better following right thoracentesis Denies any chest pain and no palpitation Review of Systems Review of Systems: All systems reviewed and are unremarkable except as noted below Respiratory: + dyspnea on exertion; no dyspnea Physical Exam Physical Exam: Sitting on a chair without any acute distress Constitutional: well developed and well nourished; no acute distress and not ill appearing Eyes: PERRL, conjunctivae normal, anicteric sclerae ENMT: external ear and nose normal, oropharynx normal Neck: trachea midline, no thyromegaly Respiratory: no respiratory distress Auscultation: + diminished lung sounds (Left more than right) and + crackles (Minimal crackles at the bases); no wheezes Cardiovascular: Rate/Rhythm: regular rate and regular rhythm Heart Sounds: no murmur Extremities: + edema (Trace to 1+ edema bilaterally) Gastrointestinal (Abdomen): Inspection/Auscultation: abdomen normal to inspection and normal bowel sounds; abdomen not distended Percussion/Palpation: + abdomen tender (Minimally tender in the epigastrium) and abdomen soft; no guarding Musculoskeletal: No acute arthritis involving any joints Neurologic: moves all extremities; no focal motor deficits Lymphatic: no cervical or axillary lymphadenopathy Results & Data Results & Data ([facility]) Vital Signs (Past 12 Hours) Vital Signs Temp Pulse Resp BP Pulse Ox 05/21/20 10:34 36.7 C 81 18 102/72 91 05/21/20 07:17 36.4 C L 81 19 108/73 94 05/21/20 03:10 36.6 C 79 19 93/66 L 95 Laboratory Results Short CBC 05/20/20 Range/Units 14:17 WBC 11.24 H (4.8-10.8) K/uL Hgb 15.5 (12.0-16.0) g/dL Hct 46.5 (37-47) % Plt Count 216 (130-400) K/uL BMP 05/21/20 08:07 Sodium 137 Potassium 4.2 D Chloride 96 L Carbon Dioxide 33 H BUN 48 H Creatinine 0.86 Glucose 107 H Calcium 9.8 Medications Administered Current Inpatient Medications Acetaminophen (Acetaminophen 325 Mg Tab) 650 mg PO Q4H PRN PRN Reason: Pain or Fever Stop: 06/15/20 16:11 Cetirizine HCl (Cetirizine Hcl 10 Mg Tablet) [facility] [place] Stop: 06/16/20 08:59 Last Admin: 05/21/20 09:06 Dose: 10 mg Documented by: Heparin Sodium/Dextrose (Heparin Sodium/Dextrose) 25,000 units in 500 mls @ 15 mls/hr IV .Q24H ANNI; Protocol Stop: 06/18/20 15:29 Last Titration: 05/21/20 06:14 Dose: 750 units/hr, 15 mls/hr Documented by: Levalbuterol HCl (Levalbuterol 1.25mg/0.5ml Neb) 1.25 mg NEB Q6R PRN PRN Reason: Shortness Of Breath Or Wheezing Stop: 06/15/20 16:11 Levothyroxine Sodium (Levothyroxine Sodium 75 Mcg Tablet) 75 mcg PO DAILYBB [facility] Stop: 06/16/20 06:29 Last Admin: 05/21/20 06:20 Dose: 75 mcg Documented by: Magnesium Oxide (Magnesium Oxide 400 Mg Tab) 400 mg PO BID ANNI Stop: 06/19/20 08:59 Last Admin: 05/21/20 09:07 Dose: 400 mg Documented by: Metoprolol Succinate (Metoprolol Succ 25mg Ext Rel Tab) 25 mg PO BID ANNI Stop: 06/15/20 20:59 Last Admin: 05/21/20 09:06 Dose: 25 mg Documented by: Pantoprazole Sodium (Pantoprazole 40 Mg Tab) 40 mg PO QAM [facility] Stop: 06/16/20 08:59 Last Admin: 05/21/20 09:06 Dose: 40 mg Documented by: Potassium Chloride (Potassium Chloride 20 Meq Tabcr) 20 meq PO QAM [facility] Stop: 06/20/20 09:14 Last Admin: 05/21/20 09:12 Dose: 20 meq Documented by: Sertraline HCl (Sertraline Hcl 50 Mg Tablet) 75 mg PO DAILY ANNI Stop: 06/16/20 08:59 Last Admin: 05/21/20 09:06 Dose: 75 mg Documented by: Spironolactone (Spironolactone 12.5 Mg Tab) 12.5 mg PO DAILY [facility] Stop: 06/19/20 12:59 Last Admin: 05/21/20 09:07 Dose: 12.5 mg Documented by: Torsemide (Torsemide 10 Mg Tab) 10 mg PO QAM [facility]NI Stop: 06/20/20 08:59 Last Admin: 05/21/20 09:07 Dose: 10 mg Documented by: Urea (Urea (Ure-Na) 15 Gm Pack) 15 gm PO BID ANNI Stop: 06/16/20 20:59 Last Admin: 05/21/20 09:07 Dose: 15 gm Documented by: Warfarin Sodium (Warfarin Sod 5 Mg Tab) 5 mg PO DAILY@1600 [facility] Stop: 06/19/20 15:59 Last Admin: 05/20/20 16:58 Dose: 5 mg Documented by:
--- NOTE | 2020-05-21 11:47 | Cardiology Progress Note ---
Date of Service May 21, 2020 Assessment & Plan (1) Systolic and diastolic CHF, acute on chronic: Echocardiographic findings suspicious for infiltrative (restrictive) cardiomyopathy. e' mitral annulus tissue Doppler velocities, low on the September, transthoracic echocardiogram when LVEF was normal, and lower (worse) now. Serum immunofixation performed this admission reveals IgA lambda monoclonal band is present. Elevated serum free lambda light chains elevated, with low kappa/l ambda ratio. Pathology of abdominal fat pad biopsy currently pending. Immunofixation results suggestive of cardiac amyloidosis. Looking ahead will need outpatient hematology consultation soon as possible for consideration of bone marrow aspiration. Future considerations also include proceeding with cardiac MRI, to be performed at [facility]. The patient's relative hypotension is consistent with the diagnosis of infiltrative cardiomyopathy. Patient had been receiving 10 mg of torsemide twice daily earlier this hospital stay, with resultant significant urine output, improvement in hyponatremia. CO2 has trended up, torsemide reduced to 10 mg 1 time per day today, 05/21/2020. Hypokalemia previously noted, improved, 4.2 mmol/L today 05/21/2020, on potassium chloride 20 mEq daily, low-dose spironolactone 12.5 mg daily added 05/20/2020 to aide in maintaining appropriate potassium levels. Hold off on ACEI / ARB / Entresto given relative low BP, and despite low LVEF, these medications are typically avoided in the setting of relative hypotension with this entity of cardiomyopathy. (2) Atrial fibrillation: Persistent atrial fibrillation having reverted to AF post DILCIA guided CV in 09/2019. Had received sotalol 40 mg twice daily at that time, dose limited due to relative bradycardia. Rhythm control had been unsuccessful in the interim, with persistent rate controlled atrial fibrillation. Continue current dose of metoprolol succinate 25 mg twice daily. Continue anticoagulation, on heparin bridge to allow for abdominal fat pad biopsy and thoracentesis. Coumadin reinitiated. (3) Pleural effusion: s/p R thoracentesis 1,300 ml on 05/20. Post CXR no PTH, improved R pleural effusion. Has residual left pleural effusion. Continue diuretic therapy. Disposition: continue heparin to coumadin. I have entered orders for hematology consultation , cardiac MRI in outpatient chart. Has 06/13 follow up visit with Dr Meeks. Will likely change to sooner visit with me. Dr Gordon rounding 05/22, I will return 05/23. Admission and Anticipated Discharge Date Admission Date: May 16, 2020 Subjective Patient seen in follow-up. She is comfortable. Resting with feet elevated. Telemetry reveals rate controlled atrial fibrillation in the 80s. 1.9 L of urine output noted yesterday along with 1.3 L yielded by right-sided thoracentesis. Review of Systems Review of Systems: All systems reviewed & are unremarkable except as noted in HPI & below Physical Exam Physical Exam: Temp Pulse Resp BP Pulse Ox 36.7 C 81 18 102/72 91 05/21/20 10:34 05/21/20 10:34 05/21/20 10:34 05/21/20 10:34 05/21/20 10:34 Constitutional: WD/WN, vitals as above Respiratory: Decreased breath sounds bilaterally at the bases, no rales or rhonchi Cardiovascular: Rate/Rhythm: + irregularly irregular Heart Sounds: + murmur (I/ systolic murmur) Vessels: + JVD Extremities: no edema Gastrointestinal (Abdomen): normal bowel sounds, soft, nontender, no hepatosplenomegaly Results & Data ([facility]) Vital Signs (Past 12 Hours) Vital Signs Temp Pulse Resp BP Pulse Ox 05/21/20 10:34 36.7 C 81 18 102/72 91 05/21/20 07:17 36.4 C L 81 19 108/73 94 05/21/20 03:10 36.6 C 79 19 93/66 L 95 Diagnostic Findings INR 1.4 (0.9-1.1) H 05/21/20 05:14 Coagulation 05/20/20 05/21/20 Range/Units 21:42 05:14 PT 14.9 H (9.0-12.0) Seconds APTT 45.8 H* 70.7 H* (21.0-31.0) Seconds CBC 05/20/20 Range/Units 14:17 WBC 11.24 H (4.8-10.8) K/uL RBC 5.15 (4.2-5.4) M/uL Hgb 15.5 (12.0-16.0) g/dL Hct 46.5 (37-47) % Plt Count 216 (130-400) K/uL Neut # (Auto) 9.08 H (1.4-6.5) K/uL Lymph # (Auto) 1.42 (1.2-3.4) K/uL Posey # (Auto) 0.62 H (0.11-0.59) K/uL Eos # (Auto) 0.05 (0-0.5) K/uL Baso # (Auto) 0.02 (0-0.2) K/uL Comprehensive Metabolic Panel 05/21/20 Range/Units 08:07 Sodium 137 (136-145) mmol/L Potassium 4.2 D (3.5-5.1) mmol/L Chloride 96 L (98-107) mmol/L Carbon Dioxide 33 H (21-32) mmol/L BUN 48 H (7-18) mg/dl Creatinine 0.86 (0.6-1.2) mg/dl Glucose 107 H (70-99) mg/dl Calcium 9.8 (8.5-10.1) mg/dl Intake and Output 05/20/20 05/21/20 05/21/20 22:59 06:59 14:59 Intake Total 623.25 / 1315.117 211.867 / 1315.117 Output Total 1949 Balance -226.75 / -634.883 -288.133 / -634.883 Intake: IV 103.25 / 225.117 121.867 / 225.117 HEPARIN SODIUM/DEXTROSE 25,000 103.25 / 225.117 121.867 / 225.117 units In 500 ml @ 750 UNITS/HR 15 mls/hr IV .Q24H [facility] Rx#: [id number] Oral 520 / 1090 90 / 1090 Output: Urine 1949 Other: Weight 70.3 kg
[2020-05-21] MEDS: HEPARIN SODIUM/DEXTROSE 25,000 UNITS/500 ML BAG IV SCH (11:54)
[2020-05-21 12:43] LABS: Partial Thromboplastin Time 56.7 Seconds (21.0-31.0)
[2020-05-21] MEDS: WARFARIN SOD 5 MG TAB PO SCH (15:59)
[2020-05-22] MEDS: LEVOTHYROXINE SODIUM 75 MCG TABLET PO SCH (05:35)
[2020-05-22 05:56] LABS: Basophils # (auto) 0.03 K/uL (0-0.2); Basophils % (auto) 0.3 %; Eosinophils # (auto) 0.12 K/uL (0-0.5); Eosinophils % (auto) 1.3 %; Hematocrit (blood only) 45.9 % (37-47); Hemoglobin 15.2 g/dL (12.0-16.0); Immature Granulocytes # (auto) 0.04 K/uL (0.00-0.02); Immature Granulocytes % (auto) 0.4 %; Lymphocytes # (auto) 2.62 K/uL (1.2-3.4); Lymphocytes % (auto) 27.6 %; Mean Corpuscular Hemoglobin 29.9 pg (25-34); Mean Corpuscular Hgb Conc 33.1 g/dL (32-36); Mean Corpuscular Volume 90.2 fL (80-100); Mean Platelet Volume 10.9 fL (7.4-10.4); Monocytes # (auto) 0.87 K/uL (0.11-0.59); Monocytes % (auto) 9.2 %; Neutrophils # (auto) 5.82 K/uL (1.4-6.5); Neutrophils % (auto) 61.2 %; Platelet Count 224 K/uL (130-400); RDW Standard Deviation 55.1 fL (36.4-46.3); Red Blood Count 5.09 M/uL (4.2-5.4)
[2020-05-22 06:19] LABS: INR 1.4 (0.9-1.1); Partial Thromboplastin Ratio 2.1; Prothrombin Time 14.6 Seconds (9.0-12.0)
[2020-05-22 06:20] LABS: Partial Thromboplastin Time 58.4 Seconds (21.0-31.0)
[2020-05-22 06:25] LABS: BUN Creatinine Ratio 55.3 (10-20); Calcium 9.8 mg/dl (8.5-10.1); Creatinine Clr Calc Pharmacy 53.6 ml/min; Est GFR (African American) 76.6; Est GFR (Non-African American) 66.1; Magnesium 1.9 mg/dl (1.8-2.4); Potassium 3.9 mmol/L (3.5-5.1)
--- NOTE | 2020-05-22 06:45 | Communication Note ---
Date of Service: May 22, 2020 Patient's progress discussed with nursing by phone. She was off oxygen yesterday, however, overnight hypoxia noted with pulse ox down to 84% on room air. She is now on 3 L O2 by [place]. Chemistry panel reveals Na trending up to 136, 137 yesterday, CO2 climbing, BUN climbing, BP still on the lower side. I reviewed her most recent CXR and her echocardiogram. Significant Left pleural effusion noted. I recommend holding heparin and coumadin, INR 1.4 this am, and obtain pulm input regarding Left thoracentesis. Heparin held as of 6:40 am, 05/22. Dr Gordon to assess pt in person today.
--- NOTE | 2020-05-22 08:50 | XRay Report ---
XR chest 1V portable HISTORY: 69 years-old Female CHF, left pleural effusion,hypoxia acute congestive heart failure with hypoxia COMPARISON: Chest radiograph 05/20/2020 TECHNIQUE: Portable AP view of the chest FINDINGS: Cardiomegaly. Calcified plaque of the thoracic aortic arch. Pulmonary vascular congestion with mildly progressed interstitial coarsening. Bilateral pleural effusions, left greater than right. Bibasilar and right midlung consolidation. Consolidation on the right has mildly progressed. No pneumothorax. D egenerative changes of the shoulders and spine. IMPRESSION: 1. Cardiomegaly with suggestion of mild pulmonary edema. 2. Left greater than right pleural effusions redemonstrated. Mildly progressed consolidative opacitie s of the right midlung and right lung base are suggestive of atelectasis versus pneumonitis. ACT 112: Negative or not required by law. The above report was generated using voice recognition software. It may contain grammatical, syntax o r spelling errors. Electronically signed by: Abundio Barrios M.D. 05/22/2020 8:49 AM
--- NOTE | 2020-05-22 09:45 | Hospitalist Progress Note ---
Date of Service May 22, 2020 Assessment & Plan (1) Acute combined systolic and diastolic heart failure: Echo of the heart showed: Small left ventricular cavity Severe concentric LV hypertrophy with severely reduced LV systolic function EF 25 to 30%, significant reduction of EF compared with echo of September of this year Right ventricular systolic function is moderately to severely reduced Mild to moderate mitral regurgitation, mild tricuspid regurgitation Left atrium is severely dilated with moderate elevation of the right atrium Mild pulmonary hypertension with large left pleural effusion Amyloid heart disease is a consideration-immunofixation results suggest cardiac amyloidosis, abdominal fat pad biopsy result is pending Serological test have been sent and awaiting abdominal fat pad biopsy pending Has been getting diuretics and diuresing a lot We will continue current medications Remains stable for any significant cardiac symptoms 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 fib/a flutter, chronic diastolic heart failure, SVT s/p AVNRT ablation in 2018, HTN, hypothyroidism, obesity, GERD, anxiety presented to ER for abnormal labs. Presented with weakness, fatigue, decreased appetite, loss of taste, shortness of breath with exertion. Has CHF, bilateral pleural effusion, abdominal wall and mesenteric edema with minimal ascites and trace to 1+ leg edema Has been getting Lasix 40 mg intravenously twice a day Appreciate cardiology input and recommendation As above-clinically much better Bilateral pleural effusion More on the right than left Secondary to diastolic heart failure Pulmonary consulted for thoracentesis INR remains elevated at 1.9 today Received vitamin K and we will check it tomorrow We will hold heparin 6 hours prior to the procedure of Thoracentesis tomorrow at around 10 AM Status post right thoracentesis of 1370 mL on 05/20/2020-transudative Repeat x-ray showed improvement of right pleural effusion with persistent left pleural effusion Likely to have left thoracentesis today Generalized body wall edema, mesenteric edema and trace ascites Secondary to congestive heart failure Likely has intestinal edema which may be the cause of nausea and is complicated by hyponatremia Edema has improved a lot Increased bilirubin-2.3 No evidence of abnormal LFTs and noted to have normal bile duct 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 Denies chest pain. Patient with ongoing history of exertional shortness of breath -Suspect demand ischemia -Trend troponin -EKG in a.m. -Continue Coumadin -Echo-as above (4) RASHID (dyspnea on exertion): Reported ongoing shortness of breath on exertion In ER reported oxygen sats down to high 80s at rest on room air CXR: Pulmonary vascular congestion, bibasilar and right midlung consolidation, small to moderate pleural effusions No leukocytosis Covid 19 PCR is Negative No CT evidence of pneumonia but has atelectasis and pleural effusion Exertional SOB also suspected from underlying fluid overload Continue PT and OT evaluation (5) Hyponatremia: Na: 130 (was 130 on 05/12/2020, 134 on 01/31/20) Sodium level is 129 today Hyponatremia is contributed by poor intake, hypervolemia and use of diuretics Nephrology consulted for further management Nephrology input and recommendation-fluid restriction to 1.2 L a day We will monitor BMP-sodium level is 133 as of 05/19/2020 Sodium level has been normalized (6) Afib: A-fib on Coumadin s/p cardioversion 09/2019, off sotalol since 12/2019, now in chronic A. fib/a flutter INR: 3.0 -Will dose coumadin 2.5mg tonight then plan to resume pt's home coumadin regimen -Monitor INR -Continue metoprolol succinate (7) Generalized weakness: Patient with complaints of generalized weakness and fatigue for several months -PT/OT eval (8) Elevated lipase: Reports some decreased appetite. Denies abdominal pain, nausea Lipase: 490 KUB XRAY:1. No evidence for a bowel obstruction. 2. Bilateral pleural effusions and bibasilar opacities better depicted on chest radiograph. GALLBLADDER US: 1. Gallbladder wall thickening is redemonstrated, most pronounced along the hepatic surface. Additionally, there is trace perihepatic ascites. The gallbladder wall thickening is likely secondary to edematous state versus hepatic disease and unlikely related to acute cholecystitis. 2. No cholelithiasis. 3. Unchanged mild dilation of the common bile duct. Repeat lipase in am Doubt acute pancreatitis (9) HTN (hypertension): Stable -Lisinopril was discontinued by Dr. Meeks -Monitor BP (10) Anxiety: Patient under increased stress with recent of her brother -Continue sertraline (11) Hypothyroidism: TSH: 3.1 -Continue levothyroxine (12) GERD (gastroesophageal reflux disease): -Continue PPI DVT Prophylaxis -On Coumadin -Coumadin on hold and received vitamin K for thoracentesis on 05/20/2020 -INR is 1.4 today heparin is on hold for possible left thoracentesis this morning -We will restart heparin as soon as possible following paracentesis and give increasing dose of Coumadin this afternoon -Monitor INR Full code as per discussion with pt Follows with Dr Mulu Russell for routine care Admission and Anticipated Discharge Date Admission Date: May 16, 2020 Subjective 05/17/2020 The patient was seen and examined in the telemetry unit She has significant cardiac disease and has been complaining of shortness of breath with minimal exertion since September 2019 She was advised to come to the hospital as she was noted to have abnormal labs on outpatient testing She admits to have more shortness of breath for the last few days but denies any weight gain and/or increasing edema of the legs Denies any abdominal pain but does has nausea, denies any chest pain and/or palpitation 05/18/2020 The patient was seen and examined in telemetry unit She feels a little bit better but he still remains weak and tired She is very anxious as well Denies any chest pain and/or palpitation or shortness of breath at rest 05/19/2020 The patient was seen and examined in telemetry unit She has been feeling a lot better but remains very anxious Denies any significant symptoms 05/20/2020 The patient was seen and examined in telemetry unit She has been out of bed on a chair Remains very anxious but denies any shortness of breath at rest 05/21/2020 The patient was seen and examined in telemetry unit She has been feeling much better following right thoracentesis Denies any chest pain and no palpitation 05/22/2020 Patient was seen and examined in telemetry unit She denies any shortness of breath at rest but requiring nasal cannula oxygen to maintain saturation Denies any chest pain and/or palpitation Denies any nausea and/or vomiting Review of Systems Review of Systems: All systems reviewed and are unremarkable except as noted below Respiratory: + dyspnea on exertion Physical Exam Physical Exam: Lying in bed without any acute distress Constitutional: well developed, well nourished and + ill appearing; no acute distress Eyes: PERRL, conjunctivae normal, anicteric sclerae ENMT: external ear and nose normal, oropharynx normal Neck: trachea midline, no thyromegaly Respiratory: no respiratory distress Auscultation: + diminished lung sounds (Left more than right) and + crackles (Minimal crackles at the bases); no wheezes Cardiovascular: Rate/Rhythm: regular rate and regular rhythm Heart Sounds: no murmur Extremities: + edema (Trace to 1+ edema bilaterally) Gastrointestinal (Abdomen): Inspection/Auscultation: abdomen normal to inspection and normal bowel sounds; abdomen not distended Percussion/Palpation: + abdomen tender (Minimally tender in the epigastrium) and abdomen soft; no guarding Musculoskeletal: No acute arthritis involving any joints Neurologic: moves all extremities; no focal motor deficits Alert, awake and oriented x3. Lymphatic: no cervical or axillary lymphadenopathy Results & Data Results & Data ([facility]) Vital Signs (Past 12 Hours) Vital Signs Temp Pulse Pulse Resp BP BP Pulse Ox 05/22/20 07:06 36.4 C L 75 17 94/59 L 96 05/22/20 03:47 91 05/22/20 03:20 36.5 C 80 18 103/72 84 L 05/22/20 00:07 36.4 C L 78 18 95/62 L 92 05/21/20 23:19 79 05/21/20 23:05 88 L Laboratory Results Short CBC 05/22/20 Range/Units 05:13 WBC 9.50 (4.8-10.8) K/uL Hgb 15.2 (12.0-16.0) g/dL Hct 45.9 (37-47) % Plt Count 224 (130-400) K/uL BMP 05/22/20 05:13 Sodium 136 Potassium 3.9 Chloride 96 L Carbon Dioxide 33 H BUN 49 H Creatinine 0.89 Glucose 96 Calcium 9.8 Medications Administered Current Inpatient Medications Acetaminophen (Acetaminophen 325 Mg Tab) 650 mg PO Q4H PRN PRN Reason: Pain or Fever Stop: 06/15/20 16:11 Cetirizine HCl (Cetirizine Hcl 10 Mg Tablet) 10 mg PO QAM [facility] Stop: 06/16/20 08:59 Last Admin: 05/21/20 09:06 Dose: 10 mg Documented by: Heparin Sodium/Dextrose (Heparin Sodium/Dextrose) 25,000 units in 500 mls @ 0 mls/hr IV .Q0M [facility]; Protocol Stop: 06/18/20 15:29 Last Titration: 05/22/20 06:48 Dose: 0 units/hr, 0 mls/hr Documented by: Levalbuterol HCl (Levalbuterol 1.25mg/0.5ml Neb) 1.25 mg NEB Q6R PRN PRN Reason: Shortness Of Breath Or Wheezing Stop: 06/15/20 16:11 Levothyroxine Sodium (Levothyroxine Sodium 75 Mcg Tablet) [facility] Stop: 06/16/20 06:29 Last Admin: 05/22/20 05:35 Dose: 75 mcg Documented by: Magnesium Oxide (Magnesium Oxide 400 Mg Tab) 400 mg PO BID [facility] Stop: 06/19/20 08:59 Last Admin: 05/21/20 20:21 Dose: 400 mg Documented by: Metoprolol Succinate (Metoprolol Succ 25mg Ext Rel Tab) 25 mg PO BID [facility] Stop: 06/15/20 20:59 Last Admin: 05/21/20 20:21 Dose: 25 mg Documented by: Pantoprazole Sodium (Pantoprazole 40 Mg Tab) [facility] Stop: 06/16/20 08:59 Last Admin: 05/21/20 09:06 Dose: 40 mg Documented by: Potassium Chloride (Potassium Chloride 20 Meq Tabcr) 20 meq [facility] Stop: 06/20/20 09:14 Last Admin: 05/21/20 09:12 Dose: 20 meq Documented by: Sertraline HCl (Sertraline Hcl 50 Mg Tablet) 75 mg PO DAILY [facility] Stop: 06/16/20 08:59 Last Admin: 05/21/20 09:06 Dose: 75 mg Documented by: Spironolactone (Spironolactone 12.5 Mg Tab) 12.5 mg PO DAILY [facility] Stop: 06/19/20 12:59 Last Admin: 05/21/20 09:07 Dose: 12.5 mg Documented by: Torsemide (Torsemide 10 Mg Tab) 10 [facility] Stop: 06/20/20 08:59 Last Admin: 05/21/20 09:07 Dose: 10 mg Documented by: Urea (Urea (Ure-Na) 15 Gm Pack) 15 gm PO BID [facility] Stop: 06/16/20 20:59 Last Admin: 05/21/20 20:21 Dose: 15 gm Documented by: Warfarin Sodium (Warfarin Sod 7.5 Mg Tab) 7.5 mg PO DAILY@1600 [facility] Stop: 06/21/20 15:59
[2020-05-22] MEDS: SPIRONOLACTONE 12.5 MG TAB PO SCH (10:08)
[2020-05-22] MEDS: MAGNESIUM OXIDE 400 MG TAB PO SCH ×2 (10:08→20:11)
[2020-05-22] MEDS: PANTOprazole 40 MG TAB PO SCH (10:08)
[2020-05-22] MEDS: POTASSIUM CHLORIDE 20 MEQ TABCR PO SCH (10:08)
[2020-05-22] MEDS: SERTRALINE HCL 50 MG TABLET PO SCH (10:08)
[2020-05-22] MEDS: UREA (URE-NA) 15 GM PACK PO SCH ×2 (10:09→20:12)
[2020-05-22] MEDS: TORSEMIDE 10 MG TAB PO SCH (10:09)
[2020-05-22] MEDS: CETIRIZINE HCL 10 MG TABLET PO SCH (10:09)
--- NOTE | 2020-05-22 10:17 | Cardiology Progress Note ---
Date of Service May 22, 2020 Assessment & Plan (1) Systolic and diastolic CHF, acute on chronic: Echocardiographic findings suspicious for infiltrative (restrictive) cardiomyopathy. e' mitral annulus tissue Doppler velocities, low on the September, transthoracic echocardiogram when LVEF was normal, and lower (worse) now. Serum immunofixation performed this admission reveals IgA lambda monoclonal band is present. Elevated serum free lambda light chains elevated, with low kappa/l ambda ratio. Pathology of abdominal fat pad biopsy currently pending. Immunofixation results suggestive of cardiac amyloidosis. Looking ahead will need outpatient hematology consultation soon as possible for consideration of bone marrow aspiration. Future considerations also include proceeding with cardiac MRI, to be performed at [facility]. The patient's relative hypotension is consistent with the diagnosis of infiltrative cardiomyopathy. Patient had been receiving 10 mg of torsemide twice daily earlier this hospital stay, with resultant significant urine output, improvement in hyponatremia. CO2 has trended up, torsemide reduced to 10 mg 1 time per day today, 05/21/2020. Hypokalemia previously noted, improved, 4.2 mmol/L today 05/21/2020, on potassium chloride 20 mEq daily, low-dose spironolactone 12.5 mg daily added 05/20/2020 to aide in maintaining appropriate potassium levels. Hold off on ACEI / ARB / Entresto given relative low BP, and despite low LVEF, these medications are typically avoided in the setting of relative hypotension with this entity of cardiomyopathy. 05/22/2020 we will give additional dose of torsemide this evening tentative thoracentesis left today as chest x-ray demonstrates increasing edema and left pleural effusion Give additional potassium today given mild contraction alkalosis (2) Atrial fibrillation: Persistent atrial fibrillation having reverted to AF post DILCIA guided CV in 09/2019. Had received sotalol 40 mg twice daily at that time, dose limited due to relative bradycardia. Rhythm control had been unsuccessful in the interim, with persistent rate controlled atrial fibrillation. Continue current dose of metoprolol succinate 25 mg twice daily. Continue anticoagulation, on heparin bridge to allow for abdominal fat pad biopsy and thoracentesis. Coumadin to be reinitiated. (3) Pleural effusion: s/p R thoracentesis 1,300 ml on 05/20. Post CXR no PTH, improved R pleural effusion. Has residual left pleural effusion. Continue diuretic therapy. Disposition: continue heparin to coumadin. I have entered orders for hematology consultation , cardiac MRI in outpatient chart. Has 06/13 follow up visit with Dr Meeks. Will likely change to sooner visit with me. Admission and Anticipated Discharge Date Admission Date: May 16, 2020 Subjective Patient was seen and examined, chart, medications, telemetry reviewed. Some increasing oxygen demands overnight but no acute distress. Denies chest pains or tachypalpitations. No productive cough I's and O's essentially equal overnight. Renal function unchanged Atrial fibrillation rates controlled Physical Exam Constitutional: + ill appearing; no acute distress Eyes: PERRL, conjunctivae normal, anicteric sclerae ENMT: external ear and nose normal, oropharynx normal Neck: trachea midline, no thyromegaly Respiratory: Crackles right base diminished breath sounds left base Cardiovascular: Rate/Rhythm: + irregularly irregular Heart Sounds: normal S1, normal S2 and + murmur (Grade 1/ 6 systolic) Extremities: + edema (1-2+) Gastrointestinal (Abdomen): Percussion/Palpation: abdomen soft; abdomen nontender Neurologic: PERRL, EOMI, accommodation nl, no face palsy, no dysarthria Results & Data ([facility]) Vital Signs (Past 12 Hours) Vital Signs Temp Pulse Pulse Resp BP BP Pulse Ox 05/22/20 07:06 36.4 C L 75 17 94/59 L 96 05/22/20 03:47 91 05/22/20 03:20 36.5 C 80 18 103/72 84 L 05/22/20 00:07 36.4 C L 78 18 95/62 L 92 05/21/20 23:19 79 05/21/20 23:05 88 L Laboratory Results Laboratory Results - last 24 hr 05/21/20 05/22/20 05/22/20 12:09 05:13 05:13 WBC 9.50 RBC 5.09 Hgb 15.2 Hct 45.9 MCV 90.2 MCH 29.9 MCHC 33.1 RDW Std Deviation 55.1 H RDW Coeff of Jonathan 17.0 H Plt Count 224 MPV 10.9 H Immature Gran % (Auto) 0.4 Neut % (Auto) 61.2 Lymph % (Auto) 27.6 Hitchcock % (Auto) 9.2 Eos % (Auto) 1.3 Baso % (Auto) 0.3 Neut # (Auto) 5.82 Lymph # (Auto) 2.62 Hitchcock # (Auto) 0.87 H Eos # (Auto) 0.12 Baso # (Auto) 0.03 Immature Gran # (Auto) 0.04 H PT 14.6 H INR 1.4 H APTT 56.7 H* 58.4 H* PTT Ratio 2.0 2.1 Sodium Potassium Chloride Carbon Dioxide Anion Gap BUN Creatinine Est Cr Clr Drug Dosing Est GFR ( Amer) Est GFR (Non-Af Amer) BUN/Creatinine Ratio Glucose Calcium Magnesium 05/22/20 05:13 WBC RBC Hgb Hct MCV MCH MCHC RDW Std Deviation RDW Coeff of Jonathan Plt Count MPV Immature Gran % (Auto) Neut % (Auto) Lymph % (Auto) Hitchcock % (Auto) Eos % (Auto) Baso % (Auto) Neut # (Auto) Lymph # (Auto) Hitchcock # (Auto) Eos # (Auto) Baso # (Auto) Immature Gran # (Auto) PT INR APTT PTT Ratio Sodium 136 Potassium 3.9 Chloride 96 L Carbon Dioxide 33 H Anion Gap 7.0 BUN 49 H Creatinine 0.89 Est Cr Clr Drug Dosing 53.6 Est GFR ( Amer) 76.6 Est GFR (Non-Af Amer) 66.1 BUN/Creatinine Ratio 55.3 H Glucose 96 Calcium 9.8 Magnesium 1.9
[2020-05-22] MEDS ORDERED: POTASSIUM CHLORIDE 20 MEQ TABCR PO ONE (10:30)
--- NOTE | 2020-05-22 12:53 | Procedure Note ---
Procedure Note Date of Service May 22, 2020 Procedure: Diagnostic therapeutic ultrasound-guided catheter thoracentesis Nut Sorter: Dr. Dory Blunt Indication: Pleural effusion Consent: Signed by patient and verified with timeout prior to procedure Anesthesia: 1% lidocaine without epinephrine local. Procedure: Consent was verified and timeout performed. Appropriate imaging studies were reviewed prior to the procedure. Patient was placed in a seated position and limited thoracic ultrasound was performed of the left chest. See separate imaging. Appropriate site above the diaphragm for thoracentesis was selected. The skin was prepped and draped in normal sterile fashion. Lidocaine was used for local analgesia. Fluid was aspirated via the finder needle. A small skin jack was made with the scalpel and the catheter over the needle apparatus was advanced over the rib into the pleural space. Using the syringe one-way valve system, a total of 1500 mL's of serous fluid was removed. The catheter was removed and observed to be intact. A sterile dressing was applied. Post procedure chest x-ray was ordered. Good lung sliding appreciated on the left side post procedure Fluid was sent for labs, culture and cytology. The patient tolerated the procedure well. Blood loss: Less than 2 cc Complications: None Coding CPT Codes Pulmonary/Thoracic - Pulmonary and Thoracic: 72512 Thoracentesis w imaging ([id number]) [place] Procedure Codes ([place]) Pulmonary/Thoracic Procedure 1: Pulmonary and Thoracic: 21935 Thoracentesis w imaging
--- NOTE | 2020-05-22 12:59 | Pulmonology Progress Note ---
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 -- B/L pleural effusions likely sec to Systolic plus diastolic CHF s/p right sided thora 05/20/20: - Transudative as per Light's criteria. Left sided thoracentesis performed today 05/22/20. Patient had systolic blood pressure in the mid 80s status postprocedure. She responded well to 250 cc normal saline and blood pressure went up to 122/78. Wait for chest x-ray. --Acute hypoxic respiratory failure sec to CHF with b/l Pleural effusion Plan as above. Plan: If the chest x-ray is good can resume heparin drip in 4 hours. f/u cytology and labs. Please note the above document was generated using voice recognition software. It may contain grammatical, syntax or spelling errors. (2) Hypoxia: (3) Pulmonary edema: Chronicity: acute Qualified Code(s): J81.0 - Acute pulmonary edema (4) Pleural effusion in other conditions classified elsewhere: (5) Atrial fibrillation: (6) Anticoagulated on Coumadin: Admission and Anticipated Discharge Date Admission Date: May 16, 2020 Subjective Patient seen and examined at bedside. NAD. ESTHER overnight. No CP. States she feels better after right sided thoracentesis yesterday. No CP. Has been walking around the hallway without any distress. No dizziness. No LAWLER. Heparin drip has been on hold since 6:40 AM. Review of Systems Review of Systems: All systems reviewed & are unremarkable except as noted in Subjective Physical Exam Physical Exam: Constitutional: No acute distress HEENT: EOMI, PERRLA Respiratory system: Decreased air entry bilaterally-more decreased on the left, no wheeze, no rhonchi, positive crackles bilateral lower lobes CVS: S1-S2 positive, no murmurs or gallops Abdomen: Soft, nontender, nondistended, positive bowel sounds x4 Extremities: +2 pulses bilaterally radialis/ dorsalis pedis, no cyanosis, no edema Neuro: Awake alert oriented x3 Psych: Normal mood and affect G/U: No Sears Skin: no rashes, warm and dry Lymphatic: no cervical or axillary lymphadenopathy Results & Data Results & Data ([facility]) Vital Signs (Past 12 Hours) Vital Signs Temp Pulse Resp BP BP Pulse Ox 05/22/20 10:50 36.4 C L 81 19 104/76 95 05/22/20 07:06 36.4 C L 75 17 94/59 L 96 05/22/20 03:47 91 05/22/20 03:20 36.5 C 80 18 103/72 84 L 05/22/20 05:13 05/22/20 05:13 PG Care Time/CCT Total # of Minutes Spent Total Time Spent with Patient: Total time spent is greater than 50% in coordination of care (as documented) at patient's floor/unit and/or counseling patient: Coding Level of Care Code 40149 Subseq Hosp Care Lvl 3 Diagnoses 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 I50.30; I42.5 Hypoxia R09.02 Pulmonary edema J81.0 Chronicity: acute Pleural effusion in other conditions classified elsewhere J91.8 Atrial fibrillation I48.91 Anticoagulated on Coumadin Z79.01
[2020-05-22 13:29] LABS: Glucose Pleural Fluid 108 mg/dl
[2020-05-22 13:34] LABS: Amylase Pleural Fluid 35 U/L; LDH Pleural Fluid 76 U/L; Total Protein Pleural Fluid 2.6 g/dl
--- NOTE | 2020-05-22 13:36 | XRay Report ---
SINGLE VIEW CHEST CLINICAL HISTORY: Status post thoracentesis. FINDINGS: An AP, portable, upright chest radiograph is compared to study performed earlier the same d ay 05/22/2020. Correlation is made with chest CT dated 05/16/2020. The heart is enlarged noting atheroscl erotic calcification of the thoracic aorta. Pulmonary vascular congestion persists. There are small p leural effusions with bibasilar consolidation. No pneumothorax is seen. The skeletal structures are o steopenic. The bony thorax is grossly intact. IMPRESSION: 1. No pneumothorax is identified post procedure. 2. Cardiomegaly with evidence of congestive failure. This is similar to previous. 3. Pleural effusions with bibasilar consolidation ACT 112: Negative or not required by law. Electronically signed by: Marcos Avendano M.D. 05/22/2020 1:35 PM
[2020-05-22] MEDS: METOPROLOL SUCC 25MG EXT REL TAB PO SCH ×2 (13:45→20:11)
[2020-05-22 13:46] LABS: Albumin Level 2.9 gm/dl (3.4-5.0); Bilirubin,Total 1.7 mg/dl (0.2-1); Total Protein 6.8 gm/dl (6.4-8.2)
[2020-05-22 13:49] LABS: Appearance Pleural Fluid HAZY; Basophils, Fluid 0 %; Color Pleural Fluid YELLOW; Eosinophils, Fluid 0 %; Lymphocytes, Fluid 83 %; Mono,Macrophage,Mesothelial 11 %; Neutrophils, Fluid 6 %; RBC Pleural Fluid (A) < 3000 /uL; Source Pleural Fluid LEFT LUNG; WBC Pleural Fluid (A) 865 /uL
[2020-05-22] MEDS ORDERED: TORSEMIDE 10 MG TAB PO ONE (16:00)
[2020-05-22] MEDS ORDERED: WARFARIN SOD 7.5 MG TAB PO SCH (16:00)
[2020-05-22] MEDS: HEPARIN SODIUM/DEXTROSE 25,000 UNITS/500 ML BAG IV SCH (18:12)
[2020-05-23 00:29] LABS: Partial Thromboplastin Ratio 1.9
[2020-05-23 00:33] LABS: Partial Thromboplastin Time 53.8 Seconds (21.0-31.0)
[2020-05-23] MEDS: LEVOTHYROXINE SODIUM 75 MCG TABLET PO SCH (05:31)
[2020-05-23 07:09] LABS: Basophils # (auto) 0.03 K/uL (0-0.2); Basophils % (auto) 0.3 %; Eosinophils # (auto) 0.07 K/uL (0-0.5); Eosinophils % (auto) 0.8 %; Hematocrit (blood only) 44.7 % (37-47); Hemoglobin 14.9 g/dL (12.0-16.0); Immature Granulocytes # (auto) 0.03 K/uL (0.00-0.02); Immature Granulocytes % (auto) 0.3 %; Lymphocytes # (auto) 2.04 K/uL (1.2-3.4); Mean Corpuscular Hgb Conc 33.3 g/dL (32-36); Mean Corpuscular Volume 89.9 fL (80-100); Mean Platelet Volume 10.7 fL (7.4-10.4); Monocytes # (auto) 0.73 K/uL (0.11-0.59); Monocytes % (auto) 8.2 %; Neutrophils # (auto) 5.97 K/uL (1.4-6.5); Neutrophils % (auto) 67.4 %; Platelet Count 213 K/uL (130-400); RDW Coefficient of Variation 16.9 % (11.5-14.5); RDW Standard Deviation 55.2 fL (36.4-46.3); Red Blood Count 4.97 M/uL (4.2-5.4); White Blood Count 8.87 K/uL (4.8-10.8)
[2020-05-23 07:32] LABS: INR 1.6 (0.9-1.1); Partial Thromboplastin Ratio 2.1; Prothrombin Time 16.5 Seconds (9.0-12.0)
[2020-05-23 07:35] LABS: Partial Thromboplastin Time 58.5 Seconds (21.0-31.0)
[2020-05-23 07:45] LABS: BUN Creatinine Ratio 51.4 (10-20); Calcium 9.1 mg/dl (8.5-10.1); Creatinine Clr Calc Pharmacy 58.9 ml/min; Est GFR (African American) 87.2; Est GFR (Non-African American) 75.2; Magnesium 2.1 mg/dl (1.8-2.4); Potassium 3.4 mmol/L (3.5-5.1)
[2020-05-23] MEDS: TORSEMIDE 10 MG TAB PO SCH (09:24)
[2020-05-23] MEDS: UREA (URE-NA) 15 GM PACK PO SCH ×2 (09:24→19:47)
[2020-05-23] MEDS: PANTOprazole 40 MG TAB PO SCH (09:24)
[2020-05-23] MEDS: SPIRONOLACTONE 12.5 MG TAB PO SCH (09:24)
[2020-05-23] MEDS: METOPROLOL SUCC 25MG EXT REL TAB PO SCH ×2 (09:24→19:48)
[2020-05-23] MEDS: POTASSIUM CHLORIDE 20 MEQ TABCR PO SCH (09:24)
[2020-05-23] MEDS: MAGNESIUM OXIDE 400 MG TAB PO SCH ×2 (09:24→19:48)
[2020-05-23] MEDS: SERTRALINE HCL 50 MG TABLET PO SCH (09:25)
[2020-05-23] MEDS: CETIRIZINE HCL 10 MG TABLET PO SCH (09:25)
--- NOTE | 2020-05-23 11:12 | Pulmonology Progress Note ---
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 -- B/L pleural effusions likely sec to Systolic plus diastolic CHF s/p right sided thora 05/20/20: - Transudative as per Light's criteria. s/p Left sided thoracentesis 05/22/20: transudative as per lights criteria. Follow-up culture and cytology. --Acute hypoxic respiratory failure sec to CHF with b/l Pleural effusion Diuresis as tolerated Plan: No further recommendations from pulmonary perspective. We will sign off please recall if needed. Please note the above document was generated using voice recognition software. It may contain grammatical, syntax or spelling errors. (2) Hypoxia: (3) Pulmonary edema: Chronicity: acute Qualified Code(s): J81.0 - Acute pulmonary edema (4) Pleural effusion in other conditions classified elsewhere: (5) Atrial fibrillation: (6) Anticoagulated on Coumadin: Admission and Anticipated Discharge Date Admission Date: May 16, 2020 Subjective Patient seen and examined at bedside. No acute distress, no adverse events overnight. Patient stated that she feels better. No chest pain. The left-sided posterior neck pain that she had yesterday has resolved. She had 2 labs in the corridor today. Denies any chest pain, occasional dry cough. No hemoptysis. Review of Systems Review of Systems: All systems reviewed & are unremarkable except as noted in Subjective Physical Exam Physical Exam: Constitutional: No acute distress HEENT: EOMI, PERRLA Respiratory system: Decreased air entry bilaterally, improved aeration on the left side, no wheeze, no rhonchi, positive crackles bilateral lower lobes CVS: S1-S2 positive, no murmurs or gallops Abdomen: Soft, nontender, nondistended, positive bowel sounds x4 Extremities: +2 pulses bilaterally radialis/ dorsalis pedis, no cyanosis, no edema Neuro: Awake alert oriented x3 Psych: Normal mood and affect G/U: No Sears Skin: no rashes, warm and dry Lymphatic: no cervical or axillary lymphadenopathy Results & Data Results & Data ([facility]) Vital Signs (Past 12 Hours) Vital Signs Temp Pulse Pulse Resp BP BP Pulse Ox 05/23/20 10:53 36.4 C L 82 19 107/64 93 05/23/20 09:00 92 H 05/23/20 08:00 92 H 05/23/20 07:11 36.7 C 78 18 100/65 92 05/23/20 02:37 36.4 C L 81 18 103/70 94 05/22/20 23:16 81 05/23/20 06:42 05/23/20 06:42 PG Care Time/CCT Total # of Minutes Spent Total Time Spent with Patient: Total time spent is greater than 50% in coordination of care (as documented) at patient's floor/unit and/or counseling patient: Coding Level of Care Code 41635 Subseq Hosp Care Lvl 3 Diagnoses 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 I50.30; I42.5 Hypoxia R09.02 Pulmonary edema J81.0 Chronicity: acute Pleural effusion in other conditions classified elsewhere J91.8 Atrial fibrillation I48.91 Anticoagulated on Coumadin Z79.01
[2020-05-23] MEDS ORDERED: SPIRONOLACTONE 12.5 MG TAB PO ONE (11:40)
[2020-05-23] MEDS ORDERED: POTASSIUM CHLORIDE 20 MEQ TABCR PO STA (11:41)
--- NOTE | 2020-05-23 13:04 | Cardiology Progress Note ---
Date of Service May 23, 2020 Assessment & Plan (1) Systolic and diastolic CHF, acute on chronic: Echocardiographic findings suspicious for infiltrative (restrictive) cardiomyopathy. e' mitral annulus tissue Doppler velocities, low on the September, transthoracic echocardiogram when LVEF was normal, and lower (worse) now. Serum immunofixation performed this admission reveals IgA lambda monoclonal band is present. Elevated serum free lambda light chains elevated, with low kappa/l ambda ratio. Immunofixation results suggestive of cardiac amyloidosis. Urine immunofixation results are currently pending. Fat pad biopsy results are currently pending. She is diuresed another 2.5 L on torsemide 10 mg p.o. daily. Potassium is low, and has been supplemented, and I have increased her spironolactone to 25 mg daily. Recommend consideration of discontinuation of her Ure-Na supplement as her sodium levels have improved. Although she has left ventricular systolic dysfunction, ACEI / ARB agents are typically contraindicated in this entity of cardiomyopathy due to the relative hypotension, and therefore have not been initiated. Looking ahead, I have requested an outpatient hematology oncology consultation for consideration of bone marrow biopsy. An order for a cardiac MRI has also been placed in her outpatient chart which will be arranged at [facility]. (2) Atrial fibrillation: Persistent atrial fibrillation having reverted to AF post DILCIA guided CV in 09/2019. Had received sotalol 40 mg twice daily at that time, dose limited due to relative bradycardia. Rhythm control had been unsuccessful in the interim, with persistent rate controlled atrial fibrillation. Continue current dose of metoprolol succinate 25 mg twice daily. Continue heparin bridge to Coumadin, goal INR 2-3. (3) Pleural effusion: s/p R thoracentesis 1,300 ml on 05/20. Left thoracentesis yielding 1.5 L of transudate of fluid on 05/22/2020. Continue diuretic therapy. Disposition: continue heparin to coumadin. I have entered orders for hematology consultation , cardiac MRI in outpatient chart. Has 06/[address] Meeks. Will likely change to sooner visit with me. Admission and Anticipated Discharge Date Admission Date: May 16, 2020 Subjective Patient seen in cardiology follow-up of her chief complaint of shortness of breath. Her [id number], Kiara, who is a registered nurse, accompanies her at the bedside today. Overall, patient feels well. Her oxygen levels have improved by pulse oximetry since having undergone a left thoracentesis yesterday 05/22/2020 yielding 1.5 L of transudate of fluid. She walked in the hallway twice, with pulse oximetry greater than 90% on room air. She remains on a heparin infusion. INR 1.6 today. Physical Exam Physical Exam: Cardiac Enzymes 05/22/20 Range/Units 13:00 Lactate Dehydrogen ase 189 (84-246) U/L Coagulation 05/22/20 05/23/20 Range/Units 23:46 06:42 PT 16.5 H (9.0-12.0) Se[place] ds APTT 53.8 H* 58.5 H* (21.0-31.0) Seco nds CBC 05/23/20 Range/Units 06:42 WBC 8.87 (4.8-10.8) K/uL RBC 4.97 (4.2-5.4) M/uL Hgb 14.9 (12.0-16.0) g/dL Hct 44.7 (37-47) % Plt Count 213 (130-400) K/uL Neut # (Auto) 5.97 (1.4-6.5) K/uL Lymph # (Auto) 2.04 (1.2-3.4) K/uL [place] # (Auto) 0.73 H (0.11-0.59) K/uL Eos # (Auto) 0.07 (0-0.5) K/uL Baso # (Auto) 0.03 (0-0.2) K/uL Comprehensive Metabolic Panel 05/22/20 05/23/20 Range/Units 13:00 06:42 Sodium 137 (136-145) mmol/L Potassium 3.4 L (3.5-5.1) mmol/L Chloride 95 L (98-107) mmol/L Carbon Dioxide 34 H (21-32) mmol/L BUN 41 H (7-18) mg/dl Creatinine 0.80 (0.6-1.2) mg/dl Glucose 95 (70-99) mg/dl Calcium 9.1 (8.5-10.1) mg/dl Total Protein 6.8 (6.4-8.2) gm/dl Albumin 2.9 L (3.4-5.0) gm/dl Intake and Output 05/22/20 05/23/20 05/23/20 22:59 06:59 14:59 Intake Total 648.75 / 1504.50 145.75 / 1504.50 123.5 / 123.5 Output Total 1500 / 4050 1350 / 4050 Balance -851.25 / -2545.50 -1204.25 / -2545.5 0 123.5 / 123.5 Intake: IV 6.75 / 102.50 95.75 / 102.50 123.5 / 123.5 HEPARIN SODIUM /DEXTROSE 25,000 6.75 / 102.50 95.75 / 102.50 123.5 / 123.5 units In 500 m l @ 750 UNITS/HR 15 mls/hr IV . Q24H [facility] Rx#: [id number] Oral 642 / 1402 50 / 1402 Output: Urine 1500 / 4050 1350 / 4050 Other: Weight 68.8 kg 68.8 kg Patient Weight 05/24/20 06:59 Weight 68.8 kg Constitutional: WD/WN, vitals as above Respiratory: Mildly decreased breath sounds the bases, with interval improvement since thoracentesis bilaterally Cardiovascular: Rate/Rhythm: regular rhythm; not tachycardic Heart Sounds: + murmur (I/ systolic murmur) Vessels: no JVD Extremities: no edema Gastrointestinal (Abdomen): normal bowel sounds, soft, nontender, no hepatosplenomegaly Neurologic: PERRL, EOMI, accommodation nl, no face palsy, no dysarthria Results & Data ([facility]) Vital Signs (Past 12 Hours) Vital Signs Temp Pulse Pulse Resp BP BP Pulse Ox 05/23/20 10:53 36.4 C L 82 19 107/64 93 05/23/20 09:00 92 H 05/23/20 08:00 92 H 05/23/20 07:11 36.7 C 78 18 100/65 92 05/23/20 02:37 36.4 C L 81 18 103/70 94 Laboratory Results INR 1.6 (0.9-1.1) H 05/23/20 06:42 Cardiac Enzymes 05/22/20 Range/Units 13:00 Lactate Dehydrogenase 189 (84-246) U/L Coagulation 05/22/20 05/23/20 Range/Units 23:46 06:42 PT 16.5 H (9.0-12.0) Seconds APTT 53.8 H* 58.5 H* (21.0-31.0) Seconds CBC 05/23/20 Range/Units 06:42 WBC 8.87 (4.8-10.8) K/uL RBC 4.97 (4.2-5.4) M/uL Hgb 14.9 (12.0-16.0) g/dL Hct 44.7 (37-47) % Plt Count 213 (130-400) K/uL Neut # (Auto) 5.97 (1.4-6.5) K/uL Lymph # (Auto) 2.04 (1.2-3.4) K/uL [place] # (Auto) 0.73 H (0.11-0.59) K/uL Eos # (Auto) 0.07 (0-0.5) K/uL Baso # (Auto) 0.03 (0-0.2) K/uL Comprehensive Metabolic Panel 05/22/20 05/23/20 Range/Units 13:00 06:42 Sodium 137 (136-145) mmol/L Potassium 3.4 L (3.5-5.1) mmol/L Chloride 95 L (98-107) mmol/L Carbon Dioxide 34 H (21-32) mmol/L BUN 41 H (7-18) mg/dl Creatinine 0.80 (0.6-1.2) mg/dl Glucose 95 (70-99) mg/dl Calcium 9.1 (8.5-10.1) mg/dl Total Protein 6.8 (6.4-8.2) gm/dl Albumin 2.9 L (3.4-5.0) gm/dl Intake and Output 05/22/20 05/23/20 05/23/20 22:59 06:59 14:59 Intake Total 648.75 / 1504.50 145.75 / 1504.50 123.5 / 123.5 Output Total 1500 / 4050 1350 / 4050 Balance -851.25 / -2545.50 -1204.25 / -2545.50 123.5 / 123.5 Intake: IV 6.75 / 102.50 95.75 / 102.50 123.5 / 123.5 HEPARIN SODIUM/DEXTROSE 25,000 6.75 / 102.50 95.75 / 102.50 123.5 / 123.5 units In 500 ml @ 750 UNITS/HR 15 mls/hr IV .Q24H [facility] Rx#: [id number] Oral 642 / 1402 50 / 1402 Output: Urine 1500 / 4050 1350 / 4050 Other: Weight 68.8 kg 68.8 kg Patient Weight 05/24/20 06:59 Weight 68.8 kg
--- NOTE | 2020-05-23 13:22 | Hospitalist Progress Note ---
Date of Service May 23, 2020 Assessment & Plan (1) Acute combined systolic and diastolic heart failure: Echo of the heart showed: Small left ventricular cavity Severe concentric LV hypertrophy with severely reduced LV systolic function EF 25 to 30%, significant reduction of EF compared with echo of September of this year Right ventricular systolic function is moderately to severely reduced Mild to moderate mitral regurgitation, mild tricuspid regurgitation Left atrium is severely dilated with moderate elevation of the right atrium Mild pulmonary hypertension with large left pleural effusion Amyloid heart disease is a consideration-immunofixation results suggest cardiac amyloidosis, abdominal fat pad biopsy result is pending Serological test have been sent and awaiting abdominal fat pad biopsy pending Has been getting diuretics and diuresing a lot We will continue current medications Remains stable for any significant cardiac symptoms Possible cardiac amyloidosis IgA lambda monoclonal band is present Other tests are reported Urine immunofixation is pending abdominal fat pad biopsy result is pending as well Likely to need further cardiac testing like cardiac MRI/cardiac biopsy Order of cardiac MRI has been put in outpatient record to be done in [place] A follow-up appointment with robotics specialist has been done as well (2) Acute on chronic diastolic heart failure: Pt is 69 y/o F with PMH A-fib on Coumadin s/p cardioversion 09/2019, off sotalol since 12/2019 chronic A. fib/a flutter, chronic diastolic heart failure, SVT s/p AVNRT ablation in 2018, HTN, hypothyroidism, obesity, GERD, anxiety presented to ER for abnormal labs. Presented with weakness, fatigue, decreased appetite, loss of taste, shortness of breath with exertion. Has CHF, bilateral pleural effusion, abdominal wall and mesenteric edema with minimal ascites and trace to 1+ leg edema Has been getting Lasix 40 mg intravenously twice a day Appreciate cardiology input and recommendation As above-clinically much better Bilateral pleural effusion More on the right than left Secondary to diastolic heart failure Pulmonary consulted for thoracentesis INR remains elevated at 1.9 today Received vitamin K and we will check it tomorrow We will hold heparin 6 hours prior to the procedure of Thoracentesis tomorrow at around 10 AM Status post right thoracentesis of 1370 mL on 05/20/2020-transudative Repeat x-ray showed improvement of right pleural effusion with persistent left pleural effusion Likely to have left thoracentesis today-status post left thoracentesis of 1.5 L on seventh of this month Feeling much better Generalized body wall edema, mesenteric edema and trace ascites Secondary to congestive heart failure Likely has intestinal edema which may be the cause of nausea and is complicated by hyponatremia Edema has improved a lot Increased bilirubin-2.3 No evidence of abnormal LFTs and noted to have normal bile duct 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 Denies chest pain. Patient with ongoing history of exertional shortness of breath -Suspect demand ischemia -Trend troponin -EKG in a.m. -Continue Coumadin -Echo-as above (4) RASHID (dyspnea on exertion): Reported ongoing shortness of breath on exertion In ER reported oxygen sats down to high 80s at rest on room air CXR: Pulmonary vascular congestion, bibasilar and right midlung consolidation, small to moderate pleural effusions No leukocytosis Covid 19 PCR is Negative No CT evidence of pneumonia but has atelectasis and pleural effusion Exertional SOB also suspected from underlying fluid overload Continue PT and OT evaluation (5) Hyponatremia: Na: 130 (was 130 on 05/12/2020, 134 on 01/31/20) Sodium level is 129 today Hyponatremia is contributed by poor intake, hypervolemia and use of diuretics Nephrology consulted for further management Nephrology input and recommendation-fluid restriction to 1.2 L a day We will monitor BMP-sodium level is 133 as of 05/19/2020 Sodium level has been normalized- (6) Afib: A-fib on Coumadin s/p cardioversion 09/2019, off sotalol since 12/2019, now in chronic A. fib/a flutter INR: 3.0 -Will dose coumadin 2.5mg tonight then plan to resume pt's home coumadin regimen -Monitor INR -Continue metoprolol succinate (7) Generalized weakness: Patient with complaints of generalized weakness and fatigue for several months -PT/OT eval (8) Elevated lipase: Reports some decreased appetite. Denies abdominal pain, nausea Lipase: 490 KUB XRAY:1. No evidence for a bowel obstruction. 2. Bilateral pleural effusions and bibasilar opacities better depicted on chest radiograph. GALLBLADDER US: 1. Gallbladder wall thickening is redemonstrated, most pronounced along the hepatic surface. Additionally, there is trace perihepatic ascites. The gallbladder wall thickening is likely secondary to edematous state versus hepatic disease and unlikely related to acute cholecystitis. 2. No cholelithiasis. 3. Unchanged mild dilation of the common bile duct. Repeat lipase in am Doubt acute pancreatitis (9) HTN (hypertension): Stable -Lisinopril was discontinued by Dr. Meeks -Monitor BP (10) Anxiety: Patient under increased stress with recent of her brother -Continue sertraline (11) Hypothyroidism: TSH: 3.1 -Continue levothyroxine (12) GERD (gastroesophageal reflux disease): -Continue PPI DVT Prophylaxis -On Coumadin -Coumadin on hold and received vitamin K for thoracentesis on 05/20/2020 -INR is 1.4 today heparin is on hold for possible left thoracentesis this morning -We will restart heparin as soon as possible following paracentesis and give increasing dose of Coumadin this afternoon -Monitor INR-not yet therapeutic -Likely therapeutic tomorrow and discharge tomorrow Full code as per discussion with pt Follows with Dr Mulu Russell for routine care Discussed in detail with [id number] Admission and Anticipated Discharge Date Admission Date: May 16, 2020 Subjective 05/17/2020 The patient was seen and examined in the telemetry unit She has significant cardiac disease and has been complaining of shortness of breath with minimal exertion since September 2019 She was advised to come to the hospital as she was noted to have abnormal labs on outpatient testing She admits to have more shortness of breath for the last few days but denies any weight gain and/or increasing edema of the legs Denies any abdominal pain but does has nausea, denies any chest pain and/or palpitation 05/18/2020 The patient was seen and examined in telemetry unit She feels a little bit better but he still remains weak and tired She is very anxious as well Denies any chest pain and/or palpitation or shortness of breath at rest 05/19/2020 The patient was seen and examined in telemetry unit She has been feeling a lot better but remains very anxious Denies any significant symptoms 05/20/2020 The patient was seen and examined in telemetry unit She has been out of bed on a chair Remains very anxious but denies any shortness of breath at rest 05/21/2020 The patient was seen and examined in telemetry unit She has been feeling much better following right thoracentesis Denies any chest pain and no palpitation 05/22/2020 Patient was seen and examined in telemetry unit She denies any shortness of breath at rest but requiring nasal cannula oxygen to maintain saturation Denies any chest pain and/or palpitation Denies any nausea and/or vomiting 05/23/2020 The patient was seen and examined in telemetry unit She has been complaining of generalized weakness Her breathing has improved a lot Review of Systems Review of Systems: All systems reviewed and are unremarkable except as noted below Respiratory: + dyspnea on exertion Physical Exam Physical Exam: Lying in bed without any acute distress Constitutional: well developed, well nourished and + ill appearing; no acute distress Eyes: PERRL, conjunctivae normal, anicteric sclerae ENMT: external ear and nose normal, oropharynx normal Neck: trachea midline, no thyromegaly Respiratory: no respiratory distress Auscultation: + diminished lung sounds (Bilateral lower lung soni-bases) and + crackles (Minimal crackles at the bases); no wheezes Cardiovascular: Rate/Rhythm: regular rate and regular rhythm Heart Sounds: no murmur Extremities: + edema (Trace to 1+ edema bilaterally) Gastrointestinal (Abdomen): Inspection/Auscultation: abdomen normal to inspection and normal bowel sounds; abdomen not distended Percussion/Palpation: + abdomen tender (Minimally tender in the epigastrium) and abdomen soft; no guarding Neurologic: moves all extremities; no focal motor deficits Lymphatic: no cervical or axillary lymphadenopathy Results & Data Results & Data ([facility]) Vital Signs (Past 12 Hours) Vital Signs Temp Pulse Pulse Resp BP BP Pulse Ox 05/23/20 10:53 36.4 C L 82 19 107/64 93 05/23/20 09:00 92 H 05/23/20 08:00 92 H 05/23/20 07:11 36.7 C 78 18 100/65 92 05/23/20 02:37 36.4 C L 81 18 103/70 94 Laboratory Results Short CBC 05/23/20 Range/Units 06:42 WBC 8.87 (4.8-10.8) K/uL Hgb 14.9 (12.0-16.0) g/dL Hct 44.7 (37-47) % Plt Count 213 (130-400) K/uL BMP 05/23/20 06:42 Sodium 137 Potassium 3.4 L Chloride 95 L Carbon Dioxide 34 H BUN 41 H Creatinine 0.80 Glucose 95 Calcium 9.1 Liver Function 05/22/20 Range/Units 13:00 Total Bilirubin 1.7 H (0.2-1) mg/dl Albumin 2.9 L (3.4-5.0) gm/dl Medications Administered Current Inpatient Medications Acetaminophen (Acetaminophen 325 Mg Tab) 650 mg PO Q4H PRN PRN Reason: Pain or Fever Stop: 06/15/20 16:11 Cetirizine HCl (Cetirizine Hcl 10 Mg Tablet) [facility] [place] Stop: 06/16/20 08:59 Last Admin: 05/23/20 09:25 Dose: 10 mg Documented by: Heparin Sodium/Dextrose (Heparin Sodium/Dextrose) 25,000 units in 500 mls @ 15 mls/hr IV .Q24H ANNI; Protocol Stop: 06/18/20 15:29 Last Titration: 05/23/20 08:49 Dose: 750 units/hr, 15 mls/hr Documented by: Levalbuterol HCl (Levalbuterol 1.25mg/0.5ml Neb) 1.25 mg NEB Q6R PRN PRN Reason: Shortness Of Breath Or Wheezing Stop: 06/15/20 16:11 Levothyroxine Sodium (Levothyroxine Sodium 75 Mcg Tablet) 75 mcg PO DAILYBB [facility] Stop: 06/16/20 06:29 Last Admin: 05/23/20 05:31 Dose: 75 mcg Documented by: Magnesium Oxide (Magnesium Oxide 400 Mg Tab) 400 mg PO BID [facility] Stop: 06/19/20 08:59 Last Admin: 05/23/20 09:24 Dose: 400 mg Documented by: Metoprolol Succinate (Metoprolol Succ 25mg Ext Rel Tab) 25 mg PO BID [facility] Stop: 06/15/20 20:59 Last Admin: 05/23/20 09:24 Dose: 25 mg Documented by: Pantoprazole Sodium (Pantoprazole 40 Mg Tab) [facility] [place] Stop: 06/16/20 08:59 Last Admin: 05/23/20 09:24 Dose: 40 mg Documented by: Potassium Chloride (Potassium Chloride 20 Meq Tabcr) 20 meq PO QAM ANNI Stop: 06/20/20 09:14 Last Admin: 05/23/20 09:24 Dose: 20 meq Documented by: Sertraline HCl (Sertraline Hcl 50 Mg Tablet) 75 mg PO DAILY ANNI Stop: 06/16/20 08:59 Last Admin: 05/23/20 09:25 Dose: 75 mg Documented by: Spironolactone (Spironolactone 25 Mg Tab) 25 mg PO QAM [facility] Stop: 06/23/20 08:59 Torsemide (Torsemide 10 Mg Tab) 10 mg PO QAM [facility]NI Stop: 06/20/20 08:59 Last Admin: 05/23/20 09:24 Dose: 10 mg Documented by: Urea (Urea (Ure-Na) 15 Gm Pack) 15 gm PO BID [facility] Stop: 06/16/20 20:59 Last Admin: 05/23/20 09:24 Dose: 15 gm Documented by: Warfarin Sodium (Warfarin Sod 7.5 Mg Tab) 7.5 mg PO DAILY@1600 [facility] Stop: 06/21/20 15:59
[2020-05-24] MEDS: LEVOTHYROXINE SODIUM 75 MCG TABLET PO SCH (05:34)
[2020-05-24 06:54] LABS: INR 1.6 (0.9-1.1); Partial Thromboplastin Ratio 2.2; Prothrombin Time 16.1 Seconds (9.0-12.0)
[2020-05-24 06:55] LABS: Partial Thromboplastin Time 61.5 Seconds (21.0-31.0)
[2020-05-24 07:15] LABS: BUN Creatinine Ratio 37.9 (10-20); Calcium 9.3 mg/dl (8.5-10.1); Creatinine Clr Calc Pharmacy 57.3 ml/min; Est GFR (African American) 85.9; Est GFR (Non-African American) 74.1; Potassium 3.7 mmol/L (3.5-5.1)
[2020-05-24] MEDS: UREA (URE-NA) 15 GM PACK PO SCH ×2 (07:59→20:44)
[2020-05-24] MEDS: SPIRONOLACTONE 25 MG TAB PO SCH (07:59)
[2020-05-24] MEDS: TORSEMIDE 10 MG TAB PO SCH (08:00)
[2020-05-24] MEDS: POTASSIUM CHLORIDE 20 MEQ TABCR PO SCH (08:00)
[2020-05-24] MEDS: SERTRALINE HCL 50 MG TABLET PO SCH (08:01)
[2020-05-24] MEDS: PANTOprazole 40 MG TAB PO SCH (08:01)
[2020-05-24] MEDS: CETIRIZINE HCL 10 MG TABLET PO SCH (08:01)
[2020-05-24] MEDS: MAGNESIUM OXIDE 400 MG TAB PO SCH ×2 (08:02→20:43)
[2020-05-24] MEDS: METOPROLOL SUCC 25MG EXT REL TAB PO SCH ×2 (08:02→20:43)
[2020-05-24] MEDS ORDERED: POTASSIUM CHLORIDE 20 MEQ TABCR PO STA (09:50)
[2020-05-24] MEDS ORDERED: FUROSEMIDE 20 MG in SYRINGE 0 ML IV ONE (10:00)
--- NOTE | 2020-05-24 10:55 | Cardiology Progress Note ---
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 Urine immunofixation pending. Abdominal fat pad biopsy pending. Persistent atrial fibrillation, subtherapeutic INR, 1.6. Coumadin having been held for bilateral thoracentesis at that bed biopsy. Patient's home dose of Coumadin is 5 mg alternating with 7.5 mg. She has received 7.5 mg on the 2 previous days, will increase to 10 mg daily, in an effort to overcome the vitamin K that she received earlier this hospital stay. Had backed off patient's diuretics, but I think her lungs sound a little bit worse today, in addition to torsemide 10 mg this morning, will proceed with furosemide 20 mg. Supplement potassium. Continue spironolactone. Repeat INR chemistry panel tomorrow. I anticipate potential discharge tomorrow, with outpatient regimen of torsemide 20 mg daily in the morning on Mondays, Wednesdays and Fridays, and 10 mg the remaining days of the week. Spironolactone 25 mg daily. Potassium chloride 20 mEq p.o. daily. Has follow-up with the undersigned on 06/05 as an outpatient already scheduled. Outpatient hematology consultation and cardiac MRI are in the process of being scheduled. Admission and Anticipated Discharge Date Admission Date: May 16, 2020 Subjective Patient went for several walks yesterday. She still notes exertional shortness of breath and cough. INR remains below goal, 1.6. Telemetry reveals rate controlled atrial fibrillation/atrial flutter in the range of 70-80 bpm, mild hypotension with systolic blood pressure in the range of 90 to 100 mmHg noted, unchanged throughout the admission. Physical Exam Physical Exam: Temp Pulse Resp BP Pulse Ox 36.4 C L 80 16 92/61 L 90 05/24/20 07:02 05/24/20 07:02 05/24/20 07:02 05/24/20 07:02 05/24/20 07:02 Constitutional: WD/WN, vitals as above Respiratory: Auscultation: + rales (Mild bibasilar Rales, left worse than right noted.) Cardiovascular: Rate/Rhythm: + irregularly irregular Heart Sounds: + murmur (I/6 systolic murmur) Vessels: no JVD Extremities: no edema Gastrointestinal (Abdomen): normal bowel sounds, soft, nontender, no hepatosplenomegaly Neurologic: PERRL, EOMI, accommodation nl, no face palsy, no dysarthria Results & Data ([facility]) Vital Signs (Past 12 Hours) Vital Signs Temp Pulse Resp BP BP Pulse Ox 05/24/20 07:02 36.4 C L 80 16 92/61 L 90 05/24/20 04:09 36.6 C 81 18 95/61 L 95 05/23/20 23:58 36.3 C L 83 18 97/63 L 93 Laboratory Results INR 1.6 (0.9-1.1) H 05/24/20 06:00 Coagulation 05/24/20 Range/Units 06:00 PT 16.1 H (9.0-12.0) Seconds APTT 61.5 H* (21.0-31.0) Seconds Comprehensive Metabolic Panel 05/24/20 Range/Units 06:00 Sodium 135 L (136-145) mmol/L Potassium 3.7 (3.5-5.1) mmol/L Chloride 94 L (98-107) mmol/L Carbon Dioxide 33 H (21-32) mmol/L BUN 31 H (7-18) mg/dl Creatinine 0.81 (0.6-1.2) mg/dl Glucose 95 (70-99) mg/dl Calcium 9.3 (8.5-10.1) mg/dl Intake and Output 05/23/20 05/24/20 05/24/20 22:59 06:59 14:59 Intake Total 836.75 / 1502.50 122.25 / 1502.50 61.75 / 61.75 Output Total 600 / 1650 150 / 1650 450 / 450 Balance 236.75 / -147.50 -27.75 / -147.50 -388.25 / -388.25 Intake: IV 96.75 / 342.50 122.25 / 342.50 61.75 / 61.75 HEPARIN SODIUM/DEXTROSE 25,000 96.75 / 342.50 122.25 / 342.50 61.75 / 61.75 units In 500 ml @ 750 UNITS/HR 15 mls/hr IV .Q24H [facility] Rx#: [id number] Oral 740 / 1160 Output: Urine 600 / 1650 150 / 1650 450 / 450 Other: Weight 66.7 kg Patient Weight 05/25/20 06:59 Weight 66.7 kg
[2020-05-24] MEDS: HEPARIN SODIUM/DEXTROSE 25,000 UNITS/500 ML BAG IV SCH (13:57)
--- NOTE | 2020-05-24 14:58 | Hospitalist Progress Note ---
Date of Service May 24, 2020 Assessment & Plan (1) Acute combined systolic and diastolic heart failure: per Dr. Gill's notes (previous hospitalist): Echo of the heart showed: Small left ventricular cavity Severe concentric LV hypertrophy with severely reduced LV systolic function EF 25 to 30%, significant reduction of EF compared with echo of September of this year Right ventricular systolic function is moderately to severely reduced Mild to moderate mitral regurgitation, mild tricuspid regurgitation Left atrium is severely dilated with moderate elevation of the right atrium Mild pulmonary hypertension with large left pleural effusion s/p Thoracentesis draining ~2 L pleural fluid continue usual Torsemide 10mg po daily and additional Aldactone 25mg po daily patient appears euvolemic now appreciate Cardiology Service Eval Possible cardiac amyloidosis IgA lambda monoclonal band is present Amyloid heart disease is a consideration-immunofixation results suggest cardiac amyloidosis, abdominal fat pad biopsy result is pending Serological test have been sent and awaiting abdominal fat pad biopsy: pending Urine immunofixation: Pending Likely to need further cardiac testing like cardiac MRI/cardiac biopsy Order of cardiac MRI has been put in outpatient record to be done in [place] A follow-up appointment with veneer jointer offbearer has been done as well (2) Acute on chronic diastolic heart failure: per Dr. Gill's notes (previous hospitalist): Pt is 69 y/o F with PMH A-fib on Coumadin s/p cardioversion 09/2019, off sotalol since 12/2019 chronic A. fib/a flutter, chronic diastolic heart failure, SVT s/p AVNRT ablation in 2018, HTN, hypothyroidism, obesity, GERD, anxiety presented to ER for abnormal labs. Presented with weakness, fatigue, decreased appetite, loss of taste, shortness of breath with exertion. Has CHF, bilateral pleural effusion, abdominal wall and mesenteric edema with minimal ascites and trace to 1+ leg edema given IV Lasix, now transitioned to Torsemide and Aldactone management per #1 Bilateral pleural effusion More on the right than left Secondary to diastolic heart failure Pulmonary consulted for thoracentesis Received vitamin K Status post right thoracentesis of 1370 mL on 05/20/2020-transudative Repeat x-ray showed improvement of right pleural effusion with persistent left pleural effusion status post left thoracentesis of 1.5 L on seventh of this month Feeling much better Generalized body wall edema, mesenteric edema and trace ascites Secondary to congestive heart failure Likely has intestinal edema which may be the cause of nausea and is complicated by hyponatremia Edema has improved significantly Increased Total bilirubin 2.3, Direct Bilirubinemia 1.1 No evidence of abnormal LFTs and noted to have normal bile duct Likely secondary to Gilbert's syndrome and may be complicated by mild hepatic congestion from CHF improved to 1.7 (3) Elevated troponin: troponin 0.4 (was 0.16 on prior admission in 09/2019) Denies chest pain - likely demand ischemia - 0.4 to 0.9 -Continue Coumadin -Echo-as above (4) Hyponatremia: Na: 130 (was 130 on 05/12/2020, 134 on 01/31/20) Hyponatremia is contributed by poor intake, hypervolemia and use of diuretics Nephrology consulted, recommended fluid restriction to 1.2 L a day Sodium level has been normalized (5) Afib: A-fib on Coumadin s/p cardioversion 09/2019, off sotalol since 12/2019, now in chronic A. fib/a flutter INR: 1.6 coumadin increased to 10mg po today monitor INR (6) Generalized weakness: Patient with complaints of generalized weakness and fatigue for several months -PT/OT eval (7) Elevated lipase: Reports some decreased appetite. Denies abdominal pain, nausea Lipase: 490 KUB XRAY:1. No evidence for a bowel obstruction. 2. Bilateral pleural effusions and bibasilar opacities better depicted on chest radiograph. GALLBLADDER US: 1. Gallbladder wall thickening is redemonstrated, most pronounced along the hepatic surface. Additionally, there is trace perihepatic ascites. The gallbladder wall thickening is likely secondary to edematous state versus hepatic disease and unlikely related to acute cholecystitis. 2. No cholelithiasis. 3. Unchanged mild dilation of the common bile duct. Lipase 400-500s no abdominal pain doubt acute pancreatitis (8) HTN (hypertension): Stable -Lisinopril was discontinued by Dr. Meeks -Monitor BP (9) Anxiety: Patient under increased stress with recent of her brother -Continue sertraline (10) Hypothyroidism: TSH: 3.1 -Continue levothyroxine (11) GERD (gastroesophageal reflux disease): -Continue PPI DVT Prophylaxis -On Coumadin -management per above Full code as per discussion with pt Follows with Dr Mulu Russell for routine care Admission and Anticipated Discharge Date Admission Date: May 16, 2020 Subjective ff up for acute CHF exacerbation seen resting in bed, comfortable just had PT, tired easily but otherwise no shortness of breath, chest pain, dizziness no bleeding no other symptoms Review of Systems Review of Systems: All systems reviewed & are unremarkable except as noted in HPI & below Physical Exam Physical Exam: General- oriented x 3, not in distress, speaks in sentences with no effort or accessory muscle use Head- atraumatic Eyes- PERRL, EOMI, anicteric ENT- oropharynx clear Neck- supple, no JVD, no adenopathy, no thyromegaly; carotids +2/2, no bruits appreciated Lungs- clear to auscultation bilaterally, no rales/wheezes Heart- normal rate, irregularly irregular rhythm; no murmur, no gallop, no rub appreciated Abdomen- normal bowel sounds, nondistended, soft, nontender, no masses or hepatosplenomegaly Extremities- no pretibial edema, no calf tenderness; peripheral pulses intact Neuro- alert, oriented x 3; CN 2-12 grossly intact; motor 5/5 bilaterally;sensation 100% on all extremities; no other gross focal neurologic deficits Skin- warm & dry Results & Data Results & Data ([facility]) Vital Signs (Past 12 Hours) Vital Signs Temp Pulse Resp BP BP Pulse Ox 05/24/20 11:02 36.5 C 81 18 104/73 91 05/24/20 07:02 36.4 C L 80 16 92/61 L 90 05/24/20 04:09 36.6 C 81 18 95/61 L 95 Laboratory Results Laboratory Results - last 24 hr 05/24/20 05/24/20 06:00 06:00 PT 16.1 H INR 1.6 H APTT 61.5 H* PTT Ratio 2.2 Sodium 135 L Potassium 3.7 Chloride 94 L Carbon Dioxide 33 H Anion Gap 8.0 BUN 31 H Creatinine 0.81 Est Cr Clr Drug Dosing 57.3 Est GFR ( Amer) 85.9 Est GFR (Non-Af Amer) 74.1 BUN/Creatinine Ratio 37.9 H Glucose 95 Calcium 9.3
[2020-05-24] MEDS ORDERED: WARFARIN SOD 10 MG TAB PO SCH (16:00)
[2020-05-24] MEDS ORDERED: BUMETANIDE 0.5 MG in SYRINGE 0 ML IV ONE (17:45)
[2020-05-25] MEDS: HEPARIN SODIUM/DEXTROSE 25,000 UNITS/500 ML BAG IV SCH (01:41)
[2020-05-25] MEDS: LEVOTHYROXINE SODIUM 75 MCG TABLET PO SCH (06:23)
[2020-05-25 06:51] LABS: INR 2.1 (0.9-1.1); Prothrombin Time 20.9 Seconds (9.0-12.0)
[2020-05-25 07:09] LABS: BUN Creatinine Ratio 30.4 (10-20); Calcium 9.2 mg/dl (8.5-10.1); Creatinine Clr Calc Pharmacy 63.6 ml/min; Est GFR (African American) 97.4; Potassium 3.8 mmol/L (3.5-5.1)
[2020-05-25 07:39] LABS: Partial Thromboplastin Ratio 2.3
[2020-05-25 07:42] LABS: Partial Thromboplastin Time 64.3 Seconds (21.0-31.0)
[2020-05-25] MEDS: CETIRIZINE HCL 10 MG TABLET PO SCH (08:28)
[2020-05-25] MEDS: SERTRALINE HCL 50 MG TABLET PO SCH (08:28)
[2020-05-25] MEDS: SPIRONOLACTONE 25 MG TAB PO SCH (08:28)
[2020-05-25] MEDS: POTASSIUM CHLORIDE 20 MEQ TABCR PO SCH (08:28)
[2020-05-25] MEDS: PANTOprazole 40 MG TAB PO SCH (08:31)
[2020-05-25] MEDS: METOPROLOL SUCC 25MG EXT REL TAB PO SCH (08:31)
[2020-05-25] MEDS: MAGNESIUM OXIDE 400 MG TAB PO SCH (08:31)
[2020-05-25] MEDS ORDERED: TORSEMIDE 20 MG TAB PO SCH (09:00)
--- NOTE | 2020-05-25 10:10 | Cardiology Progress Note ---
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 Urine immunofixation pending. Abdominal fat pad biopsy pending. Patient's INR is at goal , at 2.1. Heparin bridge discontinued. Stable for discharge on current dose of metoprolol succinate. Torsemide 20 mg PO daily in am. Spironolactone 25 mg daily. KLC 20 mEq daily. -Need to check with nephro re Urea supplement Coumadin 10 mg today, then back to [employer] dosing of 7.5 mg alternating with 5 mg. Has cardio follow up with me scheduled on 06/05. Heme/onc consult has already been scheduled. Cardiac MRI ordered, scheduling in process (study to take place at [facility]). Need to see if pt qualifies for outpatient case management, blue tooth scale, I will have our office look in to this. Stable for DC from cardio standpoint. Admission and Anticipated Discharge Date Admission Date: May 16, 2020 Galilea Yancey is seen in follow up. Feels well. Much better since initial presentation over a week ago. She walked with therapy, and did well this am without hypoxia. Telemetry reveals AF in the 80s. Review of Systems Review of Systems: All systems reviewed & are unremarkable except as noted in HPI & below Physical Exam Physical Exam: Temp Pulse Resp BP Pulse Ox 36.6 C 79 18 89/54 L 92 05/25/20 07:11 05/25/20 07:11 05/25/20 07:11 05/25/20 07:11 05/25/20 07:11 Constitutional: WD/WN, vitals as above Respiratory: Auscultation: + rales (minimal bibasilar rales ) Cardiovascular: Rate/Rhythm: + irregularly irregular Heart Sounds: + murmur (1/6 SM) Gastrointestinal (Abdomen): normal bowel sounds, soft, nontender, no hepatosplenomegaly Neurologic: PERRL, EOMI, accommodation nl, no face palsy, no dysarthria Results & Data ([facility]) Vital Signs (Past 12 Hours) Vital Signs Temp Pulse Pulse Resp BP BP Pulse Ox 05/25/20 07:11 36.6 C 79 18 89/54 L 100/70 92 05/25/20 04:33 36.6 C 79 18 104/73 94 05/25/20 00:00 81 05/24/20 23:16 36.6 C 80 18 89/56 L 93 Laboratory Results INR 2.1 (0.9-1.1) H 05/25/20 06:12 Coagulation 05/25/20 05/25/20 Range/Units 06:12 06:12 PT 20.9 H (9.0-12.0) Seconds APTT 64.3 H* (21.0-31.0) Seconds Comprehensive Metabolic Panel 05/25/20 Range/Units 06:12 Sodium 134 L (136-145) mmol/L Potassium 3.8 (3.5-5.1) mmol/L Chloride 93 L (98-107) mmol/L Carbon Dioxide 32 (21-32) mmol/L BUN 22 H (7-18) mg/dl Creatinine 0.73 (0.6-1.2) mg/dl Glucose 105 H (70-99) mg/dl Calcium 9.2 (8.5-10.1) mg/dl Intake and Output 05/24/20 05/25/20 05/25/20 22:59 06:59 14:59 Intake Total 431 / 912.75 300 / 912.75 Output Total 1100 / 2825 475 / 2825 Balance -669 / -1912.25 -175 / -1912.25 Intake: IV 81 / 142.75 HEPARIN SODIUM/DEXTROSE 25,000 81 / 142.75 units In 500 ml @ 750 UNITS/HR 15 mls/hr IV .Q24H [facility] Rx#: [id number] Oral 350 / 770 300 / 770 Output: Urine 1100 / 2825 475 / 2825 Medications Administered Current Inpatient Medications Acetaminophen (Acetaminophen 325 Mg Tab) 650 mg PO Q4H PRN PRN Reason: Pain or Fever Stop: 06/15/20 16:11 Cetirizine HCl (C[facility]iz[facility] Hcl 10 Mg Tablet) [facility] Stop: 06/16/20 08:59 Last Admin: 05/25/20 08:28 Dose: 10 mg Documented by: Levalbuterol HCl (Levalbuterol 1.25mg/0.5ml Neb) 1.25 mg NEB Q6R PRN PRN Reason: Shortness Of Breath Or Wheezing Stop: 06/15/20 16:11 Levothyroxine Sodium (Levothyroxine Sodium 75 Mcg Tablet) 75 mcg PO DAILYBB [facility] Stop: 06/16/20 06:29 Last Admin: 05/25/20 06:23 Dose: 75 mcg Documented by: Magnesium Oxide (Magnesium Oxide 400 Mg Tab) 400 mg PO BID [facility] Stop: 06/19/20 08:59 Last Admin: 05/25/20 08:31 Dose: 400 mg Documented by: Metoprolol Succinate (Metoprolol Succ 25mg Ext Rel Tab) 25 mg PO BID [facility] Stop: 06/15/20 20:59 Last Admin: 05/25/20 08:31 Dose: 25 mg Documented by: Pantoprazole Sodium (Pantoprazole 40 Mg Tab) [facility] Stop: 06/16/20 08:59 Last Admin: 05/25/20 08:31 Dose: 40 mg Documented by: Potassium Chloride (Potassium Chloride 20 Meq Tabcr) 20 meq [facility] Stop: 06/20/20 09:14 Last Admin: 05/25/20 08:28 Dose: 20 meq Documented by: Sertraline HCl (Sertraline Hcl 50 Mg Tablet) 75 mg PO DAILY [facility] Stop: 06/16/20 08:59 Last Admin: 05/25/20 08:28 Dose: 75 mg Documented by: Spironolactone (Spironolactone 25 Mg Tab) 25 mg PO QAM [facility] Stop: 06/23/20 08:59 Last Admin: 05/25/20 08:28 Dose: 25 mg Documented by: Torsemide (Torsemide 20 Mg Tab) 20 mg PO QAM [facility] Stop: 06/24/20 08:59 Last Admin: 05/25/20 08:28 Dose: 20 mg Documented by: Urea (Urea (Ure-Na) 15 Gm Pack) 15 gm PO BID [facility] Stop: 06/16/20 20:59 Last Admin: 05/24/20 20:44 Dose: Not Given Documented by: Warfarin Sodium (Warfarin Sod 10 Mg Tab) 10 mg PO DAILY@1600 [facility] Stop: 06/23/20 15:59 Last Admin: 05/24/20 15:24 Dose: 10 mg Documented by:
--- NOTE | 2020-05-25 10:33 | Communication Note ---
Date of Service: May 25, 2020 Nephrology D/C recommendations -stop Izaguirre at d/c -agree with torsemide 20 mg daily -recommend if possible lower spironolactone dose 12.5 mg daily if cardiology agrees but defer to them -recommend 1.2-1.5L FR at d/c and <2 gm daily Na diet -no NSAIDS except ASA 81 mg daily > specifically no meloxicam -nephro will order repeat bmp, urine osms, urine sodium, serum osms to be drawn at 05/29 PCP visit >>needs f/u in CKD clinic with Dr Nichols or Florencio stout hyponatremia and IgA lambda monoclonal gammopathy wthin 2 wks
--- NOTE | 2020-05-25 11:56 | Hospitalist Progress Note ---
Date of Service May 25, 2020 Assessment & Plan (1) Systolic and diastolic CHF, acute on chronic: (1) Acute combined systolic and diastolic heart failure: Bilateral Pleural Effusion 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 Pt is 69 y/o F with PMH A-fib on Coumadin s/p cardioversion 09/2019, off sotalol since 12/2019 chronic A. fib/a flutter, chronic diastolic heart failure, SVT s/p AVNRT ablation in 2018, HTN, hypothyroidism, obesity, GERD, anxiety presented to ER for abnormal labs. Presented with weakness, fatigue, decreased appetite, loss of taste, shortness of breath with exertion. Has CHF, bilateral pleural effusion, abdominal wall and mesenteric edema with minimal ascites and trace to 1+ leg edema per Dr. Gill's notes (previous hospitalist): Echocardiogram: Small left ventricular cavity Severe concentric LV hypertrophy with severely reduced LV systolic function EF 25 to 30%, significant reduction of EF compared with echo of September of this year Right ventricular systolic function is moderately to severely reduced Mild to moderate mitral regurgitation, mild tricuspid regurgitation Left atrium is severely dilated with moderate elevation of the right atrium Mild pulmonary hypertension with large left pleural effusion Guard Chief Dr. 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 Urine immunofixation pending. Abdominal fat pad biopsy pending. ff up with [facility]c 05/31 s/p Thoracentesis 05/20, 05/22/2020 draining ~2 L pleural fluid given IV Lasix then transitioned to Torsemide and Aldactone with good diuresis patient appears euvolemic overall discharge plan: Torsemide 20mg po daily Aldactone 25mg po daily KCl 20 meq BID continue Metoprolol XL 25mg po BID ff up with [facility] 06/05 ff up with [facility] Nephrology Dr. Nance in 2 weeks (2) Elevated Bilirubin Increased Total bilirubin 2.3, Direct Bilirubinemia 1.1 No evidence of abnormal LFTs and noted to have normal bile duct Likely secondary to Gilbert's syndrome and may be complicated by mild hepatic congestion from CHF improved to 1.7 monitor as outpatient (3) Elevated troponin: troponin 0.4 (was 0.16 on prior admission in 09/2019) Denies chest pain - likely demand ischemia (4) Hyponatremia: Na: 130 (was 130 on 05/12/2020, 134 on 01/31/20) Hyponatremia is contributed by poor intake, hypervolemia and use of diuretics Nephrology consulted, recommended fluid restriction to 1.2 L a day Sodium level has been normalized repeat BMP, Urine Osm, Urine Na, Serum Osm on ff up with PCP next week per Dr. Nance, please forward results to her office (5) Afib: A-fib on Coumadin s/p cardioversion 09/2019, off sotalol since 12/2019, now in chronic A. fib/a flutter given Coumadin with Heparin bridge INR on discharge 2.1 resume usual coumain dose ff up with [facility] (6) Generalized weakness: Patient with complaints of generalized weakness and fatigue for several months -PT/OT eval (7) Elevated lipase: Reports some decreased appetite. Denies abdominal pain, nausea Lipase: 490 KUB XRAY:1. No evidence for a bowel obstruction. 2. Bilateral pleural effusions and bibasilar opacities better depicted on chest radiograph. GALLBLADDER US: 1. Gallbladder wall thickening is redemonstrated, most pronounced along the hepatic surface. Additionally, there is trace perihepatic ascites. The gallbladder wall thickening is likely secondary to edematous state versus hepatic disease and unlikely related to acute cholecystitis. 2. No cholelithiasis. 3. Unchanged mild dilation of the common bile duct. Lipase 400-500s no abdominal pain doubt acute pancreatitis (8) HTN (hypertension): Stable -Lisinopril was discontinued by Dr. Meeks -Monitor BP (9) Anxiety: Patient under increased stress with recent of her brother -Continue sertraline (10) Hypothyroidism: TSH: 3.1 -Continue levothyroxine (11) GERD (gastroesophageal reflux disease): -Continue PPI DVT Prophylaxis -On Coumadin Disposition: d/c home with home health services PCP ff up 05/29 [facility] Cardio, Nephro, Hem/Onc ff up as scheduled Admission and Anticipated Discharge Date Admission Date: May 16, 2020 Subjective ff up for CHF exacerbation, pleural effusion, etc seen resting in bed, comfortable in good spirits states she feels better overall denies shortness of breath, chest pain, palpitations, dizziness ambulated in the halls with no problems no bleeding no other symptoms Review of Systems Review of Systems: All systems reviewed & are unremarkable except as noted in HPI & below Physical Exam Physical Exam: General- oriented x 3, not in distress, speaks in sentences with no effort or accessory muscle use Eyes- anicteric Neck- no JVD Lungs- mild rales at the bases, no wheezing, good air entry bilaterally Heart- normal rate, irregularly irregular rhythm; no murmurs Abdomen- normal bowel sounds, nondistended, soft, nontender Extremities- no pretibial edema, no calf tenderness Neuro- alert, oriented x 3; no gross focal neurologic deficits Skin- warm & dry Results & Data Results & Data ([facility]) Vital Signs (Past 12 Hours) Vital Signs Temp Pulse Pulse Pulse Pulse Pulse Resp 05/25/20 10:58 36.8 C 81 19 05/25/20 10:15 82 05/25/20 10:00 69 79 78 05/25/20 07:11 36.6 C 79 18 05/25/20 04:33 36.6 C 79 18 05/25/20 00:00 81 Resp Resp Resp BP BP Pulse Ox Pulse Ox 05/25/20 10:58 112/75 93 05/25/20 10:15 05/25/20 10:00 20 18 16 94 05/25/20 07:11 89/54 L 100/70 92 05/25/20 04:33 104/73 94 05/25/20 00:00 Pulse Ox Pulse Ox 05/25/20 10:58 05/25/20 10:15 05/25/20 10:00 93 96 05/25/20 07:11 05/25/20 04:33 05/25/20 00:00 Laboratory Results Laboratory Results - last 24 hr 05/25/20 05/25/20 05/25/20 06:12 06:12 06:12 PT 20.9 H INR 2.1 H APTT 64.3 H* PTT Ratio 2.3 Sodium 134 L Potassium 3.8 Chloride 93 L Carbon Dioxide 32 Anion Gap 8.0 BUN 22 H Creatinine 0.73 Est Cr Clr Drug Dosing 63.6 Est GFR ( Amer) 97.4 Est GFR (Non-Af Amer) 84.0 BUN/Creatinine Ratio 30.4 H Glucose 105 H Calcium 9.2
[2020-05-25 12:17] LABS: Abnormal Protein Band 1 26 mg/24 h (NONE DETECTED); Abnormal Protein Band 2 93 mg/24 h (NONE DETECTED); Abnormal Protein Band 3 DNR mg/24 h (NONE DETECTED); Creatinine, 24 hr Urine 0.44 g/24 h (0.50-2.15); Protein, Urine 24 Hour 220 mg/24 h (<150); Ur Protein/Creatinine Rat mg/g 500 mg/g creat (< OR = 114)
--- NOTE | 2020-05-25 12:40 | Discharge Summary ---
Date of Service May 25, 2020 Admission HPI Per Admitting Provider Pt is 69 y/o F with PMH A-fib on Coumadin s/p cardioversion 09/2019, off sotalol since 12/2019 chronic A. fib/a flutter, chronic diastolic heart failure, SVT s/p AVNRT ablation in 2018, HTN, hypothyroidism, obesity, GERD, anxiety presented to ER for abnormal labs. Patient with weakness, fatigue, decreased appetite, loss of taste, shortness of breath with exertion. Saw Dr Meeks on 05/12/2020. EKG at that time a flutter, rate 79, variable AV block, PVCs or aberrantly conducted complexes. Had outpatient labs with sodium of 130, T bili: 1.5, BNP 13,000, lipase: 129. Patient was instructed to go to ER. Patient reports has had shortness of breath with exertion since September 2019 however feels it has increased over the past month. Short of breath with walking throughout house. Denies any chest pain. Reports she feels short of breath if she lies supine on her back however is able to lie prone without any shortness of breath. Denies PND. Reports has intermittent swelling of bilateral ankles, noticed some swelling couple of weeks ago however patient states over the past week or so ankles appear normal in size. Patient reports she takes half a tablet of water pill daily (called [facility] pharmacy last diuretic filled was torsemide 20 mg take half tab by mouth daily on 12/29/2019). Patient reports has chronic cough described as clearing throat since her DILCIA in September 2019. Denies any increased cough, fever, chills. Reports generalized weakness and fatigue for several months. Denies any falls over the past 6 months. Reports decreased appetite, denies nausea, vomiting. Reports has BM approximately once a week. Denies any dysuria, hematuria, urinary frequency. Patient states feels has been urinating a little less the past 2 weeks. She reports drinks three 16 ounce bottles of water daily. Lisinopril was stopped by Dr. Meeks. Denies diaphoresis, dizziness, syncope, vision changes, neck pain, palpitations, cough, sore throat, choking, otalgia, rhinorrhea, paresthesias, rashes. History echo 12/2019: EF: 57%, mild mitral regurgitation, mild tricuspid regurgitation, moderate left atrial enlargement, borderline pulmonary hypertension. Admission Exam Per Admitting Provider General: no distress, overweight Head: normocephalic, atraumatic Eyes: PERRL, EOM's intact, conjunctiva non-injected, anicteric ENT: normal inspection external ears, nose, mucous membranes moist Neck: supple, trachea midline Lungs: no respiratory distress, +rales at bases bilaterally CV: irregularly irregular, rate 98, 1+ pretibial edema Abd: normal BS, soft, non-tender Ext: no cyanosis, no calf tenderness Neuro: A&O x 3, no focal deficits noted, normal affect Skin: warm, dry Principal Diagnosis Acute combined systolic and diastolic heart failure: Bilateral Pleural Effusion 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 Discharge Exam General- oriented x 3, not in distress, speaks in sentences with no effort or accessory muscle use Eyes- anicteric Neck- no JVD Lungs- mild rales at the bases, no wheezing, good air entry bilaterally Heart- normal rate, irregularly irregular rhythm; no murmurs Abdomen- normal bowel sounds, nondistended, soft, nontender Extremities- no pretibial edema, no calf tenderness Neuro- alert, oriented x 3; no gross focal neurologic deficits Skin- warm & dry Discharge Data Allergies Allergy/AdvReac Type Severity Reaction Status Date / Time Penicillins AdvReac Unknown YEAST Verified 05/16/20 11:46 INFECTION Consultations 05/16/20 11:52 ED Decision to Admit Stat 05/16/20 16:12 Consult Cardiology Routine Consult Case Management - Discharge Planning Routine 05/17/20 10:40 Consult Nephrology Routine 05/18/20 08:35 Consult Pulmonology Routine 05/18/20 08:52 Consult General Surgery Routine Procedures Performed Operation Date: 05/19/20 13:50 Actual Procedures p Abdominal Fat Pad Biopsy(Not Applicable) - Guillermo Lino MD Ordered Studies 05/16/20 09:45 US gallbladder Stat 1. Gallbladder wall thickening is redemonstrated, most pronounced along the hepatic surface. Additionally, there is trace perihepatic ascites. The gallbladder wall thickening is likely secondary to edematous state versus hepatic disease and unlikely related to acute cholecystitis. 2. No cholelithiasis. 3. Unchanged mild dilation of the common bile duct. 05/16/20 14:42 CT abd pelvis wo con Routine COMPARISON STUDY: Chest CT of same day FINDINGS: Large right and moderate to large left pleural effusions with associated bibasilar consolidation. No pneumatosis or pneumoperitoneum. Moderate cardiomegaly with trace pericardial effusion. Limited evaluation of the solid abdominal organs without the use of IV contrast. Within the limitations of the study, the spleen, pancreas and liver appear unremarkable. Mild thickening of the left adrenal gland. Unremarkable right adrenal gland. Mild gallbladder wall thickening. No biliary ductal dilation. Mild bilateral perinephric stranding. Decompressed urinary bladder. Mild generalized mesenteric and body wall edema with trace abdominal pelvic ascites. Unremarkable uterus and adnexa. Calcified plaque of the abdominal aorta. No adenopathy. No bowel obstruction. Colonic diverticulosis without CT evidence of acute diverticulitis. Mild fecal retention. Noninflamed appendix. Degenerative changes of the spine, pelvis and hips. Posterior interbody mary and screw fusion of the lower lumbar distribution and upper sacrum with laminectomy changes. The hardware appears intact. IMPRESSION: 1. Cardiomegaly with large right and moderate to large left pleural effusions with bibasilar dependent consolidation suggestive of atelectasis. 2. Generalized body wall and mesenteric edema with trace abdominopelvic ascites. Additionally, there is mild gallbladder wall thickening which may be secondary to volume overload. 3. No definite CT evidence of acute pancreatitis. 4. No bowel obstruction or bowel wall thickening. 5. Additional findings as above. CT chest wo con Urgent FINDINGS: Large right and moderate to large left pleural effusions are noted. There is associated segmental atelectasis within the lower lobes as well as the lingula and right middle lobe. There is no pneumothorax. There is no consolidation to suggest pneumonia. The central airways are patent. No enlarged thoracic lymph nodes are present. Moderate cardiomegaly is noted. There is no pericardial effusion. Note is made of mild interlobular septal thickening and mild groundglass opacities. Bony thorax is unremarkable. Abdomen and pelvis will be reported separately. IMPRESSION: 1. Large right and moderate to large left pleural effusions. Associated segmental bilateral lower lobe, right middle lobe and lingular atelectasis. 2. Mild interstitial pulmonary edema. 3. Moderate cardiomegaly. 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 fib/a flutter, chronic diastolic heart failure, SVT s/p AVNRT ablation in 2018, HTN, hypothyroidism, obesity, GERD, anxiety presented to ER for abnormal labs. Presented with weakness, fatigue, decreased appetite, loss of taste, shortness of breath with exertion. Has CHF, bilateral pleural effusion, abdominal wall and mesenteric edema with minimal ascites and trace to 1+ leg edema per Dr. Gill's notes (previous hospitalist): Echocardiogram: Small left ventricular cavity Severe concentric LV hypertrophy with severely reduced LV systolic function EF 25 to 30%, significant reduction of EF compared with echo of September of this year Right ventricular systolic function is moderately to severely reduced Mild to moderate mitral regurgitation, mild tricuspid regurgitation Left atrium is severely dilated with moderate elevation of the right atrium Mild pulmonary hypertension with large left pleural effusion Staff Development Coordinator Rn Dr. 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 Urine immunofixation pending. Abdominal fat pad biopsy pending. ff up with [facility] 05/31 s/p Thoracentesis 05/20, 05/22/2020 draining ~2 L pleural fluid given IV Lasix then transitioned to Torsemide and Aldactone with good diuresis patient appears euvolemic overall discharge plan: Torsemide 20mg po daily Aldactone 25mg po daily KCl 20 meq BID continue Metoprolol XL 25mg po BID ff up with [facility] 06/05 ff up with [facility] Nephrology Dr. Nance in 2 weeks (2) Elevated Bilirubin Increased Total bilirubin 2.3, Direct Bilirubinemia 1.1 No evidence of abnormal LFTs and noted to have normal bile duct Likely secondary to Gilbert's syndrome and may be complicated by mild hepatic congestion from CHF improved to 1.7 monitor as outpatient (3) Elevated troponin: - troponin 0.4 (was 0.16 on prior admission in 09/2019) Denies chest pain - likely demand ischemia (4) Hyponatremia: Na: 130 (was 130 on 05/12/2020, 134 on 01/31/20) Hyponatremia is contributed by poor intake, hypervolemia and use of diuretics Nephrology consulted, recommended fluid restriction to 1.2 L a day Sodium level has been normalized repeat BMP, Urine Osm, Urine Na, Serum Osm on ff up with PCP next week per Dr. Nance, please forward results to her office (5) Afib: A-fib on Coumadin s/p cardioversion 09/2019, off sotalol since 12/2019, now in chronic A. fib/a flutter given Coumadin with Heparin bridge INR on discharge 2.1 resume usual coumain dose ff up with [facility] (6) Generalized weakness: Patient with complaints of generalized weakness and fatigue for several months -PT/OT eval (7) Elevated lipase: Reports some decreased appetite. Denies abdominal pain, nausea Lipase: 490 KUB XRAY:1. No evidence for a bowel obstruction. 2. Bilateral pleural effusions and bibasilar opacities better depicted on chest radiograph. GALLBLADDER US: 1. Gallbladder wall thickening is redemonstrated, most pronounced along the hepatic surface. Additionally, there is trace perihepatic ascites. The gallbladder wall thickening is likely secondary to edematous state versus hepatic disease and unlikely related to acute cholecystitis. 2. No cholelithiasis. 3. Unchanged mild dilation of the common bile duct. Lipase 400-500s no abdominal pain doubt acute pancreatitis (8) HTN (hypertension): Stable -Lisinopril was discontinued by Dr. Meeks -Monitor BP (9) Anxiety: Patient under increased stress with recent of her brother -Continue sertraline (10) Hypothyroidism: TSH: 3.1 -Continue levothyroxine (11) GERD (gastroesophageal reflux disease): -Continue PPI DVT Prophylaxis -On Coumadin Disposition: d/c home with home health services PCP ff up 05/29 [facility], Nephro, Hem/Onc ff up as scheduled Total Time Total Time Spent Total Time Spent (In Minutes): > 30 minutes Discharge Plan Discharge Items Patient Disposition: Home - Home Health Services Reason For Visit: CHF Discharge Diagnosis: CONGESTIVE HEART FAILURE, FLUID IN THE LUNGS Condition on Discharge: Good Activity: Resume your previous activity Activity Comment: GRADUALLY TOLERATED Lifting: Wait until after follow-up appointment Exercise/Sports: Wait until after follow-up appointment Driving/Machine Use: NO DRIVING Non-emergency contact: Primary Care Provider Call non-emergency contact if: you have any medication questions, your symptoms worsen and you have a fever Follow-up/Referrals: Golden Ohara DO [Staff Development Coordinator Rn] - 06/05/20 10:30 am Rosa Everett PA-C [Primary Care Provider] - 05/29/20 11:00 am (Date & Time 05/29/2020 11:00 AM Provider Dianna Lagunas DO Department [facility] ) Meena Matias MD [Physician] - 06/09/20 1:40 pm (Date & Time 06/09/2020 1:40 PM Provider [facility] Jennifer Ahuja MD [Hospitalist] - 05/31/20 12:30 pm Diet: Heart Healthy Fluids: 1200ml (5 cups) Addtl Attending Provider Instructions: PLEASE REVIEW YOUR NEW MEDICATION LIST AND FOLLOW INSTRUCTIONS CAREFULLY. INCREASE TORSEMIDE TO 20 MG DAILY. START ALDACTONE 12.5 MG DAILY. (DIURETIC) START POTASSIUM SUPPLEMENT 20 MEQ TWICE DAY. START MAGNESIUM 400 MG TWICE A DAY FOR 1 WEEK. CONTINUE USUAL COUMADIN DOSE. THE [facility] WILL CALL YOU SOON FOR ADVICE. CALL PRIMARY CARE PHYSICIAN OR CONVEX GRINDER, OR RETURN TO THE ER IMMEDIATELY IF WITH WORSENING OF SYMPTOMS, INCLUDING, SHORTNESS OF BREATH, LEG SWELLING, CHEST PAIN. FOLLOW UP WITH YOUR PRIMARY CARE PHYSICIAN AND SPECIALISTS NOTED ABOVE. HA MAXWELL: PRIMARY CARE PHYSICIAN DR. OHARA: [employer] BR[employer]ING [employer] DR. MATIAS: KIDNEY SPECIALIST DR. AHUJA: LARD MAKER/ONCOLOGIST Pending Studies at Discharge: Yes Studies:: REPEAT BLOODWORK ON FOLLOW UP WITH PRIMARY CARE PHYSICIAN CARDIAC MRI RESULTS OF CARDIAC AMYLOIDOSIS WORK UP Stand-Alone Forms: My [employer], Smoking Cessation Medications and DC Order Prescriptions: New spironolactone 25 mg Tablet 12.5 mg PO QAM Qty: 30 RF: 2 torsemide 20 mg Tablet 20 mg PO QAM Qty: 30 RF: 2 magnesium oxide 400 mg (241.3 mg magnesium) Tablet 400 mg PO BID Qty: 14 RF: 0 Continued cetirizine [Zyrtec] 10 mg Tablet 10 mg PO QAM RF: 0 levothyroxine 75 mcg Tablet 75 mcg PO QAM RF: 0 warfarin [Jantoven] 5 mg Tablet 5 mg PO .SUTUTH@QDD RF: 0 warfarin [Jantoven] 5 mg Tablet 2.5 mg PO .MOWEFRSA@QDD RF: 0 omeprazole 20 mg Capsule,Delayed Release(Dr/Ec) 20 mg PO QAM RF: 0 cranberry conc-ascorbic acid 4,200-20 mg Capsule 1 cap PO QAM RF: 0 metoprolol succinate 25 mg capsule,sprinkle,ER 24hr 25 mg PO BID RF: 0 sertraline 50 mg tablet 75 mg PO DAILY RF: 0 Changed potassium chloride [Klor-Con M20] 20 mEq tablet,ER particles/crystals 20 meq PO BID Qty: 0 RF: 0 Discontinued torsemide 20 mg Tablet 10 mg PO DAILY RF: 0 Discharge Orders: Discharge Order (Routine); Ordered 05/25/20 Ordered By: Eze Gomez Admission Data Admit Date/Time: 05/16/20 13:40 Attending Provider: Eze Gomez Admit Provider: Eze Gomez Primary Care Provider: Rosa Everett Other Providers: Eze Gomez ; Kee Tao ; Meena Matias ; Yvan Tirado ; Guillermo Lino ; Maia Gill Other Interventions: Discharge Summary Assessment (RN) Last Done: 05/25/20 12:56
== END 2020-05-25 14:25 | disposition home health service (06) | DRG 545 ==
LOC: ED 08:20 → SUATTDRO 13:40 → 2E 13:40